=== PATIENT | male | born 1945 | race Caucasian/White ===

== ENCOUNTER 2016-07-01 08:44 | Inpatient (IN) | payer MEDICARE, BC ==
[2016-07-01] MEDS ORDERED: Sodium Chloride 0.9% 2.5 ML Syringe FLUSH PRN ×2 (08:54→12:00)
[2016-07-01] MEDS ORDERED: Sodium Chloride 0.9% 10 ML Syringe FLUSH PRN ×2 (08:54→12:00)
[2016-07-01] MEDS ORDERED: Albuterol/Ipratropium 3.0-0.5 MG/3 ML Neb Soln NEB ONE (08:59)
[2016-07-01] MEDS ORDERED: Diphtheria,Pertussis(Acell),Tetanus Vaccine 0.5 ML Syringe IM ONE (09:05)
--- NOTE | 2016-07-01 09:16 | EDM.PDOC ---
<Yg JenniferJacqueline cerrato - Last Filed: 07/01/16 09:51> ED HPI Trauma - General Chief Complaint: Lower Extremity Injury/Pain Stated Complaint: UNK Time Seen by Provider: 07/01/16 08:48 Source: Reports: Patient History Limitations: Reports: No limitations - History of Present Illness INITIAL COMMENTS - FREE TEXT/NARRATIVE: Patient is a 70 year old male brought in by EMS who were called in to patient's home for inability to get out of his chair secondary to weakness and bilateral ankle pain that was so painful patient was unable to make it to the bathroom. In the ED patient voices he doesn't know what happened he was told he was hollering and screaming in pain because he couldn't get up. Voices bilaterally ankle pain and above the knee right leg pain he voices the pain as a 12 on a scale of 0-10. Patient has a superficial abrasion to right great toe of unknown cause says "I may have bumped it" Symptom Onset Date: 07/01/16 Occurred When: this morning Occurred Where: home Method of Injury: unknown Pain/Injury Location: Reports: lower extremity, right, lower extremity, left Consciousness: Reports: no loss of consciousness Associated Symptoms: Reports: no other symptoms Allergies/ADRs: Allergies ibuprofen Allergy (Verified 07/01/16 09:04) unknown lisinopril Allergy (Verified 07/01/16 09:04) unknown sulfamethoxazole [From Bactrim] Allergy (Verified 07/01/16 09:04) unknown trimethoprim [From Bactrim] Allergy (Verified 07/01/16 09:04) unknown Home Medications: Ambulatory Orders Allopurinol [Zyloprim] mg PO DAILY 07/01/16 Cinnamon Bark [Cinnamon] 2,000 mg PO DAILY 07/01/16 [Confirmed 07/01/16] Digoxin [Digox] 1 tab PO DAILY 07/01/16 [Confirmed 07/01/16] Famotidine 20 mg PO DAILY 07/01/16 [Confirmed 07/01/16] Furosemide [Lasix] 80 mg PO DAILY 07/01/16 [Confirmed 07/01/16] Gabapentin [Neurontin] 300 mg PO TID 07/01/16 [Confirmed 07/01/16] Irbesartan 75 mg PO DAILY 07/01/16 [Confirmed 07/01/16] Metoprolol Succinate [Toprol XL 50mg] 50 mg PO BID 07/01/16 [Confirmed 07/01/16] [place]-3S/DHA/Epa/Fish Oil [[place]-3 Fish Oil 1,000 mg Sfgl] 1 each PO DAILY 07/01 [Confirmed 07/01/16] Potassium Chloride 20 meq PO BID 07/01/16 [Confirmed 07/01/16] Pravastatin [Pravachol] 10 mg PO DAILY 07/01/16 [Confirmed 07/01/16] Prednisone [IJD: Prednisone] PO BID 07/01/16 Sennosides [Senna] 2 tab PO DAILY 07/01/16 [Confirmed 07/01/16] Spironolactone [Aldactone] 25 mg PO DAILY 07/01/16 [Confirmed 07/01/16] Venlafaxine [Effexor XR 24 Hr] 75 mg PO DAILY 07/01/16 [Confirmed 07/01/16] Warfarin [Coumadin] PO DAILY 07/01/16 metFORMIN [Glucophage XR] 07/01/16 [Confirmed 07/01/16] oxyCODONE ER [OxyCONTIN] 20 mg PO DAILY 07/01/16 [Confirmed 07/01/16] Past Medical History Cardiovascular History: Reports: CAD, Heart Failure, NV, Stents Respiratory History: Reports: COPD Other Musculoskeletal History: he has a history of abdominal hernias Neurological History: Reports: CVA Endocrine/Metabolic History: Reports: Diabetes, type II, Obesity/BMI 30+ Hematologic History: Reports: None Oncologic (Cancer) History: Reports: None - Past Surgical History Cardiovascular Surgical History: Reports: Coronary artery stent GI Surgical History: Reports: Hernia, abdominal, Hernia repair/other, Other ( see below) Other GI Surgeries/Procedures: Abdominal mesh placement Neurological Surgical History: Reports: Spinal fusion Musculoskeletal Surgical History: Reports: Other (see below) Other Musculoskeletal Surgeries/Procedures:: 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 Trauma Exam - Physical Exam Exam: See Below Text/Narrative:: Patient has audible wheezing and gurgling, on auscultation there is diminished breath sounds and some scattered rhonchi but good air exchange. Bilateral ankles are edematous and tender to touch right more swollen than left. Well healed scars noted on body. Exam Limited By: No limitations General Appearance: Reports: alert, WD/WN, no apparent distress Head: Reports: atraumatic, normocephalic Ears: Reports: normal external exam Nose: Reports: normal inspection Throat/Mouth: Reports: Normal inspection, Normal lips, Normal teeth, Normal gums , Normal oropharynx, Normal voice, No airway compromise Neck: Reports: non-tender, normal inspection Respiratory Exam: Reports: chest non-tender, decreased breath sounds ( diminished breath sounds throughout ), rhonchi (expiratory rhonchi), wheezing ( upper and lower lobes bilaterally) Cardiovascular: Reports: regular rate, rhythm, no JVD, no murmur, no rub GI/Abdominal: Reports: soft, non tender, distended, hernia (multiple abdominal hernia) (Male) Exam: Deferred Rectal (Males) Exam: Deferred Extremities: Reports: pedal edema, tenderness, unable to bear weight, other ( Superficial wound to RT great toe, toes are swollen and ecchymotic, also sscattered areas of ecchymosis on foot) Neurologic: Reports: normal mood/affect Skin: Reports: Other (bilateral lower extremities cool to touch) Course - Vital Signs Last Recorded V/S: Last Vital Signs Temp 36.7 C 07/01/16 11:24 Pulse 88 07/01/16 11:24 Resp 20 07/01/16 11:24 BP 115/58 L 07/01/16 11:24 Pulse Ox 94 L 07/01/16 11:24 - Orders/Labs/Meds Orders: Active Orders 24 hr Category Date Time Status Patient Status [ADT] Stat ADT 07/01/16 11:26 Ordered Cardiac Monitoring [RC] . DIRECTED Care 07/01/16 08:53 Active EKG Documentation Completion [RC] STAT Care 07/01/16 08:53 Active Oxygen Therapy, ED [RC] ASDIRECTED Care 07/01/16 08:53 Active Pulse Oximetry [RC] ASDIRECTED Care 07/01/16 08:53 Active RT Aerosol Therapy [RC] ASDIRECTED Care 07/01/16 08:59 Active Vaccines to be Administered [RC] PER UNIT ROUTINE Care 07/01/16 09:05 Active Ankle 2V Lt [CR] Stat Exams 07/01/16 08:54 Taken Ankle 2V Rt [CR] Stat Exams 07/01/16 08:54 Taken Chest 1V Frontal [CR] Stat Exams 07/01/16 08:54 Taken Foot 2V Rt [CR] Stat Exams 07/01/16 08:54 Taken CULTURE URINE [RM] Stat Lab 07/01/16 10:35 Received Piperacillin/Tazobactam [Piperacil-Tazobact] 3.375 gm Med 07/01/16 11:32 Ordered Sodium Chloride 0.9% [Normal Saline] 50 ml IV ONETIME Sodium Chloride 0.9% [Saline Flush] Med 07/01/16 08:54 Active 10 ml FLUSH ASDIRECTED PRN Sodium Chloride 0.9% [Saline Flush] Med 07/01/16 08:54 Active 2.5 ml FLUSH ASDIRECTED PRN Saline Lock Insert [OM.PC] Stat Oth 07/01/16 08:53 Ordered Medication Orders Piperacillin Sod/Tazobactam (Sod 3.375 gm/ Sodium Chloride) 50 mls @ 100 mls/ hr IV ONETIME ONE Stop: 07/01/16 12:01 Sodium Chloride (Saline Flush) 10 ml FLUSH ASDIRECTED PRN PRN Reason: Keep Vein Open Last Admin: 07/01/16 09:08 Dose: 10 ml Sodium Chloride (Saline Flush) 2.5 ml FLUSH ASDIRECTED PRN PRN Reason: Keep Vein Open Last Admin: 07/01/16 09:08 Dose: 2.5 ml Labs: Laboratory Tests 07/01/16 07/01/16 07/01/16 Range/Units 09:15 09:15 09:15 WBC 17.71 H (4.0-11.0) K/uL RBC 3.98 L (4.50-5.90) M/uL Hgb 12.0 L (13.0-17.0) g/dL Hct 37.5 L (38.0-50.0) % MCV 94.2 (80.0-98.0) fL MCH 30.2 (27.0-32.0) pg MCHC 32.0 (31.0-37.0) g/dL RDW Std Deviation 59.1 (28.0-62.0) fl RDW Coeff of [place] 17 H (11.0-15.0) % Plt Count 196 (150-400) K/uL MPV 10.10 (7.40-12.00) fL Neut % (Auto) 84.8 H (48.0-80.0) % Lymph % (Auto) 6.7 L (16.0-40.0) % Charles % (Auto) 8.0 (0.0-15.0) % Eos % (Auto) 0.3 (0.0-7.0) % Baso % (Auto) 0.2 (0.0-1.5) % Neut # 15.0 H (1.4-5.7) K/uL Lymph # 1.2 (0.6-2.4) K/uL Charles # 1.4 H (0.0-0.8) K/uL Eos # 0.1 (0.0-0.7) K/uL Baso # 0.0 (0.0-0.1) K/uL Nucleated RBC % 0.0 /100WBC Nucleated RBCs # 0 K/uL INR 3.95 H (0.86-1.11) Lactate 1.7 (0.20-2.00) mmol/L Sodium (136-146) mmol/L Potassium (3.5-5.1) mmol/L Chloride (98-110) mmol/L Carbon Dioxide (21-31) mmol/L BUN (6.0-23.0) mg/dL Creatinine (0.6-1.5) mg/dL Est Cr Clr Drug Dosing Estimated GFR (MDRD) ml/min Glucose (60-110) mg/dL Calcium (8.8-10.8) mg/dL Total Bilirubin (0.1-1.5) mg/dL AST (5-40) IU/L ALT (8-54) IU/L Alkaline Phosphatase (40-150) Troponin I (0.0-0.29) NG/ML B-Natriuretic Peptide (<100) PG/ML Total Protein (6.0-8.0) g/dL Albumin (3.4-4.8) g/dL Globulin (2.0-3.5) g/dL Albumin/Globulin Ratio (1.3-2.8) Urine Color Urine Appearance Urine pH (5.0-8.0) Ur Specific [place] (1.001-1.035) Urine Protein (NEGATIVE) mg/dL Urine Glucose (UA) (NEGATIVE) mg/dL Urine Ketones (NEGATIVE) mg/dL Urine Occult Blood (NEGATIVE) Urine Nitrite (NEGATIVE) Urine Bilirubin (NEGATIVE) Urine Urobilinogen (<2.0) EU/dL Ur Leukocyte Esterase (NEGATIVE) Urine RBC (0-2/HPF) Urine WBC (0-5/HPF) Ur Epithelial Cells (NONE-FEW) Urine Bacteria (NEGATIVE) Digoxin (0.8-2.0) ng/mL 07/01/16 07/01/16 07/01/16 Range/Units 09:15 09:15 09:15 WBC (4.0-11.0) K/uL RBC (4.50-5.90) M/uL Hgb (13.0-17.0) g/dL Hct (38.0-50.0) % MCV (80.0-98.0) fL MCH (27.0-32.0) pg MCHC (31.0-37.0) g/dL RDW Std Deviation (28.0-62.0) fl RDW Coeff of [place] (11.0-15.0) % Plt Count (150-400) K/uL MPV (7.40-12.00) fL Neut % (Auto) (48.0-80.0) % Lymph % (Auto) (16.0-40.0) % Charles % (Auto) (0.0-15.0) % Eos % (Auto) (0.0-7.0) % Baso % (Auto) (0.0-1.5) % Neut # (1.4-5.7) K/uL Lymph # (0.6-2.4) K/uL Charles # (0.0-0.8) K/uL Eos # (0.0-0.7) K/uL Baso # (0.0-0.1) K/uL Nucleated RBC % /100WBC Nucleated RBCs # K/uL INR (0.86-1.11) Lactate (0.20-2.00) mmol/L Sodium 135 L (136-146) mmol/L Potassium 4.5 (3.5-5.1) mmol/L Chloride 99 (98-110) mmol/L Carbon Dioxide 23 (21-31) mmol/L BUN 38 H (6.0-23.0) mg/dL Creatinine 1.6 H (0.6-1.5) mg/dL Est Cr Clr Drug Dosing TNP Estimated GFR (MDRD) 42.8 ml/min Glucose 154 H (60-110) mg/dL Calcium 8.7 L (8.8-10.8) mg/dL Total Bilirubin 0.7 (0.1-1.5) mg/dL AST 27 (5-40) IU/L ALT 20 (8-54) IU/L Alkaline Phosphatase 87 (40-150) Troponin I < 0.10 (0.0-0.29) NG/ML B-Natriuretic Peptide 229 H (<100) PG/ML Total Protein 6.6 (6.0-8.0) g/dL Albumin 3.1 L (3.4-4.8) g/dL Globulin 3.5 (2.0-3.5) g/dL Albumin/Globulin Ratio 0.9 L (1.3-2.8) Urine Color Urine Appearance Urine pH (5.0-8.0) Ur Specific [place] (1.001-1.035) Urine Protein (NEGATIVE) mg/dL Urine Glucose (UA) (NEGATIVE) mg/dL Urine Ketones (NEGATIVE) mg/dL Urine Occult Blood (NEGATIVE) Urine Nitrite (NEGATIVE) Urine Bilirubin (NEGATIVE) Urine Urobilinogen (<2.0) EU/dL Ur Leukocyte Esterase (NEGATIVE) Urine RBC (0-2/HPF) Urine WBC (0-5/HPF) Ur Epithelial Cells (NONE-FEW) Urine Bacteria (NEGATIVE) Digoxin 1.45 (0.8-2.0) ng/mL 07/01/16 Range/Units 10:35 WBC (4.0-11.0) K/uL RBC (4.50-5.90) M/uL Hgb (13.0-17.0) g/dL Hct (38.0-50.0) % MCV (80.0-98.0) fL MCH (27.0-32.0) pg MCHC (31.0-37.0) g/dL RDW Std Deviation (28.0-62.0) fl RDW Coeff of [place] (11.0-15.0) % Plt Count (150-400) K/uL MPV (7.40-12.00) fL Neut % (Auto) (48.0-80.0) % Lymph % (Auto) (16.0-40.0) % Charles % (Auto) (0.0-15.0) % Eos % (Auto) (0.0-7.0) % Baso % (Auto) (0.0-1.5) % Neut # (1.4-5.7) K/uL Lymph # (0.6-2.4) K/uL Charles # (0.0-0.8) K/uL Eos # (0.0-0.7) K/uL Baso # (0.0-0.1) K/uL Nucleated RBC % /100WBC Nucleated RBCs # K/uL INR (0.86-1.11) Lactate (0.20-2.00) mmol/L Sodium (136-146) mmol/L Potassium (3.5-5.1) mmol/L Chloride (98-110) mmol/L Carbon Dioxide (21-31) mmol/L BUN (6.0-23.0) mg/dL Creatinine (0.6-1.5) mg/dL Est Cr Clr Drug Dosing Estimated GFR (MDRD) ml/min Glucose (60-110) mg/dL Calcium (8.8-10.8) mg/dL Total Bilirubin (0.1-1.5) mg/dL AST (5-40) IU/L ALT (8-54) IU/L Alkaline Phosphatase (40-150) Troponin I (0.0-0.29) NG/ML B-Natriuretic Peptide (<100) PG/ML Total Protein (6.0-8.0) g/dL Albumin (3.4-4.8) g/dL Globulin (2.0-3.5) g/dL Albumin/Globulin Ratio (1.3-2.8) Urine Color YELLOW Urine Appearance CLEAR Urine pH 5.0 (5.0-8.0) Ur Specific [place] 1.010 (1.001-1.035) Urine Protein NEGATIVE (NEGATIVE) mg/dL Urine Glucose (UA) NEGATIVE (NEGATIVE) mg/dL Urine Ketones NEGATIVE (NEGATIVE) mg/dL Urine Occult Blood SMALL H (NEGATIVE) Urine Nitrite NEGATIVE (NEGATIVE) Urine Bilirubin NEGATIVE (NEGATIVE) Urine Urobilinogen 0.2 (<2.0) EU/dL Ur Leukocyte Esterase NEGATIVE (NEGATIVE) Urine RBC 2-3 (0-2/HPF) Urine WBC 0-2 (0-5/HPF) Ur Epithelial Cells FEW (NONE-FEW) Urine Bacteria FEW (NEGATIVE) Digoxin (0.8-2.0) ng/mL Meds: Medications Generic Name Dose Route Start Last Admin Trade Name Freq PRN Reason Stop Dose Admin Piperacillin Sod/Tazobactam 50 mls @ 100 mls/hr 07/01/16 11:32 Sod 3.375 gm/ Sodium Chloride IV 07/01/16 12:01 ONETIME ONE Sodium Chloride 10 ml 07/01/16 08:54 07/01/16 09:08 Saline Flush FLUSH 10 ml ASDIRECTED PRN Administration Keep Vein Open Sodium Chloride 2.5 ml 07/01/16 08:54 07/01/16 09:08 Saline Flush FLUSH 2.5 ml ASDIRECTED PRN Administration Keep Vein Open Discontinued Medications Generic Name Dose Route Start Last Admin Trade Name Freq PRN Reason Stop Dose Admin Albuterol/Ipratropium 3 ml 07/01/16 08:59 07/01/16 09:45 Duoneb 3.0-0.5 Mg/3 Ml NEB 07/01/16 09:00 3 ml ONETIME ONE Administration Diphtheria/Tetanus/Acell Pertussis 0.5 ml 07/01/16 09:05 07/01/16 09:14 Adacel IM 07/01/16 09:06 0.5 ml .ONCE ONE Administration Furosemide 80 mg 07/01/16 11:32 Lasix IVPUSH 07/01/16 11:33 NOW ONE Departure - Departure Disposition: Admitted As Inpatient 65 Clinical Impression: Toe infection, Unable to ambulate CHF exacerbation Qualifiers: Congestive heart failure type: unspecified congestive heart failure type Qualified Code(s): I50.9 - Heart failure, unspecified Forms: ED Department Discharge - My Orders Last 24 Hours: My Active Orders 07/01/16 08:53 Cardiac Monitoring [RC] . DIRECTED EKG Documentation Completion [RC] STAT Oxygen Therapy, ED [RC] ASDIRECTED Pulse Oximetry [RC] ASDIRECTED Saline Lock Insert [OM.PC] Stat 07/01/16 08:54 Ankle 2V Lt [CR] Stat Ankle 2V Rt [CR] Stat Chest 1V Frontal [CR] Stat Foot 2V Rt [CR] Stat Sodium Chloride 0.9% [Saline Flush] 10 ml FLUSH ASDIRECTED PRN Sodium Chloride 0.9% [Saline Flush] 2.5 ml FLUSH ASDIRECTED PRN 07/01/16 08:59 RT Aerosol Therapy [RC] ASDIRECTED 07/01/16 09:05 Vaccines to be Administered [RC] PER UNIT ROUTINE 07/01/16 10:35 CULTURE URINE [RM] Stat 07/01/16 11:26 Patient Status [ADT] Stat 07/01/16 11:32 Piperacillin/Tazobactam [Piperacil-Tazobact] 3.375 gm Sodium Chloride 0.9% [ Normal Saline] 50 ml IV ONETIME - Assessment/Plan Last 24 Hours: My Active Orders 07/01/16 08:53 Cardiac Monitoring [RC] . DIRECTED EKG Documentation Completion [RC] STAT Oxygen Therapy, ED [RC] ASDIRECTED Pulse Oximetry [RC] ASDIRECTED Saline Lock Insert [OM.PC] Stat 07/01/16 08:54 Ankle 2V Lt [CR] Stat Ankle 2V Rt [CR] Stat Chest 1V Frontal [CR] Stat Foot 2V Rt [CR] Stat Sodium Chloride 0.9% [Saline Flush] 10 ml FLUSH ASDIRECTED PRN Sodium Chloride 0.9% [Saline Flush] 2.5 ml FLUSH ASDIRECTED PRN 07/01/16 08:59 RT Aerosol Therapy [RC] ASDIRECTED 07/01/16 09:05 Vaccines to be Administered [RC] PER UNIT ROUTINE 07/01/16 10:35 CULTURE URINE [RM] Stat 07/01/16 11:26 Patient Status [ADT] Stat 07/01/16 11:32 Piperacillin/Tazobactam [Piperacil-Tazobact] 3.375 gm Sodium Chloride 0.9% [ Normal Saline] 50 ml IV ONETIME <Andreea Blas - Last Filed: 07/01/16 11:35> ED HPI Trauma - History of Present Illness INITIAL COMMENTS - FREE TEXT/NARRATIVE: This is Dr. Blas dictating an addendum note as a supervising physician on this case I personally seen and evaluated this patient and I agree with the above notes. The patient sounds audibly gurgly and wheezy but when you listen to his lungs he has diminished breath sounds some scattered rhonchi and coarse breath sounds as well as some scattered rales but is moving air relatively well and has no work or breathing. His abdomen is globular and has multiple abdominal ventral wall hernias all of which are soft and some old scars that are well-healed. It is noted that his right great toe has a superficial wound on it of unclear age and the entire toe is swollen and ecchymotic and there is scattered areas of ecchymosis on the foot. There is soft tissue swelling bilaterally of the feet ankles and lower legs but is not grossly pitting. The right foot and great toe are more swollen than the left and there is tenderness and pain throughout the soft tissue area. It is difficult to evaluate the bony ankle due to the amount of soft tissue swelling. I agree with the above workup and in light of the patient's inability to get up and ambulate either secondary to the edema or the pain will likely look to admit the patient. Nursing tells me that when they try to get the patient up to go to a commode he declined even trying because of the discomfort in his bilateral ankles and legs. Due to this patient's inability to weight-bear and has chronic lower extremity edema with the new fracture of his right toe and mild CHF will plan on admission to the hospital. The WBC of 17.7 has been noted but a normal lactic acid has been noted. I will discuss this case with the hospitalist [id number]: As discussed with ; he will come to see the patient in the ER and admit the patient [id number]: Dr Diaz wants to give a dose of Lasix 80 mg IV push and Zosyn as he feels that the toe wound may be or central source of his WBC count. We will admit to telemetry as an inpatient. Diagnosis: Inability to ambulate, bilateral leg and foot pain with new right toe fracture; exacerbation of CHF; leukocytosis rule out toe infection Departure - Departure Time of Disposition: 11:35 Condition: good
[2016-07-01 09:55] LABS: CHLORIDE,CL 99 mmol/L (98-110); SODIUM,NA 135 mmol/L (136-146)
[2016-07-01] MEDS ORDERED: Piperacillin/Tazobactam 3.375 GM in Sodium Chloride 0.9% 50 ML IV ONE (11:32)
[2016-07-01] MEDS ORDERED: Furosemide 40 MG/4 ML VIAL IVPUSH ONE (11:32)
[2016-07-01] MEDS ORDERED: Bisacodyl 5 MG Tab PO PRN (11:57)
[2016-07-01] MEDS ORDERED: Temazepam 15 MG Cap PO PRN (11:57)
[2016-07-01] MEDS ORDERED: Ondansetron 4 MG/2 ML SDV IVPUSH PRN (11:57)
--- NOTE | 2016-07-01 12:08 | PCM.HP ---
H&P History of Present Illness - General Date of Service: 07/01/16 Source of Information: Patient, Family, Provider, RN - History of Present Illness Initial Comments - Free Text/Narative: He presented today to our ED with complaint of inability to stand up. He had urinary incontinence related to inability to ambulate to the toilet. HE notes intermittent chronic dyspnea and wheezing He was diagnosed in the ED with a fracture of the right great toe. He has pain in the right knee since he fell to his right knee at home right foot and knee Pain Score (Numeric/FACES): 10 - Related Data Allergies/Adverse Reactions: Allergies Allergy/AdvReac Type Severity Reaction Status Date / Time ibuprofen Allergy unknown Verified 07/01/16 09:04 lisinopril Allergy unknown Verified 07/01/16 09:04 sulfamethoxazole Allergy unknown Verified 07/01/16 09:04 [From Bactrim] trimethoprim [From Bactrim] Allergy unknown Verified 07/01/16 09:04 Home Medications: Home Meds Allopurinol [Zyloprim] mg PO DAILY 07/01/16 [History] Cinnamon Bark [Cinnamon] 2,000 mg PO DAILY 07/01/16 [History] Digoxin [Digox] 1 tab PO DAILY 07/01/16 [History] Famotidine 20 mg PO DAILY 07/01/16 [History] Furosemide [Lasix] 80 mg PO DAILY 07/01/16 [History] Gabapentin [Neurontin] 300 mg PO TID 07/01/16 [History] Irbesartan 75 mg PO DAILY 07/01/16 [History] Metoprolol Succinate [Toprol XL 50mg] 50 mg PO BID 07/01/16 [History] [place]-3S/DHA/Epa/Fish Oil [[place]-3 Fish Oil 1,000 mg Sfgl] 1 each PO DAILY 07/01 [History] Potassium Chloride 20 meq PO BID 07/01/16 [History] Pravastatin [Pravachol] 10 mg PO DAILY 07/01/16 [History] Prednisone [IJD: Prednisone] PO BID 07/01/16 [History] Sennosides [Senna] 2 tab PO DAILY 07/01/16 [History] Spironolactone [Aldactone] 25 mg PO DAILY 07/01/16 [History] Venlafaxine [Effexor XR 24 Hr] 75 mg PO DAILY 07/01/16 [History] Warfarin [Coumadin] PO DAILY 07/01/16 [History] metFORMIN [Glucophage XR] 07/01/16 [History] oxyCODONE ER [OxyCONTIN] 20 mg PO DAILY 07/01/16 [History] Past Medical History Cardiovascular History: Reports: CAD, Heart Failure, [place], Stents Respiratory History: Reports: COPD Gastrointestinal History: Denies: Cirrhosis Other Musculoskeletal History: he has a history of abdominal hernias Neurological History: Reports: CVA, Other (see below) (chronic dementia) Endocrine/Metabolic History: Reports: Diabetes, type II, Obesity/BMI 30+ Hematologic History: Reports: None Oncologic (Cancer) History: Reports: None - Past Surgical History Cardiovascular Surgical History: Reports: Coronary artery stent GI Surgical History: Reports: Hernia, abdominal, Hernia repair/other, Other ( see below) Other GI Surgeries/Procedures: Abdominal mesh placement Neurological Surgical History: Reports: Spinal fusion Musculoskeletal Surgical History: Reports: Other (see below) Other Musculoskeletal Surgeries/Procedures:: 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 Denies: fever HEENT: Denies: sore throat Pulmonary: Reports: shortness of breath, cough Cardiovascular: Denies: chest pain, palpitations Gastrointestinal: Reports: Abdominal pain (chronic mild abdominal pain which he relates to prior abdominal hernias with mesh placement.). Denies: Black stool, Hematemesis, Hematochezia, Nausea Genitourinary: Denies: dysuria, hematuria Skin: Denies: cyanosis Psychiatric: Reports: confusion (memory problems) Exam - Exam Exam: See Below - Vital Signs Vital Signs: Last Vital Signs Temp 98.0 F 07/01/16 11:24 Pulse 88 07/01/16 11:24 Resp 20 07/01/16 11:24 BP 115/58 L 07/01/16 11:24 Pulse Ox 94 L 07/01/16 11:24 Weight: 128 kg - Exam General: alert. No: oriented (he is confused as to when he quit smoking; stating that it was 3 years ago. His significant other states that he quit 30 years ago. ) HEENT: Conjunctiva clear Neck: trachea midline Lungs: Rhonchi, Wheezing Cardiovascular: regular rate, regular rhythm Abdomen: soft. No: distention, guarding, tenderness Rectal (Males) Exam: Deferred Extremities: edema (three plus pitting LE edema), other (open area distal right great toe with increase in surrounding erythema and swelling and tenderness) Neurological: cranial nerves intact, normal speech Neuro Extensive - Motor, Sensory, Reflexes: No: normal gait (he states that he cannot bear weight) Psychiatric: No: agitated - Patient Data Result Diagrams: 07/01/16 09:15 07/01/16 09:15 *Q Meaningful Use (ADM) - VTE *Q VTE Criteria *Q: - Stroke *Q Stroke Criteria *Q: - AMI *Q AMI Criteria *Q: - Problem List (1) Leukocytosis SNOMED Code(s): 029630669, 543604533 ICD Code: D72.829 - ELEVATED WHITE BLOOD CELL COUNT, UNSPECIFIED Status: Acute Current Visit: Yes (2) Fracture of toe of right foot SNOMED Code(s): 64006241 ICD Code: S92.911A - UNSP FRACTURE OF RIGHT TOE(S), INIT FOR CLOS FX Status : Acute Current Visit: Yes (3) Diabetes mellitus SNOMED Code(s): 39658797 ICD Code: E11.9 - TYPE 2 DIABETES MELLITUS WITHOUT COMPLICATIONS Status: Acute Current Visit: Yes (4) CHF exacerbation SNOMED Code(s): 72535226 ICD Code: I50.9 - HEART FAILURE, UNSPECIFIED Status: Acute Current Visit : Yes Qualifiers: Congestive heart failure type: unspecified congestive heart failure type Qualified Code(s): I50.9 - Heart failure, unspecified (5) Toe infection SNOMED Code(s): 061247978 ICD Code: L08.9 - LOCAL INFECTION OF THE SKIN AND SUBCUTANEOUS TISSUE, UNSP Status: Acute Current Visit: Yes (6) COPD (chronic obstructive pulmonary disease) SNOMED Code(s): 07546970 ICD Code: J44.9 - CHRONIC OBSTRUCTIVE PULMONARY DISEASE, UNSPECIFIED Status : Chronic Current Visit: No Qualifiers: COPD type: unspecified COPD Qualified Code(s): J44.9 - Chronic obstructive pulmonary disease, unspecified Problem List Initiated/Reviewed/Updated: Yes Orders Last 24hrs: Active Orders 24 hr Category Date Time Status Blood Glucose Check, Bedside [RC] QIDACANDBED Care 07/01/16 11:57 Ordered Oxygen Therapy [RC] PRN Care 07/01/16 11:57 Ordered RT Aerosol Therapy [RC] ASDIRECTED Care 07/01/16 12:00 Ordered VTE/DVT Education [RC] PER UNIT ROUTINE Care 07/01/16 11:57 Ordered Vital Signs [RC] Q4H Care 07/01/16 11:57 Ordered [employer] Diet [DIET] Diet 07/01/16 Dinner Ordered Foot w Cont Rt [MR] Routine Exams 07/01/16 12:02 Ordered B-TYPE NATRIURETIC PEPTIDE,BNP [CHEM] AM Lab 07/02/16 05:11 Ordered BASIC METABOLIC PANEL,BMP [CHEM] AM Lab 07/02/16 05:11 Ordered BASIC METABOLIC PANEL,BMP [CHEM] AM Lab 07/03/16 05:11 Ordered BASIC METABOLIC PANEL,BMP [CHEM] AM Lab 07/04/16 05:11 Ordered CBC WITH AUTO DIFF [HEME] AM Lab 07/02/16 05:11 Ordered CBC WITH AUTO DIFF [HEME] AM Lab 07/03/16 05:11 Ordered CBC WITH AUTO DIFF [HEME] AM Lab 07/04/16 05:11 Ordered CULTURE BLOOD [BC] Stat Lab 07/01/16 11:49 Ordered CULTURE BLOOD [BC] Stat Lab 07/01/16 11:49 Ordered INR,PT,PROTHROMBIN TIME [COAG] AM Lab 07/02/16 05:11 Ordered INR,PT,PROTHROMBIN TIME [COAG] AM Lab 07/03/16 05:11 Ordered INR,PT,PROTHROMBIN TIME [COAG] AM Lab 07/04/16 05:11 Ordered INR,PT,PROTHROMBIN TIME [COAG] AM Lab 07/05/16 05:11 Ordered MAGNESIUM [CHEM] AM Lab 07/02/16 05:11 Ordered MAGNESIUM [CHEM] AM Lab 07/03/16 05:11 Ordered MAGNESIUM [CHEM] AM Lab 07/04/16 05:11 Ordered Albuterol/Ipratropium [DuoNeb 3.0-0.5 MG/3 ML] Med 07/01/16 14:00 Ordered 3 ml NEB Q4HRRT Allopurinol [Zyloprim] Med 07/02/16 09:00 Ordered 100 mg PO DAILY Bisacodyl [Dulcolax] Med 07/01/16 11:57 Ordered 5 mg PO DAILY PRN Digoxin [Lanoxin] Med 07/02/16 09:00 Ordered 1 tab PO DAILY Famotidine [Pepcid] Med 07/02/16 09:00 Ordered 20 mg PO DAILY Furosemide [Lasix] Med 07/02/16 09:00 Ordered 80 mg PO DAILY Gabapentin [Neurontin] Med 07/01/16 14:00 Ordered 300 mg PO TID Insulin Aspart [NovoLOG] Med 07/01/16 12:15 Ordered See Protocol SUBCUT ACBED Irbesartan [Irbesartan] Med 07/01/16 12:00 Ordered 75 mg PO DAILY Metoprolol Succinate [Toprol XL] Med 07/01/16 21:00 Ordered 50 mg PO BID [place]-3S/DHA/Epa/Fish Oil [[place]-3 Fish Oil 1,000 mg Med 07/02/16 09:00 Ordered Sfgl] 1 each PO DAILY Ondansetron [Zofran] Med 07/01/16 11:57 Ordered 4 mg IVPUSH Q4H PRN Piperacillin/Tazobactam [Piperacil-Tazobact] 3.375 gm Med 07/01/16 18:00 Ordered Sodium Chloride 0.9% [Normal Saline] 50 ml IV Q6H Potassium Chloride [Klor-Con] Med 07/01/16 21:00 Ordered 20 meq PO BID Pravastatin [Pravachol] Med 07/02/16 09:00 Ordered 10 mg PO DAILY Sennosides [Senna] Med 07/02/16 09:00 Ordered 2 tab PO DAILY Sodium Chloride 0.9% [Saline Flush] Med 07/01/16 12:00 Ordered 10 ml FLUSH ASDIRECTED PRN Sodium Chloride 0.9% [Saline Flush] Med 07/01/16 12:00 Ordered 2.5 ml FLUSH ASDIRECTED PRN Spironolactone [Aldactone] Med 07/02/16 09:00 Ordered 25 mg PO DAILY Temazepam [Restoril] Med 07/01/16 11:57 Ordered 15 mg PO BEDTIME PRN Vancomycin Pharmacy to Dose [Pharmacy to Dose - Med 07/01/16 12:00 Ordered Vancomycin] 1 dose .XX ASDIRECTED Venlafaxine [Effexor XR] Med 07/02/16 09:00 Ordered 75 mg PO DAILY oxyCODONE ER [OxyCONTIN] Med 07/01/16 11:50 Ordered 20 mg PO BID PRN predniSONE Med 07/01/16 21:00 Unverified DOSE UNIT RTE FREQ Blood Culture x2 Reflex Set [OM.PC] Stat Oth 07/01/16 11:49 Ordered Convert IV to Saline Lock [OM.PC] Urgent Oth 07/01/16 12:00 Ordered Resuscitation Status Routine Resus Stat 07/01/16 11:57 Ordered Medication Orders Allopurinol (Zyloprim) 100 mg PO DAILY [facility] Digoxin (Lanoxin) 125 mcg PO DAILY [facility] Famotidine (Pepcid) 20 mg PO DAILY [facility] Fish Oil (Fish Oil) 1 gm PO DAILY [facility] Furosemide (Lasix) 80 mg PO DAILY [facility] Gabapentin (Neurontin) 300 mg PO TID [facility] Piperacillin Sod/Tazobactam (Sod 3.375 gm/ Sodium Chloride) 50 mls @ 100 mls/ hr IV Q6H [facility] Irbesartan (Avapro) 75 mg PO DAILY [facility] Metoprolol Succinate (Toprol Xl) 50 mg PO BID [facility] Non-Formulary Medication (Pravastatin [Pravachol]) 10 mg PO DAILY [facility] Oxycodone HCl (Oxycontin) 20 mg PO BID PRN PRN Reason: Pain Potassium Chloride (Klor-Con) 20 meq PO BID [facility] Senna (Senna) mg PO DAILY [facility] Sodium Chloride (Saline Flush) 10 ml FLUSH ASDIRECTED PRN PRN Reason: Keep Vein Open Last Admin: 07/01/16 09:08 Dose: 10 ml Sodium Chloride (Saline Flush) 2.5 ml FLUSH ASDIRECTED PRN PRN Reason: Keep Vein Open Last Admin: 07/01/16 09:08 Dose: 2.5 ml Spironolactone (Aldactone) 25 mg PO DAILY [facility] Vancomycin HCl (Pharmacy To Dose - Vancomycin) 1 dose .XX ASDIRECTED [facility] Venlafaxine HCl (Effexor Xr) 75 mg PO DAILY [facility] Assessment/Plan Comment:: admit see orders Lee Diaz MD
[2016-07-01] MEDS ORDERED: LORazepam 2 MG/ML MDV IVPUSH PRN (12:14)
[2016-07-01] MEDS: Irbesartan 150 MG Tab PO SCH (12:51)
[2016-07-01] MEDS: Insulin Aspart 100 Units/ML 3 ML Pen SUBCUT SCH ×3 (12:58→20:59)
[2016-07-01] MEDS: Gabapentin 300 MG Cap PO SCH ×2 (13:01→22:06)
[2016-07-01] MEDS: Albuterol/Ipratropium 3.0-0.5 MG/3 ML Neb Soln NEB SCH ×3 (14:02→21:19)
[2016-07-01] MEDS ORDERED: Piperacillin/Tazobactam 3.375 GM in Sodium Chloride 0.9% 50 ML IV SCH (18:00)
[2016-07-01] MEDS: oxyCODONE ER 20 MG TAB.ER PO PRN (20:37)
[2016-07-01] MEDS: Metoprolol Succinate 50 MG Tab.ER PO SCH (20:40)
[2016-07-01] MEDS: Potassium Chloride 20 MEQ Packet PO SCH (20:47)
[2016-07-01] MEDS: Piperacillin/Tazobactam 3.375 GM in Sodium Chloride 0.9% 50 ML IV SCH (22:06)
[2016-07-02] MEDS: Albuterol/Ipratropium 3.0-0.5 MG/3 ML Neb Soln NEB SCH ×6 (02:27→21:02)
[2016-07-02] MEDS: Piperacillin/Tazobactam 3.375 GM in Sodium Chloride 0.9% 50 ML IV SCH ×4 (04:14→21:16)
[2016-07-02] MEDS: Gabapentin 300 MG Cap PO SCH ×3 (06:10→21:13)
[2016-07-02 07:12] LABS: CHLORIDE,CL 104 mmol/L (98-110); SODIUM,NA 140 mmol/L (136-146)
[2016-07-02] MEDS: Insulin Aspart 100 Units/ML 3 ML Pen SUBCUT SCH ×4 (07:35→21:24)
[2016-07-02] MEDS: Furosemide 80 MG Tab PO SCH (08:39)
[2016-07-02] MEDS: Sennosides 8.6 MG Tab PO SCH (08:39)
[2016-07-02] MEDS: Allopurinol 100 MG Tab PO SCH (08:39)
[2016-07-02] MEDS: Famotidine 20 MG Tab PO SCH (08:40)
[2016-07-02] MEDS: Fish Oil/Omega-3 Fatty Acids 1 Gm Cap PO SCH (08:40)
[2016-07-02] MEDS: Potassium Chloride 20 MEQ Packet PO SCH ×2 (08:41→20:44)
[2016-07-02] MEDS: Pravastatin 40 MG Tab PO SCH (08:42)
[2016-07-02] MEDS: Venlafaxine 75 MG Cap.ER PO SCH (08:42)
[2016-07-02] MEDS: Spironolactone 25 MG Tab PO SCH (08:42)
[2016-07-02] MEDS: Irbesartan 150 MG Tab PO SCH (08:54)
[2016-07-02] MEDS: Digoxin 125 MCG Tab PO SCH (08:54)
[2016-07-02] MEDS: Metoprolol Succinate 50 MG Tab.ER PO SCH ×2 (08:56→20:44)
--- NOTE | 2016-07-02 12:37 | PCM.PN ---
- General Info Date of Service: 07/02/16 - Review of Systems Systems Review Comment:: he feels that he is improving - Patient Data Vitals - most recent: Last Vital Signs Temp 98.4 F 07/02/16 08:00 Pulse 101 H 07/02/16 08:56 Resp 18 07/02/16 08:53 BP 119/79 07/02/16 08:56 Pulse Ox 91 L 07/02/16 08:53 Weight - most recent: 128 kg I&O - last 24 hours: Intake & Output 07/01/16 07/02/16 07/02/16 22:59 06:59 14:59 Intake Total 500 1500 Output Total 500 1450 Balance 0 50 Lab Results last 24 hrs: Laboratory Results - last 24 hr 07/01/16 07/01/16 07/01/16 Range/Units 12:48 16:36 20:58 WBC (4.0-11.0) K/uL RBC (4.50-5.90) M/uL Hgb (13.0-17.0) g/dL Hct (38.0-50.0) % MCV (80.0-98.0) fL MCH (27.0-32.0) pg MCHC (31.0-37.0) g/dL RDW Std Deviation (28.0-62.0) fl RDW Coeff of [place] (11.0-15.0) % Plt Count (150-400) K/uL MPV (7.40-12.00) fL Add Manual Diff Neutrophils % (Manual) (48.0-80.0) % Band Neutrophils % % Lymphocytes % (Manual) (16.0-40.0) % Atypical Lymphs % Basophils % (Manual) (0.0-1.5) % Absolute Seg Neuts Band Neutrophils # Lymphocytes # (Manual) Basophils # (Manual) INR (0.86-1.11) Sodium (136-146) mmol/L Potassium (3.5-5.1) mmol/L Chloride (98-110) mmol/L Carbon Dioxide (21-31) mmol/L BUN (6.0-23.0) mg/dL Creatinine (0.6-1.5) mg/dL Est Cr Clr Drug Dosing Estimated GFR (MDRD) ml/min Glucose (60-110) mg/dL POC Glucose 178 H 153 H 128 H (60-110) mg/dL Calcium (8.8-10.8) mg/dL Magnesium (1.5-2.3) mEq/L B-Natriuretic Peptide (<100) PG/ML 07/02/16 07/02/16 07/02/16 Range/Units 05:11 05:40 05:40 WBC 15.43 H (4.0-11.0) K/uL RBC 3.48 L (4.50-5.90) M/uL Hgb 10.7 L (13.0-17.0) g/dL Hct 33.5 L (38.0-50.0) % MCV 96.3 (80.0-98.0) fL MCH 30.7 (27.0-32.0) pg MCHC 31.9 (31.0-37.0) g/dL RDW Std Deviation 56.8 (28.0-62.0) fl RDW Coeff of [place] 17 H (11.0-15.0) % Plt Count 207 (150-400) K/uL MPV 9.90 (7.40-12.00) fL Add Manual Diff YES Neutrophils % (Manual) 78 (48.0-80.0) % Band Neutrophils % 7 % Lymphocytes % (Manual) 12 L (16.0-40.0) % Atypical Lymphs % 1 Basophils % (Manual) 2 H (0.0-1.5) % Absolute Seg Neuts 12.0 Band Neutrophils # 1.1 Lymphocytes # (Manual) 1.9 Basophils # (Manual) 0 INR 5.03 H (0.86-1.11) Sodium 140 (136-146) mmol/L Potassium 4.2 (3.5-5.1) mmol/L Chloride 104 (98-110) mmol/L Carbon Dioxide 23 (21-31) mmol/L BUN 41 H (6.0-23.0) mg/dL Creatinine 1.6 H (0.6-1.5) mg/dL Est Cr Clr Drug Dosing TNP Estimated GFR (MDRD) 42.8 ml/min Glucose 145 H (60-110) mg/dL POC Glucose (60-110) mg/dL Calcium 7.7 L (8.8-10.8) mg/dL Magnesium 1.4 L (1.5-2.3) mEq/L B-Natriuretic Peptide (<100) PG/ML 07/02/16 07/02/16 07/02/16 Range/Units 05:40 06:12 11:24 WBC (4.0-11.0) K/uL RBC (4.50-5.90) M/uL Hgb (13.0-17.0) g/dL Hct (38.0-50.0) % MCV (80.0-98.0) fL MCH (27.0-32.0) pg MCHC (31.0-37.0) g/dL RDW Std Deviation (28.0-62.0) fl RDW Coeff of [place] (11.0-15.0) % Plt Count (150-400) K/uL MPV (7.40-12.00) fL Add Manual Diff Neutrophils % (Manual) (48.0-80.0) % Band Neutrophils % % Lymphocytes % (Manual) (16.0-40.0) % Atypical Lymphs % Basophils % (Manual) (0.0-1.5) % Absolute Seg Neuts Band Neutrophils # Lymphocytes # (Manual) Basophils # (Manual) INR (0.86-1.11) Sodium (136-146) mmol/L Potassium (3.5-5.1) mmol/L Chloride (98-110) mmol/L Carbon Dioxide (21-31) mmol/L BUN (6.0-23.0) mg/dL Creatinine (0.6-1.5) mg/dL Est Cr Clr Drug Dosing Estimated GFR (MDRD) ml/min Glucose (60-110) mg/dL POC Glucose 140 H 198 H (60-110) mg/dL Calcium (8.8-10.8) mg/dL Magnesium (1.5-2.3) mEq/L B-Natriuretic Peptide 212 H (<100) PG/ML 07/02/16 Range/Units 12:00 WBC (4.0-11.0) K/uL RBC (4.50-5.90) M/uL Hgb (13.0-17.0) g/dL Hct (38.0-50.0) % MCV (80.0-98.0) fL MCH (27.0-32.0) pg MCHC (31.0-37.0) g/dL RDW Std Deviation (28.0-62.0) fl RDW Coeff of [place] (11.0-15.0) % Plt Count (150-400) K/uL MPV (7.40-12.00) fL Add Manual Diff Neutrophils % (Manual) (48.0-80.0) % Band Neutrophils % % Lymphocytes % (Manual) (16.0-40.0) % Atypical Lymphs % Basophils % (Manual) (0.0-1.5) % Absolute Seg Neuts Band Neutrophils # Lymphocytes # (Manual) Basophils # (Manual) INR (0.86-1.11) Sodium (136-146) mmol/L Potassium (3.5-5.1) mmol/L Chloride (98-110) mmol/L Carbon Dioxide (21-31) mmol/L BUN (6.0-23.0) mg/dL Creatinine (0.6-1.5) mg/dL Est Cr Clr Drug Dosing Estimated GFR (MDRD) ml/min Glucose (60-110) mg/dL POC Glucose 192 H (60-110) mg/dL Calcium (8.8-10.8) mg/dL Magnesium (1.5-2.3) mEq/L B-Natriuretic Peptide (<100) PG/ML Med Orders - Current: Current Medications Albuterol/Ipratropium (Duoneb 3.0-0.5 Mg/3 Ml) 3 ml NEB Q4HRRT [facility] Last Admin: 07/02/16 09:50 Dose: 3 ml Allopurinol (Zyloprim) 100 mg PO DAILY [facility] Last Admin: 07/02/16 08:39 Dose: 100 mg Bisacodyl (Dulcolax) 5 mg PO DAILY PRN PRN Reason: Constipation Digoxin (Lanoxin) 125 mcg PO DAILY [facility] Last Admin: 07/02/16 08:54 Dose: 125 mcg Famotidine (Pepcid) 20 mg PO DAILY [facility] Last Admin: 07/02/16 08:40 Dose: 20 mg Fish Oil (Fish Oil) 1 gm PO DAILY [facility] Last Admin: 07/02/16 08:40 Dose: 1 gm Furosemide (Lasix) 80 mg PO DAILY [facility] Last Admin: 07/02/16 08:39 Dose: 80 mg Gabapentin (Neurontin) 300 mg PO TID [facility] Last Admin: 07/02/16 06:10 Dose: 300 mg Vancomycin HCl 1,500 mg/ (Sodium Chloride) 500 mls @ 250 mls/hr IV Q12H [facility] Last Admin: 07/02/16 12:20 Dose: 250 mls/hr Piperacillin Sod/Tazobactam (Sod 3.375 gm/ Sodium Chloride) 50 mls @ 100 mls/ hr IV Q6H [facility] Last Admin: 07/02/16 10:14 Dose: 100 mls/hr Insulin Aspart (Novolog) 0 unit SUBCUT ACBED [facility] PRN Reason: Protocol Last Admin: 07/02/16 11:31 Dose: 2 units Irbesartan (Avapro) 75 mg PO DAILY [facility] Last Admin: 07/02/16 08:54 Dose: 75 mg Lorazepam (Ativan) 1 mg IVPUSH Q6H PRN PRN Reason: Anxiety Metoprolol Succinate (Toprol Xl) 50 mg PO BID [facility] Last Admin: 07/02/16 08:56 Dose: 50 mg Ondansetron HCl (Zofran) 4 mg IVPUSH Q4H PRN PRN Reason: Nausea Oxycodone HCl (Oxycontin) 20 mg PO BID PRN PRN Reason: Pain Last Admin: 07/01/16 20:37 Dose: 20 mg Potassium Chloride (Klor-Con) 20 meq PO BID [facility] Last Admin: 07/02/16 08:41 Dose: 20 meq Pravastatin Sodium (Pravachol) 10 mg PO DAILY [facility] Last Admin: 07/02/16 08:42 Dose: 10 mg Senna (Senna) 17.2 mg PO DAILY [facility] Last Admin: 07/02/16 08:39 Dose: 17.2 mg Sodium Chloride (Saline Flush) 10 ml FLUSH ASDIRECTED PRN PRN Reason: Keep Vein Open Last Admin: 07/01/16 09:08 Dose: 10 ml Sodium Chloride (Saline Flush) 2.5 ml FLUSH ASDIRECTED PRN PRN Reason: Keep Vein Open Last Admin: 07/01/16 09:08 Dose: 2.5 ml Sodium Chloride (Saline Flush) 10 ml FLUSH ASDIRECTED PRN PRN Reason: Keep Vein Open Sodium Chloride (Saline Flush) 2.5 ml FLUSH ASDIRECTED PRN PRN Reason: Keep Vein Open Spironolactone (Aldactone) 25 mg PO DAILY [facility] Last Admin: 07/02/16 08:42 Dose: 25 mg Temazepam (Restoril) 15 mg PO BEDTIME PRN PRN Reason: Sleep Vancomycin HCl (Pharmacy To Dose - Vancomycin) 1 dose .XX ASDIRECTED [facility] Venlafaxine HCl (Effexor Xr) 75 mg PO DAILY [facility] Last Admin: 07/02/16 08:42 Dose: 75 mg Discontinued Medications Albuterol/Ipratropium (Duoneb 3.0-0.5 Mg/3 Ml) 3 ml NEB ONETIME ONE Stop: 07/01/16 09:00 Last Admin: 07/01/16 09:45 Dose: 3 ml Diphtheria/Tetanus/Acell Pertussis (Adacel) 0.5 ml IM .ONCE ONE Stop: 07/01/16 09:06 Last Admin: 07/01/16 09:14 Dose: 0.5 ml Furosemide (Lasix) 80 mg IVPUSH NOW ONE Stop: 07/01/16 11:33 Last Admin: 07/01/16 11:46 Dose: 80 mg Piperacillin Sod/Tazobactam (Sod 3.375 gm/ Sodium Chloride) 50 mls @ 100 mls/ hr IV ONETIME ONE Stop: 07/01/16 12:01 Last Admin: 07/01/16 11:46 Dose: 100 mls/hr Piperacillin Sod/Tazobactam (Sod 3.375 gm/ Sodium Chloride) 50 mls @ 100 mls/ hr IV Q6H [facility] - Exam Quality Assessment: supplemental oxygen General: alert, cooperative Lungs: Rhonchi, Other (good tidal volumes) Abdomen: no tenderness Extremities: other (still with marked LE edema but RLE redness and swelling decreased compared to yesterday. ) - Problem List & Annotations (1) Leukocytosis SNOMED Code(s): 641781300, 954442320 Code(s): D72.829 - ELEVATED WHITE BLOOD CELL COUNT, UNSPECIFIED Status: Acute Current Visit: Yes (2) Fracture of toe of right foot SNOMED Code(s): 21886136 Code(s): S92.911A - UNSP FRACTURE OF RIGHT TOE(S), INIT FOR CLOS FX Status : Acute Current Visit: Yes (3) Diabetes mellitus SNOMED Code(s): 52354674 Code(s): E11.9 - TYPE 2 DIABETES MELLITUS WITHOUT COMPLICATIONS Status: Acute Current Visit: Yes (4) CHF exacerbation SNOMED Code(s): 09608218 Code(s): I50.9 - HEART FAILURE, UNSPECIFIED Status: Acute Current Visit: Yes Qualifiers: Congestive heart failure type: unspecified congestive heart failure type Qualified Code(s): I50.9 - Heart failure, unspecified (5) Toe infection SNOMED Code(s): 305479683 Code(s): L08.9 - LOCAL INFECTION OF THE SKIN AND SUBCUTANEOUS TISSUE, UNSP Status: Acute Current Visit: Yes (6) COPD (chronic obstructive pulmonary disease) SNOMED Code(s): 23680251 Code(s): J44.9 - CHRONIC OBSTRUCTIVE PULMONARY DISEASE, UNSPECIFIED Status : Chronic Current Visit: No Qualifiers: COPD type: unspecified COPD Qualified Code(s): J44.9 - Chronic obstructive pulmonary disease, unspecified - Problem List Review Problem List Initiated/Reviewed/Updated: Yes - My Orders Last 24 Hours: My Active Orders 07/01/16 11:49 Blood Culture x2 Reflex Set [OM.PC] Stat 07/01/16 11:50 oxyCODONE ER [OxyCONTIN] 20 mg PO BID PRN 07/01/16 11:57 Blood Glucose Check, Bedside [RC] QIDACANDBED Oxygen Therapy [RC] PRN VTE/DVT Education [RC] PER UNIT ROUTINE Vital Signs [RC] Q4H Bisacodyl [Dulcolax] 5 mg PO DAILY PRN Ondansetron [Zofran] 4 mg IVPUSH Q4H PRN Temazepam [Restoril] 15 mg PO BEDTIME PRN Resuscitation Status Routine 07/01/16 12:00 RT Aerosol Therapy [RC] ASDIRECTED Irbesartan [Avapro] 75 mg PO DAILY Sodium Chloride 0.9% [Saline Flush] 10 ml FLUSH ASDIRECTED PRN Sodium Chloride 0.9% [Saline Flush] 2.5 ml FLUSH ASDIRECTED PRN Vancomycin Pharmacy to Dose [Pharmacy to Dose - Vancomycin] 1 dose .XX ASDIRECTED Convert IV to Saline Lock [OM.PC] Urgent 07/01/16 12:02 Foot w Cont Rt [MR] Routine 07/01/16 12:13 Knee 3V Rt [CR] Routine 07/01/16 12:14 LORazepam [Ativan] 1 mg IVPUSH Q6H PRN 07/01/16 12:15 Insulin Aspart [NovoLOG] See Protocol SUBCUT ACBED 07/01/16 12:20 Telemetry Monitoring [Cardiac Monitoring] [RC] Q8H 07/01/16 12:30 Vancomycin 1,500 mg Sodium Chloride 0.9% [Normal Saline] 500 ml IV Q12H 07/01/16 12:50 CULTURE BLOOD [BC] Stat 07/01/16 12:57 CULTURE BLOOD [BC] Stat 07/01/16 14:00 Albuterol/Ipratropium [DuoNeb 3.0-0.5 MG/3 ML] 3 ml NEB Q4HRRT Gabapentin [Neurontin] 300 mg PO TID 07/01/16 21:00 Metoprolol Succinate [Toprol XL] 50 mg PO BID Potassium Chloride [Klor-Con] 20 meq PO BID predniSONE DOSE UNIT RTE FREQ 07/01/16 22:00 Piperacillin/Tazobactam [Piperacil-Tazobact] 3.375 gm Sodium Chloride 0.9% [ Normal Saline] 50 ml IV Q6H 07/01/16 [facility] [employer] Diet [DIET] 07/02/16 09:00 Allopurinol [Zyloprim] 100 mg PO DAILY Digoxin [Lanoxin] 125 mcg PO DAILY Famotidine [Pepcid] 20 mg PO DAILY Fish Oil/[place]-3 Fatty Acids [Fish Oil] 1 gm PO DAILY Furosemide [Lasix] 80 mg PO DAILY Pravastatin [Pravachol] 10 mg PO DAILY Sennosides [Senna] 17.2 mg PO DAILY Spironolactone [Aldactone] 25 mg PO DAILY Venlafaxine [Effexor XR] 75 mg PO DAILY 07/02/16 23:30 VANCOMYCIN TROUGH [CHEM] Routine 07/03/16 05:11 BASIC METABOLIC PANEL,BMP [CHEM] AM CBC WITH AUTO DIFF [HEME] AM INR,PT,PROTHROMBIN TIME [COAG] AM MAGNESIUM [CHEM] AM 07/04/16 05:11 BASIC METABOLIC PANEL,BMP [CHEM] AM CBC WITH AUTO DIFF [HEME] AM INR,PT,PROTHROMBIN TIME [COAG] AM MAGNESIUM [CHEM] AM 07/05/16 05:11 INR,PT,PROTHROMBIN TIME [COAG] AM - Plan Plan:: admit see orders Lee Diaz MD 07/02/2016 MRI Right foot planned for tomorrow. Torin Diaz MD
[2016-07-02] MEDS: Nystatin Topical Powder 15 GM Bottle TOP SCH (20:44)
[2016-07-02] MEDS ORDERED: Metoprolol Tartrate 5 MG/5 ML SDV IVPUSH PRN (22:32)
[2016-07-03] MEDS: Albuterol/Ipratropium 3.0-0.5 MG/3 ML Neb Soln NEB SCH ×6 (01:22→21:43)
[2016-07-03] MEDS: Piperacillin/Tazobactam 3.375 GM in Sodium Chloride 0.9% 50 ML IV SCH ×5 (03:52→22:03)
[2016-07-03] MEDS: Gabapentin 300 MG Cap PO SCH ×3 (05:51→21:42)
[2016-07-03 06:37] LABS: CHLORIDE,CL 103 mmol/L (98-110); SODIUM,NA 137 mmol/L (136-146)
[2016-07-03] MEDS: Insulin Aspart 100 Units/ML 3 ML Pen SUBCUT SCH ×4 (06:47→21:44)
[2016-07-03] MEDS: Spironolactone 25 MG Tab PO SCH (08:43)
[2016-07-03] MEDS: Irbesartan 150 MG Tab PO SCH (08:43)
[2016-07-03] MEDS: Venlafaxine 75 MG Cap.ER PO SCH (08:44)
[2016-07-03] MEDS: Fish Oil/Omega-3 Fatty Acids 1 Gm Cap PO SCH (08:44)
[2016-07-03] MEDS: Digoxin 125 MCG Tab PO SCH (08:45)
[2016-07-03] MEDS: Potassium Chloride 20 MEQ Packet PO SCH ×2 (08:45→21:44)
[2016-07-03] MEDS: Nystatin Topical Powder 15 GM Bottle TOP SCH ×2 (08:46→21:43)
[2016-07-03] MEDS: Furosemide 80 MG Tab PO SCH (08:46)
[2016-07-03] MEDS: Pravastatin 40 MG Tab PO SCH (08:47)
[2016-07-03] MEDS: Sennosides 8.6 MG Tab PO SCH (08:47)
[2016-07-03] MEDS: Famotidine 20 MG Tab PO SCH (08:47)
[2016-07-03] MEDS: Metoprolol Succinate 50 MG Tab.ER PO SCH (08:48)
[2016-07-03] MEDS: Allopurinol 100 MG Tab PO SCH (08:48)
[2016-07-03] MEDS: oxyCODONE ER 20 MG TAB.ER PO PRN ×2 (08:49→21:42)
--- NOTE | 2016-07-03 09:26 | PCM.PN ---
- General Info Date of Service: 07/03/16 Admission Dx/Problem (Free Text): CHF, Cellulitis Subjective Update: Sitting up in chair, eating breakfast. Confirms pain to R knee and foot. Denies chest pain or increase SOB. No palpitations. Overall, feeling a little better. Functional Status: Reports: tolerating diet. Denies: ambulating - Review of Systems General: Reports: no symptoms. Denies: fever Pulmonary: Reports: shortness of breath (intermittently). Denies: cough, sputum Cardiovascular: Reports: edema. Denies: chest pain, palpitations Gastrointestinal: Reports: No symptoms. Denies: Abdominal pain, Nausea, Vomiting Genitourinary: Reports: no symptoms Musculoskeletal: Reports: leg pain (R knee), foot pain (R foot) Skin: Reports: no symptoms Neurological: Reports: no symptoms Psychiatric: Reports: no symptoms - Patient Data Vitals - most recent: Last Vital Signs Temp 98.2 F 07/03/16 08:00 Pulse 115 H 07/03/16 08:48 Resp 20 07/03/16 08:00 BP 124/68 07/03/16 08:48 Pulse Ox 96 07/03/16 08:00 Weight - most recent: 128 kg I&O - last 24 hours: Intake & Output 07/02/16 07/03/16 07/03/16 22:59 06:59 14:59 Intake Total 1550 910 Output Total 1100 1000 Balance 450 -90 Lab Results last 24 hrs: Laboratory Results - last 24 hr 07/02/16 07/02/16 07/02/16 Range/Units 11:24 12:00 16:59 WBC (4.0-11.0) K/uL RBC (4.50-5.90) M/uL Hgb (13.0-17.0) g/dL Hct (38.0-50.0) % MCV (80.0-98.0) fL MCH (27.0-32.0) pg MCHC (31.0-37.0) g/dL RDW Std Deviation (28.0-62.0) fl RDW Coeff of [place] (11.0-15.0) % Plt Count (150-400) K/uL MPV (7.40-12.00) fL Neut % (Auto) (48.0-80.0) % Lymph % (Auto) (16.0-40.0) % [place] % (Auto) (0.0-15.0) % Eos % (Auto) (0.0-7.0) % Baso % (Auto) (0.0-1.5) % Neut # (1.4-5.7) K/uL Lymph # (0.6-2.4) K/uL [place] # (0.0-0.8) K/uL Eos # (0.0-0.7) K/uL Baso # (0.0-0.1) K/uL INR (0.86-1.11) Sodium (136-146) mmol/L Potassium (3.5-5.1) mmol/L Chloride (98-110) mmol/L Carbon Dioxide (21-31) mmol/L BUN (6.0-23.0) mg/dL Creatinine (0.6-1.5) mg/dL Est Cr Clr Drug Dosing Estimated GFR (MDRD) ml/min Glucose (60-110) mg/dL POC Glucose 198 H 192 H 136 H (60-110) mg/dL Calcium (8.8-10.8) mg/dL Magnesium (1.5-2.3) mEq/L Vancomycin Trough (5-15) ug/mL 07/02/16 07/02/16 07/03/16 Range/Units 21:04 23:40 05:30 WBC (4.0-11.0) K/uL RBC (4.50-5.90) M/uL Hgb (13.0-17.0) g/dL Hct (38.0-50.0) % MCV (80.0-98.0) fL MCH (27.0-32.0) pg MCHC (31.0-37.0) g/dL RDW Std Deviation (28.0-62.0) fl RDW Coeff of [place] (11.0-15.0) % Plt Count (150-400) K/uL MPV (7.40-12.00) fL Neut % (Auto) (48.0-80.0) % Lymph % (Auto) (16.0-40.0) % [place] % (Auto) (0.0-15.0) % Eos % (Auto) (0.0-7.0) % Baso % (Auto) (0.0-1.5) % Neut # (1.4-5.7) K/uL Lymph # (0.6-2.4) K/uL [place] # (0.0-0.8) K/uL Eos # (0.0-0.7) K/uL Baso # (0.0-0.1) K/uL INR 5.21 H (0.86-1.11) Sodium (136-146) mmol/L Potassium (3.5-5.1) mmol/L Chloride (98-110) mmol/L Carbon Dioxide (21-31) mmol/L BUN (6.0-23.0) mg/dL Creatinine (0.6-1.5) mg/dL Est Cr Clr Drug Dosing Estimated GFR (MDRD) ml/min Glucose (60-110) mg/dL POC Glucose 143 H (60-110) mg/dL Calcium (8.8-10.8) mg/dL Magnesium (1.5-2.3) mEq/L Vancomycin Trough 35.6 H (5-15) ug/mL 07/03/16 07/03/16 Range/Units 05:30 05:30 WBC 12.10 H (4.0-11.0) K/uL RBC 3.56 L (4.50-5.90) M/uL Hgb 10.8 L (13.0-17.0) g/dL Hct 34.4 L (38.0-50.0) % MCV 96.6 (80.0-98.0) fL MCH 30.3 (27.0-32.0) pg MCHC 31.4 (31.0-37.0) g/dL RDW Std Deviation 56.8 (28.0-62.0) fl RDW Coeff of [place] 17 H (11.0-15.0) % Plt Count 212 (150-400) K/uL MPV 9.80 (7.40-12.00) fL Neut % (Auto) 73.8 (48.0-80.0) % Lymph % (Auto) 14.0 L (16.0-40.0) % [place] % (Auto) 10.2 (0.0-15.0) % Eos % (Auto) 1.8 (0.0-7.0) % Baso % (Auto) 0.2 (0.0-1.5) % Neut # 8.9 H (1.4-5.7) K/uL Lymph # 1.7 (0.6-2.4) K/uL [place] # 1.2 H (0.0-0.8) K/uL Eos # 0.2 (0.0-0.7) K/uL Baso # 0.0 (0.0-0.1) K/uL INR (0.86-1.11) Sodium 137 (136-146) mmol/L Potassium 4.5 (3.5-5.1) mmol/L Chloride 103 (98-110) mmol/L Carbon Dioxide 21 (21-31) mmol/L BUN 35 H (6.0-23.0) mg/dL Creatinine 1.5 (0.6-1.5) mg/dL Est Cr Clr Drug Dosing TNP Estimated GFR (MDRD) 46.1 ml/min Glucose 138 H (60-110) mg/dL POC Glucose (60-110) mg/dL Calcium 7.8 L (8.8-10.8) mg/dL Magnesium 1.5 (1.5-2.3) mEq/L Vancomycin Trough (5-15) ug/mL [place] Results last 24 hrs: Microbiology 07/01/16 12:57 Aerobic Blood Culture - Preliminary Blood - Venous - Lab Draw NO GROWTH AFTER 1 DAY Anaerobic Blood Culture - Preliminary NO GROWTH AFTER 1 DAY 07/01/16 12:50 Aerobic Blood Culture - Preliminary Blood - Venous NO GROWTH AFTER 1 DAY Anaerobic Blood Culture - Preliminary NO GROWTH AFTER 1 DAY Med Orders - Current: Current Medications Albuterol/Ipratropium (Duoneb 3.0-0.5 Mg/3 Ml) 3 ml NEB Q4HRRT [facility] Last Admin: 07/03/16 06:23 Dose: 3 ml Allopurinol (Zyloprim) 100 mg PO DAILY [facility] Last Admin: 07/03/16 08:48 Dose: 100 mg Bisacodyl (Dulcolax) 5 mg PO DAILY PRN PRN Reason: Constipation Digoxin (Lanoxin) 125 mcg PO DAILY [facility] Last Admin: 07/03/16 08:45 Dose: 125 mcg Famotidine (Pepcid) 20 mg PO DAILY [facility] Last Admin: 07/03/16 08:47 Dose: 20 mg Fish Oil (Fish Oil) 1 gm PO DAILY [facility] Last Admin: 07/03/16 08:44 Dose: 1 gm Furosemide (Lasix) 80 mg PO DAILY [facility] Last Admin: 07/03/16 08:46 Dose: 80 mg Gabapentin (Neurontin) 300 mg PO TID [facility] Last Admin: 07/03/16 05:51 Dose: 300 mg Vancomycin HCl 1,500 mg/ (Sodium Chloride) 500 mls @ 250 mls/hr IV Q12H [facility] Last Admin: 07/03/16 01:06 Dose: Not Given Piperacillin Sod/Tazobactam (Sod 3.375 gm/ Sodium Chloride) 50 mls @ 100 mls/ hr IV Q6H [facility] Last Admin: 07/03/16 03:52 Dose: 100 mls/hr Insulin Aspart (Novolog) 0 unit SUBCUT ACBED [facility] PRN Reason: Protocol Last Admin: 07/03/16 06:47 Dose: Not Given Irbesartan (Avapro) 75 mg PO DAILY [facility] Last Admin: 07/03/16 08:43 Dose: 75 mg Lorazepam (Ativan) 1 mg IVPUSH Q6H PRN PRN Reason: Anxiety Metoprolol Succinate (Toprol Xl) 50 mg PO BID [facility] Last Admin: 07/03/16 08:48 Dose: 50 mg Metoprolol Tartrate (Lopressor) 5 mg IVPUSH Q6H PRN PRN Reason: heart rate >110bpm Last Admin: 07/02/16 23:29 Dose: 5 mg Nystatin (Nystop) 1 gm TOP BID [facility] Last Admin: 07/03/16 08:46 Dose: 1 applic Ondansetron HCl (Zofran) 4 mg IVPUSH Q4H PRN PRN Reason: Nausea Oxycodone HCl (Oxycontin) 20 mg PO BID PRN PRN Reason: Pain Last Admin: 07/03/16 08:49 Dose: 20 mg Potassium Chloride (Klor-Con) 20 meq PO BID [facility] Last Admin: 07/03/16 08:45 Dose: 20 meq Pravastatin Sodium (Pravachol) 10 mg PO DAILY [facility] Last Admin: 07/03/16 08:47 Dose: 10 mg Senna (Senna) 17.2 mg PO DAILY [facility] Last Admin: 07/03/16 08:47 Dose: 17.2 mg Sodium Chloride (Saline Flush) 10 ml FLUSH ASDIRECTED PRN PRN Reason: Keep Vein Open Last Admin: 07/01/16 09:08 Dose: 10 ml Sodium Chloride (Saline Flush) 2.5 ml FLUSH ASDIRECTED PRN PRN Reason: Keep Vein Open Last Admin: 07/01/16 09:08 Dose: 2.5 ml Sodium Chloride (Saline Flush) 10 ml FLUSH ASDIRECTED PRN PRN Reason: Keep Vein Open Sodium Chloride (Saline Flush) 2.5 ml FLUSH ASDIRECTED PRN PRN Reason: Keep Vein Open Spironolactone (Aldactone) 25 mg PO DAILY [facility] Last Admin: 07/03/16 08:43 Dose: 25 mg Temazepam (Restoril) 15 mg PO BEDTIME PRN PRN Reason: Sleep Last Admin: 07/02/16 21:52 Dose: 15 mg Vancomycin HCl (Pharmacy To Dose - Vancomycin) 1 dose .XX ASDIRECTED [facility] Venlafaxine HCl (Effexor Xr) 75 mg PO DAILY [facility] Last Admin: 07/03/16 08:44 Dose: 75 mg Discontinued Medications Albuterol/Ipratropium (Duoneb 3.0-0.5 Mg/3 Ml) 3 ml NEB ONETIME ONE Stop: 07/01/16 09:00 Last Admin: 07/01/16 09:45 Dose: 3 ml Diphtheria/Tetanus/Acell Pertussis (Adacel) 0.5 ml IM .ONCE ONE Stop: 07/01/16 09:06 Last Admin: 07/01/16 09:14 Dose: 0.5 ml Furosemide (Lasix) 80 mg IVPUSH NOW ONE Stop: 07/01/16 11:33 Last Admin: 07/01/16 11:46 Dose: 80 mg Piperacillin Sod/Tazobactam (Sod 3.375 gm/ Sodium Chloride) 50 mls @ 100 mls/ hr IV ONETIME ONE Stop: 07/01/16 12:01 Last Admin: 07/01/16 11:46 Dose: 100 mls/hr Piperacillin Sod/Tazobactam (Sod 3.375 gm/ Sodium Chloride) 50 mls @ 100 mls/ hr IV Q6H [facility] - Exam HEENT: Pupils equal, Pupils reactive, EOMI, Mucous membr. moist/pink Neck: supple Lungs: Clear to auscultation, Normal respiratory effort. No: Rhonchi, Wheezing Cardiovascular: regular rate, regular rhythm, no murmurs Abdomen: bowel sounds present, soft, no tenderness, no distension, other (large obese abdomen) Extremities: no calf tenderness, edema, other (Left lower leg +1-2 pitting edema , R leg +1-2 pitting edema, R foot +3 pitting edema with surrounding erythema and warmth. Bruising noted to R great toe. ) Neurological: no new focal deficit Psy/Mental Status: alert, normal affect, normal mood - Problem List & Annotations (1) Cellulitis SNOMED Code(s): 481158404 Code(s): L03.90 - CELLULITIS, UNSPECIFIED Status: Acute Current Visit: Yes Qualifiers: Site of cellulitis: extremity Site of cellulitis of extremity: lower extremity Laterality: right Qualified Code(s): L03.115 - Cellulitis of right lower limb (2) Leukocytosis SNOMED Code(s): 887406648, 020210367 Code(s): D72.829 - ELEVATED WHITE BLOOD CELL COUNT, UNSPECIFIED Status: Acute Current Visit: Yes (3) Unable to ambulate SNOMED Code(s): 924672280 Code(s): R26.2 - DIFFICULTY IN WALKING, NOT ELSEWHERE CLASSIFIED Status: Acute Current Visit: Yes (4) CHF exacerbation SNOMED Code(s): 52427851 Code(s): I50.9 - HEART FAILURE, UNSPECIFIED Status: Acute Current Visit: Yes Qualifiers: Congestive heart failure type: unspecified congestive heart failure type Qualified Code(s): I50.9 - Heart failure, unspecified (5) Fracture of toe of right foot SNOMED Code(s): 96014933 Code(s): S92.911A - UNSP FRACTURE OF RIGHT TOE(S), INIT FOR CLOS FX Status : Acute Current Visit: Yes Qualifiers: Encounter type: initial encounter Toe: great toe Fracture type: closed (6) CAD (coronary artery disease) SNOMED Code(s): 02272638 Code(s): I25.10 - ATHSCL HEART DISEASE OF [place] CORONARY ARTERY W/O ANG PCTRS Status: Chronic Current Visit: Yes (7) History of CVA (cerebrovascular accident) SNOMED Code(s): 275313639 Code(s): Z86.73 - PRSNL HX OF TIA (TIA), AND CEREB INFRC W/O RESID DEFICITS Status: Chronic Current Visit: Yes (8) Abdominal hernia SNOMED Code(s): 42064398 Code(s): K46.9 - UNSPECIFIED ABDOMINAL HERNIA WITHOUT OBSTRUCTION OR GANGRENE Status: Chronic Current Visit: Yes (9) Diabetes mellitus SNOMED Code(s): 52610831 Code(s): E11.9 - TYPE 2 DIABETES MELLITUS WITHOUT COMPLICATIONS Status: Chronic Current Visit: Yes Qualifiers: Diabetes mellitus type: type 2 Diabetes mellitus complication status: with skin complications Diabetes mellitus complication detail: with other skin complication Diabetes mellitus penitentiary insulin use: with penitentiary use Qualified Code(s): E11.628 - Type 2 diabetes mellitus with other skin complications; Z79.4 - retirement (current) use of insulin (10) Afib SNOMED Code(s): 67219009 Code(s): I48.91 - UNSPECIFIED ATRIAL FIBRILLATION Status: Chronic Current Visit: No Qualifiers: Atrial fibrillation type: chronic Qualified Code(s): I48.2 - Chronic atrial fibrillation (11) COPD (chronic obstructive pulmonary disease) SNOMED Code(s): 59179556 Code(s): J44.9 - CHRONIC OBSTRUCTIVE PULMONARY DISEASE, UNSPECIFIED Status : Chronic Current Visit: No Qualifiers: COPD type: unspecified COPD Qualified Code(s): J44.9 - Chronic obstructive pulmonary disease, unspecified - Problem List Review Problem List Initiated/Reviewed/Updated: Yes - Plan Plan:: This 70 year old male admitted with CHF exacerbation and cellulitis to R lower extremity with acute fracture to R great toe. 1. Cellulitis: Continue Zosyn/ Vancomycin. WBC improving 12,100. MRI of R foot today. 2. CHF: Continue Lasix 80 mg PO daily. Daily weight and strict I/O. Continue Spironolactone, Avapro. 3. Afib: supra-therapeutic INR 5.21. Holding Coumadin. Continue Metoprolol, Digoxin. Tachycardia intermittently, Lopressor IV PRN. On telemetry 4. COPD: Continue Duonebs. Oxygen as needed. 5. DM type 2: SSI Novolog TIDAC, BS check TIDAC. VTE: Coumadin on hold. Restart when INR no longer supra-therapeutic Dispo:2-3 days pending improvement.
[2016-07-03] MEDS ORDERED: Magnesium Sulfate/Water 2 GM in Premix Bag 1 BAG IV ONE (09:43)
[2016-07-03] MEDS ORDERED: Calcium Carbonate 500 MG Tab.Chew PO ONE (13:17)
--- NOTE | 2016-07-03 15:32 | CR ---
EXAM DATE: 07/01/16 PATIENT'S AGE: 70 Patient: COLEMAN CLIFFORD Facility: [place], [place] Site . Site : 1945 Study: XRay Chest [id number]/25/2017 10:00:27 AM Ordering Physician: Roopa Doran Final Report: INDICATION: PAIN, SOB INDICATION: Chest pain and shortness of breath. TECHNIQUE: Single view portable AP chest. COMPARISON: 05/28/2015. FINDINGS: Heart size remains borderline prominent for portable technique. There are small lung volumes. The film is rotated. There is no consolidation. Borderline prominent interstitial markings are noted. IMPRESSION: Small lung volumes with borderline prominent interstitial markings which is nonspecific but may reflect some mild interstitial edema. No significant consolidation is seen. Dictated by Lee Larsen MD @ 07/01/2016 10:21:35 AM Dictated by: Lee Larsen MD @ 07/01/2016 10:21:40 (Electronic Signature) Report Signed by Proxy and Original Signed Document filed in the Medical Record. MTDD
--- NOTE | 2016-07-03 15:33 | CR ---
MEXAM DATE: 07/01/16 PATIENT'S AGE: 70 Patient: COLEMAN CLIFFORD Facility: [place], [place] Site . Site : 1945 Study: XRay Extremity Right ANKLE [id number]/25/2017 10:16:17 AM Ordering Physician: Roopa Doran Final Report: Trauma Findings : Two views of the right ankle, diffuse marked soft tissue swelling. Vascular calcifications. Calcaneal spur. Normal alignment. No acute fracture seen. Impression: Diffuse soft tissue edema. No acute fractures. Dictated by Radha Camacho MD @ Jul 01 2016 10:39AM (Electronic Signature) Report Signed by Proxy and Original Signed Document filed in the Medical Record. [facility]
--- NOTE | 2016-07-03 15:34 | CR ---
EXAM DATE: 07/01/16 PATIENT'S AGE: 70 Patient: COLEMAN CLIFFORD Facility: [place], [place] Site . Site : 1945 Study: XRay Extremity Right FOOT [id number]/25/2017 10:17:13 AM Ordering Physician: Roopa Doran Final Report: HISTORY: Trauma pain 1st digit. Two views of the right foot. Comparison: X-ray 06/21/2015. Technique : Oblique view of the right foot and lateral view. Findings : Postsurgical change 1st fracture versus fracture of the distal aspect of the right proximal phalanx. The distal 1st phalanx slightly medial subluxed compared to the proximal phalanx. There is marked diffuse soft tissue swelling. There is a questionable offset of the 3rd metatarsal with the lateral cuneiform. Impression: 1. Question possible postsurgical change or fracture of the distal aspect of the right proximal phalanx with medial subluxation of the distal phalanx. 2. Question slight offset of the 3rd metatarsal in relationship to the lateral cuneiform . Consider correlation with MR or CT. Dictated by Radha Camacho MD @ Jul 01 2016 10:41AM (Electronic Signature) Report Signed by Proxy and Original Signed Document filed in the Medical Record. [facility]
--- NOTE | 2016-07-03 15:35 | CR ---
EXAM DATE: 07/01/16 PATIENT'S AGE: 70 Patient: COLEMAN CLIFFORD Facility: [place], [place] Site . Site : 1945 Study: XRay Knee Right [id number]/25/2017 1:50:28 PM Ordering Physician: Joe Howard Final Report: Injury technique views of the right knee. Findings: Advanced arthritic changes of the right knee. No acute fractures seen. No effusion is seen. Impression: 1. Advanced arthritic changes. No acute fracture. Dictated by Radha Camacho MD @ Jul 01 2016 2:26PM (Electronic Signature) Report Signed by Proxy and Original Signed Document filed in the Medical Record. JAYNE
--- NOTE | 2016-07-03 15:37 | CR ---
EXAM DATE: 07/01/16 PATIENT'S AGE: 70 Patient: COLEMAN CLIFFORD Facility: [place], [place] Site . Site : 1945 Study: XRay Extremity Left ANKLE [id number]/25/2017 10:17:44 AM Ordering Physician: Roopa Doran Final Report: Trauma pain technique 2 views of the left ankle. Findings: Diffuse marked soft tissue swelling. Normal alignment. Talar dome is intact Ankle mortise appears preserved. Impression: 1. No acute fracture. Dictated by Radha Camacho MD @ Jul 01 2016 10:53AM (Electronic Signature) Report Signed by Proxy and Original Signed Document filed in the Medical Record. [facility]
[2016-07-03] MEDS: Metoprolol Tartrate 50 MG Tab PO SCH (21:43)
[2016-07-04] MEDS: Albuterol/Ipratropium 3.0-0.5 MG/3 ML Neb Soln NEB SCH ×6 (01:47→21:36)
[2016-07-04] MEDS: Piperacillin/Tazobactam 3.375 GM in Sodium Chloride 0.9% 50 ML IV SCH (04:24)
[2016-07-04] MEDS: Gabapentin 300 MG Cap PO SCH ×3 (05:20→22:01)
[2016-07-04] MEDS: Insulin Aspart 100 Units/ML 3 ML Pen SUBCUT SCH ×4 (06:47→20:26)
--- NOTE | 2016-07-04 09:30 | PCM.PN ---
- General Info Date of Service: 07/04/16 Admission Dx/Problem (Free Text): CHF, Cellulitis Subjective Update: Sleeping this morning. Arousable but easily falls back to sleep. Around lunch time patient significant other at bedside who reports he is usually sleepy in sarita morning and wakes up later in the afternoon. He is now more awake but reports he is very. Functional Status: Reports: pain controlled, tolerating diet, urinating. Denies : ambulating - Review of Systems General: Reports: no symptoms. Denies: fever Pulmonary: Reports: no symptoms. Denies: shortness of breath, cough, sputum Cardiovascular: Reports: edema. Denies: chest pain, palpitations Gastrointestinal: Reports: No symptoms. Denies: Abdominal pain, Nausea, Vomiting Genitourinary: Reports: no symptoms. Denies: dysuria, frequency, burning Musculoskeletal: Reports: foot pain (R foot and ankle pain) Neurological: Reports: no symptoms Psychiatric: Reports: no symptoms - Patient Data Vitals - most recent: Last Vital Signs Temp 98.3 F 07/04/16 08:02 Pulse 90 07/04/16 08:02 Resp 20 07/04/16 08:02 BP 162/65 H 07/04/16 08:02 Pulse Ox 90 L 07/04/16 08:02 Weight - most recent: 124.5 kg I&O - last 24 hours: Intake & Output 07/03/16 07/04/16 07/04/16 22:59 06:59 14:59 Intake Total 1090 200 Output Total 875 520 Balance 215 -320 Lab Results last 24 hrs: Laboratory Results - last 24 hr 07/03/16 07/03/16 07/03/16 Range/Units 06:38 11:51 13:44 WBC (4.0-11.0) K/uL RBC (4.50-5.90) M/uL Hgb (13.0-17.0) g/dL Hct (38.0-50.0) % MCV (80.0-98.0) fL MCH (27.0-32.0) pg MCHC (31.0-37.0) g/dL RDW Std Deviation (28.0-62.0) fl RDW Coeff of [place] (11.0-15.0) % Plt Count (150-400) K/uL MPV (7.40-12.00) fL Neut % (Auto) (48.0-80.0) % Lymph % (Auto) (16.0-40.0) % Dawes % (Auto) (0.0-15.0) % Eos % (Auto) (0.0-7.0) % Baso % (Auto) (0.0-1.5) % Neut # (1.4-5.7) K/uL Lymph # (0.6-2.4) K/uL Dawes # (0.0-0.8) K/uL Eos # (0.0-0.7) K/uL Baso # (0.0-0.1) K/uL Nucleated RBC % /100WBC Nucleated RBCs # K/uL INR (0.86-1.11) Sodium (136-146) mmol/L Potassium (3.5-5.1) mmol/L Chloride (98-110) mmol/L Carbon Dioxide (21-31) mmol/L BUN (6.0-23.0) mg/dL Creatinine (0.6-1.5) mg/dL Est Cr Clr Drug Dosing mL/min Estimated GFR (MDRD) ml/min Glucose (60-110) mg/dL POC Glucose 145 H 265 H (60-110) mg/dL Calcium (8.8-10.8) mg/dL Magnesium (1.5-2.3) mEq/L Vancomycin Trough 23.8 H (5-15) ug/mL 07/03/16 07/04/16 07/04/16 Range/Units 16:41 05:16 05:16 WBC 14.09 H (4.0-11.0) K/uL RBC 3.82 L (4.50-5.90) M/uL Hgb 11.4 L (13.0-17.0) g/dL Hct 36.3 L (38.0-50.0) % MCV 95.0 (80.0-98.0) fL MCH 29.8 (27.0-32.0) pg MCHC 31.4 (31.0-37.0) g/dL RDW Std Deviation 60.1 (28.0-62.0) fl RDW Coeff of Christian[place] 17 H (11.0-15.0) % Plt Count 242 (150-400) K/uL MPV 9.60 (7.40-12.00) fL Neut % (Auto) 76.6 (48.0-80.0) % Lymph % (Auto) 11.4 L (16.0-40.0) % Dawes % (Auto) 9.2 (0.0-15.0) % Eos % (Auto) 2.6 (0.0-7.0) % Baso % (Auto) 0.2 (0.0-1.5) % Neut # 10.8 H (1.4-5.7) K/uL Lymph # 1.6 (0.6-2.4) K/uL Dawes # 1.3 H (0.0-0.8) K/uL Eos # 0.4 (0.0-0.7) K/uL Baso # 0.0 (0.0-0.1) K/uL Nucleated RBC % 0.4 /100WBC Nucleated RBCs # 0 K/uL INR 5.07 H (0.86-1.11) Sodium (136-146) mmol/L Potassium (3.5-5.1) mmol/L Chloride (98-110) mmol/L Carbon Dioxide (21-31) mmol/L BUN (6.0-23.0) mg/dL Creatinine (0.6-1.5) mg/dL Est Cr Clr Drug Dosing mL/min Estimated GFR (MDRD) ml/min Glucose (60-110) mg/dL POC Glucose 161 H (60-110) mg/dL Calcium (8.8-10.8) mg/dL Magnesium (1.5-2.3) mEq/L Vancomycin Trough (5-15) ug/mL 07/04/16 Range/Units 05:16 WBC (4.0-11.0) K/uL RBC (4.50-5.90) M/uL Hgb (13.0-17.0) g/dL Hct (38.0-50.0) % MCV (80.0-98.0) fL MCH (27.0-32.0) pg MCHC (31.0-37.0) g/dL RDW Std Deviation (28.0-62.0) fl RDW Coeff of [place] (11.0-15.0) % Plt Count (150-400) K/uL MPV (7.40-12.00) fL Neut % (Auto) (48.0-80.0) % Lymph % (Auto) (16.0-40.0) % Dawes % (Auto) (0.0-15.0) % Eos % (Auto) (0.0-7.0) % Baso % (Auto) (0.0-1.5) % Neut # (1.4-5.7) K/uL Lymph # (0.6-2.4) K/uL Dawes # (0.0-0.8) K/uL Eos # (0.0-0.7) K/uL Baso # (0.0-0.1) K/uL Nucleated RBC % /100WBC Nucleated RBCs # K/uL INR (0.86-1.11) Sodium 140 (136-146) mmol/L Potassium 4.9 (3.5-5.1) mmol/L Chloride 105 (98-110) mmol/L Carbon Dioxide 23 (21-31) mmol/L BUN 35 H (6.0-23.0) mg/dL Creatinine 1.7 H (0.6-1.5) mg/dL Est Cr Clr Drug Dosing 39.21 mL/min Estimated GFR (MDRD) 39.9 ml/min Glucose 132 H (60-110) mg/dL POC Glucose (60-110) mg/dL Calcium 8.1 L (8.8-10.8) mg/dL Magnesium 2.0 (1.5-2.3) mEq/L Vancomycin Trough (5-15) ug/mL [place] Results last 24 hrs: Microbiology 07/01/16 12:57 Aerobic Blood Culture - Preliminary Blood - Venous - Lab Draw NO GROWTH AFTER 2 DAYS Anaerobic Blood Culture - Preliminary NO GROWTH AFTER 2 DAYS 07/01/16 12:50 Aerobic Blood Culture - Preliminary Blood - Venous NO GROWTH AFTER 2 DAYS Anaerobic Blood Culture - Preliminary NO GROWTH AFTER 2 DAYS Med Orders - Current: Current Medications Albuterol/Ipratropium (Duoneb 3.0-0.5 Mg/3 Ml) 3 ml NEB Q4HRRT [facility] Last Admin: 07/04/16 05:20 Dose: 3 ml Allopurinol (Zyloprim) 100 mg PO DAILY [facility] Last Admin: 07/03/16 08:48 Dose: 100 mg Bisacodyl (Dulcolax) 5 mg PO DAILY PRN PRN Reason: Constipation Digoxin (Lanoxin) 125 mcg PO DAILY [facility] Last Admin: 07/03/16 08:45 Dose: 125 mcg Famotidine (Pepcid) 20 mg PO DAILY [facility] Last Admin: 07/03/16 08:47 Dose: 20 mg Fish Oil (Fish Oil) 1 gm PO DAILY [facility] Last Admin: 07/03/16 08:44 Dose: 1 gm Furosemide (Lasix) 80 mg PO DAILY [facility] Last Admin: 07/03/16 08:46 Dose: 80 mg Gabapentin (Neurontin) 300 mg PO TID [facility] Last Admin: 07/04/16 05:20 Dose: 300 mg Vancomycin HCl 1,500 mg/ (Sodium Chloride) 500 mls @ 250 mls/hr IV Q24H [facility] Insulin Aspart (Novolog) 0 unit SUBCUT ACBED [facility] PRN Reason: Protocol Last Admin: 07/04/16 06:47 Dose: Not Given Irbesartan (Avapro) 75 mg PO DAILY [facility] Last Admin: 07/03/16 08:43 Dose: 75 mg Lorazepam (Ativan) 1 mg IVPUSH Q6H PRN PRN Reason: Anxiety Metoprolol Tartrate (Lopressor) 5 mg IVPUSH Q6H PRN PRN Reason: heart rate >110bpm Last Admin: 07/02/16 23:29 Dose: 5 mg Metoprolol Tartrate (Lopressor) 50 mg PO BID [facility] Last Admin: 07/03/16 21:43 Dose: 50 mg Nystatin (Nystop) 1 gm TOP BID [facility] Last Admin: 07/03/16 21:43 Dose: 1 applic Ondansetron HCl (Zofran) 4 mg IVPUSH Q4H PRN PRN Reason: Nausea Oxycodone HCl (Oxycontin) 20 mg PO BID PRN PRN Reason: Pain Last Admin: 07/03/16 21:42 Dose: 20 mg Potassium Chloride (Klor-Con) 20 meq PO BID [facility] Last Admin: 07/03/16 21:44 Dose: 20 meq Pravastatin Sodium (Pravachol) 10 mg PO DAILY [facility] Last Admin: 07/03/16 08:47 Dose: 10 mg Prednisone (Prednisone) 15 mg PO DAILY [facility] Senna (Senna) 17.2 mg PO DAILY [facility] Last Admin: 07/03/16 08:47 Dose: 17.2 mg Sodium Chloride (Saline Flush) 10 ml FLUSH ASDIRECTED PRN PRN Reason: Keep Vein Open Last Admin: 07/01/16 09:08 Dose: 10 ml Sodium Chloride (Saline Flush) 2.5 ml FLUSH ASDIRECTED PRN PRN Reason: Keep Vein Open Last Admin: 07/01/16 09:08 Dose: 2.5 ml Sodium Chloride (Saline Flush) 10 ml FLUSH ASDIRECTED PRN PRN Reason: Keep Vein Open Sodium Chloride (Saline Flush) 2.5 ml FLUSH ASDIRECTED PRN PRN Reason: Keep Vein Open Spironolactone (Aldactone) 25 mg PO DAILY [facility] Last Admin: 07/03/16 08:43 Dose: 25 mg Temazepam (Restoril) 15 mg PO BEDTIME PRN PRN Reason: Sleep Last Admin: 07/02/16 21:52 Dose: 15 mg Vancomycin HCl (Pharmacy To Dose - Vancomycin) 1 dose .XX ASDIRECTED [facility] Venlafaxine HCl (Effexor Xr) 75 mg PO DAILY [facility] Last Admin: 07/03/16 08:44 Dose: 75 mg Discontinued Medications Albuterol/Ipratropium (Duoneb 3.0-0.5 Mg/3 Ml) 3 ml NEB ONETIME ONE Stop: 07/01/16 09:00 Last Admin: 07/01/16 09:45 Dose: 3 ml Calcium Carbonate/Glycine (Tums) 1,000 mg PO ONETIME ONE Stop: 07/03/16 13:18 Last Admin: 07/03/16 14:55 Dose: 1,000 mg Diphtheria/Tetanus/Acell Pertussis (Adacel) 0.5 ml IM .ONCE ONE Stop: 07/01/16 09:06 Last Admin: 07/01/16 09:14 Dose: 0.5 ml Furosemide (Lasix) 80 mg IVPUSH NOW ONE Stop: 07/01/16 11:33 Last Admin: 07/01/16 11:46 Dose: 80 mg Piperacillin Sod/Tazobactam (Sod 3.375 gm/ Sodium Chloride) 50 mls @ 100 mls/ hr IV ONETIME ONE Stop: 07/01/16 12:01 Last Admin: 07/01/16 11:46 Dose: 100 mls/hr Piperacillin Sod/Tazobactam (Sod 3.375 gm/ Sodium Chloride) 50 mls @ 100 mls/ hr IV Q6H [facility] Vancomycin HCl 1,500 mg/ (Sodium Chloride) 500 mls @ 250 mls/hr IV Q12H [facility] Last Admin: 07/03/16 01:06 Dose: Not Given Piperacillin Sod/Tazobactam (Sod 3.375 gm/ Sodium Chloride) 50 mls @ 100 mls/ hr IV Q6H [facility] Last Admin: 07/03/16 18:30 Dose: Not Given Magnesium Sulfate 2 gm/ Premix 50 mls @ 50 mls/hr IV ONETIME ONE Stop: 07/03/16 10:42 Last Admin: 07/03/16 13:34 Dose: 50 mls/hr Piperacillin Sod/Tazobactam (Sod 3.375 gm/ Sodium Chloride) 50 mls @ 100 mls/ hr IV Q6H [facility] Last Admin: 07/04/16 04:24 Dose: 100 mls/hr Metoprolol Succinate (Toprol Xl) 50 mg PO BID [facility] Last Admin: 07/03/16 08:48 Dose: 50 mg - Exam Quality Assessment: supplemental oxygen, DVT prophylaxis General: alert, oriented, cooperative Lungs: Rhonchi, Wheezing (faint exp wheezing throughout) Cardiovascular: regular rate, regular rhythm Abdomen: bowel sounds present, soft, no tenderness, no distension Extremities: edema (+2 pitting edema to R foot and ankle. L leg has 1-2+ non pitting edema. ) Skin: other (scab noted to distalgreat toe, erythema improved greatly. ) Wound/Incisions: erythema improving Neurological: no new focal deficit Psy/Mental Status: alert, normal affect, normal mood - Problem List & Annotations (1) Cellulitis SNOMED Code(s): 504332804 Code(s): L03.90 - CELLULITIS, UNSPECIFIED Status: Acute Current Visit: Yes Qualifiers: Site of cellulitis: extremity Site of cellulitis of extremity: lower extremity Laterality: right Qualified Code(s): L03.115 - Cellulitis of right lower limb (2) Leukocytosis SNOMED Code(s): 936202138, 538644261 Code(s): D72.829 - ELEVATED WHITE BLOOD CELL COUNT, UNSPECIFIED Status: Acute Current Visit: Yes (3) Unable to ambulate SNOMED Code(s): 807621323 Code(s): R26.2 - DIFFICULTY IN WALKING, NOT ELSEWHERE CLASSIFIED Status: Acute Current Visit: Yes (4) CHF exacerbation SNOMED Code(s): 59982240 Code(s): I50.9 - HEART FAILURE, UNSPECIFIED Status: Acute Current Visit: Yes Qualifiers: Congestive heart failure type: unspecified congestive heart failure type Qualified Code(s): I50.9 - Heart failure, unspecified (5) Fracture of toe of right foot SNOMED Code(s): 44144003 Code(s): S92.911A - UNSP FRACTURE OF RIGHT TOE(S), INIT FOR CLOS FX Status : Acute Current Visit: Yes Qualifiers: Encounter type: initial encounter Toe: great toe Fracture type: closed (6) CAD (coronary artery disease) SNOMED Code(s): 62847241 Code(s): I25.10 - ATHSCL HEART DISEASE OF [place] CORONARY ARTERY W/O ANG PCTRS Status: Chronic Current Visit: Yes (7) History of CVA (cerebrovascular accident) SNOMED Code(s): 774352071 Code(s): Z86.73 - PRSNL HX OF TIA (TIA), AND CEREB INFRC W/O RESID DEFICITS Status: Chronic Current Visit: Yes (8) Abdominal hernia SNOMED Code(s): 87735358 Code(s): K46.9 - UNSPECIFIED ABDOMINAL HERNIA WITHOUT OBSTRUCTION OR GANGRENE Status: Chronic Current Visit: Yes (9) Diabetes mellitus SNOMED Code(s): 14881161 Code(s): E11.9 - TYPE 2 DIABETES MELLITUS WITHOUT COMPLICATIONS Status: Chronic Current Visit: Yes Qualifiers: Diabetes mellitus type: type 2 Diabetes mellitus complication status: with skin complications Diabetes mellitus complication detail: with other skin complication Diabetes mellitus fci insulin use: with fci use Qualified Code(s): E11.628 - Type 2 diabetes mellitus with other skin complications; Z79.4 - prison (current) use of insulin (10) Afib SNOMED Code(s): 45502542 Code(s): I48.91 - UNSPECIFIED ATRIAL FIBRILLATION Status: Chronic Current Visit: No Qualifiers: Atrial fibrillation type: chronic Qualified Code(s): I48.2 - Chronic atrial fibrillation (11) COPD (chronic obstructive pulmonary disease) SNOMED Code(s): 63104641 Code(s): J44.9 - CHRONIC OBSTRUCTIVE PULMONARY DISEASE, UNSPECIFIED Status : Chronic Current Visit: No Qualifiers: COPD type: unspecified COPD Qualified Code(s): J44.9 - Chronic obstructive pulmonary disease, unspecified - Problem List Review Problem List Initiated/Reviewed/Updated: Yes - My Orders Last 24 Hours: My Active Orders 07/03/16 09:46 Height and Weight [RC] DAILY Intake and Output Strict [RC] Q12H 07/04/16 07:54 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 1. Cellulitis: Continue Vancomycin. Disconitnue Zosyn due to renal function WBC14,100. MRI of R foot can not be done. Will obtain bone scan r/o osteomyelitis. Will need to consult PT for evaluate and treatment. 2. CHF: Continue Lasix 80 mg PO daily. Daily weight and strict I/O. Continue Spironolactone, Avapro. 3. Afib: supra-therapeutic INR 5.07. Holding Coumadin. Continue Metoprolol, Digoxin. Tachycardia intermittently, Lopressor IV PRN. On telemetry 4. COPD: Continue Duonebs. Oxygen as needed. 5. DM type 2: SSI Novolog TIDAC, BS check TIDAC. VTE: Coumadin on hold. Restart when INR no longer supra-therapeutic Dispo: 2-3 days pending improvement.
[2016-07-04] MEDS: Sennosides 8.6 MG Tab PO SCH (09:41)
[2016-07-04] MEDS: Allopurinol 100 MG Tab PO SCH (09:42)
[2016-07-04] MEDS: Pravastatin 40 MG Tab PO SCH (09:42)
[2016-07-04] MEDS: Irbesartan 150 MG Tab PO SCH (09:44)
[2016-07-04] MEDS: Venlafaxine 75 MG Cap.ER PO SCH (09:44)
[2016-07-04] MEDS: Fish Oil/Omega-3 Fatty Acids 1 Gm Cap PO SCH (09:45)
[2016-07-04] MEDS: Digoxin 125 MCG Tab PO SCH (09:45)
[2016-07-04] MEDS: Spironolactone 25 MG Tab PO SCH (09:45)
[2016-07-04] MEDS: Famotidine 20 MG Tab PO SCH (09:45)
[2016-07-04] MEDS: predniSONE 5 MG Tab PO SCH (09:46)
[2016-07-04] MEDS: Furosemide 80 MG Tab PO SCH (09:46)
[2016-07-04] MEDS: Metoprolol Tartrate 50 MG Tab PO SCH ×2 (09:46→20:22)
[2016-07-04] MEDS: Potassium Chloride 20 MEQ Packet PO SCH ×2 (09:47→20:21)
[2016-07-04] MEDS: Nystatin Topical Powder 15 GM Bottle TOP SCH ×2 (09:52→20:27)
[2016-07-04] MEDS ORDERED: Bisacodyl 10 MG Supp RECTAL PRN (15:45)
--- NOTE | 2016-07-04 16:41 | NM ---
EXAMINATION: 3 phase bone scan of the right foot HISTORY: Rule out osteomyelitis COMPARISON: Radiograph dated 07/01/2016 TECHNIQUE: Multiple planar images obtained of the feet following the injection of 22.3 mCi of techne tium 99m labeled MDP. Images were obtained in the angiographic phase, blood pool phase, and delayed phase. FINDINGS: There is increased blood flow noted to the right foot relative to the left. Increased blood flow is noted within the midfoot and hindfoot of the right foot and ankle including near the tibiotalar join t. There is also delayed uptake within the distal tibia, talus, and midfoot. Focal uptake is also no estefany within the distal first phalanx. IMPRESSION: 1. Increased uptake within the right foot consistent with osteomyelitis.
[2016-07-05] MEDS: Albuterol/Ipratropium 3.0-0.5 MG/3 ML Neb Soln NEB SCH ×3 (02:12→10:59)
[2016-07-05] MEDS: Gabapentin 300 MG Cap PO SCH (07:17)
[2016-07-05] MEDS: Insulin Aspart 100 Units/ML 3 ML Pen SUBCUT SCH ×2 (07:18→11:24)
--- NOTE | 2016-07-05 08:17 | PCM.PN ---
- General Info Date of Service: 07/05/16 Admission Dx/Problem (Free Text): CHF, Cellulitis - Patient Data Vitals - most recent: Last Vital Signs Temp 96.6 F 07/05/16 04:00 Pulse 52 L 07/05/16 04:00 Resp 16 07/05/16 04:00 BP 131/62 07/05/16 04:00 Pulse Ox 93 L 07/05/16 04:00 Weight - most recent: 124 kg I&O - last 24 hours: Intake & Output 07/04/16 07/05/16 07/05/16 22:59 06:59 14:59 Intake Total 520 800 Output Total 760 550 Balance -240 250 Lab Results last 24 hrs: Laboratory Results - last 24 hr 07/03/16 07/04/16 07/04/16 Range/Units 20:22 05:16 06:00 WBC (4.0-11.0) K/uL RBC (4.50-5.90) M/uL Hgb (13.0-17.0) g/dL Hct (38.0-50.0) % MCV (80.0-98.0) fL MCH (27.0-32.0) pg MCHC (31.0-37.0) g/dL RDW Std Deviation (28.0-62.0) fl RDW Coeff of [place] (11.0-15.0) % Plt Count (150-400) K/uL MPV (7.40-12.00) fL Neut % (Auto) (48.0-80.0) % Lymph % (Auto) (16.0-40.0) % [place] % (Auto) (0.0-15.0) % Eos % (Auto) (0.0-7.0) % Baso % (Auto) (0.0-1.5) % Neut # (1.4-5.7) K/uL Lymph # (0.6-2.4) K/uL [place] # (0.0-0.8) K/uL Eos # (0.0-0.7) K/uL Baso # (0.0-0.1) K/uL Nucleated RBC % /100WBC Nucleated RBCs # K/uL Smear Path Review SENT TO PATHOLOGY INR (0.86-1.11) Sodium (136-146) mmol/L Potassium (3.5-5.1) mmol/L Chloride (98-110) mmol/L Carbon Dioxide (21-31) mmol/L BUN (6.0-23.0) mg/dL Creatinine (0.6-1.5) mg/dL Est Cr Clr Drug Dosing mL/min Estimated GFR (MDRD) ml/min Glucose (60-110) mg/dL POC Glucose 207 H 138 H (60-110) mg/dL Calcium (8.8-10.8) mg/dL 07/04/16 07/04/16 07/04/16 Range/Units 11:30 16:35 20:25 WBC (4.0-11.0) K/uL RBC (4.50-5.90) M/uL Hgb (13.0-17.0) g/dL Hct (38.0-50.0) % MCV (80.0-98.0) fL MCH (27.0-32.0) pg MCHC (31.0-37.0) g/dL RDW Std Deviation (28.0-62.0) fl RDW Coeff of [place] (11.0-15.0) % Plt Count (150-400) K/uL MPV (7.40-12.00) fL Neut % (Auto) (48.0-80.0) % Lymph % (Auto) (16.0-40.0) % [place] % (Auto) (0.0-15.0) % Eos % (Auto) (0.0-7.0) % Baso % (Auto) (0.0-1.5) % Neut # (1.4-5.7) K/uL Lymph # (0.6-2.4) K/uL [place] # (0.0-0.8) K/uL Eos # (0.0-0.7) K/uL Baso # (0.0-0.1) K/uL Nucleated RBC % /100WBC Nucleated RBCs # K/uL Smear Path Review INR (0.86-1.11) Sodium (136-146) mmol/L Potassium (3.5-5.1) mmol/L Chloride (98-110) mmol/L Carbon Dioxide (21-31) mmol/L BUN (6.0-23.0) mg/dL Creatinine (0.6-1.5) mg/dL Est Cr Clr Drug Dosing mL/min Estimated GFR (MDRD) ml/min Glucose (60-110) mg/dL POC Glucose 218 H 226 H 205 H (60-110) mg/dL Calcium (8.8-10.8) mg/dL 07/05/16 07/05/16 07/05/16 Range/Units 04:40 04:40 04:40 WBC 13.50 H (4.0-11.0) K/uL RBC 3.59 L (4.50-5.90) M/uL Hgb 10.7 L (13.0-17.0) g/dL Hct 34.1 L (38.0-50.0) % MCV 95.0 (80.0-98.0) fL MCH 29.8 (27.0-32.0) pg MCHC 31.4 (31.0-37.0) g/dL RDW Std Deviation 59.4 (28.0-62.0) fl RDW Coeff of [place] 17 H (11.0-15.0) % Plt Count 240 (150-400) K/uL MPV 9.60 (7.40-12.00) fL Neut % (Auto) 82.6 H (48.0-80.0) % Lymph % (Auto) 9.6 L (16.0-40.0) % [place] % (Auto) 7.1 (0.0-15.0) % Eos % (Auto) 0.5 (0.0-7.0) % Baso % (Auto) 0.2 (0.0-1.5) % Neut # 11.1 H (1.4-5.7) K/uL Lymph # 1.3 (0.6-2.4) K/uL [place] # 1.0 H (0.0-0.8) K/uL Eos # 0.1 (0.0-0.7) K/uL Baso # 0.0 (0.0-0.1) K/uL Nucleated RBC % 0.0 /100WBC Nucleated RBCs # 0 K/uL Smear Path Review INR 6.84 H (0.86-1.11) Sodium 135 L (136-146) mmol/L Potassium 4.9 (3.5-5.1) mmol/L Chloride 102 (98-110) mmol/L Carbon Dioxide 21 (21-31) mmol/L BUN 39 H (6.0-23.0) mg/dL Creatinine 1.6 H (0.6-1.5) mg/dL Est Cr Clr Drug Dosing 41.66 mL/min Estimated GFR (MDRD) 42.8 ml/min Glucose 120 H (60-110) mg/dL POC Glucose (60-110) mg/dL Calcium 7.9 L (8.8-10.8) mg/dL 07/05/16 Range/Units 06:56 WBC (4.0-11.0) K/uL RBC (4.50-5.90) M/uL Hgb (13.0-17.0) g/dL Hct (38.0-50.0) % MCV (80.0-98.0) fL MCH (27.0-32.0) pg MCHC (31.0-37.0) g/dL RDW Std Deviation (28.0-62.0) fl RDW Coeff of [place] (11.0-15.0) % Plt Count (150-400) K/uL MPV (7.40-12.00) fL Neut % (Auto) (48.0-80.0) % Lymph % (Auto) (16.0-40.0) % [place] % (Auto) (0.0-15.0) % Eos % (Auto) (0.0-7.0) % Baso % (Auto) (0.0-1.5) % Neut # (1.4-5.7) K/uL Lymph # (0.6-2.4) K/uL [place] # (0.0-0.8) K/uL Eos # (0.0-0.7) K/uL Baso # (0.0-0.1) K/uL Nucleated RBC % /100WBC Nucleated RBCs # K/uL Smear Path Review INR (0.86-1.11) Sodium (136-146) mmol/L Potassium (3.5-5.1) mmol/L Chloride (98-110) mmol/L Carbon Dioxide (21-31) mmol/L BUN (6.0-23.0) mg/dL Creatinine (0.6-1.5) mg/dL Est Cr Clr Drug Dosing mL/min Estimated GFR (MDRD) ml/min Glucose (60-110) mg/dL POC Glucose 154 H (60-110) mg/dL Calcium (8.8-10.8) mg/dL [place] Results last 24 hrs: Microbiology 07/01/16 12:57 Aerobic Blood Culture - Preliminary Blood - Venous - Lab Draw NO GROWTH AFTER 3 DAYS Anaerobic Blood Culture - Preliminary NO GROWTH AFTER 3 DAYS 07/01/16 12:50 Aerobic Blood Culture - Preliminary Blood - Venous NO GROWTH AFTER 3 DAYS Anaerobic Blood Culture - Preliminary NO GROWTH AFTER 3 DAYS Med Orders - Current: Current Medications Albuterol/Ipratropium (Duoneb 3.0-0.5 Mg/3 Ml) 3 ml NEB Q4HRRT [facility] Last Admin: 07/05/16 06:42 Dose: 3 ml Allopurinol (Zyloprim) 100 mg PO DAILY [facility] Last Admin: 07/04/16 09:42 Dose: 100 mg Bisacodyl (Dulcolax) 5 mg PO DAILY PRN PRN Reason: Constipation Bisacodyl (Dulcolax) 10 mg RECTAL DAILY PRN PRN Reason: Constipation Last Admin: 07/04/16 18:24 Dose: 10 mg Digoxin (Lanoxin) 125 mcg PO DAILY [facility] Last Admin: 07/04/16 09:45 Dose: 125 mcg Famotidine (Pepcid) 20 mg PO DAILY [facility] Last Admin: 07/04/16 09:45 Dose: 20 mg Fish Oil (Fish Oil) 1 gm PO DAILY [facility] Last Admin: 07/04/16 09:45 Dose: 1 gm Furosemide (Lasix) 80 mg PO DAILY [facility] Last Admin: 07/04/16 09:46 Dose: 80 mg Gabapentin (Neurontin) 300 mg PO TID [facility] Last Admin: 07/05/16 07:17 Dose: 300 mg Vancomycin HCl 1,500 mg/ (Sodium Chloride) 500 mls @ 250 mls/hr IV Q24H [facility] Last Admin: 07/04/16 09:27 Dose: 250 mls/hr Insulin Aspart (Novolog) 0 unit SUBCUT ACBED [facility] PRN Reason: Protocol Last Admin: 07/05/16 07:18 Dose: 2 units Irbesartan (Avapro) 75 mg PO DAILY [facility] Last Admin: 07/04/16 09:44 Dose: 75 mg Lorazepam (Ativan) 1 mg IVPUSH Q6H PRN PRN Reason: Anxiety Methadone HCl (Methadone) 5 mg PO Q12H [facility] Metoprolol Tartrate (Lopressor) 5 mg IVPUSH Q6H PRN PRN Reason: heart rate >110bpm Last Admin: 07/02/16 23:29 Dose: 5 mg Metoprolol Tartrate (Lopressor) 50 mg PO BID [facility] Last Admin: 07/04/16 20:22 Dose: 50 mg Nystatin (Nystop) 1 gm TOP BID [facility] Last Admin: 07/04/16 20:27 Dose: 1 applic Ondansetron HCl (Zofran) 4 mg IVPUSH Q4H PRN PRN Reason: Nausea Potassium Chloride (Klor-Con) 20 meq PO BID [facility] Last Admin: 07/04/16 20:21 Dose: 20 meq Pravastatin Sodium (Pravachol) 10 mg PO DAILY [facility] Last Admin: 07/04/16 09:42 Dose: 10 mg Prednisone (Prednisone) 15 mg PO DAILY [facility] Last Admin: 07/04/16 09:46 Dose: 15 mg Senna (Senna) 17.2 mg PO DAILY [facility] Last Admin: 07/04/16 09:41 Dose: 17.2 mg Sodium Chloride (Saline Flush) 10 ml FLUSH ASDIRECTED PRN PRN Reason: Keep Vein Open Last Admin: 07/01/16 09:08 Dose: 10 ml Sodium Chloride (Saline Flush) 2.5 ml FLUSH ASDIRECTED PRN PRN Reason: Keep Vein Open Last Admin: 07/01/16 09:08 Dose: 2.5 ml Sodium Chloride (Saline Flush) 10 ml FLUSH ASDIRECTED PRN PRN Reason: Keep Vein Open Sodium Chloride (Saline Flush) 2.5 ml FLUSH ASDIRECTED PRN PRN Reason: Keep Vein Open Spironolactone (Aldactone) 25 mg PO DAILY [facility] Last Admin: 07/04/16 09:45 Dose: 25 mg Vancomycin HCl (Pharmacy To Dose - Vancomycin) 1 dose .XX ASDIRECTED [facility] Venlafaxine HCl (Effexor Xr) 75 mg PO DAILY [facility] Last Admin: 07/04/16 09:44 Dose: 75 mg Discontinued Medications Albuterol/Ipratropium (Duoneb 3.0-0.5 Mg/3 Ml) 3 ml NEB ONETIME ONE Stop: 07/01/16 09:00 Last Admin: 07/01/16 09:45 Dose: 3 ml Calcium Carbonate/Glycine (Tums) 1,000 mg PO ONETIME ONE Stop: 07/03/16 13:18 Last Admin: 07/03/16 14:55 Dose: 1,000 mg Diphtheria/Tetanus/Acell Pertussis (Adacel) 0.5 ml IM .ONCE ONE Stop: 07/01/16 09:06 Last Admin: 07/01/16 09:14 Dose: 0.5 ml Furosemide (Lasix) 80 mg IVPUSH NOW ONE Stop: 07/01/16 11:33 Last Admin: 07/01/16 11:46 Dose: 80 mg Piperacillin Sod/Tazobactam (Sod 3.375 gm/ Sodium Chloride) 50 mls @ 100 mls/ hr IV ONETIME ONE Stop: 07/01/16 12:01 Last Admin: 07/01/16 11:46 Dose: 100 mls/hr Piperacillin Sod/Tazobactam (Sod 3.375 gm/ Sodium Chloride) 50 mls @ 100 mls/ hr IV Q6H [facility] Vancomycin HCl 1,500 mg/ (Sodium Chloride) 500 mls @ 250 mls/hr IV Q12H [facility] Last Admin: 07/03/16 01:06 Dose: Not Given Piperacillin Sod/Tazobactam (Sod 3.375 gm/ Sodium Chloride) 50 mls @ 100 mls/ hr IV Q6H [facility] Last Admin: 07/03/16 18:30 Dose: Not Given Magnesium Sulfate 2 gm/ Premix 50 mls @ 50 mls/hr IV ONETIME ONE Stop: 07/03/16 10:42 Last Admin: 07/03/16 13:34 Dose: 50 mls/hr Piperacillin Sod/Tazobactam (Sod 3.375 gm/ Sodium Chloride) 50 mls @ 100 mls/ hr IV Q6H [facility] Last Admin: 07/04/16 04:24 Dose: 100 mls/hr Metoprolol Succinate (Toprol Xl) 50 mg PO BID [facility] Last Admin: 07/03/16 08:48 Dose: 50 mg Oxycodone HCl (Oxycontin) 20 mg PO BID PRN PRN Reason: Pain Last Admin: 07/03/16 21:42 Dose: 20 mg Temazepam (Restoril) 15 mg PO BEDTIME PRN PRN Reason: Sleep Last Admin: 07/02/16 21:52 Dose: 15 mg - Problem List & Annotations (1) Cellulitis SNOMED Code(s): 670745037 Code(s): L03.90 - CELLULITIS, UNSPECIFIED Status: Acute Current Visit: Yes Qualifiers: Site of cellulitis: extremity Site of cellulitis of extremity: lower extremity Laterality: right Qualified Code(s): L03.115 - Cellulitis of right lower limb (2) Leukocytosis SNOMED Code(s): 415388666, 505731626 Code(s): D72.829 - ELEVATED WHITE BLOOD CELL COUNT, UNSPECIFIED Status: Acute Current Visit: Yes (3) Unable to ambulate SNOMED Code(s): 231573182 Code(s): R26.2 - DIFFICULTY IN WALKING, NOT ELSEWHERE CLASSIFIED Status: Acute Current Visit: Yes (4) CHF exacerbation SNOMED Code(s): 31480307 Code(s): I50.9 - HEART FAILURE, UNSPECIFIED Status: Acute Current Visit: Yes Qualifiers: Congestive heart failure type: unspecified congestive heart failure type Qualified Code(s): I50.9 - Heart failure, unspecified (5) Fracture of toe of right foot SNOMED Code(s): 42144693 Code(s): S92.911A - UNSP FRACTURE OF RIGHT TOE(S), INIT FOR CLOS FX Status : Acute Current Visit: Yes Qualifiers: Encounter type: initial encounter Toe: great toe Fracture type: closed (6) CAD (coronary artery disease) SNOMED Code(s): 88545424 Code(s): I25.10 - ATHSCL HEART DISEASE OF [place] CORONARY ARTERY W/O ANG PCTRS Status: Chronic Current Visit: Yes (7) History of CVA (cerebrovascular accident) SNOMED Code(s): 909130651 Code(s): Z86.73 - PRSNL HX OF TIA (TIA), AND CEREB INFRC W/O RESID DEFICITS Status: Chronic Current Visit: Yes (8) Abdominal hernia SNOMED Code(s): 89372024 Code(s): K46.9 - UNSPECIFIED ABDOMINAL HERNIA WITHOUT OBSTRUCTION OR GANGRENE Status: Chronic Current Visit: Yes (9) Diabetes mellitus SNOMED Code(s): 85846199 Code(s): E11.9 - TYPE 2 DIABETES MELLITUS WITHOUT COMPLICATIONS Status: Chronic Current Visit: Yes Qualifiers: Diabetes mellitus type: type 2 Diabetes mellitus complication status: with skin complications Diabetes mellitus complication detail: with other skin complication Diabetes mellitus 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 Qualified Code(s): E11.628 - Type 2 diabetes mellitus with other skin complications; 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 of 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 (10) Afib SNOMED Code(s): 17007956 Code(s): I48.91 - UNSPECIFIED ATRIAL FIBRILLATION Status: Chronic Current Visit: No Qualifiers: Atrial fibrillation type: chronic Qualified Code(s): I48.2 - Chronic atrial fibrillation (11) COPD (chronic obstructive pulmonary disease) SNOMED Code(s): 51871550 Code(s): J44.9 - CHRONIC OBSTRUCTIVE PULMONARY DISEASE, UNSPECIFIED Status : Chronic Current Visit: No Qualifiers: COPD type: unspecified COPD Qualified Code(s): J44.9 - Chronic obstructive pulmonary disease, unspecified - My Orders Last 24 Hours: My Active Orders 07/04/16 15:45 Bisacodyl [Dulcolax] 10 mg RECTAL DAILY PRN 07/05/16 07:57 COMPREHENSIVE METABOLIC PN,CMP [CHEM] Routine 07/05/16 09:00 Methadone 5 mg PO Q12H 07/06/16 05:00 BMP [BASIC METABOLIC PANEL,BMP] [CHEM] DAILY CBC WITH AUTO DIFF [HEME] DAILY 07/07/16 05:00 BMP [BASIC METABOLIC PANEL,BMP] [CHEM] DAILY CBC WITH AUTO DIFF [HEME] DAILY - Plan Plan:: This 70 year old male admitted with CHF exacerbation and cellulitis to R lower extremity with acute fracture to R great toe. 1. Cellulitis: Continue Vancomycin. Disconitnue Zosyn due to renal function WBC14,100. MRI of R foot can not be done. Will obtain bone scan r/o osteomyelitis. Will need to consult PT for evaluate and treatment. 2. CHF: Continue Lasix 80 mg PO daily. Daily weight and strict I/O. Continue Spironolactone, Avapro. 3. Afib: supra-therapeutic INR 5.07. Holding Coumadin. Continue Metoprolol, Digoxin. Tachycardia intermittently, Lopressor IV PRN. On telemetry 4. COPD: Continue Duonebs. Oxygen as needed. 5. DM type 2: SSI Novolog TIDAC, BS check TIDAC. VTE: Coumadin on hold. Restart when INR no longer supra-therapeutic Dispo: 2-3 days pending improvement.
[2016-07-05] MEDS ORDERED: Methadone 10 MG Tab PO ONE (09:00)
[2016-07-05] MEDS ORDERED: Methadone 10 MG Tab PO SCH (09:00)
[2016-07-05] MEDS: Furosemide 80 MG Tab PO SCH (09:20)
[2016-07-05] MEDS: Metoprolol Tartrate 50 MG Tab PO SCH (09:20)
[2016-07-05] MEDS: Irbesartan 150 MG Tab PO SCH (09:20)
[2016-07-05] MEDS: Fish Oil/Omega-3 Fatty Acids 1 Gm Cap PO SCH (09:20)
[2016-07-05] MEDS: Pravastatin 40 MG Tab PO SCH (09:21)
[2016-07-05] MEDS: Sennosides 8.6 MG Tab PO SCH (09:24)
[2016-07-05] MEDS: Digoxin 125 MCG Tab PO SCH (09:24)
[2016-07-05] MEDS: Allopurinol 100 MG Tab PO SCH (09:24)
[2016-07-05] MEDS: Famotidine 20 MG Tab PO SCH (09:24)
[2016-07-05] MEDS: Venlafaxine 75 MG Cap.ER PO SCH (09:25)
[2016-07-05] MEDS: predniSONE 5 MG Tab PO SCH (09:25)
[2016-07-05] MEDS: Spironolactone 25 MG Tab PO SCH (09:26)
[2016-07-05] MEDS: Nystatin Topical Powder 15 GM Bottle TOP SCH (09:28)
[2016-07-05] MEDS: Potassium Chloride 20 MEQ Packet PO SCH (09:35)
--- NOTE | 2016-07-05 11:02 | PCM.DCSUM1 ---
Discharge Summary - Hospital Course Brief History: This 70 year old male with pmh of CKD, CHF, Afib on Coumadin, hx NM with stenting, oxygen dependent COPD, DM and morbid obesity presented to the ED on 07/01 with concerns of inability to stand after falling. He had pain to his R foot. He has chronic dyspnea and wheezing. R foot painful, swollen, warm to touch and red. In the ED luekocytosis was noted, 17,000, Lactate was 1.7, INR 3.95, BC were obtained. R foot xray revealed possible post-surgical change or fracture of the distal aspect of the R proximal phalanx subluxation of the distal phalanx, as well as offset of the 3rd metatarsal in relationship to the alteral cuneiform. MR or CT was recommended. He was admitted inpatient for cellulitis and questionable CHF exacerbation. He lives at home with long-term girlfriend. Has reportedly been up ambulating with walker at home until fall. PCP, Dr Livingston. - Discharge Data Discharge Date: 07/05/16 Discharge Disposition: DC/Tfer to Acute Hospital 02 Condition: Good - Discharge Diagnosis/Problem(s) (1) Cellulitis SNOMED Code(s): 480727634 ICD Code: L03.90 - CELLULITIS, UNSPECIFIED Status: Acute Current Visit: Yes Qualifiers: Site of cellulitis: extremity Site of cellulitis of extremity: lower extremity Laterality: right Qualified Code(s): L03.115 - Cellulitis of right lower limb (2) Leukocytosis SNOMED Code(s): 589786048, 613262001 ICD Code: D72.829 - ELEVATED WHITE BLOOD CELL COUNT, UNSPECIFIED Status: Acute Current Visit: Yes (3) Unable to ambulate SNOMED Code(s): 659683128 ICD Code: R26.2 - DIFFICULTY IN WALKING, NOT ELSEWHERE CLASSIFIED Status: Acute Current Visit: Yes (4) CHF exacerbation SNOMED Code(s): 70786810 ICD Code: I50.9 - HEART FAILURE, UNSPECIFIED Status: Acute Current Visit : Yes Qualifiers: Congestive heart failure type: unspecified congestive heart failure type Qualified Code(s): I50.9 - Heart failure, unspecified (5) Fracture of toe of right foot SNOMED Code(s): 61834173 ICD Code: S92.911A - UNSP FRACTURE OF RIGHT TOE(S), INIT FOR CLOS FX Status : Acute Current Visit: Yes Qualifiers: Encounter type: initial encounter Toe: great toe Fracture type: closed (6) CAD (coronary artery disease) SNOMED Code(s): 75841639 ICD Code: I25.10 - ATHSCL HEART DISEASE OF [place] CORONARY ARTERY W/O ANG PCTRS Status: Chronic Current Visit: Yes (7) History of CVA (cerebrovascular accident) SNOMED Code(s): 929978142 ICD Code: Z86.73 - PRSNL HX OF TIA (TIA), AND CEREB INFRC W/O RESID DEFICITS Status: Chronic Current Visit: Yes (8) Abdominal hernia SNOMED Code(s): 65395227 ICD Code: K46.9 - UNSPECIFIED ABDOMINAL HERNIA WITHOUT OBSTRUCTION OR GANGRENE Status: Chronic Current Visit: Yes (9) Diabetes mellitus SNOMED Code(s): 08132610 ICD Code: E11.9 - TYPE 2 DIABETES MELLITUS WITHOUT COMPLICATIONS Status: Chronic Current Visit: Yes Qualifiers: Diabetes mellitus type: type 2 Diabetes mellitus complication status: with skin complications Diabetes mellitus complication detail: with other skin complication Diabetes mellitus shelter insulin use: with terminal operator use Qualified Code(s): E11.628 - Type 2 diabetes mellitus with other skin complications; Z79.4 - [facility] (current) use of insulin (10) Afib SNOMED Code(s): 60901236 ICD Code: I48.91 - UNSPECIFIED ATRIAL FIBRILLATION Status: Chronic Current Visit: No Qualifiers: Atrial fibrillation type: chronic Qualified Code(s): I48.2 - Chronic atrial fibrillation (11) COPD (chronic obstructive pulmonary disease) SNOMED Code(s): 52228805 ICD Code: J44.9 - CHRONIC OBSTRUCTIVE PULMONARY DISEASE, UNSPECIFIED Status : Chronic Current Visit: No Qualifiers: COPD type: unspecified COPD Qualified Code(s): J44.9 - Chronic obstructive pulmonary disease, unspecified - Discharge Plan Home Medications: Home Meds Allopurinol [Zyloprim] 100 mg PO DAILY 07/01/16 [History] Cinnamon Bark [Cinnamon] 2,000 mg PO DAILY 07/01/16 [History] Digoxin [Digox] 125 mcg PO DAILY 07/01/16 [History] Famotidine 20 mg PO BID 07/01/16 [History] Furosemide [Lasix] 80 mg PO DAILY 07/01/16 [History] Gabapentin [Neurontin] 300 mg PO TID 07/01/16 [History] Irbesartan 75 mg PO DAILY 07/01/16 [History] [place]-3S/DHA/Epa/Fish Oil [[place]-3 Fish Oil 1,000 mg Sfgl] 1 each PO DAILY 07/01 [History] Potassium Chloride 40 meq PO QAM 07/01/16 [History] Pravastatin [Pravachol] 10 mg PO DAILY 07/01/16 [History] Prednisone [IJD: Prednisone] 15 mg PO DAILY 07/01/16 [History] Sennosides [Senna] 2 tab PO DAILY 07/01/16 [History] Spironolactone [Aldactone] 25 mg PO DAILY 07/01/16 [History] Venlafaxine [Effexor XR 24 Hr] 75 mg PO DAILY 07/01/16 [History] Methadone 5 mg PO Q12H 07/03/16 [History] Metoprolol Tartrate 50 mg PO BID 07/03/16 [History] Potassium Chloride [Klor-Con M20] 20 meq PO QPM 07/03/16 [History] Warfarin [Coumadin] 2.5 mg PO SUMOTUWETHSA@1800 07/03/16 [History] Warfarin [Coumadin] 5 mg PO FR@1800 07/03/16 [History] metFORMIN HCl [Metformin HCl] 500 mg PO BIDMEALS 07/03/16 [History] Forms: ED Department Discharge Referrals: Manish Livingston MD [Primary Care Provider] - - Discharge Summary/Plan Comment DC Time >30 min.: No Discharge Summary/Plan Comment: Discharge Diagnoses 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 WBC has improved today to 14,000. Bone scan was obtained because MRI was unable to be completed due to spinal rods. Bone scan showed increase up take in the R midfoot and hind foot which radiology felt consistent with osteomyelitis. I spoke with Dr. Irvin Oneil, Nitroglycerin Separator Operator in [place], [place] regarding patient. He was concerned of possible charcot joint vs osteomyelitis. He recommended transfer for consultation and possible bone biopsy to rule out osteomyelitis. I spoke with Jai and his significant other, who agreed to transfer to [place]. Dr. Wallace, ED physician accepted Jai for transfer today. CRP elevated 17.47. Erythema and swelling have improved to R foot, he has bruising to ventral foot with continued tenderness and is unable to put pressure on foot. Vancomycin has been continued. BC have been negative throughout stay, afebrile. INR has continued to elevated, while holding Coumadin. INR 6.84 today, he has no active bleeding. Vitamin K 2.5 PO given today. All home medications have been continued. He had some urine retention recently and hassan catheter was placed last evening. - General Info Date of Service: 07/05/16 Admission Dx/Problem (Free Text: CHF, Cellulitis Subjective Update: Discussed bone scan findings with patient and girlfriend. They agree to transfer at this time. patient alert and easily arousable. Denies chest pain, increased SOB or palpitations. Continues to complain of pain to R foot, being transferred by kevin lift, unable to put weight on foot. Functional Status: Reports: pain controlled, tolerating diet. Denies: ambulating - Review of Systems General: Reports: no symptoms. Denies: fever HEENT: Reports: no symptoms. Denies: ear pain, headaches, sinus congestion, sore throat Pulmonary: Reports: shortness of breath (intermittenly at baseline.), cough. Denies: sputum Cardiovascular: Reports: edema. Denies: chest pain, palpitations Gastrointestinal: Reports: No symptoms. Denies: Abdominal pain, Nausea, Vomiting Genitourinary: Reports: no symptoms, retention (hassan placed last evening. ) Musculoskeletal: Reports: foot pain (R foot) Skin: Reports: no symptoms Neurological: Reports: no symptoms Psychiatric: Reports: no symptoms - Patient Data Vitals - Most Recent: Last Vital Signs Temp 96.6 F 07/05/16 08:00 Pulse 82 07/05/16 09:24 Resp 12 07/05/16 08:00 BP 145/76 H 07/05/16 09:20 Pulse Ox 92 L 07/05/16 08:00 Weight - Most Recent: 124 kg I&O - Last 24 hours: Intake & Output 07/04/16 07/05/16 07/05/16 22:59 06:59 14:59 Intake Total 520 800 Output Total 760 550 Balance -240 250 Lab Results - Last 24 hrs: Laboratory Results - last 24 hr 02/07/04/16 07/04/16 Range/Units 20:22 05:16 06:00 WBC (4.0-11.0) K/uL RBC (4.50-5.90) M/uL Hgb (13.0-17.0) g/dL Hct (38.0-50.0) % MCV (80.0-98.0) fL MCH (27.0-32.0) pg MCHC (31.0-37.0) g/dL RDW Std Deviation (28.0-62.0) fl RDW Coeff of [place] (11.0-15.0) % Plt Count (150-400) K/uL MPV (7.40-12.00) fL Neut % (Auto) (48.0-80.0) % Lymph % (Auto) (16.0-40.0) % [place] % (Auto) (0.0-15.0) % Eos % (Auto) (0.0-7.0) % Baso % (Auto) (0.0-1.5) % Neut # (1.4-5.7) K/uL Lymph # (0.6-2.4) K/uL [place] # (0.0-0.8) K/uL Eos # (0.0-0.7) K/uL Baso # (0.0-0.1) K/uL Nucleated RBC % /100WBC Nucleated RBCs # K/uL Smear Path Review SENT TO PATHOLOGY INR (0.86-1.11) Sodium (136-146) mmol/L Potassium (3.5-5.1) mmol/L Chloride (98-110) mmol/L Carbon Dioxide (21-31) mmol/L BUN (6.0-23.0) mg/dL Creatinine (0.6-1.5) mg/dL Est Cr Clr Drug Dosing mL/min Estimated GFR (MDRD) ml/min Glucose (60-110) mg/dL POC Glucose 207 H 138 H (60-110) mg/dL Calcium (8.8-10.8) mg/dL Total Bilirubin (0.1-1.5) mg/dL AST (5-40) IU/L ALT (8-54) IU/L Alkaline Phosphatase (40-150) Total Protein (6.0-8.0) g/dL Albumin (3.4-4.8) g/dL Globulin (2.0-3.5) g/dL Albumin/Globulin Ratio (1.3-2.8) 07/04/16 07/04/16 07/04/16 Range/Units 11:30 16:35 20:25 WBC (4.0-11.0) K/uL RBC (4.50-5.90) M/uL Hgb (13.0-17.0) g/dL Hct (38.0-50.0) % MCV (80.0-98.0) fL MCH (27.0-32.0) pg MCHC (31.0-37.0) g/dL RDW Std Deviation (28.0-62.0) fl RDW Coeff of [place] (11.0-15.0) % Plt Count (150-400) K/uL MPV (7.40-12.00) fL Neut % (Auto) (48.0-80.0) % Lymph % (Auto) (16.0-40.0) % [place] % (Auto) (0.0-15.0) % Eos % (Auto) (0.0-7.0) % Baso % (Auto) (0.0-1.5) % Neut # (1.4-5.7) K/uL Lymph # (0.6-2.4) K/uL [place] # (0.0-0.8) K/uL Eos # (0.0-0.7) K/uL Baso # (0.0-0.1) K/uL Nucleated RBC % /100WBC Nucleated RBCs # K/uL Smear Path Review INR (0.86-1.11) Sodium (136-146) mmol/L Potassium (3.5-5.1) mmol/L Chloride (98-110) mmol/L Carbon Dioxide (21-31) mmol/L BUN (6.0-23.0) mg/dL Creatinine (0.6-1.5) mg/dL Est Cr Clr Drug Dosing mL/min Estimated GFR (MDRD) ml/min Glucose (60-110) mg/dL POC Glucose 218 H 226 H 205 H (60-110) mg/dL Calcium (8.8-10.8) mg/dL Total Bilirubin (0.1-1.5) mg/dL AST (5-40) IU/L ALT (8-54) IU/L Alkaline Phosphatase (40-150) Total Protein (6.0-8.0) g/dL Albumin (3.4-4.8) g/dL Globulin (2.0-3.5) g/dL Albumin/Globulin Ratio (1.3-2.8) 07/05/16 07/05/16 07/05/16 Range/Units 04:40 04:40 04:40 WBC 13.50 H (4.0-11.0) K/uL RBC 3.59 L (4.50-5.90) M/uL Hgb 10.7 L (13.0-17.0) g/dL Hct 34.1 L (38.0-50.0) % MCV 95.0 (80.0-98.0) fL MCH 29.8 (27.0-32.0) pg MCHC 31.4 (31.0-37.0) g/dL RDW Std Deviation 59.4 (28.0-62.0) fl RDW Coeff of [place] 17 H (11.0-15.0) % Plt Count 240 (150-400) K/uL MPV 9.60 (7.40-12.00) fL Neut % (Auto) 82.6 H (48.0-80.0) % Lymph % (Auto) 9.6 L (16.0-40.0) % [place] % (Auto) 7.1 (0.0-15.0) % Eos % (Auto) 0.5 (0.0-7.0) % Baso % (Auto) 0.2 (0.0-1.5) % Neut # 11.1 H (1.4-5.7) K/uL Lymph # 1.3 (0.6-2.4) K/uL Hernando # 1.0 H (0.0-0.8) K/uL Eos # 0.1 (0.0-0.7) K/uL Baso # 0.0 (0.0-0.1) K/uL Nucleated RBC % 0.0 /100WBC Nucleated RBCs # 0 K/uL Smear Path Review INR 6.84 H (0.86-1.11) Sodium 135 L (136-146) mmol/L Potassium 4.9 (3.5-5.1) mmol/L Chloride 102 (98-110) mmol/L Carbon Dioxide 21 (21-31) mmol/L BUN 39 H (6.0-23.0) mg/dL Creatinine 1.6 H (0.6-1.5) mg/dL Est Cr Clr Drug Dosing 41.66 mL/min Estimated GFR (MDRD) 42.8 ml/min Glucose 120 H (60-110) mg/dL POC Glucose (60-110) mg/dL Calcium 7.9 L (8.8-10.8) mg/dL Total Bilirubin 1.1 (0.1-1.5) mg/dL AST 15 (5-40) IU/L ALT 21 (8-54) IU/L Alkaline Phosphatase 128 (40-150) Total Protein 5.3 L (6.0-8.0) g/dL Albumin 2.8 L (3.4-4.8) g/dL Globulin 2.5 (2.0-3.5) g/dL Albumin/Globulin Ratio 1.1 L (1.3-2.8) 07/05/16 Range/Units 06:56 WBC (4.0-11.0) K/uL RBC (4.50-5.90) M/uL Hgb (13.0-17.0) g/dL Hct (38.0-50.0) % MCV (80.0-98.0) fL MCH (27.0-32.0) pg MCHC (31.0-37.0) g/dL RDW Std Deviation (28.0-62.0) fl RDW Coeff of [place] (11.0-15.0) % Plt Count (150-400) K/uL MPV (7.40-12.00) fL Neut % (Auto) (48.0-80.0) % Lymph % (Auto) (16.0-40.0) % [place] % (Auto) (0.0-15.0) % Eos % (Auto) (0.0-7.0) % Baso % (Auto) (0.0-1.5) % Neut # (1.4-5.7) K/uL Lymph # (0.6-2.4) K/uL [place] # (0.0-0.8) K/uL Eos # (0.0-0.7) K/uL Baso # (0.0-0.1) K/uL Nucleated RBC % /100WBC Nucleated RBCs # K/uL Smear Path Review INR (0.86-1.11) Sodium (136-146) mmol/L Potassium (3.5-5.1) mmol/L Chloride (98-110) mmol/L Carbon Dioxide (21-31) mmol/L BUN (6.0-23.0) mg/dL Creatinine (0.6-1.5) mg/dL Est Cr Clr Drug Dosing mL/min Estimated GFR (MDRD) ml/min Glucose (60-110) mg/dL POC Glucose 154 H (60-110) mg/dL Calcium (8.8-10.8) mg/dL Total Bilirubin (0.1-1.5) mg/dL AST (5-40) IU/L ALT (8-54) IU/L Alkaline Phosphatase (40-150) Total Protein (6.0-8.0) g/dL Albumin (3.4-4.8) g/dL Globulin (2.0-3.5) g/dL Albumin/Globulin Ratio (1.3-2.8) GE[place]GINA Results - Last 24 hrs: Microbiology 07/01/16 12:57 Aerobic Blood Culture - Preliminary Blood - Venous - Lab Draw NO GROWTH AFTER 3 DAYS Anaerobic Blood Culture - Preliminary NO GROWTH AFTER 3 DAYS 07/01/16 12:50 Aerobic Blood Culture - Preliminary Blood - Venous NO GROWTH AFTER 3 DAYS Anaerobic Blood Culture - Preliminary NO GROWTH AFTER 3 DAYS Med Orders - Current: Current Medications Albuterol/Ipratropium (Duoneb 3.0-0.5 Mg/3 Ml) 3 ml NEB Q4HRRT [facility] Last Admin: 07/05/16 06:42 Dose: 3 ml Allopurinol (Zyloprim) 100 mg PO DAILY [facility] Last Admin: 07/05/16 09:24 Dose: 100 mg Bisacodyl (Dulcolax) 5 mg PO DAILY PRN PRN Reason: Constipation Bisacodyl (Dulcolax) 10 mg RECTAL DAILY PRN PRN Reason: Constipation Last Admin: 07/04/16 18:24 Dose: 10 mg Digoxin (Lanoxin) 125 mcg PO DAILY [facility] Last Admin: 07/05/16 09:24 Dose: 125 mcg Famotidine (Pepcid) 20 mg PO DAILY [facility] Last Admin: 07/05/16 09:24 Dose: 20 mg Fish Oil (Fish Oil) 1 gm PO DAILY [facility] Last Admin: 07/05/16 09:20 Dose: 1 gm Furosemide (Lasix) 80 mg PO DAILY [facility] Last Admin: 07/05/16 09:20 Dose: 80 mg Gabapentin (Neurontin) 300 mg PO TID [facility] Last Admin: 07/05/16 07:17 Dose: 300 mg Vancomycin HCl 1,500 mg/ (Sodium Chloride) 500 mls @ 250 mls/hr IV Q24H [facility] Last Admin: 07/05/16 09:35 Dose: 250 mls/hr Insulin Aspart (Novolog) 0 unit SUBCUT ACBED [facility] PRN Reason: Protocol Last Admin: 07/05/16 07:18 Dose: 2 units Irbesartan (Avapro) 75 mg PO DAILY [facility] Last Admin: 07/05/16 09:20 Dose: 75 mg Lorazepam (Ativan) 1 mg IVPUSH Q6H PRN PRN Reason: Anxiety Methadone HCl (Methadone) 5 mg PO Q12H [facility] Last Admin: 07/05/16 09:22 Dose: 5 mg Metoprolol Tartrate (Lopressor) 5 mg IVPUSH Q6H PRN PRN Reason: heart rate >110bpm Last Admin: 07/02/16 23:29 Dose: 5 mg Metoprolol Tartrate (Lopressor) 50 mg PO BID [facility] Last Admin: 07/05/16 09:20 Dose: 50 mg Nystatin (Nystop) 1 gm TOP BID [facility] Last Admin: 07/05/16 09:28 Dose: 1 applic Ondansetron HCl (Zofran) 4 mg IVPUSH Q4H PRN PRN Reason: Nausea Potassium Chloride (Klor-Con) 20 meq PO BID [facility] Last Admin: 07/05/16 09:35 Dose: Not Given Pravastatin Sodium (Pravachol) 10 mg PO DAILY [facility] Last Admin: 07/05/16 09:21 Dose: 10 mg Prednisone (Prednisone) 15 mg PO DAILY [facility] Last Admin: 07/05/16 09:25 Dose: 15 mg Senna (Senna) 17.2 mg PO DAILY [facility] Last Admin: 07/05/16 09:24 Dose: 17.2 mg Sodium Chloride (Saline Flush) 10 ml FLUSH ASDIRECTED PRN PRN Reason: Keep Vein Open Last Admin: 07/01/16 09:08 Dose: 10 ml Sodium Chloride (Saline Flush) 2.5 ml FLUSH ASDIRECTED PRN PRN Reason: Keep Vein Open Last Admin: 07/01/16 09:08 Dose: 2.5 ml Sodium Chloride (Saline Flush) 10 ml FLUSH ASDIRECTED PRN PRN Reason: Keep Vein Open Sodium Chloride (Saline Flush) 2.5 ml FLUSH ASDIRECTED PRN PRN Reason: Keep Vein Open Spironolactone (Aldactone) 25 mg PO DAILY [facility] Last Admin: 07/05/16 09:26 Dose: 25 mg Vancomycin HCl (Pharmacy To Dose - Vancomycin) 1 dose .XX ASDIRECTED [facility] Venlafaxine HCl (Effexor Xr) 75 mg PO DAILY [facility] Last Admin: 07/05/16 09:25 Dose: 75 mg Discontinued Medications Albuterol/Ipratropium (Duoneb 3.0-0.5 Mg/3 Ml) 3 ml NEB ONETIME ONE Stop: 07/01/16 09:00 Last Admin: 07/01/16 09:45 Dose: 3 ml Calcium Carbonate/Glycine (Tums) 1,000 mg PO ONETIME ONE Stop: 07/03/16 13:18 Last Admin: 07/03/16 14:55 Dose: 1,000 mg Diphtheria/Tetanus/Acell Pertussis (Adacel) 0.5 ml IM .ONCE ONE Stop: 07/01/16 09:06 Last Admin: 07/01/16 09:14 Dose: 0.5 ml Furosemide (Lasix) 80 mg IVPUSH NOW ONE Stop: 07/01/16 11:33 Last Admin: 07/01/16 11:46 Dose: 80 mg Piperacillin Sod/Tazobactam (Sod 3.375 gm/ Sodium Chloride) 50 mls @ 100 mls/ hr IV ONETIME ONE Stop: 07/01/16 12:01 Last Admin: 07/01/16 11:46 Dose: 100 mls/hr Piperacillin Sod/Tazobactam (Sod 3.375 gm/ Sodium Chloride) 50 mls @ 100 mls/ hr IV Q6H [facility] Vancomycin HCl 1,500 mg/ (Sodium Chloride) 500 mls @ 250 mls/hr IV Q12H [facility] Last Admin: 07/03/16 01:06 Dose: Not Given Piperacillin Sod/Tazobactam (Sod 3.375 gm/ Sodium Chloride) 50 mls @ 100 mls/ hr IV Q6H [facility] Last Admin: 07/03/16 18:30 Dose: Not Given Magnesium Sulfate 2 gm/ Premix 50 mls @ 50 mls/hr IV ONETIME ONE Stop: 07/03/16 10:42 Last Admin: 07/03/16 13:34 Dose: 50 mls/hr Piperacillin Sod/Tazobactam (Sod 3.375 gm/ Sodium Chloride) 50 mls @ 100 mls/ hr IV Q6H [facility] Last Admin: 07/04/16 04:24 Dose: 100 mls/hr Metoprolol Succinate (Toprol Xl) 50 mg PO BID [facility] Last Admin: 07/03/16 08:48 Dose: 50 mg Oxycodone HCl (Oxycontin) 20 mg PO BID PRN PRN Reason: Pain Last Admin: 07/03/16 21:42 Dose: 20 mg Phytonadione (Aquamephyton) 2.5 mg PO ONETIME ONE Stop: 07/05/16 08:54 Last Admin: 07/05/16 10:11 Dose: 2.5 mg Temazepam (Restoril) 15 mg PO BEDTIME PRN PRN Reason: Sleep Last Admin: 07/02/16 21:52 Dose: 15 mg - Exam Quality Assessment: Reports: supplemental oxygen, urine catheter, DVT prophylaxis General: Reports: alert, oriented, cooperative Neck: Reports: supple Lungs: Reports: Normal respiratory effort, Decreased breath sounds (bilateral bases) Cardiovascular: Reports: regular rate, regular rhythm, no murmurs Abdomen: Reports: bowel sounds present, soft, no tenderness, no distension, other (obese abdomen with hernias.) Extremities: Reports: edema (+1-2 pitting edema bilaterally to lower legs) Wound/Incisions: Reports: other (small superficial wound to R great toe, bruising to ventral R foot, swelling continues and tenderness to movement and palpation. Erythema greatly decreased. ) Neurological: Reports: no new focal deficit, normal speech Psy/Mental Status: Reports: alert, normal affect, normal mood *Q Meaningful Use (DIS) - VTE *Q VTE Criteria *Q: - Stroke *Q Stroke Criteria *Q: - AMI *Q AMI Criteria *Q:
[2016-07-05 14:00] VITALS: BP 107/65
== END 2016-07-05 11:55 | DRG 603 ==
LOC: MW.ED 08:44 → MW.MS 11:36
PROVIDERS: ADMIT Family Medicine; ATTEND Family Medicine
PROC: 3E0234Z Introduction of Serum, Toxoid and Vaccine into Muscle, Percutaneous Approach (ICD-10-PCS; principal; 2016-07-01)
DX: L03.115 Cellulitis of right lower limb (principal); L08.9 Local infection of the skin and subcutaneous tissue, unspecified; M25.572 Pain in left ankle and joints of left foot; I50.9 Heart failure, unspecified; R26.2 Difficulty in walking, not elsewhere classified; S92.911A Unspecified fracture of right toe(s), initial encounter for closed fracture; I25.10 Atherosclerotic heart disease of native coronary artery without angina pectoris; Z86.73 Personal history of transient ischemic attack (TIA), and cerebral infarction without residual deficits; K46.9 Unspecified abdominal hernia without obstruction or gangrene; E11.628 Type 2 diabetes mellitus with other skin complications; Z79.4 Long term (current) use of insulin; I48.2 Chronic atrial fibrillation; J44.9 Chronic obstructive pulmonary disease, unspecified; N18.9 Chronic kidney disease, unspecified; R32 Unspecified urinary incontinence; M25.561 Pain in right knee; Z95.5 Presence of coronary angioplasty implant and graft; E66.9 Obesity, unspecified; Z87.891 Personal history of nicotine dependence; M25.571 Pain in right ankle and joints of right foot; Z23 Encounter for immunization
CPT/HCPCS: 36415; 71010; 71010-26; 73562-26-RT; 73562-RT; 73600-26-LT; 73600-26-RT; 73600-LT; 73600-RT; 73620-26-RT; 73620-RT; 78315; 78315-26; 80048; 80053; 80162; 80202; 81001; 82962; 83605; 83735; 83880; 84484; 85025; 85610; 85652; 86140; 87040; 87086; 87804; 88104; 90471; 90715; 93005; 94640; 96365; 96375; 97802; 99285; 99285-25; A9270-GY; A9503; J1815-GY; J1940; J2543; J3370; J3430; J3475; J7040; J7050

== ENCOUNTER 2016-07-19 12:53 | Inpatient (IN) | payer MEDICARE, BC ==
[2016-07-19] MEDS ORDERED: Sodium Chloride 0.9% 10 ML Syringe FLUSH PRN ×2 (13:24)
[2016-07-19] MEDS ORDERED: Sodium Chloride 0.9% 2.5 ML Syringe FLUSH PRN (13:24)
[2016-07-19] MEDS ORDERED: Albuterol/Ipratropium 3.0-0.5 MG/3 ML Neb Soln NEB ONE (13:28)
[2016-07-19] MEDS ORDERED: Sodium Chloride 0.9% 1,000 ML IV SCH (13:30)
--- NOTE | 2016-07-19 15:05 | CR ---
EXAMINATION: Portable chest radiograph. HISTORY: Chest evaluation. FINDINGS: The patient is rotated. The heart is borderline in size. There is an increased interstitial and cent ral vascular prominence. Mild bibasilar atelectasis and/or infiltrate. Trace pleural effusions are n ot excluded. No pneumothorax. Osseous structures appear unremarkable. IMPRESSION: Mild bibasilar atelectasis and/or infiltrate with increased vascular prominence, correlate exacerbat ion of CHF.
--- NOTE | 2016-07-19 15:12 | CT ---
EXAMINATION: Non contrast CT head. Coronal and sagittal reformats. HISTORY: Cardio eval FINDINGS: No evidence of intra or extra axial hemorrhage, mass, midline shift, hydrocephalus or edema. There is mild generalized atrophy. No hypoattenuation changes in the major vascular territories to suggest acute infarct. No abnormal intracranial calcifications are detected. No evidence of substantial vascular calcifica tions. Paranasal sinuses and mastoid air cells are well aerated without substantial findings. Small stable intraorbital nodularity. Pituitary fossa appears unremarkable. Calvarium is intact. No evidence of skull fracture. IMPRESSION: No acute intracranial findings.
[2016-07-19] MEDS ORDERED: Acetaminophen/HYDROcodone 325-10 MG Tab PO ONE (15:53)
[2016-07-19] MEDS ORDERED: cefTRIAXone 1,000 MG in Sodium Chloride 0.9% 50 ML IV ONE (16:22)
[2016-07-19] MEDS ORDERED: cefTRIAXone 1 GM in Premix Bag 1 BAG IV ONE (17:00)
[2016-07-19] MEDS ORDERED: Ondansetron 4 MG Tab.DIS PO PRN (18:35)
[2016-07-19] MEDS ORDERED: Bisacodyl 10 MG Supp RECTAL PRN (18:48)
[2016-07-19] MEDS ORDERED: cefTRIAXone 1,000 MG in Sodium Chloride 0.9% 50 ML IV SCH (19:00)
[2016-07-19] MEDS ORDERED: QUEtiapine 25 MG Tab PO PRN (19:58)
--- NOTE | 2016-07-19 20:19 | PCM.HP ---
H&P History of Present Illness - General Date of Service: 07/19/16 Admit Problem/Dx: Admission Diagnosis/Problem Admission Diagnosis/Problem UTI, Urinary tract infectious disease Source of Information: Family, custodial records, Old records History Limitations: Reports: Altered mental status - History of Present Illness Initial Comments - Free Text/Narative: 70-year-old male admitted on 07/19/16 for UTI and acute on chronic renal failure with past medical history of congestive heart failure, chronic kidney disease, A. fib on Coumadin, oxygen-dependent COPD, diabetes type 2, dementia without behavioral disturbance, and [place] with stenting. During interview patient was altered and did not answer questions appropriately he was alert two out of three but not appropriate. His girlfriend helped with the history bu was a poor historian. Information taking from residential records and [facility] notes from recent hospitalization were used primarily for the H and P. Patient was recently transferred to [place] from [place] for osteomyelitis versus Charcot joint on 07/05/16. He was treated at [facility] and was diagnosed with a Charcot joint of the right ankle. Patient when seen here had leukocytosis and was started on Vanc and Zosyn secondary to worry of osteomyelitis, however after evaluation in [place] antibiotics were discontinued. During his stay in [place] he was treated for a Charcot joint, acute on chronic systolic congestive heart failure, chronic kidney disease, and diabetes. As per records the patient's creatinine at that time was 1.31 With a GFR of 54. This is improved to 1.10 on last day of labs that I have available to me. Today the patient came in with altered mental status as well as a positive urinary tract infection from [facility] where he's been treated for a Charcot joint. In the emergency department here CXR showed basilar atelectasis and/or/ infiltrate with increased vascular prominence suggestive of possible CHF exacerbation. Patient was started on Rocephin 1 g IV and given 200 mL's of fluid. Creatnine was 2.63 a significant increase from previous labs. Talking with the girlfriend's of patient, ever since he was in [place] he's been less alert and more "sleepy". Looking through the notes he was started on Seroquel 50 mg each bedtime as well as 2t mg in the a.m. for agitation. In addition to this the patient was receiving OxyContin 10 mg extended release daily as well as oxycodone 5 mg by mouth every 4 hours. Patient did have a echocardiogram done on 07/12/16 while in [place] showing findings of left ventricular systolic dysfunction with an ejection fraction of 35%. There was a hypokinetic right ventricle. There was normal size inferior vena cava and pulmonary artery pressures. Also at least moderate to moderate severe degree of mitral regurg. Patient was in A. fib during the study. Patient will be in admitted and treated for UTI as well as acute on chronic renal failure. - Related Data Allergies/Adverse Reactions: Allergies Allergy/AdvReac Type Severity Reaction Status Date / Time ibuprofen Allergy unknown Verified 07/19/16 13:23 lisinopril Allergy unknown Verified 07/19/16 13:23 sulfamethoxazole Allergy unknown Verified 07/19/16 13:23 [From Bactrim] trimethoprim [From Bactrim] Allergy unknown Verified 07/19/16 13:23 Home Medications: Home Meds Allopurinol [Zyloprim] 100 mg PO DAILY 07/01/16 [History] Cinnamon Bark [Cinnamon] 1,000 mg PO DAILY 07/01/16 [History] Digoxin [Digox] 125 mcg PO DAILY 07/01/16 [History] Famotidine 20 mg PO BID 07/01/16 [History] Furosemide [Lasix] 160 mg PO DAILY 07/01/16 [History] Gabapentin [Neurontin] 300 mg PO TID 07/01/16 [History] Irbesartan 75 mg PO DAILY 07/01/16 [History] Pravastatin [Pravachol] 10 mg PO BEDTIME 07/01/16 [History] Spironolactone [Aldactone] 25 mg PO DAILY 07/01/16 [History] Potassium Chloride [Klor-Con M20] 40 meq PO DAILY 07/03/16 [History] metFORMIN HCl [Metformin HCl] 500 mg PO BIDMEALS 07/03/16 [History] Bisacodyl [Dulcolax] 10 mg RC Q24H PRN 07/19/16 [History] Carvedilol 6.25 mg PO BIDMEALS 07/19/16 [History] Magnesium Hydroxide [Milk of Magnesia] 30 ml PO Q24H PRN 07/19/16 [History] QUEtiapine Fumarate [Seroquel] 50 mg PO BEDTIME 07/19/16 [History] QUEtiapine [SEROquel] 25 mg PO QAM 07/19/16 [History] Venlafaxine [Effexor] 75 mg PO DAILY 07/19/16 [History] oxyCODONE 5 mg PO Q4H PRN 07/19/16 [History] oxyCODONE ER [OxyCONTIN] 10 mg PO Q12H 07/19/16 [History] Past Medical History Cardiovascular History: Reports: Afib, CAD, Heart Failure, [place], Stents Respiratory History: Reports: COPD Gastrointestinal History: Denies: Cirrhosis Genitourinary History: Reports: Renal disease Musculoskeletal History: Reports: Other (see below) Other Musculoskeletal History: he has a history of abdominal hernias Neurological History: Reports: CVA, Other (see below) Other Neuro History: encephalopathy Psychiatric History: Reports: Dementia, Other (see below) Other Psychiatric History: Restlessness and agitation, disorientation Endocrine/Metabolic History: Reports: Diabetes, type II, Obesity/BMI 30+ Hematologic History: Reports: None Oncologic (Cancer) History: Reports: None - Past Surgical History Cardiovascular Surgical History: Reports: Coronary artery stent Respiratory Surgical History: Reports: None GI Surgical History: Reports: Hernia, abdominal, Hernia repair/other, Other ( see below) Other GI Surgeries/Procedures: Abdominal mesh placement Endocrine Surgical History: Reports: None Neurological Surgical History: Reports: Spinal fusion Musculoskeletal Surgical History: Reports: Other (see below) Other Musculoskeletal Surgeries/Procedures:: 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 Right ankle repair Social & Family History - Family History Family Medical History: Unobtainable Cardiac: Reports: [place] Respiratory: Reports: None - Tobacco Use Smoking Status *Q: Former Smoker Years of Tobacco use: 10 Second Hand Smoke Exposure: Yes - Caffeine Use Caffeine Use: Reports: Coffee, Soda - Alcohol Use Days Per Week of Alcohol Use: 0 - Recreational Drug Use Recreational Drug Use: No - Living Situation & Occupation Living situation: Reports: with significant other, other (Children from a previous relationship.) Occupation: disabled (On disability for back pain/fusion. 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[employer].) H&P Review of Systems - Review of Systems: Review Of Systems: Unable To Obtain Exam - Exam Exam: See Below - Vital Signs Vital Signs: Last Vital Signs Temp 35.7 C 07/19/16 16:30 Pulse 77 07/19/16 16:30 Resp 20 07/19/16 16:30 BP 114/58 L 07/19/16 16:30 Pulse Ox 94 L 07/19/16 18:35 Weight: 126.5 kg - Exam Quality Assessment: supplemental oxygen General: alert, cooperative, sedated HEENT: PERRLA, Hearing intact, Mucosa moist & pink, Nares patent, Normal nasal septum, Posterior pharynx clear, Conjunctiva clear, EOMI, EACs clear, TMs clear Neck: supple, trachea midline, JVD Lungs: Normal respiratory effort, Decreased breath sounds, Rales Cardiovascular: regular rate, normal S1, normal S2, systolic murmur. No: regular rhythm Abdomen: normal bowel sounds, soft, other. No: guarding, rigidity, rebound, tenderness (Male) Exam: Circumcised Extremities: edema, other (cast on lower right extremety and excoriations on lower right extremety with no signs of infection) Peripheral Pulses: 2+: radial (L), radial (R), posterior tibial (L), dorsalis pedis (L) Skin: warm, dry, intact Neuro Extensive - Mental Status: alert, disorientation to place, disorientation to time, inattentive Psychiatric: alert, labile mood - Patient Data Lab Results last 24 hrs: Laboratory Results - last 24 hr 07/19/16 Range/Units 17:23 POC Glucose 130 H (60-110) mg/dL Result Diagrams: 07/19/16 13:40 07/19/16 13:40 *Q Meaningful Use (ADM) - VTE *Q VTE Criteria *Q: - Stroke *Q Stroke Criteria *Q: - AMI *Q AMI Criteria *Q: - Problem List (1) Acute on chronic renal failure SNOMED Code(s): 695444315 ICD Code: N17.9 - ACUTE KIDNEY FAILURE, UNSPECIFIED; N18.9 - CHRONIC KIDNEY DISEASE, UNSPECIFIED Status: Acute Priority: High Current Visit: Yes (2) UTI (urinary tract infection) SNOMED Code(s): 93604908 ICD Code: N39.0 - URINARY TRACT INFECTION, SITE NOT SPECIFIED Status: Acute Priority: High Current Visit: Yes Qualifiers: Urinary tract infection type: site unspecified Hematuria presence: without hematuria Qualified Code(s): N39.0 - Urinary tract infection, site not specified (3) Systolic CHF SNOMED Code(s): 469562063 ICD Code: I50.20 - UNSPECIFIED SYSTOLIC (CONGESTIVE) HEART FAILURE Status: Chronic Priority: High Current Visit: Yes Qualifiers: Congestive heart failure chronicity: chronic Qualified Code(s): I50.22 - Chronic systolic (congestive) heart failure (4) Acute on chronic alteration in mental status SNOMED Code(s): 826437875 ICD Code: R41.82 - ALTERED MENTAL STATUS, UNSPECIFIED Status: Acute Priority: Medium Current Visit: Yes (5) Afib SNOMED Code(s): 73050132 ICD Code: I48.91 - UNSPECIFIED ATRIAL FIBRILLATION Status: Chronic Priority: Medium Current Visit: No Qualifiers: Atrial fibrillation type: chronic Qualified Code(s): I48.2 - Chronic atrial fibrillation (6) CAD (coronary artery disease) SNOMED Code(s): 18492649 ICD Code: I25.10 - ATHSCL HEART DISEASE OF [place] CORONARY ARTERY W/O ANG PCTRS Status: Chronic Priority: Medium Current Visit: No Qualifiers: Coronary Disease-Associated Artery/Lesion type: unspecified vessel or lesion type [place] vs. transplanted heart: unspecified whether [place] or transplanted heart Associated angina: without angina Qualified Code(s): I25.10 - Atherosclerotic heart disease of [place] coronary artery without angina pectoris (7) COPD (chronic obstructive pulmonary disease) SNOMED Code(s): 79639324 ICD Code: J44.9 - CHRONIC OBSTRUCTIVE PULMONARY DISEASE, UNSPECIFIED Status : Chronic Priority: Medium Current Visit: No Qualifiers: COPD type: unspecified COPD Qualified Code(s): J44.9 - Chronic obstructive pulmonary disease, unspecified (8) Diabetes mellitus SNOMED Code(s): 38562899 ICD Code: E11.9 - TYPE 2 DIABETES MELLITUS WITHOUT COMPLICATIONS Status: Chronic Priority: Medium Current Visit: No Qualifiers: Diabetes mellitus type: type 2 Diabetes mellitus complication status: with skin complications Diabetes mellitus complication detail: with other skin complication Diabetes mellitus jail insulin use: with long winder tender use Qualified Code(s): E11.628 - Type 2 diabetes mellitus with other skin complications; 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 Problem List Initiated/Reviewed/Updated: Yes Orders Last 24hrs: Active Orders 24 hr Category Date Time Status Patient Status [ADT] Routine ADT 07/19/16 18:35 Active Antiembolic Devices [RC] PER UNIT ROUTINE Care 07/19/16 18:41 Active Bedrest Bathroom Privileges [RC] ASDIRECTED Care 07/19/16 18:35 Active Blood Glucose Check, Bedside [RC] QIDACANDBED Care 07/19/16 18:35 Active Oxygen Therapy [RC] PRN Care 07/19/16 18:35 Active RT Aerosol Therapy [RC] ASDIRECTED Care 07/19/16 19:58 Ordered Telemetry Monitoring [Cardiac Monitoring] [RC] Q8H Care 07/19/16 16:36 Active VTE/DVT Education [RC] PER UNIT ROUTINE Care 07/19/16 18:35 Active Vital Signs [RC] Q4H Care 07/19/16 18:35 Active PT Evaluation and Treatment [CONS] Routine Cons 07/19/16 18:35 Active [place] [employer] Diet [DIET] Diet 07/19/16 Dinner Active [facility] [US] Routine Exams 07/19/16 19:03 Ordered CBC WITH AUTO DIFF [HEME] DAILY Lab 07/20/16 05:10 Ordered CBC WITH AUTO DIFF [HEME] DAILY Lab 07/21/16 05:10 Ordered CBC WITH AUTO DIFF [HEME] DAILY Lab 07/22/16 05:10 Ordered CBC WITH AUTO DIFF [HEME] DAILY Lab 07/23/16 05:10 Ordered CBC WITH AUTO DIFF [HEME] DAILY Lab 07/24/16 05:10 Ordered COMPREHENSIVE METABOLIC PN,CMP [CHEM] DAILY Lab 07/20/16 05:10 Ordered COMPREHENSIVE METABOLIC PN,CMP [CHEM] DAILY Lab 07/21/16 05:10 Ordered COMPREHENSIVE METABOLIC PN,CMP [CHEM] DAILY Lab 07/22/16 05:10 Ordered COMPREHENSIVE METABOLIC PN,CMP [CHEM] DAILY Lab 07/23/16 05:10 Ordered COMPREHENSIVE METABOLIC PN,CMP [CHEM] DAILY Lab 07/24/16 05:10 Ordered CULTURE URINE [RM] Routine Lab 07/19/16 14:07 Received INR,PT,PROTHROMBIN TIME [COAG] DAILY Lab 07/20/16 18:59 Ordered INR,PT,PROTHROMBIN TIME [COAG] DAILY Lab 07/21/16 18:59 Ordered INR,PT,PROTHROMBIN TIME [COAG] DAILY Lab 07/22/16 18:59 Ordered INR,PT,PROTHROMBIN TIME [COAG] DAILY Lab 07/23/16 18:59 Ordered INR,PT,PROTHROMBIN TIME [COAG] DAILY Lab 07/24/16 18:59 Ordered Albuterol/Ipratropium [DuoNeb 3.0-0.5 MG/3 ML] Med 07/19/16 19:57 Ordered 3 ml NEB Q6HRRT PRN Allopurinol [Zyloprim] Med 07/20/16 09:00 Active 100 mg PO DAILY Bisacodyl [Dulcolax] Med 07/19/16 18:48 Active 10 mg RECTAL Q24H PRN Carvedilol [Coreg] Med 07/20/16 08:00 Active 6.25 mg PO BIDMEALS Digoxin [Lanoxin] Med 07/20/16 09:00 Active 125 mcg PO DAILY Famotidine [Pepcid] Med 07/19/16 21:00 Active 20 mg PO BID Gabapentin [Neurontin] Med 07/19/16 22:00 Active 300 mg PO TID Insulin Regular, Human [NovoLIN R] Med 07/19/16 21:00 Active See Protocol SUBCUT QIDACANDBED Magnesium Hydroxide [Milk of Magnesia] Med 07/19/16 18:48 Active 30 ml PO Q24H PRN Ondansetron [Zofran ODT] Med 07/19/16 18:35 Active 4 mg PO Q4H PRN Potassium Chloride [Klor-Con M20] Med 07/20/16 09:00 Active 40 meq PO DAILY Pravastatin [Pravachol] Med 07/19/16 21:00 Active 10 mg PO BEDTIME QUEtiapine [SEROquel] Med 07/19/16 19:58 Ordered 25 mg PO BEDTIME PRN Venlafaxine Med 07/20/16 09:00 Pending 75 mg PO DAILY cefTRIAXone [Rocephin] 1,000 mg Med 07/20/16 17:00 Ordered Sodium Chloride 0.9% [Normal Saline] 50 ml IV Q24H oxyCODONE Med 07/19/16 18:48 Active 5 mg PO Q4H PRN Sequential Compression Device [OM.PC] Per Unit Routine Oth 07/19/16 18:39 Ordered Resuscitation Status Routine Resus Stat 07/19/16 18:35 Ordered Medication Orders Albuterol/Ipratropium (Duoneb 3.0-0.5 Mg/3 Ml) 3 ml NEB Q6HRRT PRN PRN Reason: Shortness of Breath Allopurinol (Zyloprim) 100 mg PO DAILY [facility] Bisacodyl (Dulcolax) 10 mg RECTAL Q24H PRN PRN Reason: Constipation Carvedilol (Coreg) 6.25 mg PO BIDMEALS [facility] Digoxin (Lanoxin) 125 mcg PO DAILY [facility] Famotidine (Pepcid) 20 mg PO BID JABIER Gabapentin (Neurontin) 300 mg PO TID [facility] Sodium Chloride (Normal Saline) 1,000 mls @ 150 mls/hr IV ASDIRECTED [facility] Last Admin: 07/19/16 13:54 Dose: 150 mls/hr Insulin Human Regular (Novolin R) 0 unit SUBCUT QIDACANDBED [facility] PRN Reason: Protocol Magnesium Hydroxide (Milk Of Magnesia) 30 ml PO Q24H PRN PRN Reason: Constipation Non-Formulary Medication (Venlafaxine) 75 mg PO DAILY [facility] Ondansetron HCl (Zofran Odt) 4 mg PO Q4H PRN PRN Reason: nausea, able to take PO Oxycodone HCl (Oxycodone) 5 mg PO Q4H PRN PRN Reason: FOOT/ANKLE PAIN Potassium Chloride (Klor-Con M20) 40 meq PO DAILY [facility] Pravastatin Sodium (Pravachol) 10 mg PO BEDTIME [facility] Quetiapine Fumarate (Seroquel) 25 mg PO BEDTIME PRN PRN Reason: Agitation Sodium Chloride (Saline Flush) 10 ml FLUSH ASDIRECTED PRN PRN Reason: Keep Vein Open Sodium Chloride (Saline Flush) 2.5 ml FLUSH ASDIRECTED PRN PRN Reason: Keep Vein Open Sodium Chloride (Saline Flush) 10 ml FLUSH ASDIRECTED PRN PRN Reason: Keep Vein Open Sodium Chloride (Saline Flush) 2.5 ml FLUSH ASDIRECTED PRN PRN Reason: Keep Vein Open Assessment/Plan Comment:: 70-year-old male admitted for acute on chronic renal failure, UTI, and altered mental status with history of congestive heart failure, chronic kidney disease, coronary artery disease, type 2 diabetes and elevated INR. Acute on chronic renal failure: Difficult to assess whether or not the patient is euvolemic at this time. On physical exam he does have bibasilar Rales and I suspect that he may be actually volume overloaded however patient is requiring his normal 2 L of oxygen per nasal cannula and does not seem to be in any respiratory distress. Patient did receive 200 mL of fluid with antibiotics today and we will watch closely to see if he has any improvement in his renal function tomorrow. If renal function doesn't improve we will consider adding back Lasix as he may be volume overloaded. We will monitor closely as the patient may be depleted as well which is causing acute renal failure but my feeling is that he is volume overloaded. I have also order a renal ultrasound for tomorrow am. UTI: We'll continue Rocephin 1 g every 24 hours. Blood cultures and urine culture are pending. Altered mental status: Patient does have some underlying dementia however I feel that the patient has been overmedicated. He is receiving Seroquel as well as narcotics. I will decrease his Seroquel to each bedtime as needed at 25 mg and not give him any of the a.m. normal 25 mg to see if this helps. I also am discontinuing his OxyContin 10 mg extended release and only adding in his oxycodone 5 mg every 4 hours when necessary pain. We will see if this has any effect on improving his level of consciousness. On exam he has a difficult time even staying awake. Congestive heart failure: Patient did get a echocardiogram on 07/06/16 that showed left ventricular systolic dysfunction with an ejection fraction of 35%. Hypokinetic right ventricle. Normal size inferior vena cava and pulmonary artery pressure. At least moderate to moderate severe degree of mitral regurg. Patient is in A. fib. As mentioned in acute on chronic renal failure we will watch his closely. He was discharged last with 80 mg by mouth Lasix twice a day. I'm not completely sure whether or not he is intravascularly volume depleted or having a minor CHF exacerbation. Type 2 diabetes: Insulin sliding scale started Elevated INR: We will hold Coumadin at this time as his INR is above 6. Reassess on a daily basis and restart Coumadin once he is back at therapeutic range of 2 to 3 VTE: Held secondary to elevated INR.
[2016-07-19] MEDS: Famotidine 20 MG Tab PO SCH (20:24)
[2016-07-19] MEDS: Pravastatin 40 MG Tab PO SCH (22:43)
[2016-07-19] MEDS: Insulin Regular, Human 100 Units/ML 10 ML Vial SUBCUT SCH (22:44)
[2016-07-19] MEDS: Gabapentin 300 MG Cap PO SCH (22:44)
[2016-07-20] MEDS: oxyCODONE 5 MG Tab PO PRN ×2 (04:00→08:23)
[2016-07-20] MEDS: Gabapentin 300 MG Cap PO SCH ×3 (06:29→21:45)
[2016-07-20] MEDS: Insulin Regular, Human 100 Units/ML 10 ML Vial SUBCUT SCH ×4 (08:16→21:02)
[2016-07-20] MEDS: Allopurinol 100 MG Tab PO SCH (08:17)
[2016-07-20] MEDS: Famotidine 20 MG Tab PO SCH ×2 (08:17→21:45)
[2016-07-20] MEDS ORDERED: Venlafaxine 75 MG Cap.ER PO SCH (09:00)
[2016-07-20] MEDS ORDERED: Potassium Chloride 20 MEQ Tab.ER PO SCH (09:00)
[2016-07-20] MEDS ORDERED: QUEtiapine 25 MG Tab PO SCH (09:00)
[2016-07-20] MEDS ORDERED: Calcium Carbonate 500 MG Tab.Chew PO ONE (09:09)
--- NOTE | 2016-07-20 09:17 | PCM.PN ---
- General Info Date of Service: 07/20/16 Admission Dx/Problem (Free Text): Admission Diagnosis/Problem Admission Diagnosis/Problem UTI, Urinary tract infectious disease Subjective Update: Patient much more alert this morning, alert time person and place but not time. "Have a little headache", Eating well, pain controlled, states that his breathing is "okay". Patient normally on 2 L at home for COPD. Was 100% on 2 Liters last evening. Functional Status: Reports: pain controlled, tolerating diet, incentive spirometry - Review of Systems General: Reports: Fatigue, Malaise. Denies: Fever, Weakness HEENT: Denies: ear pain, sore throat Pulmonary: Reports: cough. Denies: shortness of breath, hemoptysis, wheezing Cardiovascular: Reports: Edema. Denies: Chest Pain, Palpitations Gastrointestinal: Denies: Abdominal pain, Constipation, Difficulty swallowing Genitourinary: Denies: dysuria, hematuria Musculoskeletal: Denies: neck pain, leg pain Skin: Denies: cyanosis Neurological: Reports: Confusion, Headache. Denies: Dizziness Psychiatric: Reports: confusion - Patient Data Vitals - most recent: Last Vital Signs Temp 37.3 C 07/20/16 08:00 Pulse 77 07/20/16 08:00 Resp 16 07/20/16 08:00 BP 100/50 L 07/20/16 08:00 Pulse Ox 94 L 07/20/16 08:00 Weight - most recent: 128.5 kg I&O - last 24 hours: Intake & Output 07/19/16 07/20/16 07/20/16 22:59 06:59 14:59 Intake Total 50 1080 Output Total 475 Balance 50 605 Lab Results last 24 hrs: Laboratory Results - last 24 hr 07/19/16 07/20/16 07/20/16 Range/Units 17:23 04:47 04:47 WBC 10.60 (4.0-11.0) K/uL RBC 3.56 L (4.50-5.90) M/uL Hgb 10.4 L (13.0-17.0) g/dL Hct 34.7 L (38.0-50.0) % MCV 97.5 (80.0-98.0) fL MCH 29.2 (27.0-32.0) pg MCHC 30.0 L (31.0-37.0) g/dL RDW Std Deviation 60.1 (28.0-62.0) fl RDW Coeff of [place] 17 H (11.0-15.0) % Plt Count 233 (150-400) K/uL MPV 10.00 (7.40-12.00) fL Neut % (Auto) 68.7 (48.0-80.0) % Lymph % (Auto) 14.5 L (16.0-40.0) % [place] % (Auto) 12.6 (0.0-15.0) % Eos % (Auto) 3.9 (0.0-7.0) % Baso % (Auto) 0.3 (0.0-1.5) % Neut # 7.3 H (1.4-5.7) K/uL Lymph # 1.5 (0.6-2.4) K/uL [place] # 1.3 H (0.0-0.8) K/uL Eos # 0.4 (0.0-0.7) K/uL Baso # 0.0 (0.0-0.1) K/uL Nucleated RBC % 0.0 /100WBC Nucleated RBCs # 0 K/uL INR (0.86-1.11) Sodium 138 (136-146) mmol/L Potassium 4.8 (3.5-5.1) mmol/L Chloride 104 (98-110) mmol/L Carbon Dioxide 22 (21-31) mmol/L BUN 30 H (6.0-23.0) mg/dL Creatinine 2.5 H (0.6-1.5) mg/dL Est Cr Clr Drug Dosing 24.58 mL/min Estimated GFR (MDRD) 25.6 ml/min Glucose 137 H (60-110) mg/dL POC Glucose 130 H (60-110) mg/dL Calcium 8.2 L (8.8-10.8) mg/dL Total Bilirubin 0.6 (0.1-1.5) mg/dL AST 40 (5-40) IU/L ALT 25 (8-54) IU/L Alkaline Phosphatase 114 (40-150) Total Protein 6.1 (6.0-8.0) g/dL Albumin 2.6 L (3.4-4.8) g/dL Globulin 3.5 (2.0-3.5) g/dL Albumin/Globulin Ratio 0.7 L (1.3-2.8) 07/20/16 07/20/16 Range/Units 04:47 06:14 WBC (4.0-11.0) K/uL RBC (4.50-5.90) M/uL Hgb (13.0-17.0) g/dL Hct (38.0-50.0) % MCV (80.0-98.0) fL MCH (27.0-32.0) pg MCHC (31.0-37.0) g/dL RDW Std Deviation (28.0-62.0) fl RDW Coeff of [place] (11.0-15.0) % Plt Count (150-400) K/uL MPV (7.40-12.00) fL Neut % (Auto) (48.0-80.0) % Lymph % (Auto) (16.0-40.0) % [place] % (Auto) (0.0-15.0) % Eos % (Auto) (0.0-7.0) % Baso % (Auto) (0.0-1.5) % Neut # (1.4-5.7) K/uL Lymph # (0.6-2.4) K/uL [place] # (0.0-0.8) K/uL Eos # (0.0-0.7) K/uL Baso # (0.0-0.1) K/uL Nucleated RBC % /100WBC Nucleated RBCs # K/uL INR 6.32 H (0.86-1.11) Sodium (136-146) mmol/L Potassium (3.5-5.1) mmol/L Chloride (98-110) mmol/L Carbon Dioxide (21-31) mmol/L BUN (6.0-23.0) mg/dL Creatinine (0.6-1.5) mg/dL Est Cr Clr Drug Dosing mL/min Estimated GFR (MDRD) ml/min Glucose (60-110) mg/dL POC Glucose 138 H (60-110) mg/dL Calcium (8.8-10.8) mg/dL Total Bilirubin (0.1-1.5) mg/dL AST (5-40) IU/L ALT (8-54) IU/L Alkaline Phosphatase (40-150) Total Protein (6.0-8.0) g/dL Albumin (3.4-4.8) g/dL Globulin (2.0-3.5) g/dL Albumin/Globulin Ratio (1.3-2.8) Med Orders - Current: Current Medications Albuterol/Ipratropium (Duoneb 3.0-0.5 Mg/3 Ml) 3 ml NEB Q6HRRT PRN PRN Reason: Shortness of Breath Allopurinol (Zyloprim) 100 mg PO DAILY [facility] Last Admin: 07/20/16 08:17 Dose: 100 mg Bisacodyl (Dulcolax) 10 mg RECTAL Q24H PRN PRN Reason: Constipation Carvedilol (Coreg) 6.25 mg PO BIDMEALS [facility] Digoxin (Lanoxin) 125 mcg PO DAILY [facility] Famotidine (Pepcid) 20 mg PO BID [facility] Last Admin: 07/20/16 08:17 Dose: 20 mg Gabapentin (Neurontin) 300 mg PO TID [facility] Last Admin: 07/20/16 06:29 Dose: 300 mg Sodium Chloride (Normal Saline) 1,000 mls @ 150 mls/hr IV ASDIRECTED [facility] Last Admin: 07/19/16 13:54 Dose: 150 mls/hr Ceftriaxone Sodium/Dextrose 1 (gm/ Premix) 50 mls @ 100 mls/hr IV Q24H [facility] Insulin Human Regular (Novolin R) 0 unit SUBCUT QIDACANDBED [facility] PRN Reason: Protocol Last Admin: 07/20/16 08:16 Dose: Not Given Magnesium Hydroxide (Milk Of Magnesia) 30 ml PO Q24H PRN PRN Reason: Constipation Ondansetron HCl (Zofran Odt) 4 mg PO Q4H PRN PRN Reason: nausea, able to take PO Oxycodone HCl (Oxycodone) 5 mg PO Q4H PRN PRN Reason: FOOT/ANKLE PAIN Last Admin: 07/20/16 08:23 Dose: 5 mg Potassium Chloride (Klor-Con M20) 40 meq PO DAILY [facility] Last Admin: 07/20/16 08:17 Dose: 40 meq Pravastatin Sodium (Pravachol) 10 mg PO BEDTIME [facility] Last Admin: 07/19/16 22:43 Dose: 10 mg Quetiapine Fumarate (Seroquel) 25 mg PO BEDTIME PRN PRN Reason: Agitation Sodium Chloride (Saline Flush) 10 ml FLUSH ASDIRECTED PRN PRN Reason: Keep Vein Open Sodium Chloride (Saline Flush) 2.5 ml FLUSH ASDIRECTED PRN PRN Reason: Keep Vein Open Sodium Chloride (Saline Flush) 10 ml FLUSH ASDIRECTED PRN PRN Reason: Keep Vein Open Sodium Chloride (Saline Flush) 2.5 ml FLUSH ASDIRECTED PRN PRN Reason: Keep Vein Open Venlafaxine HCl (Effexor) 75 mg PO DAILY [facility] Discontinued Medications Albuterol/Ipratropium (Duoneb 3.0-0.5 Mg/3 Ml) 3 ml NEB ONETIME ONE Stop: 07/19/16 13:29 Last Admin: 07/19/16 13:57 Dose: 3 ml Calcium Carbonate/Glycine (Tums) 1,000 mg PO DAILY ONE Stop: 07/20/16 09:10 Ceftriaxone Sodium 1,000 mg/ (Sodium Chloride) 50 mls @ 200 mls/hr IV ONETIME ONE Stop: 07/19/16 16:36 Last Admin: 07/19/16 16:50 Dose: Not Given Ceftriaxone Sodium/Dextrose 1 (gm/ Premix) 50 mls @ 100 mls/hr IV ONETIME ONE Stop: 07/19/16 17:29 Last Admin: 07/19/16 17:10 Dose: 100 mls/hr Ceftriaxone Sodium 1,000 mg/ (Sodium Chloride) 50 mls @ 200 mls/hr IV Q24H [facility] Last Admin: 07/20/16 03:06 Dose: Not Given Ceftriaxone Sodium 1,000 mg/ (Sodium Chloride) 50 mls @ 200 mls/hr IV Q24H [facility] Quetiapine Fumarate (Seroquel) 25 mg PO QAM [facility] Quetiapine Fumarate (Seroquel) 50 mg PO BEDTIME [facility] Venlafaxine HCl (Effexor Xr) 75 mg PO DAILY [facility] Last Admin: 07/20/16 08:17 Dose: 75 mg - Exam Quality Assessment: supplemental oxygen General: alert, oriented, no acute distress HEENT: Pupils equal, Pupils reactive, EOMI, Mucous membr. 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 - Problem List & Annotations (1) Acute on chronic renal failure SNOMED Code(s): 074376986 Code(s): N17.9 - ACUTE KIDNEY FAILURE, UNSPECIFIED; N18.9 - CHRONIC KIDNEY DISEASE, UNSPECIFIED Status: Acute Priority: High Current Visit: Yes (2) UTI (urinary tract infection) SNOMED Code(s): 80130293 Code(s): N39.0 - URINARY TRACT INFECTION, SITE NOT SPECIFIED Status: Acute Priority: High Current Visit: Yes Qualifiers: Urinary tract infection type: site unspecified Hematuria presence: without hematuria Qualified Code(s): N39.0 - Urinary tract infection, site not specified (3) Systolic CHF SNOMED Code(s): 148167853 Code(s): I50.20 - UNSPECIFIED SYSTOLIC (CONGESTIVE) HEART FAILURE Status: Chronic Priority: High Current Visit: Yes Qualifiers: Congestive heart failure chronicity: chronic Qualified Code(s): I50.22 - Chronic systolic (congestive) heart failure (4) Acute on chronic alteration in mental status SNOMED Code(s): 284821603 Code(s): R41.82 - ALTERED MENTAL STATUS, UNSPECIFIED Status: Acute Priority: Medium Current Visit: Yes (5) Afib SNOMED Code(s): 45103182 Code(s): I48.91 - UNSPECIFIED ATRIAL FIBRILLATION Status: Chronic Priority: Medium Current Visit: No Qualifiers: Atrial fibrillation type: chronic Qualified Code(s): I48.2 - Chronic atrial fibrillation (6) CAD (coronary artery disease) SNOMED Code(s): 88241714 Code(s): I25.10 - ATHSCL HEART DISEASE OF [place] CORONARY ARTERY W/O ANG PCTRS Status: Chronic Priority: Medium Current Visit: No Qualifiers: Coronary Disease-Associated Artery/Lesion type: unspecified vessel or lesion type [place] vs. transplanted heart: unspecified whether [place] or transplanted heart Associated angina: without angina Qualified Code(s): I25.10 - Atherosclerotic heart disease of [place] coronary artery without angina pectoris (7) COPD (chronic obstructive pulmonary disease) SNOMED Code(s): 68601532 Code(s): J44.9 - CHRONIC OBSTRUCTIVE PULMONARY DISEASE, UNSPECIFIED Status : Chronic Priority: Medium Current Visit: No Qualifiers: COPD type: unspecified COPD Qualified Code(s): J44.9 - Chronic obstructive pulmonary disease, unspecified (8) Diabetes mellitus SNOMED Code(s): 26430022 Code(s): E11.9 - TYPE 2 DIABETES MELLITUS WITHOUT COMPLICATIONS Status: Chronic Priority: Medium Current Visit: No Qualifiers: Diabetes mellitus type: type 2 Diabetes mellitus complication status: with skin complications Diabetes mellitus complication detail: with other skin complication Diabetes mellitus termination clerk insulin use: with usp use Qualified Code(s): E11.628 - Type 2 diabetes mellitus with other skin complications; Z79.4 - correction (current) use of insulin - Problem List Review Problem List Initiated/Reviewed/Updated: Yes - My Orders Last 24 Hours: My Active Orders 07/19/16 18:35 Patient Status [ADT] Routine Bedrest Bathroom Privileges [RC] ASDIRECTED Blood Glucose Check, Bedside [RC] QIDACANDBED Oxygen Therapy [RC] PRN VTE/DVT Education [RC] PER UNIT ROUTINE Vital Signs [RC] Q4H PT Evaluation and Treatment [CONS] Routine Ondansetron [Zofran ODT] 4 mg PO Q4H PRN Resuscitation Status Routine 07/19/16 18:39 Sequential Compression Device [OM.PC] Per Unit Routine 07/19/16 18:41 Antiembolic Devices [RC] PER UNIT ROUTINE 07/19/16 18:48 Bisacodyl [Dulcolax] 10 mg RECTAL Q24H PRN Magnesium Hydroxide [Milk of Magnesia] 30 ml PO Q24H PRN oxyCODONE 5 mg PO Q4H PRN 07/19/16 19:57 Albuterol/Ipratropium [DuoNeb 3.0-0.5 MG/3 ML] 3 ml NEB Q6HRRT PRN 07/19/16 19:58 RT Aerosol Therapy [RC] ASDIRECTED QUEtiapine [SEROquel] 25 mg PO BEDTIME PRN 07/19/16 21:00 Famotidine [Pepcid] 20 mg PO BID Insulin Regular, Human [NovoLIN R] See Protocol SUBCUT QIDACANDBED Pravastatin [Pravachol] 10 mg PO BEDTIME 07/19/16 22:00 Gabapentin [Neurontin] 300 mg PO TID 07/19/16 Dinner [employer] [place] Diet [DIET] 07/20/16 08:00 Carvedilol [Coreg] 6.25 mg PO BIDMEALS 07/20/16 08:45 Retroperitoneal Ltd [US] Routine 07/20/16 09:00 Allopurinol [Zyloprim] 100 mg PO DAILY Digoxin [Lanoxin] 125 mcg PO DAILY Potassium Chloride [Klor-Con M20] 40 meq PO DAILY Venlafaxine [Effexor] 75 mg PO DAILY 07/20/16 17:00 cefTRIAXone [Rocephin in Dextrose,Iso-Osm 1 GM/50 ML] 1 gm Premix Bag 1 bag IV Q24H 07/20/16 19:03 Retroperitoneal Ltd [US] Routine 07/21/16 05:10 CBC WITH AUTO DIFF [HEME] DAILY COMPREHENSIVE METABOLIC PN,CMP [CHEM] DAILY 07/21/16 18:59 INR,PT,PROTHROMBIN TIME [COAG] DAILY 07/22/16 05:10 CBC WITH AUTO DIFF [HEME] DAILY COMPREHENSIVE METABOLIC PN,CMP [CHEM] DAILY 07/22/16 18:59 INR,PT,PROTHROMBIN TIME [COAG] DAILY 07/23/16 05:10 CBC WITH AUTO DIFF [HEME] DAILY COMPREHENSIVE METABOLIC PN,CMP [CHEM] DAILY 07/23/16 18:59 INR,PT,PROTHROMBIN TIME [COAG] DAILY 07/24/16 05:10 CBC WITH AUTO DIFF [HEME] DAILY COMPREHENSIVE METABOLIC PN,CMP [CHEM] DAILY 07/24/16 18:59 INR,PT,PROTHROMBIN TIME [COAG] DAILY - Plan Plan:: 70-year-old male admitted for acute on chronic renal failure, UTI, and altered mental status with history of congestive heart failure, chronic kidney disease, coronary artery disease, type 2 diabetes and elevated INR. Acute on chronic renal failure: Patient pressure have decreased into the 100's this am and he was 100% on O2 last evening. He may be more volume depleted even with his CXR and lung exam. Will give him a 250 ml bolus of IVF today and perphaps one in the afternoon if he continues to do well. His Cr did not improve much yesterday with the 200ml he recieved with abx and ED. We will monitor continue to monitor. Renal ultrasound planned for this am. UTI: We'll continue Rocephin 1 g every 24 hours. Blood cultures and urine culture are pending. Altered mental status: Improved after stopping his night 50 Seraquel. I did put an as needed 25 Seraquel at night if needed for agitation but stopped his previous 25 mg during the day to see if he remains more allert. Pain has been controlled well with oxycodone 5 mg q 4 hrs without the stopped 10 mg oxycontin. Congestive heart failure: Stable at this time but will watch closely for volume overload with IVF today. See below for echo results 07/06/16. 1.Left ventricular systolic dysfunction with an ejection fraction of 35%. 2.Hypokinetic right ventricle. 3.Normal size inferior vena cava and pulmonary artery pressure. 4. At least moderate to moderate severe degree of mitral regurg. Patient is in A. fib. As mentioned in acute on chronic renal failure we will watch his closely. He was discharged last with 80 mg by mouth Lasix twice a day. I'm not completely sure whether or not he is intravascularly volume depleted or having a minor CHF exacerbation. Type 2 diabetes: Insulin sliding scale COPD: Doing well with as needed duonebs which we will continue today. Elevated INR: Continue to hold Coumadin at this time as his INR is still above 6. Reassess on a daily basis and restart Coumadin once he is back at therapeutic range of 2 to 3 VTE: Held secondary to elevated INR.
[2016-07-20] MEDS: Venlafaxine 37.5 MG Tab PO SCH (09:30)
[2016-07-20] MEDS: Carvedilol 6.25 MG Tab PO SCH ×2 (09:42→17:56)
[2016-07-20] MEDS: Digoxin 125 MCG Tab PO SCH (09:46)
--- NOTE | 2016-07-20 10:19 | US ---
EXAMINATION: Renal ultrasound HISTORY: Acute renal injury COMPARISON: CT dated 02/10/2016 TECHNIQUE: Grayscale and color Doppler images obtained of the kidneys and bladder. FINDINGS: The right kidney measures 11.1 cm and the left kidney measures 11.27 m [id number] withou t evidence hydronephrosis. The renal cortical echotexture appears grossly normal. However fine detai l is obscured secondary to body habitus. Normal color Doppler flow bilaterally. Renal cysts are note d. Gonsales catheter is noted within the bladder. IMPRESSION: 1. Grossly unremarkable renal ultrasound. 2. Renal cysts noted.
[2016-07-20] MEDS ORDERED: Sodium Chloride 0.9% 250 ML IV SCH ×2 (10:30→19:15)
[2016-07-20] MEDS ORDERED: cefTRIAXone 1,000 MG in Sodium Chloride 0.9% 50 ML IV SCH (17:00)
[2016-07-20] MEDS: cefTRIAXone 1 GM in Premix Bag 1 BAG IV SCH (18:03)
[2016-07-20] MEDS: Sodium Chloride 0.9% 2.5 ML Syringe FLUSH PRN (21:04)
[2016-07-20] MEDS: Pravastatin 40 MG Tab PO SCH ×2 (21:46→23:40)
[2016-07-21] MEDS: oxyCODONE 5 MG Tab PO PRN (01:03)
[2016-07-21] MEDS: Gabapentin 300 MG Cap PO SCH ×3 (06:03→21:08)
[2016-07-21] MEDS: Insulin Regular, Human 100 Units/ML 10 ML Vial SUBCUT SCH ×4 (06:51→21:00)
[2016-07-21] MEDS: Carvedilol 6.25 MG Tab PO SCH ×2 (07:53→16:39)
[2016-07-21] MEDS: Allopurinol 100 MG Tab PO SCH (08:43)
[2016-07-21] MEDS: Famotidine 20 MG Tab PO SCH ×2 (08:44→21:08)
[2016-07-21] MEDS: Digoxin 125 MCG Tab PO SCH (08:44)
[2016-07-21] MEDS: Venlafaxine 37.5 MG Tab PO SCH (08:45)
--- NOTE | 2016-07-21 09:28 | PCM.PN ---
- General Info Date of Service: 07/21/16 Admission Dx/Problem (Free Text): Admission Diagnosis/Problem Admission Diagnosis/Problem UTI, Urinary tract infectious disease Subjective Update: Up in chair eating, states he's doing well and not short of breath. Overnight noted some increase in oxygen requirements. Eating well and eliminating. Not agitated and much more alert again this morning. Complaining of some right hand pain as noted by girlfriend and son Coleman who are present. Hand pain started when they were at [place]. Functional Status: Reports: pain controlled, urinating, incentive spirometry - Review of Systems General: Denies: Fever, Weakness, Fatigue HEENT: Denies: sinus congestion Pulmonary: Denies: shortness of breath, wheezing Cardiovascular: Denies: Chest Pain, Palpitations Gastrointestinal: Denies: Abdominal pain Genitourinary: Denies: dysuria, hematuria Musculoskeletal: Denies: leg pain Skin: Denies: cyanosis Neurological: Reports: Confusion Psychiatric: Reports: confusion - Patient Data Vitals - most recent: Last Vital Signs Temp 36.6 C 07/21/16 08:00 Pulse 106 H 07/21/16 08:44 Resp 20 07/21/16 08:00 BP 104/48 L 07/21/16 08:00 Pulse Ox 93 L 07/21/16 08:00 Weight - most recent: 128 kg I&O - last 24 hours: Intake & Output 07/20/16 07/21/16 07/21/16 22:59 06:59 14:59 Intake Total 700 786 Output Total 450 525 Balance 250 261 Lab Results last 24 hrs: Laboratory Results - last 24 hr 07/20/16 07/20/16 07/20/16 Range/Units 11:18 17:10 20:46 WBC (4.0-11.0) K/uL RBC (4.50-5.90) M/uL Hgb (13.0-17.0) g/dL Hct (38.0-50.0) % MCV (80.0-98.0) fL MCH (27.0-32.0) pg MCHC (31.0-37.0) g/dL RDW Std Deviation (28.0-62.0) fl RDW Coeff of Christian[place] (11.0-15.0) % Plt Count (150-400) K/uL MPV (7.40-12.00) fL Add Manual Diff Neutrophils % (Manual) (48.0-80.0) % Band Neutrophils % % Lymphocytes % (Manual) (16.0-40.0) % Monocytes % (Manual) (0.0-15.0) % Eosinophils % (Manual) (0.0-7.0) % Absolute Seg Neuts Band Neutrophils # Lymphocytes # (Manual) Monocytes # (Manual) Eosinophils # (Manual) Sodium (136-146) mmol/L Potassium (3.5-5.1) mmol/L Chloride (98-110) mmol/L Carbon Dioxide (21-31) mmol/L BUN (6.0-23.0) mg/dL Creatinine (0.6-1.5) mg/dL Est Cr Clr Drug Dosing mL/min Estimated GFR (MDRD) ml/min Glucose (60-110) mg/dL POC Glucose 172 H 133 H 170 H (60-110) mg/dL Calcium (8.8-10.8) mg/dL Total Bilirubin (0.1-1.5) mg/dL AST (5-40) IU/L ALT (8-54) IU/L Alkaline Phosphatase (40-150) Total Protein (6.0-8.0) g/dL Albumin (3.4-4.8) g/dL Globulin (2.0-3.5) g/dL Albumin/Globulin Ratio (1.3-2.8) 07/21/16 07/21/16 07/21/16 Range/Units 04:54 04:54 06:22 WBC 11.26 H (4.0-11.0) K/uL RBC 3.96 L (4.50-5.90) M/uL Hgb 12.3 L (13.0-17.0) g/dL Hct 38.4 (38.0-50.0) % MCV 97.0 (80.0-98.0) fL MCH 31.1 (27.0-32.0) pg MCHC 32.0 (31.0-37.0) g/dL RDW Std Deviation 57.4 (28.0-62.0) fl RDW Coeff of Christian[place] 16 H (11.0-15.0) % Plt Count 243 (150-400) K/uL MPV 10.20 (7.40-12.00) fL Add Manual Diff YES Neutrophils % (Manual) 53 (48.0-80.0) % Band Neutrophils % 12 % Lymphocytes % (Manual) 12 L (16.0-40.0) % Monocytes % (Manual) 16 H (0.0-15.0) % Eosinophils % (Manual) 7 (0.0-7.0) % Absolute Seg Neuts 6.0 Band Neutrophils # 1.4 Lymphocytes # (Manual) 1.4 Monocytes # (Manual) 1.8 Eosinophils # (Manual) 0.8 Sodium 137 (136-146) mmol/L Potassium 5.3 H (3.5-5.1) mmol/L Chloride 104 (98-110) mmol/L Carbon Dioxide 23 (21-31) mmol/L BUN 31 H (6.0-23.0) mg/dL Creatinine 2.4 H (0.6-1.5) mg/dL Est Cr Clr Drug Dosing 25.61 mL/min Estimated GFR (MDRD) 26.8 ml/min Glucose 113 H (60-110) mg/dL POC Glucose 127 H (60-110) mg/dL Calcium 8.6 L (8.8-10.8) mg/dL Total Bilirubin 0.6 (0.1-1.5) mg/dL AST 29 (5-40) IU/L ALT 23 (8-54) IU/L Alkaline Phosphatase 127 (40-150) Total Protein 6.6 (6.0-8.0) g/dL Albumin 2.8 L (3.4-4.8) g/dL Globulin 3.8 H (2.0-3.5) g/dL Albumin/Globulin Ratio 0.7 L (1.3-2.8) Med Orders - Current: Current Medications Albuterol/Ipratropium (Duoneb 3.0-0.5 Mg/3 Ml) 3 ml NEB Q6HRRT PRN PRN Reason: Shortness of Breath Allopurinol (Zyloprim) 100 mg PO DAILY [facility] Last Admin: 07/21/16 08:43 Dose: 100 mg Bisacodyl (Dulcolax) 10 mg RECTAL Q24H PRN PRN Reason: Constipation Calcium Carbonate/Glycine (Tums) 1,000 mg PO DAILY [facility] Carvedilol (Coreg) 6.25 mg PO BIDMEALS [facility] Last Admin: 07/21/16 07:53 Dose: Not Given Digoxin (Lanoxin) 125 mcg PO DAILY [facility] Last Admin: 07/21/16 08:44 Dose: 125 mcg Famotidine (Pepcid) 20 mg PO BID [facility] Last Admin: 07/21/16 08:44 Dose: 20 mg Gabapentin (Neurontin) 300 mg PO TID [facility] Last Admin: 07/21/16 06:03 Dose: 300 mg Ceftriaxone Sodium/Dextrose 1 (gm/ Premix) 50 mls @ 100 mls/hr IV Q24H [facility] Last Admin: 07/20/16 18:03 Dose: 100 mls/hr Sodium Chloride (Normal Saline) 250 mls @ 250 mls/hr IV .BOLUS [facility] Last Admin: 07/20/16 10:46 Dose: 250 mls/hr Insulin Human Regular (Novolin R) 0 unit SUBCUT QIDACANDBED [facility] PRN Reason: Protocol Last Admin: 07/21/16 06:51 Dose: Not Given Magnesium Hydroxide (Milk Of Magnesia) 30 ml PO Q24H PRN PRN Reason: Constipation Ondansetron HCl (Zofran Odt) 4 mg PO Q4H PRN PRN Reason: nausea, able to take PO Last Admin: 07/20/16 20:26 Dose: 4 mg Oxycodone HCl (Oxycodone) 5 mg PO Q4H PRN PRN Reason: FOOT/ANKLE PAIN Last Admin: 07/21/16 01:03 Dose: 5 mg Pravastatin Sodium (Pravachol) 10 mg PO BEDTIME [facility] Last Admin: 07/20/16 23:40 Dose: Not Given Quetiapine Fumarate (Seroquel) 25 mg PO BEDTIME PRN PRN Reason: Agitation Sodium Chloride (Saline Flush) 10 ml FLUSH ASDIRECTED PRN PRN Reason: Keep Vein Open Sodium Chloride (Saline Flush) 2.5 ml FLUSH ASDIRECTED PRN PRN Reason: Keep Vein Open Last Admin: 07/20/16 21:04 Dose: 2.5 ml Sodium Chloride (Saline Flush) 10 ml FLUSH ASDIRECTED PRN PRN Reason: Keep Vein Open Sodium Chloride (Saline Flush) 2.5 ml FLUSH ASDIRECTED PRN PRN Reason: Keep Vein Open Venlafaxine HCl (Effexor) 75 mg PO DAILY [facility] Last Admin: 07/21/16 08:45 Dose: 75 mg Discontinued Medications Albuterol/Ipratropium (Duoneb 3.0-0.5 Mg/3 Ml) 3 ml NEB ONETIME ONE Stop: 07/19/16 13:29 Last Admin: 07/19/16 13:57 Dose: 3 ml Calcium Carbonate/Glycine (Tums) 1,000 mg PO DAILY ONE Stop: 07/20/16 09:10 Last Admin: 07/20/16 09:43 Dose: 1,000 mg Sodium Chloride (Normal Saline) 1,000 mls @ 150 mls/hr IV ASDIRECTED [facility] Last Admin: 07/19/16 13:54 Dose: 150 mls/hr Ceftriaxone Sodium 1,000 mg/ (Sodium Chloride) 50 mls @ 200 mls/hr IV ONETIME ONE Stop: 07/19/16 16:36 Last Admin: 07/19/16 16:50 Dose: Not Given Ceftriaxone Sodium/Dextrose 1 (gm/ Premix) 50 mls @ 100 mls/hr IV ONETIME ONE Stop: 07/19/16 17:29 Last Admin: 07/19/16 17:10 Dose: 100 mls/hr Ceftriaxone Sodium 1,000 mg/ (Sodium Chloride) 50 mls @ 200 mls/hr IV Q24H [facility] Last Admin: 07/20/16 03:06 Dose: Not Given Ceftriaxone Sodium 1,000 mg/ (Sodium Chloride) 50 mls @ 200 mls/hr IV Q24H [facility] Sodium Chloride (Normal Saline) 250 mls @ 250 mls/hr IV ASDIRECTED [facility] Stop: 07/20/16 20:15 Last Admin: 07/20/16 19:37 Dose: 250 mls/hr Potassium Chloride (Klor-Con M20) 40 meq PO DAILY [facility] Last Admin: 07/20/16 08:17 Dose: 40 meq Pravastatin Sodium (Pravachol) 10 mg PO BEDTIME [facility] Last Admin: 07/20/16 21:46 Dose: 10 mg Quetiapine Fumarate (Seroquel) 25 mg PO QAM [facility] Quetiapine Fumarate (Seroquel) 50 mg PO BEDTIME [facility] Venlafaxine HCl (Effexor Xr) 75 mg PO DAILY [facility] Last Admin: 07/20/16 08:17 Dose: 75 mg - Exam Quality Assessment: supplemental oxygen, DVT prophylaxis General: alert, cooperative, no acute distress HEENT: Pupils equal, Pupils reactive, EOMI, Mucous membr. moist/pink Neck: supple Lungs: Normal respiratory effort, Crackles, Rhonchi Cardiovascular: Regular Rate, Regular Rhythm, Murmurs Abdomen: bowel sounds present, soft, no tenderness, no distension Extremities: normal pulses, edema, other (Right wrist pain in anatomic snuff box over scaphoid. ) Peripheral Pulses: 2+: radial (L), radial (R), posterior tibial (L), dorsalis pedis (L) Skin: warm, dry, intact Neurological: no new focal deficit Psy/Mental Status: alert, normal affect, normal mood - Problem List & Annotations (1) Acute on chronic renal failure SNOMED Code(s): 898785879 Code(s): N17.9 - ACUTE KIDNEY FAILURE, UNSPECIFIED; N18.9 - CHRONIC KIDNEY DISEASE, UNSPECIFIED Status: Acute Priority: High Current Visit: Yes (2) UTI (urinary tract infection) SNOMED Code(s): 55809120 Code(s): N39.0 - URINARY TRACT INFECTION, SITE NOT SPECIFIED Status: Acute Priority: High Current Visit: Yes Qualifiers: Urinary tract infection type: site unspecified Hematuria presence: without hematuria Qualified Code(s): N39.0 - Urinary tract infection, site not specified (3) Systolic CHF SNOMED Code(s): 581036343 Code(s): I50.20 - UNSPECIFIED SYSTOLIC (CONGESTIVE) HEART FAILURE Status: Chronic Priority: High Current Visit: Yes Qualifiers: Congestive heart failure chronicity: chronic Qualified Code(s): I50.22 - Chronic systolic (congestive) heart failure (4) Acute on chronic alteration in mental status SNOMED Code(s): 626971185 Code(s): R41.82 - ALTERED MENTAL STATUS, UNSPECIFIED Status: Chronic Priority: Medium Current Visit: Yes (5) Afib SNOMED Code(s): 54767970 Code(s): I48.91 - UNSPECIFIED ATRIAL FIBRILLATION Status: Chronic Priority: Medium Current Visit: No Qualifiers: Atrial fibrillation type: chronic Qualified Code(s): I48.2 - Chronic atrial fibrillation (6) CAD (coronary artery disease) SNOMED Code(s): 08877341 Code(s): I25.10 - ATHSCL HEART DISEASE OF [place] CORONARY ARTERY W/O ANG PCTRS Status: Chronic Priority: Medium Current Visit: No Qualifiers: Coronary Disease-Associated Artery/Lesion type: unspecified vessel or lesion type [place] vs. transplanted heart: unspecified whether [place] or transplanted heart Associated angina: without angina Qualified Code(s): I25.10 - Atherosclerotic heart disease of [place] coronary artery without angina pectoris (7) COPD (chronic obstructive pulmonary disease) SNOMED Code(s): 16777344 Code(s): J44.9 - CHRONIC OBSTRUCTIVE PULMONARY DISEASE, UNSPECIFIED Status : Chronic Priority: Medium Current Visit: No Qualifiers: COPD type: unspecified COPD Qualified Code(s): J44.9 - Chronic obstructive pulmonary disease, unspecified (8) Diabetes mellitus SNOMED Code(s): 92306440 Code(s): E11.9 - TYPE 2 DIABETES MELLITUS WITHOUT COMPLICATIONS Status: Chronic Priority: Medium Current Visit: No Qualifiers: Diabetes mellitus type: type 2 Diabetes mellitus complication status: with skin complications Diabetes mellitus complication detail: with other skin complication Diabetes mellitus ferry terminal agent insulin use: with ferry terminal agent use Qualified Code(s): E11.628 - Type 2 diabetes mellitus with other skin complications; Z79.4 - halfway (current) use of insulin - Problem List Review Problem List Initiated/Reviewed/Updated: Yes - My Orders Last 24 Hours: My Active Orders 07/20/16 09:00 Allopurinol [Zyloprim] 100 mg PO DAILY Digoxin [Lanoxin] 125 mcg PO DAILY Venlafaxine [Effexor] 75 mg PO DAILY 07/20/16 17:00 cefTRIAXone [Rocephin in Dextrose,Iso-Osm 1 GM/50 ML] 1 gm Premix Bag 1 bag IV Q24H 07/20/16 23:30 Pravastatin [Pravachol] 10 mg PO BEDTIME 07/21/16 07:29 Daily Weight [Height and Weight] [RC] DAILY 07/21/16 08:38 Incentive Spirometry [RT Incentive Spirometry] [RC] ASDIRECTED 07/21/16 09:30 Calcium Carbonate [Tums] 1,000 mg PO DAILY 07/21/16 18:59 INR,PT,PROTHROMBIN TIME [COAG] DAILY 07/22/16 05:10 CBC WITH AUTO DIFF [HEME] DAILY COMPREHENSIVE METABOLIC PN,CMP [CHEM] DAILY 07/22/16 18:59 INR,PT,PROTHROMBIN TIME [COAG] DAILY 07/23/16 05:10 CBC WITH AUTO DIFF [HEME] DAILY COMPREHENSIVE METABOLIC PN,CMP [CHEM] DAILY 07/23/16 18:59 INR,PT,PROTHROMBIN TIME [COAG] DAILY 07/24/16 05:10 CBC WITH AUTO DIFF [HEME] DAILY COMPREHENSIVE METABOLIC PN,CMP [CHEM] DAILY 07/24/16 18:59 INR,PT,PROTHROMBIN TIME [COAG] DAILY - Plan Plan:: 70-year-old male admitted for acute on chronic renal failure, UTI, and altered mental status with history of congestive heart failure, chronic kidney disease, coronary artery disease, type 2 diabetes and elevated INR. Acute on chronic renal failure: Patient's pressures still in the low 100's systolic today after total of 760 ml of fluid yesterday, however renal function slowly improving from 2.5 yesterday to 2.4 today (came in with 2.6). Will hold off on more fluid as patient seems more euvolemic and restart home lasix today. Renal ultrasound pending. Will monitor closely for volume overload. UTI: Small increase in WBC to 11.26 from 10. Will get CXR today to look for any consolidations suggesting infectious process. We'll continue Rocephin 1 g every 24 hours for now. Blood cultures neg so far and urine culture unremarkable. Change [place]ons[place] today. Altered mental status: Continuing to improve. Will keep 25 mg Seraquel at night prn if needed. Pain is controlled with oxycodone 5 mg q 4 hrs. \ Congestive heart failure: Stable at this time but will watch closely and restart lasix today. See below for echo results 07/06/16. 1.Left ventricular systolic dysfunction with an ejection fraction of 35%. 2.Hypokinetic right ventricle. 3.Normal size inferior vena cava and pulmonary artery pressure. 4. At least moderate to moderate severe degree of mitral regurg. Patient is in A. fib. As mentioned in acute on chronic renal failure we will watch his closely. He was discharged last with 80 mg by mouth Lasix twice a day. I'm not completely sure whether or not he is intravascularly volume depleted or having a minor CHF exacerbation. Type 2 diabetes: Insulin sliding scale COPD: Doing well with as needed duonebs which we will continue today. Elevated INR: Continue to hold Coumadin as elevated until in therapeutic range of 2-3 VTE: Held secondary to elevated INR.
[2016-07-21] MEDS: Calcium Carbonate 500 MG Tab.Chew PO SCH (09:32)
[2016-07-21] MEDS: Albuterol/Ipratropium 3.0-0.5 MG/3 ML Neb Soln NEB PRN (09:56)
--- NOTE | 2016-07-21 13:54 | CR ---
EXAMINATION: Portable chest radiograph. HISTORY: Congestion. FINDINGS: The trachea is midline. The cardiomediastinal silhouette is stable. Mild persistent bibasilar infilt rates with likely trace pleural effusions. Central vascular prominence persists. Osseous structures appear unremarkable. IMPRESSION: Stable chest radiograph consistent with mild exacerbation of CHF.
[2016-07-21] MEDS: Furosemide 80 MG Tab PO SCH (15:40)
[2016-07-21] MEDS: cefTRIAXone 1 GM in Premix Bag 1 BAG IV SCH (16:36)
[2016-07-21] MEDS ORDERED: Furosemide 40 MG/4 ML VIAL IVPUSH ONE (21:18)
[2016-07-21] MEDS: Pravastatin 40 MG Tab PO SCH (22:00)
[2016-07-22] MEDS: Gabapentin 300 MG Cap PO SCH ×3 (06:30→21:13)
[2016-07-22] MEDS: Insulin Regular, Human 100 Units/ML 10 ML Vial SUBCUT SCH ×4 (07:57→21:36)
[2016-07-22] MEDS: Famotidine 20 MG Tab PO SCH ×2 (08:38→21:11)
[2016-07-22] MEDS: Digoxin 125 MCG Tab PO SCH (08:38)
[2016-07-22] MEDS: Allopurinol 100 MG Tab PO SCH (08:38)
[2016-07-22] MEDS: Furosemide 80 MG Tab PO SCH (08:38)
[2016-07-22] MEDS: Venlafaxine 37.5 MG Tab PO SCH (08:39)
[2016-07-22] MEDS: Calcium Carbonate 500 MG Tab.Chew PO SCH (08:40)
[2016-07-22] MEDS: Albuterol/Ipratropium 3.0-0.5 MG/3 ML Neb Soln NEB PRN (08:59)
[2016-07-22] MEDS: Carvedilol 6.25 MG Tab PO SCH ×2 (09:00→19:57)
[2016-07-22] MEDS ORDERED: Furosemide 40 MG/4 ML VIAL IVPUSH ONE (11:23)
--- NOTE | 2016-07-22 11:28 | PCM.PN ---
- Review of Systems Systems Review Comment:: lethargic this morning. no pain - Patient Data Vitals - most recent: Last Vital Signs Temp 37.8 C 07/22/16 07:00 Pulse 88 07/22/16 08:38 Resp 16 07/22/16 03:00 BP 115/40 L 07/22/16 07:00 Pulse Ox 90 L 07/22/16 07:00 Weight - most recent: 126.5 kg I&O - last 24 hours: Intake & Output 07/21/16 07/22/16 07/22/16 22:59 06:59 14:59 Intake Total 350 100 Output Total 450 1850 Balance -100 -1750 Lab Results last 24 hrs: Laboratory Results - last 24 hr 07/21/16 07/21/16 07/22/16 Range/Units 11:16 16:51 06:30 WBC (4.0-11.0) K/uL RBC (4.50-5.90) M/uL Hgb (13.0-17.0) g/dL Hct (38.0-50.0) % MCV (80.0-98.0) fL MCH (27.0-32.0) pg MCHC (31.0-37.0) g/dL RDW Std Deviation (28.0-62.0) fl RDW Coeff of [place] (11.0-15.0) % Plt Count (150-400) K/uL MPV (7.40-12.00) fL Neut % (Auto) (48.0-80.0) % Lymph % (Auto) (16.0-40.0) % Wallace % (Auto) (0.0-15.0) % Eos % (Auto) (0.0-7.0) % Baso % (Auto) (0.0-1.5) % Neut # (1.4-5.7) K/uL Lymph # (0.6-2.4) K/uL Wallace # (0.0-0.8) K/uL Eos # (0.0-0.7) K/uL Baso # (0.0-0.1) K/uL Nucleated RBC % /100WBC Nucleated RBCs # K/uL INR (0.86-1.11) Sodium (136-146) mmol/L Potassium (3.5-5.1) mmol/L Chloride (98-110) mmol/L Carbon Dioxide (21-31) mmol/L BUN (6.0-23.0) mg/dL Creatinine (0.6-1.5) mg/dL Est Cr Clr Drug Dosing mL/min Estimated GFR (MDRD) ml/min Glucose (60-110) mg/dL POC Glucose 172 H 194 H 144 H (60-110) mg/dL Calcium (8.8-10.8) mg/dL Total Bilirubin (0.1-1.5) mg/dL AST (5-40) IU/L ALT (8-54) IU/L Alkaline Phosphatase (40-150) Total Protein (6.0-8.0) g/dL Albumin (3.4-4.8) g/dL Globulin (2.0-3.5) g/dL Albumin/Globulin Ratio (1.3-2.8) 07/22/16 07/22/16 07/22/16 Range/Units 06:47 06:47 06:47 WBC 9.94 (4.0-11.0) K/uL RBC 4.20 L (4.50-5.90) M/uL Hgb 12.4 L (13.0-17.0) g/dL Hct 40.9 (38.0-50.0) % MCV 97.4 (80.0-98.0) fL MCH 29.5 (27.0-32.0) pg MCHC 30.3 L (31.0-37.0) g/dL RDW Std Deviation 59.5 (28.0-62.0) fl RDW Coeff of [place] 17 H (11.0-15.0) % Plt Count 231 (150-400) K/uL MPV 9.50 (7.40-12.00) fL Neut % (Auto) 75.1 (48.0-80.0) % Lymph % (Auto) 12.3 L (16.0-40.0) % Wallace % (Auto) 10.5 (0.0-15.0) % Eos % (Auto) 1.9 (0.0-7.0) % Baso % (Auto) 0.2 (0.0-1.5) % Neut # 7.5 H (1.4-5.7) K/uL Lymph # 1.2 (0.6-2.4) K/uL Wallace # 1.0 H (0.0-0.8) K/uL Eos # 0.2 (0.0-0.7) K/uL Baso # 0.0 (0.0-0.1) K/uL Nucleated RBC % 0.0 /100WBC Nucleated RBCs # 0 K/uL INR 5.26 H (0.86-1.11) Sodium 140 (136-146) mmol/L Potassium 4.7 (3.5-5.1) mmol/L Chloride 101 (98-110) mmol/L Carbon Dioxide 28 (21-31) mmol/L BUN 31 H (6.0-23.0) mg/dL Creatinine 2.4 H (0.6-1.5) mg/dL Est Cr Clr Drug Dosing 25.61 mL/min Estimated GFR (MDRD) 26.8 ml/min Glucose 118 H (60-110) mg/dL POC Glucose (60-110) mg/dL Calcium 9.3 (8.8-10.8) mg/dL Total Bilirubin 0.7 (0.1-1.5) mg/dL AST 22 (5-40) IU/L ALT 22 (8-54) IU/L Alkaline Phosphatase 139 (40-150) Total Protein 7.7 (6.0-8.0) g/dL Albumin 3.1 L (3.4-4.8) g/dL Globulin 4.6 H (2.0-3.5) g/dL Albumin/Globulin Ratio 0.7 L (1.3-2.8) Med Orders - Current: Current Medications Albuterol/Ipratropium (Duoneb 3.0-0.5 Mg/3 Ml) 3 ml NEB Q6HRRT PRN PRN Reason: Shortness of Breath Last Admin: 07/22/16 08:59 Dose: 3 ml Allopurinol (Zyloprim) 100 mg PO DAILY [facility] Last Admin: 07/22/16 08:38 Dose: 100 mg Bisacodyl (Dulcolax) 10 mg RECTAL Q24H PRN PRN Reason: Constipation Calcium Carbonate/Glycine (Tums) 1,000 mg PO DAILY [facility] Last Admin: 07/22/16 08:40 Dose: 1,000 mg Carvedilol (Coreg) 6.25 mg PO BIDMEALS [facility] Last Admin: 07/21/16 16:39 Dose: Not Given Digoxin (Lanoxin) 125 mcg PO DAILY [facility] Last Admin: 07/22/16 08:38 Dose: 125 mcg Famotidine (Pepcid) 20 mg PO BID [facility] Last Admin: 07/22/16 08:38 Dose: 20 mg Furosemide (Lasix) 80 mg PO BIDDIURETIC [facility] Last Admin: 07/22/16 08:38 Dose: 80 mg Gabapentin (Neurontin) 300 mg PO TID [facility] Last Admin: 07/22/16 06:30 Dose: 300 mg Ceftriaxone Sodium/Dextrose 1 (gm/ Premix) 50 mls @ 100 mls/hr IV Q24H [facility] Last Admin: 07/21/16 16:36 Dose: 100 mls/hr Sodium Chloride (Normal Saline) 250 mls @ 250 mls/hr IV .BOLUS [facility] Last Admin: 07/20/16 10:46 Dose: 250 mls/hr Insulin Human Regular (Novolin R) 0 unit SUBCUT QIDACANDBED [facility] PRN Reason: Protocol Last Admin: 07/22/16 07:57 Dose: Not Given Magnesium Hydroxide (Milk Of Magnesia) 30 ml PO Q24H PRN PRN Reason: Constipation Ondansetron HCl (Zofran Odt) 4 mg PO Q4H PRN PRN Reason: nausea, able to take PO Last Admin: 07/20/16 20:26 Dose: 4 mg Oxycodone HCl (Oxycodone) 5 mg PO Q4H PRN PRN Reason: FOOT/ANKLE PAIN Last Admin: 07/21/16 01:03 Dose: 5 mg Pravastatin 10mg 1 each PO BEDTIME [facility] Quetiapine Fumarate (Seroquel) 25 mg PO BEDTIME PRN PRN Reason: Agitation Sodium Chloride (Saline Flush) 10 ml FLUSH ASDIRECTED PRN PRN Reason: Keep Vein Open Sodium Chloride (Saline Flush) 2.5 ml FLUSH ASDIRECTED PRN PRN Reason: Keep Vein Open Last Admin: 07/20/16 21:04 Dose: 2.5 ml Sodium Chloride (Saline Flush) 10 ml FLUSH ASDIRECTED PRN PRN Reason: Keep Vein Open Sodium Chloride (Saline Flush) 2.5 ml FLUSH ASDIRECTED PRN PRN Reason: Keep Vein Open Venlafaxine HCl (Effexor) 75 mg PO DAILY [facility] Last Admin: 07/22/16 08:39 Dose: 75 mg Discontinued Medications Albuterol/Ipratropium (Duoneb 3.0-0.5 Mg/3 Ml) 3 ml NEB ONETIME ONE Stop: 07/19/16 13:29 Last Admin: 07/19/16 13:57 Dose: 3 ml Calcium Carbonate/Glycine (Tums) 1,000 mg PO DAILY ONE Stop: 07/20/16 09:10 Last Admin: 07/20/16 09:43 Dose: 1,000 mg Furosemide (Lasix) 80 mg IVPUSH NOW ONE Stop: 07/21/16 21:19 Last Admin: 07/21/16 21:56 Dose: 80 mg Sodium Chloride (Normal Saline) 1,000 mls @ 150 mls/hr IV ASDIRECTED [facility] Last Admin: 07/19/16 13:54 Dose: 150 mls/hr Ceftriaxone Sodium 1,000 mg/ (Sodium Chloride) 50 mls @ 200 mls/hr IV ONETIME ONE Stop: 07/19/16 16:36 Last Admin: 07/19/16 16:50 Dose: Not Given Ceftriaxone Sodium/Dextrose 1 (gm/ Premix) 50 mls @ 100 mls/hr IV ONETIME ONE Stop: 07/19/16 17:29 Last Admin: 07/19/16 17:10 Dose: 100 mls/hr Ceftriaxone Sodium 1,000 mg/ (Sodium Chloride) 50 mls @ 200 mls/hr IV Q24H [facility] Last Admin: 07/20/16 03:06 Dose: Not Given Ceftriaxone Sodium 1,000 mg/ (Sodium Chloride) 50 mls @ 200 mls/hr IV Q24H [facility] Sodium Chloride (Normal Saline) 250 mls @ 250 mls/hr IV ASDIRECTED [facility] Stop: 07/20/16 20:15 Last Admin: 07/20/16 19:37 Dose: 250 mls/hr Potassium Chloride (Klor-Con M20) 40 meq PO DAILY [facility] Last Admin: 07/20/16 08:17 Dose: 40 meq Pravastatin Sodium (Pravachol) 10 mg PO BEDTIME [facility] Last Admin: 07/20/16 21:46 Dose: 10 mg Pravastatin Sodium (Pravachol) 10 mg PO BEDTIME [facility] Last Admin: 07/21/16 22:00 Dose: Not Given Quetiapine Fumarate (Seroquel) 25 mg PO QAM [facility] Quetiapine Fumarate (Seroquel) 50 mg PO BEDTIME [facility] Venlafaxine HCl (Effexor Xr) 75 mg PO DAILY [facility] Last Admin: 07/20/16 08:17 Dose: 75 mg - Exam General: no acute distress Lungs: Crackles, Rhonchi Cardiovascular: Regular Rate, Regular Rhythm Abdomen: bowel sounds present, soft, no tenderness, no distension Extremities: edema (right leg cast, left leg 2+ edema) - Problem List Review Problem List Initiated/Reviewed/Updated: Yes - My Orders Last 24 Hours: My Active Orders 07/22/16 11:23 Furosemide [Lasix] 80 mg IVPUSH NOW ONE - Plan Plan:: 70-year-old male admitted for acute on chronic renal failure, UTI, and altered mental status with history of congestive heart failure, chronic kidney disease, coronary artery disease, type 2 diabetes and elevated INR. Acute on chronic renal failure: creatinine stable at 2.4 will continue to monitor UTI: continue rocephin Altered mental status: Continuing to improve. Will keep 25 mg Seraquel at night prn if needed. Pain is controlled with oxycodone 5 mg q 4 hrs. \ Congestive heart failure: appears fluid overloaded on exam, net negative 1800 mls yesterday, will give another 80mg of IV lasix Type 2 diabetes: Insulin sliding scale COPD: duonebs prn Elevated INR: Continue to hold Coumadin as elevated until in therapeutic range of 2-3 VTE: Held secondary to elevated INR.
[2016-07-22] MEDS: oxyCODONE 5 MG Tab PO PRN (13:22)
[2016-07-22] MEDS: Furosemide 40 MG/4 ML VIAL IVPUSH ONE ×2 (16:57→17:22)
[2016-07-22] MEDS: cefTRIAXone 1 GM in Premix Bag 1 BAG IV SCH (17:20)
--- NOTE | 2016-07-22 19:00 | PCM.SN ---
- Free Text/Narrative Note: Art line placed by anesthesia and BIPAP in place. Patient waking up well but combative to remove art line and BIPAP which are essesential to patient's life at this time. Patient extremely hypercapnic and to prevent intubation or further escalation of invasive life saving manuevers this is imperative to patient. Talked with Girlfriend and son Coleman who are present and they agree with the assessment. Restraints will be removed as soon as medically possibly.
--- NOTE | 2016-07-22 19:06 | PCM.SN ---
- Free Text/Narrative Note: called for artline placement for ABG draws- respiratory failure. Patient very lethargic, son gives verbal consent after risks/complications discussed. L) wrist assessed, very swollen, bruised, and unable to palpate pulse. R) radial pulse palpated. Sterile technique 2% lidocaine skin wheel at injection site ultrasound guided- [address] Hill- + flashback but unable to threat cath. 4 more attempts made with same problem. 6th attempt successful -20 ga abbocath threaded to 3/4 to hub appropriate waveform and flushes with ease. Dressing and secured with tape and wrist splint. Care obtained by RN per protocol.
--- NOTE | 2016-07-22 19:28 | PCM.PN ---
- Review of Systems Systems Review Comment:: this evening patient became somnolescent, he would open eyes but not respond to questioning. ABG was drawn which showed hypercapnea. He was transferred to the ICU and Bipap was placed. - Patient Data Vitals - most recent: Last Vital Signs Temp 37.8 C 07/22/16 15:00 Pulse 89 07/22/16 15:00 Resp 14 07/22/16 15:00 BP 121/48 L 07/22/16 15:00 Pulse Ox 89 L 07/22/16 15:00 Weight - most recent: 126.5 kg I&O - last 24 hours: Intake & Output 07/22/16 07/22/16 07/22/16 06:59 14:59 22:59 Intake Total 100 270 Output Total 1850 1650 Balance -1750 -1380 Lab Results last 24 hrs: Laboratory Results - last 24 hr 07/22/16 07/22/16 07/22/16 Range/Units 06:30 06:47 06:47 WBC 9.94 (4.0-11.0) K/uL RBC 4.20 L (4.50-5.90) M/uL Hgb 12.4 L (13.0-17.0) g/dL Hct 40.9 (38.0-50.0) % MCV 97.4 (80.0-98.0) fL MCH 29.5 (27.0-32.0) pg MCHC 30.3 L (31.0-37.0) g/dL RDW Std Deviation 59.5 (28.0-62.0) fl RDW Coeff of [place] 17 H (11.0-15.0) % Plt Count 231 (150-400) K/uL MPV 9.50 (7.40-12.00) fL Neut % (Auto) 75.1 (48.0-80.0) % Lymph % (Auto) 12.3 L (16.0-40.0) % [place] % (Auto) 10.5 (0.0-15.0) % Eos % (Auto) 1.9 (0.0-7.0) % Baso % (Auto) 0.2 (0.0-1.5) % Neut # 7.5 H (1.4-5.7) K/uL Lymph # 1.2 (0.6-2.4) K/uL [place] # 1.0 H (0.0-0.8) K/uL Eos # 0.2 (0.0-0.7) K/uL Baso # 0.0 (0.0-0.1) K/uL Nucleated RBC % 0.0 /100WBC Nucleated RBCs # 0 K/uL INR (0.86-1.11) ABG pH (7.35-7.45) ABG pCO2 (35-45) mmHG ABG pO2 (75-100) mmHG ABG HCO3 ABG Total CO2 ABG Base Excess (-2.0-2.0) Sodium 140 (136-146) mmol/L Potassium 4.7 (3.5-5.1) mmol/L Chloride 101 (98-110) mmol/L Carbon Dioxide 28 (21-31) mmol/L BUN 31 H (6.0-23.0) mg/dL Creatinine 2.4 H (0.6-1.5) mg/dL Est Cr Clr Drug Dosing 25.61 mL/min Estimated GFR (MDRD) 26.8 ml/min Glucose 118 H (60-110) mg/dL POC Glucose 144 H (60-110) mg/dL Calcium 9.3 (8.8-10.8) mg/dL Total Bilirubin 0.7 (0.1-1.5) mg/dL AST 22 (5-40) IU/L ALT 22 (8-54) IU/L Alkaline Phosphatase 139 (40-150) Total Protein 7.7 (6.0-8.0) g/dL Albumin 3.1 L (3.4-4.8) g/dL Globulin 4.6 H (2.0-3.5) g/dL Albumin/Globulin Ratio 0.7 L (1.3-2.8) 07/22/16 07/22/16 07/22/16 Range/Units 06:47 11:34 16:45 WBC (4.0-11.0) K/uL RBC (4.50-5.90) M/uL Hgb (13.0-17.0) g/dL Hct (38.0-50.0) % MCV (80.0-98.0) fL MCH (27.0-32.0) pg MCHC (31.0-37.0) g/dL RDW Std Deviation (28.0-62.0) fl RDW Coeff of [place] (11.0-15.0) % Plt Count (150-400) K/uL MPV (7.40-12.00) fL Neut % (Auto) (48.0-80.0) % Lymph % (Auto) (16.0-40.0) % [place] % (Auto) (0.0-15.0) % Eos % (Auto) (0.0-7.0) % Baso % (Auto) (0.0-1.5) % Neut # (1.4-5.7) K/uL Lymph # (0.6-2.4) K/uL [place] # (0.0-0.8) K/uL Eos # (0.0-0.7) K/uL Baso # (0.0-0.1) K/uL Nucleated RBC % /100WBC Nucleated RBCs # K/uL INR 5.26 H (0.86-1.11) ABG pH (7.35-7.45) ABG pCO2 (35-45) mmHG ABG pO2 (75-100) mmHG ABG HCO3 ABG Total CO2 ABG Base Excess (-2.0-2.0) Sodium (136-146) mmol/L Potassium (3.5-5.1) mmol/L Chloride (98-110) mmol/L Carbon Dioxide (21-31) mmol/L BUN (6.0-23.0) mg/dL Creatinine (0.6-1.5) mg/dL Est Cr Clr Drug Dosing mL/min Estimated GFR (MDRD) ml/min Glucose (60-110) mg/dL POC Glucose 181 H 120 H (60-110) mg/dL Calcium (8.8-10.8) mg/dL Total Bilirubin (0.1-1.5) mg/dL AST (5-40) IU/L ALT (8-54) IU/L Alkaline Phosphatase (40-150) Total Protein (6.0-8.0) g/dL Albumin (3.4-4.8) g/dL Globulin (2.0-3.5) g/dL Albumin/Globulin Ratio (1.3-2.8) 03/18/17 03/18/17 Range/Units 18:05 18:45 WBC (4.0-11.0) K/uL RBC (4.50-5.90) M/uL Hgb (13.0-17.0) g/dL Hct (38.0-50.0) % MCV (80.0-98.0) fL MCH (27.0-32.0) pg MCHC (31.0-37.0) g/dL RDW Std Deviation (28.0-62.0) fl RDW Coeff of [place] (11.0-15.0) % Plt Count (150-400) K/uL MPV (7.40-12.00) fL Neut % (Auto) (48.0-80.0) % Lymph % (Auto) (16.0-40.0) % [place] % (Auto) (0.0-15.0) % Eos % (Auto) (0.0-7.0) % Baso % (Auto) (0.0-1.5) % Neut # (1.4-5.7) K/uL Lymph # (0.6-2.4) K/uL [place] # (0.0-0.8) K/uL Eos # (0.0-0.7) K/uL Baso # (0.0-0.1) K/uL Nucleated RBC % /100WBC Nucleated RBCs # K/uL INR (0.86-1.11) ABG pH 7.309 L 7.317 L (7.35-7.45) ABG pCO2 60 H (35-45) mmHG ABG pO2 60 L 80 (75-100) mmHG ABG HCO3 30.5 ABG Total CO2 32 ABG Base Excess 3 H (-2.0-2.0) Sodium (136-146) mmol/L Potassium (3.5-5.1) mmol/L Chloride (98-110) mmol/L Carbon Dioxide (21-31) mmol/L BUN (6.0-23.0) mg/dL Creatinine (0.6-1.5) mg/dL Est Cr Clr Drug Dosing mL/min Estimated GFR (MDRD) ml/min Glucose (60-110) mg/dL POC Glucose (60-110) mg/dL Calcium (8.8-10.8) mg/dL Total Bilirubin (0.1-1.5) mg/dL AST (5-40) IU/L ALT (8-54) IU/L Alkaline Phosphatase (40-150) Total Protein (6.0-8.0) g/dL Albumin (3.4-4.8) g/dL Globulin (2.0-3.5) g/dL Albumin/Globulin Ratio (1.3-2.8) Med Orders - Current: Current Medications Albuterol/Ipratropium (Duoneb 3.0-0.5 Mg/3 Ml) 3 ml NEB Q6HRRT PRN PRN Reason: Shortness of Breath Last Admin: 07/22/16 08:59 Dose: 3 ml Allopurinol (Zyloprim) 100 mg PO DAILY [facility] Last Admin: 07/22/16 08:38 Dose: 100 mg Bisacodyl (Dulcolax) 10 mg RECTAL Q24H PRN PRN Reason: Constipation Calcium Carbonate/Glycine (Tums) 1,000 mg PO DAILY [facility] Last Admin: 07/22/16 08:40 Dose: 1,000 mg Carvedilol (Coreg) 6.25 mg PO BIDMEALS [facility] Last Admin: 07/22/16 09:00 Dose: Not Given Digoxin (Lanoxin) 125 mcg PO DAILY [facility] Last Admin: 07/22/16 08:38 Dose: 125 mcg Famotidine (Pepcid) 20 mg PO BID [facility] Last Admin: 07/22/16 08:38 Dose: 20 mg Gabapentin (Neurontin) 300 mg PO TID [facility] Last Admin: 07/22/16 13:19 Dose: 300 mg Ceftriaxone Sodium/Dextrose 1 (gm/ Premix) 50 mls @ 100 mls/hr IV Q24H [facility] Last Admin: 07/22/16 17:20 Dose: 100 mls/hr Sodium Chloride (Normal Saline) 250 mls @ 250 mls/hr IV .BOLUS [facility] Last Admin: 07/20/16 10:46 Dose: 250 mls/hr Insulin Human Regular (Novolin R) 0 unit SUBCUT QIDACANDBED [facility] PRN Reason: Protocol Last Admin: 07/22/16 17:20 Dose: Not Given Magnesium Hydroxide (Milk Of Magnesia) 30 ml PO Q24H PRN PRN Reason: Constipation Ondansetron HCl (Zofran Odt) 4 mg PO Q4H PRN PRN Reason: nausea, able to take PO Last Admin: 07/20/16 20:26 Dose: 4 mg Pravastatin 10mg 1 each PO BEDTIME [facility] Quetiapine Fumarate (Seroquel) 25 mg PO BEDTIME PRN PRN Reason: Agitation Sodium Chloride (Saline Flush) 10 ml FLUSH ASDIRECTED PRN PRN Reason: Keep Vein Open Sodium Chloride (Saline Flush) 2.5 ml FLUSH ASDIRECTED PRN PRN Reason: Keep Vein Open Last Admin: 07/20/16 21:04 Dose: 2.5 ml Sodium Chloride (Saline Flush) 10 ml FLUSH ASDIRECTED PRN PRN Reason: Keep Vein Open Sodium Chloride (Saline Flush) 2.5 ml FLUSH ASDIRECTED PRN PRN Reason: Keep Vein Open Venlafaxine HCl (Effexor) 75 mg PO DAILY [facility] Last Admin: 07/22/16 08:39 Dose: 75 mg Discontinued Medications Albuterol/Ipratropium (Duoneb 3.0-0.5 Mg/3 Ml) 3 ml NEB ONETIME ONE Stop: 07/19/16 13:29 Last Admin: 07/19/16 13:57 Dose: 3 ml Calcium Carbonate/Glycine (Tums) 1,000 mg PO DAILY ONE Stop: 07/20/16 09:10 Last Admin: 07/20/16 09:43 Dose: 1,000 mg Furosemide (Lasix) 80 mg PO BIDDIURETIC [facility] Last Admin: 07/22/16 08:38 Dose: 80 mg Furosemide (Lasix) 80 mg IVPUSH NOW ONE Stop: 07/21/16 21:19 Last Admin: 07/21/16 21:56 Dose: 80 mg Furosemide (Lasix) 80 mg IVPUSH NOW ONE Stop: 07/22/16 11:24 Last Admin: 07/22/16 12:46 Dose: Not Given Furosemide (Lasix) 80 mg IVPUSH NOW ONE Stop: 07/22/16 18:01 Last Admin: 07/22/16 17:22 Dose: Not Given Sodium Chloride (Normal Saline) 1,000 mls @ 150 mls/hr IV ASDIRECTED [facility] Last Admin: 07/19/16 13:54 Dose: 150 mls/hr Ceftriaxone Sodium 1,000 mg/ (Sodium Chloride) 50 mls @ 200 mls/hr IV ONETIME ONE Stop: 07/19/16 16:36 Last Admin: 07/19/16 16:50 Dose: Not Given Ceftriaxone Sodium/Dextrose 1 (gm/ Premix) 50 mls @ 100 mls/hr IV ONETIME ONE Stop: 07/19/16 17:29 Last Admin: 07/19/16 17:10 Dose: 100 mls/hr Ceftriaxone Sodium 1,000 mg/ (Sodium Chloride) 50 mls @ 200 mls/hr IV Q24H [facility] Last Admin: 07/20/16 03:06 Dose: Not Given Ceftriaxone Sodium 1,000 mg/ (Sodium Chloride) 50 mls @ 200 mls/hr IV Q24H [facility] Sodium Chloride (Normal Saline) 250 mls @ 250 mls/hr IV ASDIRECTED [facility] Stop: 07/20/16 20:15 Last Admin: 07/20/16 19:37 Dose: 250 mls/hr Oxycodone HCl (Oxycodone) 5 mg PO Q4H PRN PRN Reason: FOOT/ANKLE PAIN Last Admin: 07/22/16 13:22 Dose: 5 mg Potassium Chloride (Klor-Con M20) 40 meq PO DAILY [facility] Last Admin: 07/20/16 08:17 Dose: 40 meq Pravastatin Sodium (Pravachol) 10 mg PO BEDTIME [facility] Last Admin: 07/20/16 21:46 Dose: 10 mg Pravastatin Sodium (Pravachol) 10 mg PO BEDTIME [facility] Last Admin: 07/21/16 22:00 Dose: Not Given Quetiapine Fumarate (Seroquel) 25 mg PO QAM [facility] Quetiapine Fumarate (Seroquel) 50 mg PO BEDTIME [facility] Venlafaxine HCl (Effexor Xr) 75 mg PO DAILY [facility] Last Admin: 07/20/16 08:17 Dose: 75 mg - Exam General: lethargic Lungs: Rhonchi Abdomen: bowel sounds present, soft, no tenderness, no distension Extremities: no edema Skin: warm, dry, intact Neurological: no new focal deficit, other (moving arms and legs purposefully) - Problem List Review Problem List Initiated/Reviewed/Updated: Yes - My Orders Last 24 Hours: My Active Orders 07/22/16 16:55 CXR [Chest 1V Frontal] [CR] Stat 07/22/16 17:40 Transfer Patient (Change bed) [ADT] Routine - Plan Plan:: 70-year-old male admitted for acute on chronic renal failure, UTI, and altered mental status with history of congestive heart failure, chronic kidney disease, coronary artery disease, type 2 diabetes and elevated INR. Developed acute hypercapnic respiratory failure. Patient is more alert on Bipap. Will hold sedating medications Acute on chronic renal failure: creatinine stable at 2.4 will continue to monitor UTI: on rocephin Congestive heart failure: received 80mg of IV lasix this afternoon Type 2 diabetes: Insulin sliding scale COPD: duonebs prn Elevated INR: Continue to hold Coumadin as elevated until in therapeutic range of 2-3 VTE: Held secondary to elevated INR.
[2016-07-22] MEDS: PRAVASTATIN 10MG PO SCH (21:11)
[2016-07-23] MEDS: Gabapentin 300 MG Cap PO SCH (05:15)
[2016-07-23] MEDS: Insulin Regular, Human 100 Units/ML 10 ML Vial SUBCUT SCH ×4 (06:37→20:57)
[2016-07-23] MEDS: Carvedilol 6.25 MG Tab PO SCH ×2 (08:55→18:01)
[2016-07-23] MEDS: Venlafaxine 37.5 MG Tab PO SCH (09:12)
[2016-07-23] MEDS: Calcium Carbonate 500 MG Tab.Chew PO SCH (09:13)
[2016-07-23] MEDS: Digoxin 125 MCG Tab PO SCH (09:13)
[2016-07-23] MEDS: Famotidine 20 MG Tab PO SCH ×2 (09:13→20:16)
[2016-07-23] MEDS: Allopurinol 100 MG Tab PO SCH (09:13)
[2016-07-23] MEDS ORDERED: Furosemide 40 MG/4 ML VIAL IVPUSH ONE (12:14)
--- NOTE | 2016-07-23 12:17 | PCM.PN ---
- Review of Systems Systems Review Comment:: patient much more alert this morning, no bowel movements. - Patient Data Vitals - most recent: Last Vital Signs Temp 36.6 C 07/23/16 04:00 Pulse 97 07/23/16 09:13 Resp 18 07/23/16 07:00 BP 95/50 L 07/23/16 07:00 Pulse Ox 94 L 07/23/16 07:00 Weight - most recent: 127 kg I&O - last 24 hours: Intake & Output 07/22/16 07/23/16 07/23/16 22:59 06:59 14:59 Intake Total 270 800 Output Total 1650 1150 Balance -1380 -350 Lab Results last 24 hrs: Laboratory Results - last 24 hr 07/22/16 07/22/16 07/22/16 Range/Units 16:45 18:05 18:45 WBC (4.0-11.0) K/uL RBC (4.50-5.90) M/uL Hgb (13.0-17.0) g/dL Hct (38.0-50.0) % MCV (80.0-98.0) fL MCH (27.0-32.0) pg MCHC (31.0-37.0) g/dL RDW Std Deviation (28.0-62.0) fl RDW Coeff of [place] (11.0-15.0) % Plt Count (150-400) K/uL MPV (7.40-12.00) fL Neut % (Auto) (48.0-80.0) % Lymph % (Auto) (16.0-40.0) % [place] % (Auto) (0.0-15.0) % Eos % (Auto) (0.0-7.0) % Baso % (Auto) (0.0-1.5) % Neut # (1.4-5.7) K/uL Lymph # (0.6-2.4) K/uL [place] # (0.0-0.8) K/uL Eos # (0.0-0.7) K/uL Baso # (0.0-0.1) K/uL Nucleated RBC % /100WBC Nucleated RBCs # K/uL INR (0.86-1.11) ABG pH 7.309 L 7.317 L (7.35-7.45) ABG pCO2 60 H (35-45) mmHG ABG pO2 60 L 80 (75-100) mmHG ABG HCO3 30.5 ABG Total CO2 32 ABG Base Excess 3 H (-2.0-2.0) Sodium (136-146) mmol/L Potassium (3.5-5.1) mmol/L Chloride (98-110) mmol/L Carbon Dioxide (21-31) mmol/L BUN (6.0-23.0) mg/dL Creatinine (0.6-1.5) mg/dL Est Cr Clr Drug Dosing mL/min Estimated GFR (MDRD) ml/min Glucose (60-110) mg/dL POC Glucose 120 H (60-110) mg/dL Calcium (8.8-10.8) mg/dL Total Bilirubin (0.1-1.5) mg/dL AST (5-40) IU/L ALT (8-54) IU/L Alkaline Phosphatase (40-150) Total Protein (6.0-8.0) g/dL Albumin (3.4-4.8) g/dL Globulin (2.0-3.5) g/dL Albumin/Globulin Ratio (1.3-2.8) 07/22/16 07/22/16 07/23/16 Range/Units 21:30 23:10 06:35 WBC 7.69 (4.0-11.0) K/uL RBC 3.40 L (4.50-5.90) M/uL Hgb 9.9 L (13.0-17.0) g/dL Hct 32.0 L (38.0-50.0) % MCV 94.1 (80.0-98.0) fL MCH 29.1 (27.0-32.0) pg MCHC 30.9 L (31.0-37.0) g/dL RDW Std Deviation 56.3 (28.0-62.0) fl RDW Coeff of [place] 16 H (11.0-15.0) % Plt Count 200 (150-400) K/uL MPV 9.50 (7.40-12.00) fL Neut % (Auto) 71.3 (48.0-80.0) % Lymph % (Auto) 14.6 L (16.0-40.0) % [place] % (Auto) 12.7 (0.0-15.0) % Eos % (Auto) 1.0 (0.0-7.0) % Baso % (Auto) 0.4 (0.0-1.5) % Neut # 5.5 (1.4-5.7) K/uL Lymph # 1.1 (0.6-2.4) K/uL [place] # 1.0 H (0.0-0.8) K/uL Eos # 0.1 (0.0-0.7) K/uL Baso # 0.0 (0.0-0.1) K/uL Nucleated RBC % 0.0 /100WBC Nucleated RBCs # 0 K/uL INR (0.86-1.11) ABG pH 7.408 (7.35-7.45) ABG pCO2 53 H (35-45) mmHG ABG pO2 82 (75-100) mmHG ABG HCO3 34 H ABG Total CO2 35 ABG Base Excess 8 H (-2.0-2.0) Sodium (136-146) mmol/L Potassium (3.5-5.1) mmol/L Chloride (98-110) mmol/L Carbon Dioxide (21-31) mmol/L BUN (6.0-23.0) mg/dL Creatinine (0.6-1.5) mg/dL Est Cr Clr Drug Dosing mL/min Estimated GFR (MDRD) ml/min Glucose (60-110) mg/dL POC Glucose 136 H (60-110) mg/dL Calcium (8.8-10.8) mg/dL Total Bilirubin (0.1-1.5) mg/dL AST (5-40) IU/L ALT (8-54) IU/L Alkaline Phosphatase (40-150) Total Protein (6.0-8.0) g/dL Albumin (3.4-4.8) g/dL Globulin (2.0-3.5) g/dL Albumin/Globulin Ratio (1.3-2.8) 07/23/16 07/23/16 07/23/16 Range/Units 06:35 06:35 06:36 WBC (4.0-11.0) K/uL RBC (4.50-5.90) M/uL Hgb (13.0-17.0) g/dL Hct (38.0-50.0) % MCV (80.0-98.0) fL MCH (27.0-32.0) pg MCHC (31.0-37.0) g/dL RDW Std Deviation (28.0-62.0) fl RDW Coeff of [place] (11.0-15.0) % Plt Count (150-400) K/uL MPV (7.40-12.00) fL Neut % (Auto) (48.0-80.0) % Lymph % (Auto) (16.0-40.0) % [place] % (Auto) (0.0-15.0) % Eos % (Auto) (0.0-7.0) % Baso % (Auto) (0.0-1.5) % Neut # (1.4-5.7) K/uL Lymph # (0.6-2.4) K/uL [place] # (0.0-0.8) K/uL Eos # (0.0-0.7) K/uL Baso # (0.0-0.1) K/uL Nucleated RBC % /100WBC Nucleated RBCs # K/uL INR 6.31 H (0.86-1.11) ABG pH (7.35-7.45) ABG pCO2 (35-45) mmHG ABG pO2 (75-100) mmHG ABG HCO3 ABG Total CO2 ABG Base Excess (-2.0-2.0) Sodium 136 (136-146) mmol/L Potassium 3.6 (3.5-5.1) mmol/L Chloride 98 (98-110) mmol/L Carbon Dioxide 26 (21-31) mmol/L BUN 31 H (6.0-23.0) mg/dL Creatinine 2.1 H (0.6-1.5) mg/dL Est Cr Clr Drug Dosing 29.26 mL/min Estimated GFR (MDRD) 31.3 ml/min Glucose 124 H (60-110) mg/dL POC Glucose 133 H (60-110) mg/dL Calcium 8.5 L (8.8-10.8) mg/dL Total Bilirubin 0.8 (0.1-1.5) mg/dL AST 22 (5-40) IU/L ALT 18 (8-54) IU/L Alkaline Phosphatase 108 (40-150) Total Protein 6.1 (6.0-8.0) g/dL Albumin 2.6 L (3.4-4.8) g/dL Globulin 3.5 (2.0-3.5) g/dL Albumin/Globulin Ratio 0.7 L (1.3-2.8) 07/23/16 Range/Units 11:58 WBC (4.0-11.0) K/uL RBC (4.50-5.90) M/uL Hgb (13.0-17.0) g/dL Hct (38.0-50.0) % MCV (80.0-98.0) fL MCH (27.0-32.0) pg MCHC (31.0-37.0) g/dL RDW Std Deviation (28.0-62.0) fl RDW Coeff of [place] (11.0-15.0) % Plt Count (150-400) K/uL MPV (7.40-12.00) fL Neut % (Auto) (48.0-80.0) % Lymph % (Auto) (16.0-40.0) % [place] % (Auto) (0.0-15.0) % Eos % (Auto) (0.0-7.0) % Baso % (Auto) (0.0-1.5) % Neut # (1.4-5.7) K/uL Lymph # (0.6-2.4) K/uL [place] # (0.0-0.8) K/uL Eos # (0.0-0.7) K/uL Baso # (0.0-0.1) K/uL Nucleated RBC % /100WBC Nucleated RBCs # K/uL INR (0.86-1.11) ABG pH (7.35-7.45) ABG pCO2 (35-45) mmHG ABG pO2 (75-100) mmHG ABG HCO3 ABG Total CO2 ABG Base Excess (-2.0-2.0) Sodium (136-146) mmol/L Potassium (3.5-5.1) mmol/L Chloride (98-110) mmol/L Carbon Dioxide (21-31) mmol/L BUN (6.0-23.0) mg/dL Creatinine (0.6-1.5) mg/dL Est Cr Clr Drug Dosing mL/min Estimated GFR (MDRD) ml/min Glucose (60-110) mg/dL POC Glucose 146 H (60-110) mg/dL Calcium (8.8-10.8) mg/dL Total Bilirubin (0.1-1.5) mg/dL AST (5-40) IU/L ALT (8-54) IU/L Alkaline Phosphatase (40-150) Total Protein (6.0-8.0) g/dL Albumin (3.4-4.8) g/dL Globulin (2.0-3.5) g/dL Albumin/Globulin Ratio (1.3-2.8) Med Orders - Current: Current Medications Albuterol/Ipratropium (Duoneb 3.0-0.5 Mg/3 Ml) 3 ml NEB Q6HRRT PRN PRN Reason: Shortness of Breath Last Admin: 07/22/16 08:59 Dose: 3 ml Allopurinol (Zyloprim) 100 mg PO DAILY [facility] Last Admin: 07/23/16 09:13 Dose: 100 mg Bisacodyl (Dulcolax) 10 mg RECTAL Q24H PRN PRN Reason: Constipation Calcium Carbonate/Glycine (Tums) 1,000 mg PO DAILY [facility] Last Admin: 07/23/16 09:13 Dose: 1,000 mg Carvedilol (Coreg) 6.25 mg PO BIDMEALS [facility] Last Admin: 07/23/16 08:55 Dose: Not Given Digoxin (Lanoxin) 125 mcg PO DAILY [facility] Last Admin: 07/23/16 09:13 Dose: 125 mcg Famotidine (Pepcid) 20 mg PO BID [facility] Last Admin: 07/23/16 09:13 Dose: 20 mg Ceftriaxone Sodium/Dextrose 1 (gm/ Premix) 50 mls @ 100 mls/hr IV Q24H [facility] Last Admin: 07/22/16 17:20 Dose: 100 mls/hr Sodium Chloride (Normal Saline) 250 mls @ 250 mls/hr IV .BOLUS [facility] Last Admin: 07/20/16 10:46 Dose: 250 mls/hr Insulin Human Regular (Novolin R) 0 unit SUBCUT QIDACANDBED [facility] PRN Reason: Protocol Last Admin: 07/23/16 06:37 Dose: Not Given Magnesium Hydroxide (Milk Of Magnesia) 30 ml PO Q24H PRN PRN Reason: Constipation Ondansetron HCl (Zofran Odt) 4 mg PO Q4H PRN PRN Reason: nausea, able to take PO Last Admin: 07/20/16 20:26 Dose: 4 mg Pravastatin 10mg 1 each PO BEDTIME [facility] Last Admin: 07/22/16 21:11 Dose: Not Given Sodium Chloride (Saline Flush) 10 ml FLUSH ASDIRECTED PRN PRN Reason: Keep Vein Open Sodium Chloride (Saline Flush) 2.5 ml FLUSH ASDIRECTED PRN PRN Reason: Keep Vein Open Last Admin: 07/20/16 21:04 Dose: 2.5 ml Venlafaxine HCl (Effexor) 75 mg PO DAILY [facility] Last Admin: 07/23/16 09:12 Dose: 75 mg Discontinued Medications Albuterol/Ipratropium (Duoneb 3.0-0.5 Mg/3 Ml) 3 ml NEB ONETIME ONE Stop: 07/19/16 13:29 Last Admin: 07/19/16 13:57 Dose: 3 ml Calcium Carbonate/Glycine (Tums) 1,000 mg PO DAILY ONE Stop: 07/20/16 09:10 Last Admin: 07/20/16 09:43 Dose: 1,000 mg Furosemide (Lasix) 80 mg PO BIDDIURETIC [facility] Last Admin: 07/22/16 08:38 Dose: 80 mg Furosemide (Lasix) 80 mg IVPUSH NOW ONE Stop: 07/21/16 21:19 Last Admin: 07/21/16 21:56 Dose: 80 mg Furosemide (Lasix) 80 mg IVPUSH NOW ONE Stop: 07/22/16 11:24 Last Admin: 07/22/16 12:46 Dose: Not Given Furosemide (Lasix) 80 mg IVPUSH NOW ONE Stop: 07/22/16 18:01 Last Admin: 07/22/16 17:22 Dose: Not Given Gabapentin (Neurontin) 300 mg PO TID [facility] Last Admin: 07/23/16 05:15 Dose: 300 mg Sodium Chloride (Normal Saline) 1,000 mls @ 150 mls/hr IV ASDIRECTED [facility] Last Admin: 07/19/16 13:54 Dose: 150 mls/hr Ceftriaxone Sodium 1,000 mg/ (Sodium Chloride) 50 mls @ 200 mls/hr IV ONETIME ONE Stop: 07/19/16 16:36 Last Admin: 07/19/16 16:50 Dose: Not Given Ceftriaxone Sodium/Dextrose 1 (gm/ Premix) 50 mls @ 100 mls/hr IV ONETIME ONE Stop: 07/19/16 17:29 Last Admin: 07/19/16 17:10 Dose: 100 mls/hr Ceftriaxone Sodium 1,000 mg/ (Sodium Chloride) 50 mls @ 200 mls/hr IV Q24H [facility] Last Admin: 07/20/16 03:06 Dose: Not Given Ceftriaxone Sodium 1,000 mg/ (Sodium Chloride) 50 mls @ 200 mls/hr IV Q24H JABIER Sodium Chloride (Normal Saline) 250 mls @ 250 mls/hr IV ASDIRECTED [facility] Stop: 07/20/16 20:15 Last Admin: 07/20/16 19:37 Dose: 250 mls/hr Oxycodone HCl (Oxycodone) 5 mg PO Q4H PRN PRN Reason: FOOT/ANKLE PAIN Last Admin: 07/22/16 13:22 Dose: 5 mg Potassium Chloride (Klor-Con M20) 40 meq PO DAILY [facility] Last Admin: 07/20/16 08:17 Dose: 40 meq Pravastatin Sodium (Pravachol) 10 mg PO BEDTIME [facility] Last Admin: 07/20/16 21:46 Dose: 10 mg Pravastatin Sodium (Pravachol) 10 mg PO BEDTIME [facility] Last Admin: 07/21/16 22:00 Dose: Not Given Quetiapine Fumarate (Seroquel) 25 mg PO QAM [facility] Quetiapine Fumarate (Seroquel) 50 mg PO BEDTIME [facility] Quetiapine Fumarate (Seroquel) 25 mg PO BEDTIME PRN PRN Reason: Agitation Sodium Chloride (Saline Flush) 10 ml FLUSH ASDIRECTED PRN PRN Reason: Keep Vein Open Sodium Chloride (Saline Flush) 2.5 ml FLUSH ASDIRECTED PRN PRN Reason: Keep Vein Open Venlafaxine HCl (Effexor Xr) 75 mg PO DAILY [facility] Last Admin: 07/20/16 08:17 Dose: 75 mg - Exam General: no acute distress Lungs: Crackles, Rhonchi Cardiovascular: Regular Rate, Regular Rhythm Abdomen: bowel sounds present, soft, no tenderness, no distension Extremities: edema (+1 edema) Neurological: no new focal deficit - Problem List Review Problem List Initiated/Reviewed/Updated: Yes - My Orders Last 24 Hours: My Active Orders 07/22/16 16:55 CXR [Chest 1V Frontal] [CR] Stat 07/22/16 17:40 Transfer Patient (Change bed) [ADT] Routine 07/22/16 19:27 Head wo Cont [CT] Routine 07/23/16 12:14 Furosemide [Lasix] 80 mg IVPUSH NOW ONE 07/23/16 18:00 HGB [HEMOGLOBIN] [HEME] Routine - Plan Plan:: 70-year-old male admitted for acute on chronic renal failure, UTI, and altered mental status with history of congestive heart failure, chronic kidney disease, coronary artery disease, type 2 diabetes and elevated INR. Developed acute hypercapnic respiratory failure. will continue to hold sedating mediations. patient is off Bipap Acute on chronic renal failure: creatinine stable at 2.1 will continue to monitor UTI: on rocephin Congestive heart failure: will give another 80mg of lasix Type 2 diabetes: Insulin sliding scale COPD: duonebs prn Elevated INR: Continue to hold Coumadin as elevated until in therapeutic range of 2-3 Hgb droped to 9.9 with no signs of bleeding, will recheck Hgb this afternoon. VTE: Held secondary to elevated INR.
[2016-07-23] MEDS: cefTRIAXone 1 GM in Premix Bag 1 BAG IV SCH (18:01)
[2016-07-23] MEDS: Magnesium Hydroxide 400 MG/5 ML Susp 30 ML Cup PO PRN (20:16)
[2016-07-23] MEDS: PRAVASTATIN 10MG PO SCH (20:58)
[2016-07-24] MEDS: Insulin Regular, Human 100 Units/ML 10 ML Vial SUBCUT SCH ×4 (07:14→21:19)
[2016-07-24] MEDS: Famotidine 20 MG Tab PO SCH ×2 (08:23→20:11)
[2016-07-24] MEDS: Digoxin 125 MCG Tab PO SCH (08:23)
[2016-07-24] MEDS: Calcium Carbonate 500 MG Tab.Chew PO SCH (08:23)
[2016-07-24] MEDS: Allopurinol 100 MG Tab PO SCH (08:23)
[2016-07-24] MEDS: Venlafaxine 37.5 MG Tab PO SCH (08:23)
--- NOTE | 2016-07-24 08:56 | PCM.PN ---
- General Info Date of Service: 07/24/16 Admission Dx/Problem (Free Text): Admission Diagnosis/Problem Admission Diagnosis/Problem UTI, Urinary tract infectious disease Subjective Update: Patient alert this morning and girlfriend at bedside. Is complaining of some lower abdominal pain. He did get an enema last evening and is needing to have a BM during this morning exam. He is eating and more alert than previous days. Rest of ROS unremarkable. Functional Status: Reports: pain controlled, incentive spirometry - Patient Data Vitals - most recent: Last Vital Signs Temp 37 C 07/24/16 04:00 Pulse 94 07/24/16 08:23 Resp 14 07/24/16 08:10 BP 96/54 L 07/24/16 08:10 Pulse Ox 95 07/24/16 08:10 Weight - most recent: 126.8 kg I&O - last 24 hours: Intake & Output 07/23/16 07/24/16 07/24/16 22:59 06:59 14:59 Intake Total 1050 350 Output Total 1250 950 Balance -200 -600 Lab Results last 24 hrs: Laboratory Results - last 24 hr 07/23/16 07/23/16 07/23/16 Range/Units 11:58 17:19 18:20 WBC (4.0-11.0) K/uL RBC (4.50-5.90) M/uL Hgb 11.6 L (13.0-17.0) g/dL Hct (38.0-50.0) % MCV (80.0-98.0) fL MCH (27.0-32.0) pg MCHC (31.0-37.0) g/dL RDW Std Deviation (28.0-62.0) fl RDW Coeff of [place] (11.0-15.0) % Plt Count (150-400) K/uL MPV (7.40-12.00) fL Neut % (Auto) (48.0-80.0) % Lymph % (Auto) (16.0-40.0) % [place] % (Auto) (0.0-15.0) % Eos % (Auto) (0.0-7.0) % Baso % (Auto) (0.0-1.5) % Neut # (1.4-5.7) K/uL Lymph # (0.6-2.4) K/uL [place] # (0.0-0.8) K/uL Eos # (0.0-0.7) K/uL Baso # (0.0-0.1) K/uL Nucleated RBC % /100WBC Nucleated RBCs # K/uL INR (0.86-1.11) Sodium (136-146) mmol/L Potassium (3.5-5.1) mmol/L Chloride (98-110) mmol/L Carbon Dioxide (21-31) mmol/L BUN (6.0-23.0) mg/dL Creatinine (0.6-1.5) mg/dL Est Cr Clr Drug Dosing mL/min Estimated GFR (MDRD) ml/min Glucose (60-110) mg/dL POC Glucose 146 H 146 H (60-110) mg/dL Calcium (8.8-10.8) mg/dL Total Bilirubin (0.1-1.5) mg/dL AST (5-40) IU/L ALT (8-54) IU/L Alkaline Phosphatase (40-150) Total Protein (6.0-8.0) g/dL Albumin (3.4-4.8) g/dL Globulin (2.0-3.5) g/dL Albumin/Globulin Ratio (1.3-2.8) 07/24/16 07/24/16 07/24/16 Range/Units 04:38 04:38 04:38 WBC 7.72 (4.0-11.0) K/uL RBC 3.43 L (4.50-5.90) M/uL Hgb 10.1 L (13.0-17.0) g/dL Hct 32.0 L (38.0-50.0) % MCV 93.3 (80.0-98.0) fL MCH 29.4 (27.0-32.0) pg MCHC 31.6 (31.0-37.0) g/dL RDW Std Deviation 55.0 (28.0-62.0) fl RDW Coeff of [place] 16 H (11.0-15.0) % Plt Count 194 (150-400) K/uL MPV 9.30 (7.40-12.00) fL Neut % (Auto) 65.2 (48.0-80.0) % Lymph % (Auto) 19.7 (16.0-40.0) % [place] % (Auto) 12.7 (0.0-15.0) % Eos % (Auto) 2.3 (0.0-7.0) % Baso % (Auto) 0.1 (0.0-1.5) % Neut # 5.0 (1.4-5.7) K/uL Lymph # 1.5 (0.6-2.4) K/uL [place] # 1.0 H (0.0-0.8) K/uL Eos # 0.2 (0.0-0.7) K/uL Baso # 0.0 (0.0-0.1) K/uL Nucleated RBC % 0.0 /100WBC Nucleated RBCs # 0 K/uL INR 5.83 H (0.86-1.11) Sodium 136 (136-146) mmol/L Potassium 3.6 (3.5-5.1) mmol/L Chloride 95 L (98-110) mmol/L Carbon Dioxide 32 H (21-31) mmol/L BUN 32 H (6.0-23.0) mg/dL Creatinine 2.0 H (0.6-1.5) mg/dL Est Cr Clr Drug Dosing 30.73 mL/min Estimated GFR (MDRD) 33.1 ml/min Glucose 134 H (60-110) mg/dL POC Glucose (60-110) mg/dL Calcium 8.4 L (8.8-10.8) mg/dL Total Bilirubin 0.7 (0.1-1.5) mg/dL AST 22 (5-40) IU/L ALT 17 (8-54) IU/L Alkaline Phosphatase 100 (40-150) Total Protein 5.9 L (6.0-8.0) g/dL Albumin 2.4 L (3.4-4.8) g/dL Globulin 3.5 (2.0-3.5) g/dL Albumin/Globulin Ratio 0.7 L (1.3-2.8) Med Orders - Current: Current Medications Albuterol/Ipratropium (Duoneb 3.0-0.5 Mg/3 Ml) 3 ml NEB Q6HRRT PRN PRN Reason: Shortness of Breath Last Admin: 03/18/17 08:59 Dose: 3 ml Allopurinol (Zyloprim) 100 mg PO DAILY [facility] Last Admin: 07/24/16 08:23 Dose: 100 mg Bisacodyl (Dulcolax) 10 mg RECTAL Q24H PRN PRN Reason: Constipation Last Admin: 07/23/16 20:58 Dose: 10 mg Calcium Carbonate/Glycine (Tums) 1,000 mg PO DAILY [facility] Last Admin: 07/24/16 08:23 Dose: 1,000 mg Carvedilol (Coreg) 6.25 mg PO BIDMEALS [facility] Last Admin: 07/23/16 18:01 Dose: 6.25 mg Digoxin (Lanoxin) 125 mcg PO DAILY [facility] Last Admin: 07/24/16 08:23 Dose: 125 mcg Famotidine (Pepcid) 20 mg PO BID [facility] Last Admin: 07/24/16 08:23 Dose: 20 mg Furosemide (Lasix) 80 mg PO DAILY [facility] Ceftriaxone Sodium/Dextrose 1 (gm/ Premix) 50 mls @ 100 mls/hr IV Q24H [facility] Last Admin: 07/23/16 18:01 Dose: 100 mls/hr Sodium Chloride (Normal Saline) 250 mls @ 250 mls/hr IV .BOLUS [facility] Last Admin: 07/20/16 10:46 Dose: 250 mls/hr Insulin Human Regular (Novolin R) 0 unit SUBCUT QIDACANDBED [facility] PRN Reason: Protocol Last Admin: 07/24/16 07:14 Dose: Not Given Magnesium Hydroxide (Milk Of Magnesia) 30 ml PO Q24H PRN PRN Reason: Constipation Last Admin: 07/23/16 20:16 Dose: 30 ml Ondansetron HCl (Zofran Odt) 4 mg PO Q4H PRN PRN Reason: nausea, able to take PO Last Admin: 07/20/16 20:26 Dose: 4 mg Pravastatin 10mg 1 each PO BEDTIME [facility] Last Admin: 07/23/16 20:58 Dose: Not Given Sodium Chloride (Saline Flush) 10 ml FLUSH ASDIRECTED PRN PRN Reason: Keep Vein Open Sodium Chloride (Saline Flush) 2.5 ml FLUSH ASDIRECTED PRN PRN Reason: Keep Vein Open Last Admin: 07/20/16 21:04 Dose: 2.5 ml Venlafaxine HCl (Effexor) 75 mg PO DAILY [facility] Last Admin: 07/24/16 08:23 Dose: 75 mg Discontinued Medications Albuterol/Ipratropium (Duoneb 3.0-0.5 Mg/3 Ml) 3 ml NEB ONETIME ONE Stop: 07/19/16 13:29 Last Admin: 07/19/16 13:57 Dose: 3 ml Calcium Carbonate/Glycine (Tums) 1,000 mg PO DAILY ONE Stop: 07/20/16 09:10 Last Admin: 07/20/16 09:43 Dose: 1,000 mg Furosemide (Lasix) 80 mg PO BIDDIURETIC [facility] Last Admin: 07/22/16 08:38 Dose: 80 mg Furosemide (Lasix) 80 mg IVPUSH NOW ONE Stop: 07/21/16 21:19 Last Admin: 07/21/16 21:56 Dose: 80 mg Furosemide (Lasix) 80 mg IVPUSH NOW ONE Stop: 07/22/16 11:24 Last Admin: 07/22/16 12:46 Dose: Not Given Furosemide (Lasix) 80 mg IVPUSH NOW ONE Stop: 07/22/16 18:01 Last Admin: 07/22/16 17:22 Dose: Not Given Furosemide (Lasix) 80 mg IVPUSH NOW ONE Stop: 07/23/16 12:15 Last Admin: 07/23/16 12:37 Dose: 80 mg Gabapentin (Neurontin) 300 mg PO TID [facility] Last Admin: 07/23/16 05:15 Dose: 300 mg Sodium Chloride (Normal Saline) 1,000 mls @ 150 mls/hr IV ASDIRECTED [facility] Last Admin: 07/19/16 13:54 Dose: 150 mls/hr Ceftriaxone Sodium 1,000 mg/ (Sodium Chloride) 50 mls @ 200 mls/hr IV ONETIME ONE Stop: 07/19/16 16:36 Last Admin: 07/19/16 16:50 Dose: Not Given Ceftriaxone Sodium/Dextrose 1 (gm/ Premix) 50 mls @ 100 mls/hr IV ONETIME ONE Stop: 07/19/16 17:29 Last Admin: 07/19/16 17:10 Dose: 100 mls/hr Ceftriaxone Sodium 1,000 mg/ (Sodium Chloride) 50 mls @ 200 mls/hr IV Q24H [facility] Last Admin: 07/20/16 03:06 Dose: Not Given Ceftriaxone Sodium 1,000 mg/ (Sodium Chloride) 50 mls @ 200 mls/hr IV Q24H [facility] Sodium Chloride (Normal Saline) 250 mls @ 250 mls/hr IV ASDIRECTED [facility] Stop: 07/20/16 20:15 Last Admin: 07/20/16 19:37 Dose: 250 mls/hr Oxycodone HCl (Oxycodone) 5 mg PO Q4H PRN PRN Reason: FOOT/ANKLE PAIN Last Admin: 07/22/16 13:22 Dose: 5 mg Potassium Chloride (Klor-Con M20) 40 meq PO DAILY [facility] Last Admin: 07/20/16 08:17 Dose: 40 meq Pravastatin Sodium (Pravachol) 10 mg PO BEDTIME [facility] Last Admin: 07/20/16 21:46 Dose: 10 mg Pravastatin Sodium (Pravachol) 10 mg PO BEDTIME [facility] Last Admin: 07/21/16 22:00 Dose: Not Given Quetiapine Fumarate (Seroquel) 25 mg PO QAM [facility] Quetiapine Fumarate (Seroquel) 50 mg PO BEDTIME [facility] Quetiapine Fumarate (Seroquel) 25 mg PO BEDTIME PRN PRN Reason: Agitation Sodium Chloride (Saline Flush) 10 ml FLUSH ASDIRECTED PRN PRN Reason: Keep Vein Open Sodium Chloride (Saline Flush) 2.5 ml FLUSH ASDIRECTED PRN PRN Reason: Keep Vein Open Venlafaxine HCl (Effexor Xr) 75 mg PO DAILY [facility] Last Admin: 07/20/16 08:17 Dose: 75 mg - Exam Quality Assessment: supplemental oxygen, DVT prophylaxis General: alert, cooperative, no acute distress HEENT: Pupils equal, Pupils reactive, Mucous membr. moist/pink Neck: supple, trachea midline Lungs: Normal respiratory effort, Crackles, Rhonchi Cardiovascular: Regular Rate, Regular Rhythm Abdomen: bowel sounds present, soft, no distension, tenderness Back Exam: normal inspection, full range of motion Extremities: edema Peripheral Pulses: 2+: radial (L), radial (R), posterior tibial (L), dorsalis pedis (L) Skin: warm, dry, intact Psy/Mental Status: alert, normal affect, normal mood - Problem List & Annotations (1) Acute on chronic renal failure SNOMED Code(s): 520767556 Code(s): N17.9 - ACUTE KIDNEY FAILURE, UNSPECIFIED; N18.9 - CHRONIC KIDNEY DISEASE, UNSPECIFIED Status: Acute Priority: High Current Visit: Yes (2) UTI (urinary tract infection) SNOMED Code(s): 38939141 Code(s): N39.0 - URINARY TRACT INFECTION, SITE NOT SPECIFIED Status: Acute Priority: High Current Visit: Yes Qualifiers: Urinary tract infection type: site unspecified Hematuria presence: without hematuria Qualified Code(s): N39.0 - Urinary tract infection, site not specified (3) Systolic CHF SNOMED Code(s): 562435184 Code(s): I50.20 - UNSPECIFIED SYSTOLIC (CONGESTIVE) HEART FAILURE Status: Chronic Priority: High Current Visit: Yes Qualifiers: Congestive heart failure chronicity: chronic Qualified Code(s): I50.22 - Chronic systolic (congestive) heart failure (4) Acute on chronic alteration in mental status SNOMED Code(s): 208865201 Code(s): R41.82 - ALTERED MENTAL STATUS, UNSPECIFIED Status: Chronic Priority: Medium Current Visit: Yes (5) Afib SNOMED Code(s): 30764270 Code(s): I48.91 - UNSPECIFIED ATRIAL FIBRILLATION Status: Chronic Priority: Medium Current Visit: No Qualifiers: Atrial fibrillation type: chronic Qualified Code(s): I48.2 - Chronic atrial fibrillation (6) CAD (coronary artery disease) SNOMED Code(s): 48098695 Code(s): I25.10 - ATHSCL HEART DISEASE OF [place] CORONARY ARTERY W/O ANG PCTRS Status: Chronic Priority: Medium Current Visit: No Qualifiers: Coronary Disease-Associated Artery/Lesion type: unspecified vessel or lesion type [place] vs. transplanted heart: unspecified whether [place] or transplanted heart Associated angina: without angina Qualified Code(s): I25.10 - Atherosclerotic heart disease of [place] coronary artery without angina pectoris (7) COPD (chronic obstructive pulmonary disease) SNOMED Code(s): 56918584 Code(s): J44.9 - CHRONIC OBSTRUCTIVE PULMONARY DISEASE, UNSPECIFIED Status : Chronic Priority: Medium Current Visit: No Qualifiers: COPD type: unspecified COPD Qualified Code(s): J44.9 - Chronic obstructive pulmonary disease, unspecified (8) Diabetes mellitus SNOMED Code(s): 71863965 Code(s): E11.9 - TYPE 2 DIABETES MELLITUS WITHOUT COMPLICATIONS Status: Chronic Priority: Medium Current Visit: No Qualifiers: Diabetes mellitus type: type 2 Diabetes mellitus complication status: with skin complications Diabetes mellitus complication detail: with other skin complication Diabetes mellitus halfway insulin use: with halfway use Qualified Code(s): E11.628 - Type 2 diabetes mellitus with other skin complications; Z79.4 - residential (current) use of insulin - Problem List Review Problem List Initiated/Reviewed/Updated: Yes - My Orders Last 24 Hours: My Active Orders 07/24/16 09:00 Furosemide [Lasix] 80 mg PO DAILY - Plan Plan:: 70-year-old male admitted 07/19/16 for acute on chronic renal failure, UTI, and altered mental status with history of congestive heart failure, chronic kidney disease, coronary artery disease, type 2 diabetes and elevated INR. Hypercapnic respiratory failure. Over weekend developed acute hypercapnic respiratory failure. Most likely to sedation with oxycodone will continue to hold. Was placed on Bipap and has now resolved. He was taken off Bipap and is doing better. Today bicarb has increased to 32 from 29, we will monitor closely today for resp. failure. Gave oral lasix 80 mg this am and ordered 80 Lasix IV for this afternoon. Watch for contraction alkalosis. Acute on chronic renal failure: Cr slowling improving 2.6 on admission and now 2.0 today. Most likely new normal as before he was in the 1.6 range. Will cont. to monitor UTI: Patient received 5 days of IV Rocephin will switch to oral Keflex today. Urine culture only positive for yeast which was most likely contamination. Congestive heart failure: Looks to be still volume overload. Started oral lasix today at 80 mg PO. IV 80 mg Lasix this afternoon. Patient was on 80 mg BID Lasix oral daily. Type 2 diabetes: Insulin sliding scale COPD: duonebs prn Elevated INR: Continue to hold Coumadin as elevated until in therapeutic range of 2-3 Hgb dropped to 9.2 with no signs of bleeding, will get hemocult today. I feel that this may be secondary to A-line over weekend however. VTE: Held secondary to elevated INR.
[2016-07-24] MEDS: Furosemide 80 MG Tab PO SCH (09:10)
[2016-07-24] MEDS: Carvedilol 6.25 MG Tab PO SCH ×2 (10:39→17:32)
[2016-07-24] MEDS: Cephalexin 500 MG Cap PO SCH ×3 (12:00→23:24)
[2016-07-24] MEDS ORDERED: Furosemide 40 MG/4 ML VIAL IVPUSH ONE (15:00)
--- NOTE | 2016-07-24 17:16 | CR ---
EXAM DATE: 07/19/16 PATIENT'S AGE: 70 Patient: COLEMAN CLIFFORD Facility: [place], [place] Site . Site : 1945 Study: XRay Extremity Right WRIST [id number]/18/2017 12:56:01 PM Ordering Physician: Lonny Cheatham Final Report: INDICATION: Right wrist pain. TECHNIQUE: Two views of the right wrist. COMPARISON: None. FINDINGS: Possible small erosion proximal pole of the scaphoid is nonspecific. No acute fracture or dislocation is seen. Carpal bones are intact. There is deformity of the 5th metacarpal from prior fracture. There is moderate soft tissue swelling. IMPRESSION: No acute fracture or dislocation. Dictated by Shorty Esquivel MD @ 07/22/2016 1:14:20 PM Dictated by: Shorty Esquivel MD @ 07/22/2016 13:14:26 (Electronic Signature) Report Signed by Proxy and Original Signed Document filed in the Medical Record. [facility]
--- NOTE | 2016-07-24 17:50 | CR ---
EXAM DATE: 07/19/16 PATIENT'S AGE: 70 Patient: COLEMAN CLIFFORD Facility: [place], [place] Site . Site : 1945 Study: XRay Chest [id number]/18/2017 5:10:18 PM Ordering Physician: Lonny Cheatham Final Report: INDICATION: Evaluate for pulmonary congestion. TECHNIQUE: Chest 1 view. COMPARISON: Radiograph 07/21/2016 performed at 11:25 a.m.. 07/19/2016 FINDINGS: The patient is significantly rotated and there is motion artifact, limiting evaluation. Cardiac silhouette appears stable. There is hazy opacity in the left lung base similar to prior radiograph performed earlier this morning. No new abnormality identified. No large pleural effusion. No definite pneumothorax identified. IMPRESSION: Limited exam, not significant changed from prior radiographs morning. Dictated by Guru Lopes MD @ Jul 22 2016 5:37PM (Electronic Signature) Report Signed by Proxy and Original Signed Document filed in the Medical Record. [facility]
--- NOTE | 2016-07-24 17:53 | CT ---
EXAM DATE: 07/19/16 PATIENT'S AGE: 70 Patient: COLEMAN CLIFFORD Facility: [place], [place] Site . Site : 1945 Study: CT Head [id number]/18/2017 8:54:56 PM Ordering Physician: Lonny Cheatham Final Report: INDICATION: Altered mental status. TECHNIQUE: Noncontrast axial images through the brain. Sagittal and coronal reconstructions. COMPARISON: 07/19/2016. FINDINGS: There is no abnormal intracranial mass effect or midline shift. No hemorrhage. No new areas of abnormal attenuation within the brain. Stable appearance of the CSF spaces. No acute osseous abnormality seen. In general, the paranasal sinuses and mastoids are clear. IMPRESSION: No CT evidence of an acute intracranial abnormality. Dictated by Barry Loza MD @ 07/22/2016 9:11:47 PM Dictated by: Barry Loza MD @ 07/22/2016 21:12:03 (Electronic Signature) Report Signed by Proxy and Original Signed Document filed in the Medical Record. [facility]
[2016-07-24] MEDS ORDERED: Alum Hydrox/Mag Hydrox/Simeth 15 ML, Lidocaine 2% 5 ML PO ONE ×2 (18:20)
[2016-07-24] MEDS: Acetaminophen 325 MG Tab PO PRN (19:44)
[2016-07-24] MEDS: PRAVASTATIN 10MG PO SCH (21:22)
[2016-07-24] MEDS ORDERED: Haloperidol Lactate 5 MG/ML SDV IM PRN (23:00)
[2016-07-24] MEDS ORDERED: Magnesium Sulfate/Water 2 GM in Premix Bag 1 BAG IV ONE (23:51)
[2016-07-25] MEDS: Acetaminophen 325 MG Tab PO PRN (00:59)
[2016-07-25] MEDS: Potassium Chloride 40 MEQ in Sodium Chloride 0.9% 480 ML IV ONE ×2 (01:00→01:01)
[2016-07-25] MEDS: Cephalexin 500 MG Cap PO SCH ×3 (06:01→17:01)
[2016-07-25] MEDS: Insulin Regular, Human 100 Units/ML 10 ML Vial SUBCUT SCH ×4 (07:26→21:33)
--- NOTE | 2016-07-25 08:26 | PCM.PN ---
- General Info Date of Service: 07/25/16 Admission Dx/Problem (Free Text): Admission Diagnosis/Problem Admission Diagnosis/Problem UTI, Urinary tract infectious disease Subjective Update: Girlfriend and other family member at bedside. State he is doing well. Still sleepy but having no major complaints. Has been having bowel movements consistently now. Eating well. No other complaints. Functional Status: Reports: pain controlled, tolerating diet, incentive spirometry - Review of Systems General: Reports: Weakness. Denies: Fever, Fatigue HEENT: Denies: headaches Pulmonary: Denies: shortness of breath, pleuritic chest pain, wheezing Cardiovascular: Denies: Chest Pain, Palpitations Gastrointestinal: Reports: Diarrhea. Denies: Abdominal pain, Constipation Genitourinary: Denies: dysuria, hematuria Musculoskeletal: Reports: leg pain. Denies: neck pain Skin: Denies: cyanosis Neurological: Reports: Confusion. Denies: Dizziness Psychiatric: Reports: confusion - Patient Data Vitals - most recent: Last Vital Signs Temp 36.3 C 07/25/16 04:00 Pulse 83 07/24/16 19:12 Resp 13 07/25/16 07:00 BP 117/78 07/25/16 07:00 Pulse Ox 93 L 07/25/16 07:00 Weight - most recent: 123.8 kg I&O - last 24 hours: Intake & Output 07/24/16 07/25/16 07/25/16 22:59 06:59 14:59 Intake Total 480 350 Output Total 1150 1300 Balance -670 -950 Lab Results last 24 hrs: Laboratory Results - last 24 hr 07/24/16 07/24/16 07/24/16 Range/Units 11:12 17:11 23:10 WBC (4.0-11.0) K/uL RBC (4.50-5.90) M/uL Hgb (13.0-17.0) g/dL Hct (38.0-50.0) % MCV (80.0-98.0) fL MCH (27.0-32.0) pg MCHC (31.0-37.0) g/dL RDW Std Deviation (28.0-62.0) fl RDW Coeff of [place] (11.0-15.0) % Plt Count (150-400) K/uL MPV (7.40-12.00) fL Neut % (Auto) (48.0-80.0) % Lymph % (Auto) (16.0-40.0) % Citrus % (Auto) (0.0-15.0) % Eos % (Auto) (0.0-7.0) % Baso % (Auto) (0.0-1.5) % Neut # (1.4-5.7) K/uL Lymph # (0.6-2.4) K/uL [place] # (0.0-0.8) K/uL Eos # (0.0-0.7) K/uL Baso # (0.0-0.1) K/uL Nucleated RBC % /100WBC Nucleated RBCs # K/uL Sodium (136-146) mmol/L Potassium 3.2 L (3.5-5.1) mmol/L Chloride (98-110) mmol/L Carbon Dioxide (21-31) mmol/L BUN (6.0-23.0) mg/dL Creatinine (0.6-1.5) mg/dL Est Cr Clr Drug Dosing mL/min Estimated GFR (MDRD) ml/min Glucose (60-110) mg/dL POC Glucose 130 H 115 H (60-110) mg/dL Calcium (8.8-10.8) mg/dL Magnesium 0.8 L (1.5-2.3) mEq/L Total Bilirubin (0.1-1.5) mg/dL AST (5-40) IU/L ALT (8-54) IU/L Alkaline Phosphatase (40-150) Total Protein (6.0-8.0) g/dL Albumin (3.4-4.8) g/dL Globulin (2.0-3.5) g/dL Albumin/Globulin Ratio (1.3-2.8) 07/25/16 07/25/16 07/25/16 Range/Units 04:59 04:59 06:06 WBC 7.88 (4.0-11.0) K/uL RBC 3.82 L (4.50-5.90) M/uL Hgb 11.4 L (13.0-17.0) g/dL Hct 35.8 L (38.0-50.0) % MCV 93.7 (80.0-98.0) fL MCH 29.8 (27.0-32.0) pg MCHC 31.8 (31.0-37.0) g/dL RDW Std Deviation 54.8 (28.0-62.0) fl RDW Coeff of [place] 16 H (11.0-15.0) % Plt Count 213 (150-400) K/uL MPV 9.60 (7.40-12.00) fL Neut % (Auto) 63.0 (48.0-80.0) % Lymph % (Auto) 20.9 (16.0-40.0) % Citrus % (Auto) 11.9 (0.0-15.0) % Eos % (Auto) 3.8 (0.0-7.0) % Baso % (Auto) 0.4 (0.0-1.5) % Neut # 5.0 (1.4-5.7) K/uL Lymph # 1.7 (0.6-2.4) K/uL Citrus # 0.9 H (0.0-0.8) K/uL Eos # 0.3 (0.0-0.7) K/uL Baso # 0.0 (0.0-0.1) K/uL Nucleated RBC % 0.2 /100WBC Nucleated RBCs # 0 K/uL Sodium 139 (136-146) mmol/L Potassium 4.0 (3.5-5.1) mmol/L Chloride 95 L (98-110) mmol/L Carbon Dioxide 30 (21-31) mmol/L BUN 31 H (6.0-23.0) mg/dL Creatinine 1.8 H (0.6-1.5) mg/dL Est Cr Clr Drug Dosing 34.14 mL/min Estimated GFR (MDRD) 37.4 ml/min Glucose 122 H (60-110) mg/dL POC Glucose 123 H (60-110) mg/dL Calcium 8.8 (8.8-10.8) mg/dL Magnesium 1.6 (1.5-2.3) mEq/L Total Bilirubin 0.7 (0.1-1.5) mg/dL AST 24 (5-40) IU/L ALT 16 (8-54) IU/L Alkaline Phosphatase 110 (40-150) Total Protein 6.5 (6.0-8.0) g/dL Albumin 2.6 L (3.4-4.8) g/dL Globulin 3.9 H (2.0-3.5) g/dL Albumin/Globulin Ratio 0.7 L (1.3-2.8) Med Orders - Current: Current Medications Acetaminophen (Tylenol) 650 mg PO Q4H PRN PRN Reason: Pain Last Admin: 07/25/16 00:59 Dose: 650 mg Albuterol/Ipratropium (Duoneb 3.0-0.5 Mg/3 Ml) 3 ml NEB Q6HRRT PRN PRN Reason: Shortness of Breath Last Admin: 07/22/16 08:59 Dose: 3 ml Allopurinol (Zyloprim) 100 mg PO DAILY [facility] Last Admin: 07/24/16 08:23 Dose: 100 mg Bisacodyl (Dulcolax) 10 mg RECTAL Q24H PRN PRN Reason: Constipation Last Admin: 07/23/16 20:58 Dose: 10 mg Calcium Carbonate/Glycine (Tums) 1,000 mg PO DAILY [facility] Last Admin: 07/24/16 08:23 Dose: 1,000 mg Carvedilol (Coreg) 6.25 mg PO BIDMEALS [facility] Last Admin: 07/24/16 17:32 Dose: Not Given Cephalexin (Keflex) 500 mg PO Q6HR [facility] Last Admin: 07/25/16 06:01 Dose: 500 mg Digoxin (Lanoxin) 125 mcg PO DAILY [facility] Last Admin: 07/24/16 08:23 Dose: 125 mcg Famotidine (Pepcid) 20 mg PO BID [facility] Last Admin: 07/24/16 20:11 Dose: 20 mg Furosemide (Lasix) 80 mg PO DAILY [facility] Last Admin: 07/24/16 09:10 Dose: 80 mg Haloperidol Lactate (Haldol) 5 mg IM Q4H PRN PRN Reason: Agitation Last Admin: 07/24/16 23:21 Dose: 5 mg Sodium Chloride (Normal Saline) 250 mls @ 250 mls/hr IV .BOLUS [facility] Last Admin: 07/20/16 10:46 Dose: 250 mls/hr Insulin Human Regular (Novolin R) 0 unit SUBCUT QIDACANDBED [facility] PRN Reason: Protocol Last Admin: 07/25/16 07:26 Dose: Not Given Magnesium Hydroxide (Milk Of Magnesia) 30 ml PO Q24H PRN PRN Reason: Constipation Last Admin: 07/23/16 20:16 Dose: 30 ml Ondansetron HCl (Zofran Odt) 4 mg PO Q4H PRN PRN Reason: nausea, able to take PO Last Admin: 07/20/16 20:26 Dose: 4 mg Pravastatin 10mg 1 each PO BEDTIME [facility] Last Admin: 07/24/16 21:22 Dose: Not Given Sodium Chloride (Saline Flush) 10 ml FLUSH ASDIRECTED PRN PRN Reason: Keep Vein Open Sodium Chloride (Saline Flush) 2.5 ml FLUSH ASDIRECTED PRN PRN Reason: Keep Vein Open Last Admin: 07/20/16 21:04 Dose: 2.5 ml Venlafaxine HCl (Effexor) 75 mg PO DAILY [facility] Last Admin: 07/24/16 08:23 Dose: 75 mg Discontinued Medications Albuterol/Ipratropium (Duoneb 3.0-0.5 Mg/3 Ml) 3 ml NEB ONETIME ONE Stop: 07/19/16 13:29 Last Admin: 07/19/16 13:57 Dose: 3 ml Calcium Carbonate/Glycine (Tums) 1,000 mg PO DAILY ONE Stop: 07/20/16 09:10 Last Admin: 07/20/16 09:43 Dose: 1,000 mg Al Hydroxide/Mg Hydroxide 15 (ml/ Lidocaine HCl 5 ml) 0 ml PO ONETIME ONE Stop: 07/24/16 18:21 Last Admin: 07/24/16 19:02 Dose: 1 each Furosemide (Lasix) 80 mg PO BIDDIURETIC [facility]IER Last Admin: 07/22/16 08:38 Dose: 80 mg Furosemide (Lasix) 80 mg IVPUSH NOW ONE Stop: 07/21/16 21:19 Last Admin: 07/21/16 21:56 Dose: 80 mg Furosemide (Lasix) 80 mg IVPUSH NOW ONE Stop: 07/22/16 11:24 Last Admin: 07/22/16 12:46 Dose: Not Given Furosemide (Lasix) 80 mg IVPUSH NOW ONE Stop: 07/22/16 18:01 Last Admin: 07/22/16 17:22 Dose: Not Given Furosemide (Lasix) 80 mg IVPUSH NOW ONE Stop: 07/23/16 12:15 Last Admin: 07/23/16 12:37 Dose: 80 mg Furosemide (Lasix) 80 mg IVPUSH NOW ONE Stop: 07/24/16 15:01 Last Admin: 07/24/16 14:57 Dose: 80 mg Gabapentin (Neurontin) 300 mg PO TID [facility] Last Admin: 07/23/16 05:15 Dose: 300 mg Sodium Chloride (Normal Saline) 1,000 mls @ 150 mls/hr IV ASDIRECTED [facility] Last Admin: 07/19/16 13:54 Dose: 150 mls/hr Ceftriaxone Sodium 1,000 mg/ (Sodium Chloride) 50 mls @ 200 mls/hr IV ONETIME ONE Stop: 07/19/16 16:36 Last Admin: 07/19/16 16:50 Dose: Not Given Ceftriaxone Sodium/Dextrose 1 (gm/ Premix) 50 mls @ 100 mls/hr IV ONETIME ONE Stop: 07/19/16 17:29 Last Admin: 07/19/16 17:10 Dose: 100 mls/hr Ceftriaxone Sodium 1,000 mg/ (Sodium Chloride) 50 mls @ 200 mls/hr IV Q24H [facility] Last Admin: 07/20/16 03:06 Dose: Not Given Ceftriaxone Sodium 1,000 mg/ (Sodium Chloride) 50 mls @ 200 mls/hr IV Q24H [facility] Ceftriaxone Sodium/Dextrose 1 (gm/ Premix) 50 mls @ 100 mls/hr IV Q24H [facility] Last Admin: 07/23/16 18:01 Dose: 100 mls/hr Sodium Chloride (Normal Saline) 250 mls @ 250 mls/hr IV ASDIRECTED [facility] Stop: 07/20/16 20:15 Last Admin: 07/20/16 19:37 Dose: 250 mls/hr Potassium Chloride 40 meq/ (Sodium Chloride) 500 mls @ 125 mls/hr IV ONETIME ONE Stop: 07/25/16 03:47 Last Admin: 07/25/16 01:01 Dose: 125 mls/hr Magnesium Sulfate 2 gm/ Premix 50 mls @ 50 mls/hr IV ONETIME ONE Stop: 07/25/16 00:50 Last Admin: 07/24/16 23:59 Dose: 50 mls/hr Oxycodone HCl (Oxycodone) 5 mg PO Q4H PRN PRN Reason: FOOT/ANKLE PAIN Last Admin: 07/22/16 13:22 Dose: 5 mg Potassium Chloride (Klor-Con M20) 40 meq PO DAILY [facility] Last Admin: 07/20/16 08:17 Dose: 40 meq Pravastatin Sodium (Pravachol) 10 mg PO BEDTIME [facility] Last Admin: 07/20/16 21:46 Dose: 10 mg Pravastatin Sodium (Pravachol) 10 mg PO BEDTIME [facility] Last Admin: 07/21/16 22:00 Dose: Not Given Quetiapine Fumarate (Seroquel) 25 mg PO QAM [facility] Quetiapine Fumarate (Seroquel) 50 mg PO BEDTIME [facility] Quetiapine Fumarate (Seroquel) 25 mg PO BEDTIME PRN PRN Reason: Agitation Sodium Chloride (Saline Flush) 10 ml FLUSH ASDIRECTED PRN PRN Reason: Keep Vein Open Sodium Chloride (Saline Flush) 2.5 ml FLUSH ASDIRECTED PRN PRN Reason: Keep Vein Open Venlafaxine HCl (Effexor Xr) 75 mg PO DAILY [facility] Last Admin: 07/20/16 08:17 Dose: 75 mg - Exam Quality Assessment: supplemental oxygen, DVT prophylaxis General: alert, cooperative, no acute distress HEENT: Pupils equal, Pupils reactive, EOMI, Mucous membr. moist/pink Neck: supple, trachea midline, no JVD Lungs: Normal respiratory effort, Rales, Rhonchi Cardiovascular: Regular Rate, Regular Rhythm, Murmurs Abdomen: bowel sounds present, soft, no tenderness, no distension Extremities: edema. No: no tenderness/swelling Peripheral Pulses: 2+: radial (L), radial (R), posterior tibial (L), dorsalis pedis (L) Skin: warm, dry, intact Neurological: no new focal deficit Psy/Mental Status: alert, normal affect, normal mood (baseline) - Problem List & Annotations (1) Acute on chronic renal failure SNOMED Code(s): 440816816 Code(s): N17.9 - ACUTE KIDNEY FAILURE, UNSPECIFIED; N18.9 - CHRONIC KIDNEY DISEASE, UNSPECIFIED Status: Chronic Priority: Medium Current Visit: Yes (2) UTI (urinary tract infection) SNOMED Code(s): 86756615 Code(s): N39.0 - URINARY TRACT INFECTION, SITE NOT SPECIFIED Status: Acute Priority: High Current Visit: Yes Qualifiers: Urinary tract infection type: site unspecified Hematuria presence: without hematuria Qualified Code(s): N39.0 - Urinary tract infection, site not specified (3) Systolic CHF SNOMED Code(s): 421120313 Code(s): I50.20 - UNSPECIFIED SYSTOLIC (CONGESTIVE) HEART FAILURE Status: Chronic Priority: High Current Visit: Yes Qualifiers: Congestive heart failure chronicity: chronic Qualified Code(s): I50.22 - Chronic systolic (congestive) heart failure (4) Acute on chronic alteration in mental status SNOMED Code(s): 205881361 Code(s): R41.82 - ALTERED MENTAL STATUS, UNSPECIFIED Status: Resolved Priority: Medium Current Visit: Yes (5) Afib SNOMED Code(s): 46607796 Code(s): I48.91 - UNSPECIFIED ATRIAL FIBRILLATION Status: Chronic Priority: Medium Current Visit: No Qualifiers: Atrial fibrillation type: chronic Qualified Code(s): I48.2 - Chronic atrial fibrillation (6) CAD (coronary artery disease) SNOMED Code(s): 76813777 Code(s): I25.10 - ATHSCL HEART DISEASE OF [place] CORONARY ARTERY W/O ANG PCTRS Status: Chronic Priority: Medium Current Visit: No Qualifiers: Coronary Disease-Associated Artery/Lesion type: unspecified vessel or lesion type [place] vs. transplanted heart: unspecified whether [place] or transplanted heart Associated angina: without angina Qualified Code(s): I25.10 - Atherosclerotic heart disease of [place] coronary artery without angina pectoris (7) COPD (chronic obstructive pulmonary disease) SNOMED Code(s): 94815980 Code(s): J44.9 - CHRONIC OBSTRUCTIVE PULMONARY DISEASE, UNSPECIFIED Status : Chronic Priority: Medium Current Visit: No Qualifiers: COPD type: unspecified COPD Qualified Code(s): J44.9 - Chronic obstructive pulmonary disease, unspecified (8) Diabetes mellitus SNOMED Code(s): 72648563 Code(s): E11.9 - TYPE 2 DIABETES MELLITUS WITHOUT COMPLICATIONS Status: Chronic Priority: Medium Current Visit: No Qualifiers: Diabetes mellitus type: type 2 Diabetes mellitus complication status: with skin complications Diabetes mellitus complication detail: with other skin complication Diabetes mellitus detention insulin use: with detention use Qualified Code(s): E11.628 - Type 2 diabetes mellitus with other skin complications; 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 - Problem List Review Problem List Initiated/Reviewed/Updated: Yes - My Orders Last 24 Hours: My Active Orders 07/24/16 09:00 Furosemide [Lasix] 80 mg PO DAILY 07/24/16 18:46 Acetaminophen [Tylenol] 650 mg PO Q4H PRN 07/25/16 07:45 INR,PT,PROTHROMBIN TIME [COAG] Routine 07/26/16 05:00 CBC WITH AUTO DIFF [HEME] DAILY CMP [COMPREHENSIVE METABOLIC PN,CMP] [CHEM] DAILY 07/27/16 05:00 CBC WITH AUTO DIFF [HEME] DAILY CMP [COMPREHENSIVE METABOLIC PN,CMP] [CHEM] DAILY 07/28/16 05:00 CBC WITH AUTO DIFF [HEME] DAILY CMP [COMPREHENSIVE METABOLIC PN,CMP] [CHEM] DAILY - Plan Plan:: 70-year-old male admitted 07/19/16 for acute on chronic renal failure, UTI, and altered mental status with history of congestive heart failure, chronic kidney disease, coronary artery disease, type 2 diabetes and elevated INR. Hypercapnic respiratory failure: Resolved. Bicarb back within normal levels. Will watch for contraction alkalosis secondary to diuretic. Gave oral lasix 80 mg this am and ordered 80 Lasix IV for this afternoon. Acute on chronic renal failure: Cr continues to slowing improving 2.6 on admission and now 1.8 today his normal is in the 1.6 range. Most likely patient may have been mildly volume overloaded on admission and dieresis is improving renal function. Will cont. to monitor UTI: Patient received 5 days of IV Rocephin and now Keflex day 2. Will treat for total of 10 days so on day 7 today. Congestive heart failure: Looks to be still volume overload. Started oral lasix today at 80 mg PO. IV 80 mg Lasix this afternoon. Patient was on 80 mg BID Lasix oral daily. Type 2 diabetes: Insulin sliding scale COPD: duonebs prn Elevated INR: Continue to hold Coumadin as elevated until in therapeutic range of 2-3 VTE: Held secondary to elevated INR.
[2016-07-25] MEDS: Furosemide 80 MG Tab PO SCH (08:43)
[2016-07-25] MEDS: Carvedilol 6.25 MG Tab PO SCH ×2 (08:43→17:01)
[2016-07-25] MEDS: Venlafaxine 37.5 MG Tab PO SCH (08:43)
[2016-07-25] MEDS: Allopurinol 100 MG Tab PO SCH (08:44)
[2016-07-25] MEDS: Digoxin 125 MCG Tab PO SCH (08:44)
[2016-07-25] MEDS: Famotidine 20 MG Tab PO SCH ×2 (08:44→20:05)
[2016-07-25] MEDS: Calcium Carbonate 500 MG Tab.Chew PO SCH (08:45)
[2016-07-25] MEDS ORDERED: Magnesium Sulfate/Water 2 GM in Premix Bag 1 BAG IV ONE (10:26)
[2016-07-25] MEDS ORDERED: Potassium Chloride 20 MEQ Tab.ER PO ONE (10:45)
[2016-07-25] MEDS ORDERED: Furosemide 40 MG/4 ML VIAL IVPUSH ONE (15:00)
[2016-07-25] MEDS: Albuterol/Ipratropium 3.0-0.5 MG/3 ML Neb Soln NEB PRN (19:47)
[2016-07-25] MEDS: PRAVASTATIN 10MG PO SCH (20:14)
[2016-07-26] MEDS: Cephalexin 500 MG Cap PO SCH ×5 (00:30→23:11)
[2016-07-26] MEDS: Insulin Regular, Human 100 Units/ML 10 ML Vial SUBCUT SCH ×4 (07:42→20:55)
[2016-07-26] MEDS: Carvedilol 6.25 MG Tab PO SCH ×2 (08:41→17:07)
[2016-07-26] MEDS: Venlafaxine 37.5 MG Tab PO SCH (08:45)
[2016-07-26] MEDS: Potassium Chloride 20 MEQ Tab.ER PO SCH (08:46)
[2016-07-26] MEDS: Famotidine 20 MG Tab PO SCH ×2 (08:46→20:53)
[2016-07-26] MEDS: Calcium Carbonate 500 MG Tab.Chew PO SCH (08:47)
[2016-07-26] MEDS: Digoxin 125 MCG Tab PO SCH (08:47)
[2016-07-26] MEDS: Allopurinol 100 MG Tab PO SCH (08:47)
[2016-07-26] MEDS: Furosemide 80 MG Tab PO SCH ×2 (09:39→20:53)
[2016-07-26] MEDS: Sodium Chloride 0.9% 2.5 ML Syringe FLUSH PRN (10:00)
--- NOTE | 2016-07-26 11:41 | PCM.PN ---
- General Info Date of Service: 07/26/16 Admission Dx/Problem (Free Text): Admission Diagnosis/Problem Admission Diagnosis/Problem UTI, Urinary tract infectious disease Subjective Update: Patient alert but disoriented to time this morning. Requesting to go home. Having no pain. States breathing is good and currently not requiring supplemental oxygen (home oxygen is 2 L). Functional Status: Reports: pain controlled - Review of Systems General: Denies: Fever, Weakness, Fatigue Pulmonary: Denies: shortness of breath, hemoptysis, wheezing Cardiovascular: Reports: Edema. Denies: Chest Pain, Palpitations Gastrointestinal: Denies: Abdominal pain, Constipation, Diarrhea, Nausea, Vomiting Genitourinary: Denies: dysuria, hematuria Musculoskeletal: Reports: leg pain. Denies: neck pain Skin: Denies: cyanosis Neurological: Reports: Confusion. Denies: Dizziness Psychiatric: Reports: confusion - Patient Data Vitals - most recent: Last Vital Signs Temp 36.6 C 07/26/16 08:00 Pulse 84 07/26/16 08:47 Resp 20 07/26/16 08:00 BP 152/60 H 07/26/16 08:41 Pulse Ox 91 L 07/26/16 08:00 Weight - most recent: 122.4 kg I&O - last 24 hours: Intake & Output 07/25/16 07/26/16 07/26/16 22:59 06:59 14:59 Intake Total 1050 Output Total 1600 840 Balance -550 -840 Lab Results last 24 hrs: Laboratory Results - last 24 hr 07/25/16 07/25/16 07/25/16 Range/Units 12:47 17:05 21:04 WBC (4.0-11.0) K/uL RBC (4.50-5.90) M/uL Hgb (13.0-17.0) g/dL Hct (38.0-50.0) % MCV (80.0-98.0) fL MCH (27.0-32.0) pg MCHC (31.0-37.0) g/dL RDW Std Deviation (28.0-62.0) fl RDW Coeff of [place] (11.0-15.0) % Plt Count (150-400) K/uL MPV (7.40-12.00) fL Neut % (Auto) (48.0-80.0) % Lymph % (Auto) (16.0-40.0) % [place] % (Auto) (0.0-15.0) % Eos % (Auto) (0.0-7.0) % Baso % (Auto) (0.0-1.5) % Neut # (1.4-5.7) K/uL Lymph # (0.6-2.4) K/uL [place] # (0.0-0.8) K/uL Eos # (0.0-0.7) K/uL Baso # (0.0-0.1) K/uL Nucleated RBC % /100WBC Nucleated RBCs # K/uL INR (0.86-1.11) Sodium (136-146) mmol/L Potassium (3.5-5.1) mmol/L Chloride (98-110) mmol/L Carbon Dioxide (21-31) mmol/L BUN (6.0-23.0) mg/dL Creatinine (0.6-1.5) mg/dL Est Cr Clr Drug Dosing mL/min Estimated GFR (MDRD) ml/min Glucose (60-110) mg/dL POC Glucose 177 H 117 H 154 H (60-110) mg/dL Calcium (8.8-10.8) mg/dL Total Bilirubin (0.1-1.5) mg/dL AST (5-40) IU/L ALT (8-54) IU/L Alkaline Phosphatase (40-150) Total Protein (6.0-8.0) g/dL Albumin (3.4-4.8) g/dL Globulin (2.0-3.5) g/dL Albumin/Globulin Ratio (1.3-2.8) 07/26/16 07/26/16 07/26/16 Range/Units 05:47 05:47 05:47 WBC 8.67 (4.0-11.0) K/uL RBC 4.16 L (4.50-5.90) M/uL Hgb 12.3 L (13.0-17.0) g/dL Hct 38.6 (38.0-50.0) % MCV 92.8 (80.0-98.0) fL MCH 29.6 (27.0-32.0) pg MCHC 31.9 (31.0-37.0) g/dL RDW Std Deviation 54.8 (28.0-62.0) fl RDW Coeff of [place] 16 H (11.0-15.0) % Plt Count 213 (150-400) K/uL MPV 9.30 (7.40-12.00) fL Neut % (Auto) 64.6 (48.0-80.0) % Lymph % (Auto) 21.7 (16.0-40.0) % [place] % (Auto) 10.7 (0.0-15.0) % Eos % (Auto) 2.8 (0.0-7.0) % Baso % (Auto) 0.2 (0.0-1.5) % Neut # 5.6 (1.4-5.7) K/uL Lymph # 1.9 (0.6-2.4) K/uL [place] # 0.9 H (0.0-0.8) K/uL Eos # 0.2 (0.0-0.7) K/uL Baso # 0.0 (0.0-0.1) K/uL Nucleated RBC % 0.5 /100WBC Nucleated RBCs # 0 K/uL INR 2.78 H (0.86-1.11) Sodium 138 (136-146) mmol/L Potassium 3.5 (3.5-5.1) mmol/L Chloride 95 L (98-110) mmol/L Carbon Dioxide 31 (21-31) mmol/L BUN 30 H (6.0-23.0) mg/dL Creatinine 1.6 H (0.6-1.5) mg/dL Est Cr Clr Drug Dosing 38.41 mL/min Estimated GFR (MDRD) 42.8 ml/min Glucose 125 H (60-110) mg/dL POC Glucose (60-110) mg/dL Calcium 8.8 (8.8-10.8) mg/dL Total Bilirubin 0.9 (0.1-1.5) mg/dL AST 22 (5-40) IU/L ALT 16 (8-54) IU/L Alkaline Phosphatase 116 (40-150) Total Protein 6.7 (6.0-8.0) g/dL Albumin 2.7 L (3.4-4.8) g/dL Globulin 4.0 H (2.0-3.5) g/dL Albumin/Globulin Ratio 0.7 L (1.3-2.8) 07/26/16 07/26/16 07/26/16 Range/Units 06:31 07:39 11:10 WBC (4.0-11.0) K/uL RBC (4.50-5.90) M/uL Hgb (13.0-17.0) g/dL Hct (38.0-50.0) % MCV (80.0-98.0) fL MCH (27.0-32.0) pg MCHC (31.0-37.0) g/dL RDW Std Deviation (28.0-62.0) fl RDW Coeff of [place] (11.0-15.0) % Plt Count (150-400) K/uL MPV (7.40-12.00) fL Neut % (Auto) (48.0-80.0) % Lymph % (Auto) (16.0-40.0) % [place] % (Auto) (0.0-15.0) % Eos % (Auto) (0.0-7.0) % Baso % (Auto) (0.0-1.5) % Neut # (1.4-5.7) K/uL Lymph # (0.6-2.4) K/uL [place] # (0.0-0.8) K/uL Eos # (0.0-0.7) K/uL Baso # (0.0-0.1) K/uL Nucleated RBC % /100WBC Nucleated RBCs # K/uL INR (0.86-1.11) Sodium (136-146) mmol/L Potassium (3.5-5.1) mmol/L Chloride (98-110) mmol/L Carbon Dioxide (21-31) mmol/L BUN (6.0-23.0) mg/dL Creatinine (0.6-1.5) mg/dL Est Cr Clr Drug Dosing mL/min Estimated GFR (MDRD) ml/min Glucose (60-110) mg/dL POC Glucose 138 H 140 H 143 H (60-110) mg/dL Calcium (8.8-10.8) mg/dL Total Bilirubin (0.1-1.5) mg/dL AST (5-40) IU/L ALT (8-54) IU/L Alkaline Phosphatase (40-150) Total Protein (6.0-8.0) g/dL Albumin (3.4-4.8) g/dL Globulin (2.0-3.5) g/dL Albumin/Globulin Ratio (1.3-2.8) Med Orders - Current: Current Medications Acetaminophen (Tylenol) 650 mg PO Q4H PRN PRN Reason: Pain Last Admin: 07/25/16 00:59 Dose: 650 mg Albuterol/Ipratropium (Duoneb 3.0-0.5 Mg/3 Ml) 3 ml NEB Q6HRRT PRN PRN Reason: Shortness of Breath Last Admin: 07/25/16 19:47 Dose: 3 ml Allopurinol (Zyloprim) 100 mg PO DAILY [facility] Last Admin: 07/26/16 08:47 Dose: 100 mg Bisacodyl (Dulcolax) 10 mg RECTAL Q24H PRN PRN Reason: Constipation Last Admin: 07/23/16 20:58 Dose: 10 mg Calcium Carbonate/Glycine (Tums) 1,000 mg PO DAILY [facility] Last Admin: 07/26/16 08:47 Dose: 1,000 mg Carvedilol (Coreg) 6.25 mg PO BIDMEALS [facility] Last Admin: 07/26/16 08:41 Dose: 6.25 mg Cephalexin (Keflex) 500 mg PO Q6HR [facility] Last Admin: 07/26/16 06:47 Dose: 500 mg Digoxin (Lanoxin) 125 mcg PO DAILY [facility] Last Admin: 07/26/16 08:47 Dose: 125 mcg Famotidine (Pepcid) 20 mg PO BID [facility] Last Admin: 07/26/16 08:46 Dose: 20 mg Furosemide (Lasix) 80 mg PO BID [facility] Haloperidol Lactate (Haldol) 5 mg IM Q4H PRN PRN Reason: Agitation Last Admin: 07/24/16 23:21 Dose: 5 mg Sodium Chloride (Normal Saline) 250 mls @ 250 mls/hr IV .BOLUS [facility] Last Admin: 07/20/16 10:46 Dose: 250 mls/hr Insulin Human Regular (Novolin R) 0 unit SUBCUT QIDACANDBED [facility] PRN Reason: Protocol Last Admin: 07/26/16 07:42 Dose: Not Given Magnesium Hydroxide (Milk Of Magnesia) 30 ml PO Q24H PRN PRN Reason: Constipation Last Admin: 07/23/16 20:16 Dose: 30 ml Ondansetron HCl (Zofran Odt) 4 mg PO Q4H PRN PRN Reason: nausea, able to take PO Last Admin: 07/20/16 20:26 Dose: 4 mg Pravastatin 10mg 1 each PO BEDTIME JABIER Last Admin: 07/25/16 20:14 Dose: Not Given Potassium Chloride (Klor-Con M20) 40 meq PO DAILY [facility] Last Admin: 07/26/16 08:46 Dose: 40 meq Sodium Chloride (Saline Flush) 10 ml FLUSH ASDIRECTED PRN PRN Reason: Keep Vein Open Sodium Chloride (Saline Flush) 2.5 ml FLUSH ASDIRECTED PRN PRN Reason: Keep Vein Open Last Admin: 07/20/16 21:04 Dose: 2.5 ml Venlafaxine HCl (Effexor) 75 mg PO DAILY [facility] Last Admin: 07/26/16 08:45 Dose: 75 mg Warfarin Sodium (Coumadin) 2.5 mg PO DAILY@1400 [facility] Discontinued Medications Albuterol/Ipratropium (Duoneb 3.0-0.5 Mg/3 Ml) 3 ml NEB ONETIME ONE Stop: 07/19/16 13:29 Last Admin: 07/19/16 13:57 Dose: 3 ml Calcium Carbonate/Glycine (Tums) 1,000 mg PO DAILY ONE Stop: 07/20/16 09:10 Last Admin: 07/20/16 09:43 Dose: 1,000 mg Al Hydroxide/Mg Hydroxide 15 (ml/ Lidocaine HCl 5 ml) 0 ml PO ONETIME ONE Stop: 07/24/16 18:21 Last Admin: 07/24/16 19:02 Dose: 1 each Furosemide (Lasix) 80 mg PO BIDDIURETIC JABIER Last Admin: 07/22/16 08:38 Dose: 80 mg Furosemide (Lasix) 80 mg IVPUSH NOW ONE Stop: 07/21/16 21:19 Last Admin: 07/21/16 21:56 Dose: 80 mg Furosemide (Lasix) 80 mg IVPUSH NOW ONE Stop: 07/22/16 11:24 Last Admin: 07/22/16 12:46 Dose: Not Given Furosemide (Lasix) 80 mg IVPUSH NOW ONE Stop: 07/22/16 18:01 Last Admin: 07/22/16 17:22 Dose: Not Given Furosemide (Lasix) 80 mg IVPUSH NOW ONE Stop: 07/23/16 12:15 Last Admin: 07/23/16 12:37 Dose: 80 mg Furosemide (Lasix) 80 mg PO DAILY [facility] Last Admin: 07/26/16 09:39 Dose: 80 mg Furosemide (Lasix) 80 mg IVPUSH NOW ONE Stop: 07/24/16 15:01 Last Admin: 07/24/16 14:57 Dose: 80 mg Furosemide (Lasix) 80 mg IVPUSH NOW ONE Stop: 07/25/16 15:01 Last Admin: 07/25/16 14:01 Dose: 80 mg Gabapentin (Neurontin) 300 mg PO TID [facility] Last Admin: 07/23/16 05:15 Dose: 300 mg Sodium Chloride (Normal Saline) 1,000 mls @ 150 mls/hr IV ASDIRECTED [facility] Last Admin: 07/19/16 13:54 Dose: 150 mls/hr Ceftriaxone Sodium 1,000 mg/ (Sodium Chloride) 50 mls @ 200 mls/hr IV ONETIME ONE Stop: 07/19/16 16:36 Last Admin: 07/19/16 16:50 Dose: Not Given Ceftriaxone Sodium/Dextrose 1 (gm/ Premix) 50 mls @ 100 mls/hr IV ONETIME ONE Stop: 07/19/16 17:29 Last Admin: 07/19/16 17:10 Dose: 100 mls/hr Ceftriaxone Sodium 1,000 mg/ (Sodium Chloride) 50 mls @ 200 mls/hr IV Q24H [facility] Last Admin: 07/20/16 03:06 Dose: Not Given Ceftriaxone Sodium 1,000 mg/ (Sodium Chloride) 50 mls @ 200 mls/hr IV Q24H [facility] Ceftriaxone Sodium/Dextrose 1 (gm/ Premix) 50 mls @ 100 mls/hr IV Q24H [facility] Last Admin: 07/23/16 18:01 Dose: 100 mls/hr Sodium Chloride (Normal Saline) 250 mls @ 250 mls/hr IV ASDIRECTED [facility] Stop: 07/20/16 20:15 Last Admin: 07/20/16 19:37 Dose: 250 mls/hr Potassium Chloride 40 meq/ (Sodium Chloride) 500 mls @ 125 mls/hr IV ONETIME ONE Stop: 07/25/16 03:47 Last Admin: 07/25/16 01:01 Dose: 125 mls/hr Magnesium Sulfate 2 gm/ Premix 50 mls @ 50 mls/hr IV ONETIME ONE Stop: 07/25/16 00:50 Last Admin: 07/24/16 23:59 Dose: 50 mls/hr Magnesium Sulfate 2 gm/ Premix 50 mls @ 50 mls/hr IV ONETIME ONE Stop: 07/25/16 11:25 Last Admin: 07/25/16 11:03 Dose: 50 mls/hr Oxycodone HCl (Oxycodone) 5 mg PO Q4H PRN PRN Reason: FOOT/ANKLE PAIN Last Admin: 07/22/16 13:22 Dose: 5 mg Potassium Chloride (Klor-Con M20) 40 meq PO DAILY [facility] Last Admin: 07/20/16 08:17 Dose: 40 meq Potassium Chloride (Klor-Con M20) 40 meq PO ONETIME ONE Stop: 07/25/16 10:46 Last Admin: 07/25/16 11:03 Dose: 40 meq Pravastatin Sodium (Pravachol) 10 mg PO BEDTIME [facility] Last Admin: 07/20/16 21:46 Dose: 10 mg Pravastatin Sodium (Pravachol) 10 mg PO BEDTIME [facility] Last Admin: 07/21/16 22:00 Dose: Not Given Quetiapine F[facility]ate ([facility]eroquel) [facility] [place] Quetiapine Fumarate (Seroquel) 50 mg PO BEDTIME [facility] Quetiapine Fumarate (Seroquel) 25 mg PO BEDTIME PRN PRN Reason: Agitation Sodium Chloride (Saline Flush) 10 ml FLUSH ASDIRECTED PRN PRN Reason: Keep Vein Open Sodium Chloride (Saline Flush) 2.5 ml FLUSH ASDIRECTED PRN PRN Reason: Keep Vein Open Venlafaxine HCl (Effexor Xr) 75 mg PO DAILY [facility] Last Admin: 07/20/16 08:17 Dose: 75 mg Warfarin Sodium (Coumadin Ask) 1 each PO ONETIME ONE Stop: 07/26/16 09:50 Last Admin: 07/26/16 11:11 Dose: Not Given - Exam Quality Assessment: supplemental oxygen, DVT prophylaxis General: alert, cooperative, no acute distress HEENT: Pupils equal, Pupils reactive, EOMI, Mucous membr. moist/pink Neck: supple, trachea midline, no JVD Lungs: Normal respiratory effort, Crackles, Rales Cardiovascular: Regular Rate, Regular Rhythm Abdomen: bowel sounds present, soft, no tenderness, no distension Back Exam: normal inspection, full range of motion Extremities: normal pulses, no tenderness/swelling, no calf tenderness, edema ( Improved =1 edema to left leg) Peripheral Pulses: 2+: radial (L), radial (R), posterior tibial (L), dorsalis pedis (L) Skin: warm, dry, intact Neurological: no new focal deficit Psy/Mental Status: alert, normal affect, normal mood - Problem List & Annotations (1) Acute on chronic renal failure SNOMED Code(s): 573787551 Code(s): N17.9 - ACUTE KIDNEY FAILURE, UNSPECIFIED; N18.9 - CHRONIC KIDNEY DISEASE, UNSPECIFIED Status: Resolved Priority: Medium Current Visit: Yes (2) UTI (urinary tract infection) SNOMED Code(s): 38164377 Code(s): N39.0 - URINARY TRACT INFECTION, SITE NOT SPECIFIED Status: Acute Priority: High Current Visit: Yes Qualifiers: Urinary tract infection type: site unspecified Hematuria presence: without hematuria Qualified Code(s): N39.0 - Urinary tract infection, site not specified (3) Systolic CHF SNOMED Code(s): 244895926 Code(s): I50.20 - UNSPECIFIED SYSTOLIC (CONGESTIVE) HEART FAILURE Status: Chronic Priority: High Current Visit: Yes Qualifiers: Congestive heart failure chronicity: chronic Qualified Code(s): I50.22 - Chronic systolic (congestive) heart failure (4) Acute on chronic alteration in mental status SNOMED Code(s): 972591168 Code(s): R41.82 - ALTERED MENTAL STATUS, UNSPECIFIED Status: Resolved Priority: Medium Current Visit: Yes (5) Afib SNOMED Code(s): 77336800 Code(s): I48.91 - UNSPECIFIED ATRIAL FIBRILLATION Status: Chronic Priority: Medium Current Visit: Yes Qualifiers: Atrial fibrillation type: chronic Qualified Code(s): I48.2 - Chronic atrial fibrillation (6) CAD (coronary artery disease) SNOMED Code(s): 49218720 Code(s): I25.10 - ATHSCL HEART DISEASE OF [place] CORONARY ARTERY W/O ANG PCTRS Status: Chronic Priority: Medium Current Visit: Yes Qualifiers: Coronary Disease-Associated Artery/Lesion type: unspecified vessel or lesion type [place] vs. transplanted heart: unspecified whether [place] or transplanted heart Associated angina: without angina Qualified Code(s): I25.10 - Atherosclerotic heart disease of [place] coronary artery without angina pectoris (7) COPD (chronic obstructive pulmonary disease) SNOMED Code(s): 16964445 Code(s): J44.9 - CHRONIC OBSTRUCTIVE PULMONARY DISEASE, UNSPECIFIED Status : Chronic Priority: Medium Current Visit: Yes Qualifiers: COPD type: unspecified COPD Qualified Code(s): J44.9 - Chronic obstructive pulmonary disease, unspecified (8) Diabetes mellitus SNOMED Code(s): 17218412 Code(s): E11.9 - TYPE 2 DIABETES MELLITUS WITHOUT COMPLICATIONS Status: Chronic Priority: Medium Current Visit: Yes Qualifiers: Diabetes mellitus type: type 2 Diabetes mellitus complication status: with skin complications Diabetes mellitus complication detail: with other skin complication Diabetes mellitus senior care insulin use: with senior care use Qualified Code(s): E11.628 - Type 2 diabetes mellitus with other skin complications; Z79.4 - FPC (current) use of insulin - Problem List Review Problem List Initiated/Reviewed/Updated: Yes - My Orders Last 24 Hours: My Active Orders 07/26/16 09:00 Potassium Chloride [Klor-Con M20] 40 meq PO DAILY 07/27/16 05:00 CBC WITH AUTO DIFF [HEME] DAILY CMP [COMPREHENSIVE METABOLIC PN,CMP] [CHEM] DAILY 07/28/16 05:00 CBC WITH AUTO DIFF [HEME] DAILY CMP [COMPREHENSIVE METABOLIC PN,CMP] [CHEM] DAILY - Plan Plan:: 70-year-old male admitted 07/19/16 for acute on chronic renal failure, UTI, and altered mental status with history of congestive heart failure, chronic kidney disease, coronary artery disease, type 2 diabetes and elevated INR. Hypercapnic respiratory failure: Resolved. Bicarb back within normal levels. Will watch for contraction alkalosis secondary to diuretic. Restarted home oral lasix 80 mg PO BID Acute on chronic renal failure: Cr 2.6 on admission 1.6 today which is his baseline. Most likely cardiorenal syndrome with volume overload. Started home dose of Lasix today 80 mg PO BID. Will cont. to monitor UTI: Patient received 5 days of IV Rocephin and now Keflex day 3. Will treat for total of 10 days so on day 8 today. Congestive heart failure: Still midly volume overloaded. Getting 1.6-1.7 L output daily with 80 mg oral lasix in am and 80 mg lasix IV at night. Will switch to home lasix dose of 80 mg PO lasix daily and monitor to see if urine output remains stable. Type 2 diabetes: Insulin sliding scale COPD: duonebs prn Elevated INR: Resolved INR 2.78 today. Will talk with pharmacy about dose to restart patient he had been on 3 mg daily. VTE: SCD on coumadin.
[2016-07-26] MEDS: Warfarin 2.5 MG Tab PO SCH (13:28)
[2016-07-26] MEDS: Magnesium Hydroxide 400 MG/5 ML Susp 30 ML Cup PO PRN (20:53)
[2016-07-26] MEDS: PRAVASTATIN 10MG PO SCH (21:19)
[2016-07-27] MEDS: Cephalexin 500 MG Cap PO SCH ×2 (05:56→11:51)
[2016-07-27] MEDS: Insulin Regular, Human 100 Units/ML 10 ML Vial SUBCUT SCH ×2 (07:30→11:38)
[2016-07-27] MEDS: Calcium Carbonate 500 MG Tab.Chew PO SCH (08:04)
[2016-07-27] MEDS: Venlafaxine 37.5 MG Tab PO SCH (08:05)
[2016-07-27] MEDS: Famotidine 20 MG Tab PO SCH (08:05)
[2016-07-27] MEDS: Carvedilol 6.25 MG Tab PO SCH (08:05)
[2016-07-27] MEDS: Potassium Chloride 20 MEQ Tab.ER PO SCH (08:05)
[2016-07-27] MEDS: Furosemide 80 MG Tab PO SCH (08:05)
[2016-07-27] MEDS: Allopurinol 100 MG Tab PO SCH (08:05)
[2016-07-27] MEDS: Digoxin 125 MCG Tab PO SCH (08:06)
--- NOTE | 2016-07-27 10:55 | PCM.DCSUM1 ---
<[place] - Last Filed: 07/27/16 10:50> Discharge Summary - Hospital Course HPI Initial Comments: 70-year-old male admitted on 07/19/16 for UTI and acute on chronic renal failure with past medical history of congestive heart failure, chronic kidney disease, A. fib on Coumadin, oxygen-dependent COPD, diabetes type 2, dementia without behavioral disturbance, and MA with stenting. Brief History: During interview patient was altered and did not answer questions appropriately he was alert two out of three but not appropriate. His girlfriend helped with the history but was a poor historian. Information taking from senior living records and [facility] notes from recent hospitalization were used primarily for the H and P. Patient had been recently transferred to [place] from [place] for osteomyelitis versus Charcot joint on 07/05/16. He was treated at [facility] and was diagnosed with a Charcot joint of the right ankle. Patient when seen here had leukocytosis and was started on Vanc and Zosyn secondary to worry of osteomyelitis, however after evaluation in [place] antibiotics were discontinued. During his stay in [place] he was treated for a Charcot joint, acute on chronic systolic congestive heart failure, chronic kidney disease, and diabetes. As per records the patient's creatinine at that time was 1.31 With a GFR of 54. This is improved to 1.10 on last day of labs that I have available to me from [place]. On day of admission patient came in with altered mental status as well as a positive urinary tract infection from [place] where he'd been treated for a Charcot joint. In the emergency department here CXR showed basilar atelectasis and/or/infiltrate with increased vascular prominence suggestive of possible CHF exacerbation. Patient was started on Rocephin 1 g IV and given 200 mL's of fluid. Creatnine was 2.63 a significant increase from previous labs. Talking with the girlfriend's of patient, ever since he was in [place] he's been less alert and more "sleepy". Looking through the notes he was started on Seroquel 50 mg each bedtime as well as 25 mg in the a.m. for agitation. In addition to this the patient was receiving OxyContin 10 mg extended release daily as well as oxycodone 5 mg by mouth every 4 hours. Patient did have a echocardiogram done on 07/12/16 while in [place] showing findings of left ventricular systolic dysfunction with an ejection fraction of 35%. There was a hypokinetic right ventricle. There was normal size inferior vena cava and pulmonary artery pressures. Also at least moderate to moderate severe degree of mitral regurg. Patient was in A. fib during the study. - Discharge Data Discharge Date: 07/27/16 Discharge Disposition: DC/Tfer to SNF 03 Condition: Good - Discharge Diagnosis/Problem(s) (1) Acute on chronic renal failure SNOMED Code(s): 672183063 ICD Code: N17.9 - ACUTE KIDNEY FAILURE, UNSPECIFIED; N18.9 - CHRONIC KIDNEY DISEASE, UNSPECIFIED Status: Resolved Priority: Medium (2) UTI (urinary tract infection) SNOMED Code(s): 00313584 ICD Code: N39.0 - URINARY TRACT INFECTION, SITE NOT SPECIFIED Status: Acute Priority: High Qualifiers: Urinary tract infection type: site unspecified Hematuria presence: without hematuria Qualified Code(s): N39.0 - Urinary tract infection, site not specified (3) Systolic CHF SNOMED Code(s): 502263125 ICD Code: I50.20 - UNSPECIFIED SYSTOLIC (CONGESTIVE) HEART FAILURE Status: Chronic Priority: High Qualifiers: Congestive heart failure chronicity: chronic Qualified Code(s): I50.22 - Chronic systolic (congestive) heart failure (4) Acute on chronic alteration in mental status SNOMED Code(s): 267122816 ICD Code: R41.82 - ALTERED MENTAL STATUS, UNSPECIFIED Status: Resolved Priority: Medium (5) Afib SNOMED Code(s): 51286192 ICD Code: I48.91 - UNSPECIFIED ATRIAL FIBRILLATION Status: Chronic Priority: Medium Qualifiers: Atrial fibrillation type: chronic Qualified Code(s): I48.2 - Chronic atrial fibrillation (6) CAD (coronary artery disease) SNOMED Code(s): 34540875 ICD Code: I25.10 - ATHSCL HEART DISEASE OF [place] CORONARY ARTERY W/O ANG PCTRS Status: Chronic Priority: Medium Qualifiers: Coronary Disease-Associated Artery/Lesion type: unspecified vessel or lesion type [place] vs. transplanted heart: unspecified whether [place] or transplanted heart Associated angina: without angina Qualified Code(s): I25.10 - Atherosclerotic heart disease of [place] coronary artery without angina pectoris (7) COPD (chronic obstructive pulmonary disease) SNOMED Code(s): 22895020 ICD Code: J44.9 - CHRONIC OBSTRUCTIVE PULMONARY DISEASE, UNSPECIFIED Status : Chronic Priority: Medium Qualifiers: COPD type: unspecified COPD Qualified Code(s): J44.9 - Chronic obstructive pulmonary disease, unspecified (8) Diabetes mellitus SNOMED Code(s): 80430344 ICD Code: E11.9 - TYPE 2 DIABETES MELLITUS WITHOUT COMPLICATIONS Status: Chronic Priority: Medium Qualifiers: Diabetes mellitus type: type 2 Diabetes mellitus complication status: with skin complications Diabetes mellitus complication detail: with other skin complication Diabetes mellitus correction insulin use: with exterminator helper termite use Qualified Code(s): E11.628 - Type 2 diabetes mellitus with other skin complications; Z79.4 - 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 Initial evaluation of the patient's volume status was somewhat difficult. ED had felt patient was volume down while my first assessement was that he may be suffering from cardiorenal syndrome and mildly volume overloaded. Patient intially did well with only volume coming from IV Rocephin for his UTI. All sedation medication werescontinued and on second day of admission patient's level of alertness was markedly improved. Patient did have one episode of hypercapnic respiratory failure most likely secondary to be given oral oxycodone for pain. He was was placed on Bipap for less than 24 hours and this was resolved. Kidney function slowly improved to baseline of Cr 1.6 after administration of IV Lasix 80 mg BID. Urine culture results were only positive for yeast which was thought to be a contaminate. He was treated with Rocephin IV for 5 days then switch to oral Keflex for continued 10 day treatment of complicated UTI. Gonsales was removed and patient was able to urinate with bed reyes. In addition to above, patient's INR on admission was 6.36. His home dose of warfarin was 3 mg q day. This was held until he was back in therapeutic range of 2-3 for his rate controlled a-fib. Once in therapeutic range he was restarted on a decrease dosage of warfarin 2.5 mg q day. - Patient Instructions Diet: Heart Healthy Diet Fluid Restriction: 2000 mL Activity, Other: Nonweight bearing Driving: Do Not Drive Showering/Bathing: No Showering, No Tub Bathing/Swimming Notify Provider of: Fever, Increased Pain, Swelling and Redness, Nausea and/or Vomiting Other/Special Instructions: Pt/OT eval and treat. (Non weight bearing right leg secondary to Chacot Joint). May use prn O2 per nasal canula to maintain O2 sat > 90% - Discharge Plan Home Medications: Home Meds Allopurinol [Zyloprim] 100 mg PO DAILY 07/01/16 [History] Cinnamon Bark [Cinnamon] 1,000 mg PO DAILY 07/01/16 [History] Digoxin [Digox] 125 mcg PO DAILY 07/01/16 [History] Famotidine 20 mg PO BIDMEALS 07/01/16 [History] Furosemide [Lasix] 160 mg PO DAILY 07/01/16 [History] Gabapentin [Neurontin] 300 mg PO TID 07/01/16 [History] Irbesartan 75 mg PO DAILY 07/01/16 [History] Pravastatin [Pravachol] 10 mg PO BEDTIME 07/01/16 [History] Spironolactone [Aldactone] 25 mg PO DAILY 07/01/16 [History] Potassium Chloride [Klor-Con M20] 40 meq PO DAILY 07/03/16 [History] metFORMIN HCl [Metformin HCl] 500 mg PO BIDMEALS 07/03/16 [History] Bisacodyl [Dulcolax] 10 mg RC Q24H PRN 07/19/16 [History] Carvedilol 6.25 mg PO BIDMEALS 07/19/16 [History] Magnesium Hydroxide [Milk of Magnesia] 30 ml PO Q24H PRN 07/19/16 [History] Venlafaxine [Effexor] 75 mg PO DAILY 07/19/16 [History] Cephalexin [IJD: Cephalexin] 500 mg PO Q6HR 07/28/16 [History] Warfarin [Coumadin] 2.5 mg PO DAILY@1400 07/28/16 [History] Forms: ED Department Discharge Referrals: Manish Livingston MD [Primary Care Provider] - Petey Vaughan MD [Physician] - 07/31/16 8:00 am (next [facility] rounds) - Discharge Summary/Plan Comment DC Time >30 min.: Yes Discharge Summary/Plan Comment: 70-year-old male admitted on 07/19/16 for UTI and acute on chronic renal failure with past medical history of congestive heart failure, chronic kidney disease, A. fib on Coumadin, oxygen-dependent COPD, diabetes type 2, dementia without behavioral disturbance, and MA with stenting. During interview patient was altered and did not answer questions appropriately he was alert two out of three but not appropriate. His girlfriend helped with the history but was a poor historian. Information taking from senior living records and [facility] notes from recent hospitalization were used primarily for the H and P. Patient had been recently transferred to [place] from [place] for osteomyelitis versus Charcot joint on 07/05/16. He was treated at [facility] and was diagnosed with a Charcot joint of the right ankle. Patient when seen here had leukocytosis and was started on Vanc and Zosyn secondary to worry of osteomyelitis, however after evaluation in [place] antibiotics were discontinued. During his stay in [place] he was treated for a Charcot joint, acute on chronic systolic congestive heart failure, chronic kidney disease, and diabetes. As per records the patient's creatinine at that time was 1.31 With a GFR of 54. This is improved to 1.10 on last day of labs that I have available to me from [place]. On day of admission patient came in with altered mental status as well as a positive urinary tract infection from [place] where he'd been treated for a Charcot joint. In the emergency department here CXR showed basilar atelectasis and/or/infiltrate with increased vascular prominence suggestive of possible CHF exacerbation. Patient was started on Rocephin 1 g IV and given 200 mL's of fluid. Creatnine was 2.63 a significant increase from previous labs. Talking with the girlfriend's of patient, ever since he was in [place] he's been less alert and more "sleepy". Looking through the notes he was started on Seroquel 50 mg each bedtime as well as 25 mg in the a.m. for agitation. In addition to this the patient was receiving OxyContin 10 mg extended release daily as well as oxycodone 5 mg by mouth every 4 hours. Patient did have a echocardiogram done on 07/12/16 while in [place] showing findings of left ventricular systolic dysfunction with an ejection fraction of 35%. There was a hypokinetic right ventricle. There was normal size inferior vena cava and pulmonary artery pressures. Also at least moderate to moderate severe degree of mitral regurg. Patient was in A. fib during the study. Patient was admitted for UTI as well as acute on chronic renal failure. Initial evaluation of the patient's volume status was somewhat difficult. ED had felt patient was volume down while my first assessement was that he may be suffering from cardiorenal syndrome and mildly volume overloaded. Patient intially did well with only volume coming from IV Rocephin for his UTI. All sedation medication werescontinued and on second day of admission patient's level of alertness was markedly improved. Patient did have one episode of hypercapnic respiratory failure most likely secondary to be given oral oxycodone for pain. He was was placed on Bipap for less than 24 hours and this was resolved. Kidney function slowly improved to baseline of Cr 1.6 after administration of IV Lasix 80 mg BID. Urine culture results were only positive for yeast which was thought to be a contaminate. He was treated with Rocephin IV for 5 days then switch to oral Keflex for continued 10 day treatment of complicated UTI. Gonsales was removed and patient was able to urinate with bed reyes. In addition to above, patient's INR on admission was 6.36. His home dose of warfarin was 3 mg q day. This was held until he was back in therapeutic range of 2-3 for his rate controlled a-fib. Once in therapeutic range he was restarted on a decrease dosage of warfarin 2.5 mg q day. On day of discharge patient was doing well and felt to be euvolemic. He was discharged back to [place] with a prescription for 1 day of Keflex to finish a total of 10 days of antibiotics for his UTI as well as Warfaring 2.5 mg q day. All sedation medications were held. I do believe that over sedation may have been part of what led to patient's admission on top of the UTI and Acute kidney failure on chronic. His Gonsales was removed and most likely source of UTI. He may need reevaluation of this in the future as he does have a distant past of urinary retention and is also nonweight bearing on his right leg secondary to Charcot joint however is an abvious source of future infection. - General Info Date of Service: 07/27/16 Admission Dx/Problem (Free Text: Admission Diagnosis/Problem Admission Diagnosis/Problem UTI, Urinary tract infectious disease Subjective Update: Alert and orient to person and place but not time. Having some constipation this morning. Denies breathing problems or shortness of breath. Having no pain. No other complaints. Functional Status: Reports: pain controlled, incentive spirometry - Review of Systems General: Reports: Fatigue. Denies: Fever HEENT: Denies: headaches, sinus congestion Pulmonary: Denies: shortness of breath, hemoptysis, wheezing Cardiovascular: Denies: Chest Pain, Palpitations Gastrointestinal: Reports: Constipation. Denies: Abdominal pain, Diarrhea Genitourinary: Denies: dysuria, hematuria Musculoskeletal: Denies: neck pain, leg pain Skin: Denies: cyanosis Neurological: Denies: Confusion, Dizziness Psychiatric: Denies: confusion - Patient Data Vitals - Most Recent: Last Vital Signs Temp 36.3 C 07/27/16 07:49 Pulse 84 07/27/16 08:06 Resp 18 07/27/16 07:49 BP 121/62 07/27/16 08:05 Pulse Ox 91 L 07/27/16 07:49 Weight - Most Recent: 119.5 kg I&O - Last 24 hours: Intake & Output 07/26/16 07/27/16 07/27/16 22:59 06:59 14:59 Intake Total 720 130 Output Total 900 750 Balance -180 -620 Lab Results - Last 24 hrs: Laboratory Results - last 24 hr 07/26/16 07/26/16 07/26/16 Range/Units 07:39 11:10 20:54 WBC (4.0-11.0) K/uL RBC (4.50-5.90) M/uL Hgb (13.0-17.0) g/dL Hct (38.0-50.0) % MCV (80.0-98.0) fL MCH (27.0-32.0) pg MCHC (31.0-37.0) g/dL RDW Std Deviation (28.0-62.0) fl RDW Coeff of [place] (11.0-15.0) % Plt Count (150-400) K/uL MPV (7.40-12.00) fL Neut % (Auto) (48.0-80.0) % Lymph % (Auto) (16.0-40.0) % [place] % (Auto) (0.0-15.0) % Eos % (Auto) (0.0-7.0) % Baso % (Auto) (0.0-1.5) % Neut # (Auto) (1.4-5.7) K/uL Lymph # (Auto) (0.6-2.4) K/uL [place] # (Auto) (0.0-0.8) K/uL Eos # (Auto) (0.0-0.7) K/uL Baso # (Auto) (0.0-0.1) K/uL Nucleated RBC % /100WBC Nucleated RBCs # K/uL INR (0.86-1.11) Sodium (136-146) mmol/L Potassium (3.5-5.1) mmol/L Chloride (98-110) mmol/L Carbon Dioxide (21-31) mmol/L BUN (6.0-23.0) mg/dL Creatinine (0.6-1.5) mg/dL Est Cr Clr Drug Dosing mL/min Estimated GFR (MDRD) ml/min Glucose (60-110) mg/dL POC Glucose 140 H 143 H 142 H (60-110) mg/dL Calcium (8.8-10.8) mg/dL Total Bilirubin (0.1-1.5) mg/dL AST (5-40) IU/L ALT (8-54) IU/L Alkaline Phosphatase (40-150) Total Protein (6.0-8.0) g/dL Albumin (3.4-4.8) g/dL Globulin (2.0-3.5) g/dL Albumin/Globulin Ratio (1.3-2.8) 07/27/16 07/27/16 07/27/16 Range/Units 04:53 04:53 04:53 WBC 9.22 (4.0-11.0) K/uL RBC 4.59 (4.50-5.90) M/uL Hgb 13.5 (13.0-17.0) g/dL Hct 43.0 (38.0-50.0) % MCV 93.7 (80.0-98.0) fL MCH 29.4 (27.0-32.0) pg MCHC 31.4 (31.0-37.0) g/dL RDW Std Deviation 55.9 (28.0-62.0) fl RDW Coeff of [place] 16 H (11.0-15.0) % Plt Count 229 (150-400) K/uL MPV 9.60 (7.40-12.00) fL Neut % (Auto) 64.7 (48.0-80.0) % Lymph % (Auto) 22.9 (16.0-40.0) % [place] % (Auto) 8.6 (0.0-15.0) % Eos % (Auto) 3.3 (0.0-7.0) % Baso % (Auto) 0.5 (0.0-1.5) % Neut # (Auto) 6.0 H (1.4-5.7) K/uL Lymph # (Auto) 2.1 (0.6-2.4) K/uL [place] # (Auto) 0.8 (0.0-0.8) K/uL Eos # (Auto) 0.3 (0.0-0.7) K/uL Baso # (Auto) 0.1 (0.0-0.1) K/uL Nucleated RBC % 0.4 /100WBC Nucleated RBCs # 0 K/uL INR 2.64 H (0.86-1.11) Sodium 141 (136-146) mmol/L Potassium 3.9 (3.5-5.1) mmol/L Chloride 96 L (98-110) mmol/L Carbon Dioxide 31 (21-31) mmol/L BUN 33 H (6.0-23.0) mg/dL Creatinine 1.7 H (0.6-1.5) mg/dL Est Cr Clr Drug Dosing 36.15 mL/min Estimated GFR (MDRD) 39.9 ml/min Glucose 123 H (60-110) mg/dL POC Glucose (60-110) mg/dL Calcium 9.1 (8.8-10.8) mg/dL Total Bilirubin 1.0 (0.1-1.5) mg/dL AST 22 (5-40) IU/L ALT 16 (8-54) IU/L Alkaline Phosphatase 116 (40-150) Total Protein 7.0 (6.0-8.0) g/dL Albumin 2.8 L (3.4-4.8) g/dL Globulin 4.2 H (2.0-3.5) g/dL Albumin/Globulin Ratio 0.7 L (1.3-2.8) 07/27/16 Range/Units 06:29 WBC (4.0-11.0) K/uL RBC (4.50-5.90) M/uL Hgb (13.0-17.0) g/dL Hct (38.0-50.0) % MCV (80.0-98.0) fL MCH (27.0-32.0) pg MCHC (31.0-37.0) g/dL RDW Std Deviation (28.0-62.0) fl RDW Coeff of [place] (11.0-15.0) % Plt Count (150-400) K/uL MPV (7.40-12.00) fL Neut % (Auto) (48.0-80.0) % Lymph % (Auto) (16.0-40.0) % [place] % (Auto) (0.0-15.0) % Eos % (Auto) (0.0-7.0) % Baso % (Auto) (0.0-1.5) % Neut # (Auto) (1.4-5.7) K/uL Lymph # (Auto) (0.6-2.4) K/uL [place] # (Auto) (0.0-0.8) K/uL Eos # (Auto) (0.0-0.7) K/uL Baso # (Auto) (0.0-0.1) K/uL Nucleated RBC % /100WBC Nucleated RBCs # K/uL INR (0.86-1.11) Sodium (136-146) mmol/L Potassium (3.5-5.1) mmol/L Chloride (98-110) mmol/L Carbon Dioxide (21-31) mmol/L BUN (6.0-23.0) mg/dL Creatinine (0.6-1.5) mg/dL Est Cr Clr Drug Dosing mL/min Estimated GFR (MDRD) ml/min Glucose (60-110) mg/dL POC Glucose 128 H (60-110) mg/dL Calcium (8.8-10.8) mg/dL Total Bilirubin (0.1-1.5) mg/dL AST (5-40) IU/L ALT (8-54) IU/L Alkaline Phosphatase (40-150) Total Protein (6.0-8.0) g/dL Albumin (3.4-4.8) g/dL Globulin (2.0-3.5) g/dL Albumin/Globulin Ratio (1.3-2.8) Med Orders - Current: Current Medications Acetaminophen (Tylenol) 650 mg PO Q4H PRN PRN Reason: Pain Last Admin: 07/25/16 00:59 Dose: 650 mg Albuterol/Ipratropium (Duoneb 3.0-0.5 Mg/3 Ml) 3 ml NEB Q6HRRT PRN PRN Reason: Shortness of Breath Last Admin: 07/25/16 19:47 Dose: 3 ml Allopurinol (Zyloprim) 100 mg PO DAILY [facility] Last Admin: 07/27/16 08:05 Dose: 100 mg Bisacodyl (Dulcolax) 10 mg RECTAL Q24H PRN PRN Reason: Constipation Last Admin: 07/23/16 20:58 Dose: 10 mg Calcium Carbonate/Glycine (Tums) 1,000 mg PO DAILY [facility] Last Admin: 07/27/16 08:04 Dose: 1,000 mg Carvedilol (Coreg) 6.25 mg PO BIDMEALS [facility] Last Admin: 07/27/16 08:05 Dose: 6.25 mg Cephalexin (Keflex) 500 mg PO Q6HR [facility] Last Admin: 07/27/16 05:56 Dose: 500 mg Digoxin (Lanoxin) 125 mcg PO DAILY [facility] Last Admin: 07/27/16 08:06 Dose: 125 mcg Famotidine (Pepcid) 20 mg PO BID [facility] Last Admin: 07/27/16 08:05 Dose: 20 mg Furosemide (Lasix) 80 mg PO BID [facility] Last Admin: 07/27/16 08:05 Dose: 80 mg Haloperidol Lactate (Haldol) 5 mg IM Q4H PRN PRN Reason: Agitation Last Admin: 07/24/16 23:21 Dose: 5 mg Sodium Chloride (Normal Saline) 250 mls @ 250 mls/hr IV .BOLUS [facility] Last Admin: 07/20/16 10:46 Dose: 250 mls/hr Insulin Human Regular (Novolin R) 0 unit SUBCUT QIDACANDBED JABIER PRN Reason: Protocol Last Admin: 07/27/16 07:30 Dose: Not Given Magnesium Hydroxide (Milk Of Magnesia) 30 ml PO Q24H PRN PRN Reason: Constipation Last Admin: 07/26/16 20:53 Dose: 30 ml Ondansetron HCl (Zofran Odt) 4 mg PO Q4H PRN PRN Reason: nausea, able to take PO Last Admin: 07/20/16 20:26 Dose: 4 mg Pravastatin 10mg 1 each PO BEDTIME [facility] Last Admin: 07/26/16 21:19 Dose: Not Given Potassium Chloride (Klor-Con M20) 40 meq PO DAILY [facility] Last Admin: 07/27/16 08:05 Dose: 40 meq Sodium Chloride (Saline Flush) 10 ml FLUSH ASDIRECTED PRN PRN Reason: Keep Vein Open Sodium Chloride (Saline Flush) 2.5 ml FLUSH ASDIRECTED PRN PRN Reason: Keep Vein Open Last Admin: 07/26/16 10:00 Dose: 2.5 ml Venlafaxine HCl (Effexor) 75 mg PO DAILY [facility] Last Admin: 07/27/16 08:05 Dose: 75 mg Warfarin Sodium (Coumadin) 2.5 mg PO DAILY@1400 [facility] Last Admin: 07/26/16 13:28 Dose: 2.5 mg Discontinued Medications Albuterol/Ipratropium (Duoneb 3.0-0.5 Mg/3 Ml) 3 ml NEB ONETIME ONE Stop: 07/19/16 13:29 Last Admin: 07/19/16 13:57 Dose: 3 ml Calcium Carbonate/Glycine (Tums) 1,000 mg PO DAILY ONE Stop: 07/20/16 09:10 Last Admin: 07/20/16 09:43 Dose: 1,000 mg Al Hydroxide/Mg Hydroxide 15 (ml/ Lidocaine HCl 5 ml) 0 ml PO ONETIME ONE Stop: 07/24/16 18:21 Last Admin: 07/24/16 19:02 Dose: 1 each Furosemide (Lasix) 80 mg PO BIDDIURETIC [facility] Last Admin: 07/22/16 08:38 Dose: 80 mg Furosemide (Lasix) 80 mg IVPUSH NOW ONE Stop: 07/21/16 21:19 Last Admin: 07/21/16 21:56 Dose: 80 mg Furosemide (Lasix) 80 mg IVPUSH NOW ONE Stop: 07/22/16 11:24 Last Admin: 07/22/16 12:46 Dose: Not Given Furosemide (Lasix) 80 mg IVPUSH NOW ONE Stop: 07/22/16 18:01 Last Admin: 07/22/16 17:22 Dose: Not Given Furosemide (Lasix) 80 mg IVPUSH NOW ONE Stop: 07/23/16 12:15 Last Admin: 07/23/16 12:37 Dose: 80 mg Furosemide (Lasix) 80 mg PO DAILY [facility] Last Admin: 07/26/16 09:39 Dose: 80 mg Furosemide (Lasix) 80 mg IVPUSH NOW ONE Stop: 07/24/16 15:01 Last Admin: 07/24/16 14:57 Dose: 80 mg Furosemide (Lasix) 80 mg IVPUSH NOW ONE Stop: 07/25/16 15:01 Last Admin: 07/25/16 14:01 Dose: 80 mg Gabapentin (Neurontin) 300 mg PO TID [facility] Last Admin: 07/23/16 05:15 Dose: 300 mg Sodium Chloride (Normal Saline) 1,000 mls @ 150 mls/hr IV ASDIRECTED [facility] Last Admin: 07/19/16 13:54 Dose: 150 mls/hr Ceftriaxone Sodium 1,000 mg/ (Sodium Chloride) 50 mls @ 200 mls/hr IV ONETIME ONE Stop: 07/19/16 16:36 Last Admin: 07/19/16 16:50 Dose: Not Given Ceftriaxone Sodium/Dextrose 1 (gm/ Premix) 50 mls @ 100 mls/hr IV ONETIME ONE Stop: 07/19/16 17:29 Last Admin: 07/19/16 17:10 Dose: 100 mls/hr Ceftriaxone Sodium 1,000 mg/ (Sodium Chloride) 50 mls @ 200 mls/hr IV Q24H [facility] Last Admin: 07/20/16 03:06 Dose: Not Given Ceftriaxone Sodium 1,000 mg/ (Sodium Chloride) 50 mls @ 200 mls/hr IV Q24H [facility] Ceftriaxone Sodium/Dextrose 1 (gm/ Premix) 50 mls @ 100 mls/hr IV Q24H [facility] Last Admin: 07/23/16 18:01 Dose: 100 mls/hr Sodium Chloride (Normal Saline) 250 mls @ 250 mls/hr IV ASDIRECTED JABIER Stop: 07/20/16 20:15 Last Admin: 07/20/16 19:37 Dose: 250 mls/hr Potassium Chloride 40 meq/ (Sodium Chloride) 500 mls @ 125 mls/hr IV ONETIME ONE Stop: 07/25/16 03:47 Last Admin: 07/25/16 01:01 Dose: 125 mls/hr Magnesium Sulfate 2 gm/ Premix 50 mls @ 50 mls/hr IV ONETIME ONE Stop: 07/25/16 00:50 Last Admin: 07/24/16 23:59 Dose: 50 mls/hr Magnesium Sulfate 2 gm/ Premix 50 mls @ 50 mls/hr IV ONETIME ONE Stop: 07/25/16 11:25 Last Admin: 07/25/16 11:03 Dose: 50 mls/hr Oxycodone HCl (Oxycodone) 5 mg PO Q4H PRN PRN Reason: FOOT/ANKLE PAIN Last Admin: 07/22/16 13:22 Dose: 5 mg Potassium Chloride (Klor-Con M20) 40 meq PO DAILY [facility] Last Admin: 07/20/16 08:17 Dose: 40 meq Potassium Chloride (Klor-Con M20) 40 meq PO ONETIME ONE Stop: 07/25/16 10:46 Last Admin: 07/25/16 11:03 Dose: 40 meq Pravastatin Sodium (Pravachol) 10 mg PO BEDTIME [facility] Last Admin: 07/20/16 21:46 Dose: 10 mg Pravastatin Sodium (Pravachol) 10 mg PO BEDTIME [facility] Last Admin: 07/21/16 22:00 Dose: Not Given Quetiapine Fumarate (Seroquel) 25 mg PO QAM [facility] Quetiapine Fumarate (Seroquel) 50 mg PO BEDTIME [facility] Quetiapine Fumarate (Seroquel) 25 mg PO BEDTIME PRN PRN Reason: Agitation Sodium Chloride (Saline Flush) 10 ml FLUSH ASDIRECTED PRN PRN Reason: Keep Vein Open Sodium Chloride (Saline Flush) 2.5 ml FLUSH ASDIRECTED PRN PRN Reason: Keep Vein Open Venlafaxine HCl (Effexor Xr) 75 mg PO DAILY [facility] Last Admin: 07/20/16 08:17 Dose: 75 mg Warfarin Sodium (Coumadin Ask) 1 each PO ONETIME ONE Stop: 07/26/16 09:50 Last Admin: 07/26/16 11:11 Dose: Not Given - Exam Quality Assessment: Reports: DVT prophylaxis General: Reports: alert, oriented, cooperative, no acute distress HEENT: Reports: Pupils equal, Pupils reactive, EOMI, Mucous membr. moist/pink Neck: Reports: supple, trachea midline, no JVD Lungs: Reports: Clear to auscultation, Normal respiratory effort, Crackles ( billateral lower lobes) Cardiovascular: Reports: Regular Rate, Regular Rhythm, Murmurs Abdomen: Reports: bowel sounds present, soft, no tenderness, no distension Back Exam: Reports: normal inspection Extremities: Reports: no edema, normal pulses, no tenderness/swelling, no calf tenderness Skin: Reports: warm, dry, intact Neurological: Reports: no new focal deficit Psy/Mental Status: Reports: alert, normal affect, normal mood, other (Baseline mild dementia) *Q Meaningful Use (DIS) - VTE *Q VTE Criteria *Q: - Stroke *Q Stroke Criteria *Q: - AMI *Q AMI Criteria *Q: <Linden Mukherjee - Last Filed: 07/28/16 19:56> Discharge Summary - Patient Summary/Data Consults: Consultations 07/19/16 18:35 PT Evaluation and Treatment [CONS] Routine - Patient Data Vitals - Most Recent: Last Vital Signs Temp 36.6 C 07/27/16 11:13 Pulse 84 07/27/16 11:13 Resp 18 07/27/16 11:13 BP 129/61 07/27/16 11:13 Pulse Ox 92 L 07/27/16 11:13 Med Orders - Current: Current Medications Discontinued Medications Acetaminophen (Tylenol) 650 mg PO Q4H PRN PRN Reason: Pain Last Admin: 07/25/16 00:59 Dose: 650 mg Albuterol/Ipratropium (Duoneb 3.0-0.5 Mg/3 Ml) 3 ml NEB ONETIME ONE Stop: 07/19/16 13:29 Last Admin: 07/19/16 13:57 Dose: 3 ml Albuterol/Ipratropium (Duoneb 3.0-0.5 Mg/3 Ml) 3 ml NEB Q6HRRT PRN PRN Reason: Shortness of Breath Last Admin: 07/25/16 19:47 Dose: 3 ml Allopurinol (Zyloprim) 100 mg PO DAILY [facility] Last Admin: 07/27/16 08:05 Dose: 100 mg Bisacodyl (Dulcolax) 10 mg RECTAL Q24H PRN PRN Reason: Constipation Last Admin: 07/23/16 20:58 Dose: 10 mg Calcium Carbonate/Glycine (Tums) 1,000 mg PO DAILY ONE Stop: 07/20/16 09:10 Last Admin: 07/20/16 09:43 Dose: 1,000 mg Calcium Carbonate/Glycine (Tums) 1,000 mg PO DAILY [facility] Last Admin: 07/27/16 08:04 Dose: 1,000 mg Carvedilol (Coreg) 6.25 mg PO BIDMEALS [facility] Last Admin: 07/27/16 08:05 Dose: 6.25 mg Cephalexin (Keflex) 500 mg PO Q6HR [facility] Last Admin: 07/27/16 11:51 Dose: 500 mg Al Hydroxide/Mg Hydroxide 15 (ml/ Lidocaine HCl 5 ml) 0 ml PO ONETIME ONE Stop: 07/24/16 18:21 Last Admin: 07/24/16 19:02 Dose: 1 each Digoxin (Lanoxin) 125 mcg PO DAILY [facility] Last Admin: 07/27/16 08:06 Dose: 125 mcg Famotidine (Pepcid) 20 mg PO BID [facility] Last Admin: 07/27/16 08:05 Dose: 20 mg Furosemide (Lasix) 80 mg PO BIDDIURETIC [facility] Last Admin: 07/22/16 08:38 Dose: 80 mg Furosemide (Lasix) 80 mg IVPUSH NOW ONE Stop: 07/21/16 21:19 Last Admin: 07/21/16 21:56 Dose: 80 mg Furosemide (Lasix) 80 mg IVPUSH NOW ONE Stop: 07/22/16 11:24 Last Admin: 07/22/16 12:46 Dose: Not Given Furosemide (Lasix) 80 mg IVPUSH NOW ONE Stop: 07/22/16 18:01 Last Admin: 07/22/16 17:22 Dose: Not Given Furosemide (Lasix) 80 mg IVPUSH NOW ONE Stop: 07/23/16 12:15 Last Admin: 07/23/16 12:37 Dose: 80 mg Furosemide (Lasix) 80 mg PO DAILY [facility] Last Admin: 07/26/16 09:39 Dose: 80 mg Furosemide (Lasix) 80 mg IVPUSH NOW ONE Stop: 07/24/16 15:01 Last Admin: 07/24/16 14:57 Dose: 80 mg Furosemide (Lasix) 80 mg IVPUSH NOW ONE Stop: 07/25/16 15:01 Last Admin: 07/25/16 14:01 Dose: 80 mg Furosemide (Lasix) 80 mg PO BID [facility] Last Admin: 07/27/16 08:05 Dose: 80 mg Gabapentin (Neurontin) 300 mg PO TID [facility] Last Admin: 07/23/16 05:15 Dose: 300 mg Haloperidol Lactate (Haldol) 5 mg IM Q4H PRN PRN Reason: Agitation Last Admin: 07/24/16 23:21 Dose: 5 mg Sodium Chloride (Normal Saline) 1,000 mls @ 150 mls/hr IV ASDIRECTED [facility] Last Admin: 07/19/16 13:54 Dose: 150 mls/hr Ceftriaxone Sodium 1,000 mg/ (Sodium Chloride) 50 mls @ 200 mls/hr IV ONETIME ONE Stop: 07/19/16 16:36 Last Admin: 07/19/16 16:50 Dose: Not Given Ceftriaxone Sodium/Dextrose 1 (gm/ Premix) 50 mls @ 100 mls/hr IV ONETIME ONE Stop: 07/19/16 17:29 Last Admin: 07/19/16 17:10 Dose: 100 mls/hr Ceftriaxone Sodium 1,000 mg/ (Sodium Chloride) 50 mls @ 200 mls/hr IV Q24H [facility] Last Admin: 07/20/16 03:06 Dose: Not Given Ceftriaxone Sodium 1,000 mg/ (Sodium Chloride) 50 mls @ 200 mls/hr IV Q24H [facility] Ceftriaxone Sodium/Dextrose 1 (gm/ Premix) 50 mls @ 100 mls/hr IV Q24H [facility] Last Admin: 07/23/16 18:01 Dose: 100 mls/hr Sodium Chloride (Normal Saline) 250 mls @ 250 mls/hr IV .BOLUS [facility] Last Admin: 07/20/16 10:46 Dose: 250 mls/hr Sodium Chloride (Normal Saline) 250 mls @ 250 mls/hr IV ASDIRECTED [facility] Stop: 07/20/16 20:15 Last Admin: 07/20/16 19:37 Dose: 250 mls/hr Potassium Chloride 40 meq/ (Sodium Chloride) 500 mls @ 125 mls/hr IV ONETIME ONE Stop: 07/25/16 03:47 Last Admin: 07/25/16 01:01 Dose: 125 mls/hr Magnesium Sulfate 2 gm/ Premix 50 mls @ 50 mls/hr IV ONETIME ONE Stop: 07/25/16 00:50 Last Admin: 07/24/16 23:59 Dose: 50 mls/hr Magnesium Sulfate 2 gm/ Premix 50 mls @ 50 mls/hr IV ONETIME ONE Stop: 07/25/16 11:25 Last Admin: 07/25/16 11:03 Dose: 50 mls/hr Insulin Human Regular (Novolin R) 0 unit SUBCUT QIDACANDBED [facility] PRN Reason: Protocol Last Admin: 07/27/16 11:38 Dose: Not Given Magnesium Hydroxide (Milk Of Magnesia) 30 ml PO Q24H PRN PRN Reason: Constipation Last Admin: 07/26/16 20:53 Dose: 30 ml Ondansetron HCl (Zofran Odt) 4 mg PO Q4H PRN PRN Reason: nausea, able to take PO Last Admin: 07/20/16 20:26 Dose: 4 mg Oxycodone HCl (Oxycodone) 5 mg PO Q4H PRN PRN Reason: FOOT/ANKLE PAIN Last Admin: 07/22/16 13:22 Dose: 5 mg Pravastatin 10mg 1 each PO BEDTIME [facility] Last Admin: 07/26/16 21:19 Dose: Not Given Potassium Chloride (Klor-Con M20) 40 meq PO DAILY [facility] Last Admin: 07/20/16 08:17 Dose: 40 meq Potassium Chloride (Klor-Con M20) 40 meq PO ONETIME ONE Stop: 07/25/16 10:46 Last Admin: 07/25/16 11:03 Dose: 40 meq Potassium Chloride (Klor-Con M20) 40 meq PO DAILY [facility] Last Admin: 07/27/16 08:05 Dose: 40 meq Pravastatin Sodium (Pravachol) 10 mg PO BEDTIME [facility] Last Admin: 07/20/16 21:46 Dose: 10 mg Pravastatin Sodium (Pravachol) 10 mg PO BEDTIME [facility] Last Admin: 07/21/16 22:00 Dose: Not Given Quetiapine Fumarate (Seroquel) 25 mg PO QAM [facility] Quetiapine Fumarate (Seroquel) 50 mg PO BEDTIME [facility] Quetiapine Fumarate (Seroquel) 25 mg PO BEDTIME PRN PRN Reason: Agitation Sodium Chloride (Saline Flush) 10 ml FLUSH ASDIRECTED PRN PRN Reason: Keep Vein Open Sodium Chloride (Saline Flush) 2.5 ml FLUSH ASDIRECTED PRN PRN Reason: Keep Vein Open Last Admin: 07/26/16 10:00 Dose: 2.5 ml Sodium Chloride (Saline Flush) 10 ml FLUSH ASDIRECTED PRN PRN Reason: Keep Vein Open Sodium Chloride (Saline Flush) 2.5 ml FLUSH ASDIRECTED PRN PRN Reason: Keep Vein Open Venlafaxine HCl (Effexor Xr) 75 mg PO DAILY [facility] Last Admin: 07/20/16 08:17 Dose: 75 mg Venlafaxine HCl (Effexor) 75 mg PO DAILY [facility] Last Admin: 07/27/16 08:05 Dose: 75 mg Warfarin Sodium (Coumadin Ask) 1 each PO ONETIME ONE Stop: 07/26/16 09:50 Last Admin: 07/26/16 11:11 Dose: Not Given Warfarin Sodium (Coumadin) 2.5 mg PO DAILY@1400 [facility] Last Admin: 07/27/16 13:41 Dose: 2.5 mg *Q Meaningful Use (DIS) - VTE *Q VTE Criteria *Q: - Stroke *Q Stroke Criteria *Q: - AMI *Q AMI Criteria *Q: - Free Text/Narrative Note: I have examined the patient. I have discussed findings and treatment plan with resident. I agree with the assessment and plan outlined in the resident's note.
[2016-07-27 11:14] VITALS: BP 129/61
[2016-07-27] MEDS: Warfarin 2.5 MG Tab PO SCH (13:41)
== END 2016-07-27 13:55 | DRG 683 ==
LOC: MW.ED 12:53 → MW.MS 15:59 → MW.ICU 07-22 17:40 → MW.MS 07-26 19:38
PROVIDERS: ADMIT Internal Medicine; ATTEND Internal Medicine
DX: N17.9 Acute kidney failure, unspecified (principal); N39.0 Urinary tract infection, site not specified; F03.90 Unspecified dementia, unspecified severity, without behavioral disturbance, psychotic disturbance, mood disturbance, and anxiety; I50.22 Chronic systolic (congestive) heart failure; I50.9 Heart failure, unspecified; A52.16 Charcot's arthropathy (tabetic); N18.9 Chronic kidney disease, unspecified; R41.82 Altered mental status, unspecified; I48.91 Unspecified atrial fibrillation; I48.2 Chronic atrial fibrillation; I25.10 Atherosclerotic heart disease of native coronary artery without angina pectoris; J02.9 Acute pharyngitis, unspecified; R06.02 Shortness of breath; R11.10 Vomiting, unspecified; R19.7 Diarrhea, unspecified; R30.0 Dysuria; R21 Rash and other nonspecific skin eruption; F41.9 Anxiety disorder, unspecified; J44.9 Chronic obstructive pulmonary disease, unspecified; Z99.81 Dependence on supplemental oxygen; E11.9 Type 2 diabetes mellitus without complications; I25.2 Old myocardial infarction; Z79.4 Long term (current) use of insulin; Z79.01 Long term (current) use of anticoagulants; Z95.5 Presence of coronary angioplasty implant and graft; Z88.8 Allergy status to other drugs, medicaments and biological substances; Z79.899 Other long term (current) drug therapy; Z87.891 Personal history of nicotine dependence
CPT/HCPCS: 36415; 36600; 70450; 71010; 80053; 81001; 82803; 84484; 85025; 85610; 87086; 93005; 96360; 96361; 99285; J7040; 36620; 51703; 73100-26-RT; 73100-RT; 76775; 76775-26; 82962; 83735; 84132; 85018; 94640; 94660; 94664; 97110-GP; 97161-GP; 97802; A9270-GY; J0696; J1630; J1940; J3475; J3480; J7050

== ENCOUNTER 2016-07-27 19:10 | Inpatient (IN) | payer MEDICARE, BC ==
[2016-07-27] MEDS ORDERED: Sodium Chloride 0.9% 2.5 ML Syringe FLUSH PRN (19:43)
[2016-07-27] MEDS ORDERED: Sodium Chloride 0.9% 10 ML Syringe FLUSH PRN ×2 (19:43)
[2016-07-27] MEDS ORDERED: Bumetanide 1 MG/4 ML MDV IVPUSH ONE (19:58)
[2016-07-27] MEDS ORDERED: Levofloxacin 500 MG Tab PO ONE (21:12)
[2016-07-27] MEDS ORDERED: Furosemide 80 MG Tab PO ONE (21:20)
[2016-07-27] MEDS ORDERED: Ondansetron 4 MG/2 ML SDV IVPUSH PRN (21:24)
--- NOTE | 2016-07-27 21:27 | EDM.PDOC ---
ED HISTORY OF PRESENT ILLNESS - General Chief Complaint: Respiratory Problem Stated Complaint: UNK Time Seen by Provider: 07/27/16 20:15 - Related Data Allergies/ADRs: Allergies Allergy/AdvReac Type Severity Reaction Status Date / Time ibuprofen Allergy unknown Verified 07/19/16 13:23 lisinopril Allergy unknown Verified 07/19/16 13:23 sulfamethoxazole Allergy unknown Verified 07/19/16 13:23 [From Bactrim] trimethoprim [From Bactrim] Allergy unknown Verified 07/19/16 13:23 Home Meds: Home Meds Allopurinol [Zyloprim] 100 mg PO DAILY 07/01/16 [History] Cinnamon Bark [Cinnamon] 1,000 mg PO DAILY 07/01/16 [History] Digoxin [Digox] 125 mcg PO DAILY 07/01/16 [History] Famotidine 20 mg PO BID 07/01/16 [History] Furosemide [Lasix] 160 mg PO DAILY 07/01/16 [History] Gabapentin [Neurontin] 300 mg PO TID 07/01/16 [History] Irbesartan 75 mg PO DAILY 07/01/16 [History] Pravastatin [Pravachol] 10 mg PO BEDTIME 07/01/16 [History] Spironolactone [Aldactone] 25 mg PO DAILY 07/01/16 [History] Potassium Chloride [Klor-Con M20] 40 meq PO DAILY 07/03/16 [History] metFORMIN HCl [Metformin HCl] 500 mg PO BIDMEALS 07/03/16 [History] Bisacodyl [Dulcolax] 10 mg RC Q24H PRN 07/19/16 [History] Carvedilol 6.25 mg PO BIDMEALS 07/19/16 [History] Magnesium Hydroxide [Milk of Magnesia] 30 ml PO Q24H PRN 07/19/16 [History] Venlafaxine [Effexor] 75 mg PO DAILY 07/19/16 [History] Cephalexin [IJD: Cephalexin] 500 mg PO Q6HR #4 capsule 07/27/16 [Rx] Warfarin [Coumadin] 2.5 mg PO DAILY@1400 #14 tablet 07/27/16 [Rx] Past Medical History Cardiovascular History: Reports: Afib, CAD, Heart Failure, NE, Stents Respiratory History: Reports: COPD Gastrointestinal History: Denies: Cirrhosis Genitourinary History: Reports: Renal disease Musculoskeletal History: Reports: Other (see below) Other Musculoskeletal History: he has a history of abdominal hernias Neurological History: Reports: CVA, Other (see below) Other Neuro History: encephalopathy Psychiatric History: Reports: Dementia, Other (see below) Other Psychiatric History: Restlessness and agitation, disorientation Endocrine/Metabolic History: Reports: Diabetes, type II, Obesity/BMI 30+ Hematologic History: Reports: None Oncologic (Cancer) History: Reports: None - Past Surgical History Cardiovascular Surgical History: Reports: Coronary artery stent Respiratory Surgical History: Reports: None GI Surgical History: Reports: Hernia, abdominal, Hernia repair/other, Other ( see below) Other GI Surgeries/Procedures: Abdominal mesh placement Endocrine Surgical History: Reports: None Neurological Surgical History: Reports: Spinal fusion Musculoskeletal Surgical History: Reports: Other (see below) Other Musculoskeletal Surgeries/Procedures:: 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 DIRECTED Care 07/27/16 19:43 Active Chest 1V Frontal [CR] Stat Exams 07/27/16 19:43 Taken CULTURE BLOOD [BC] Stat Lab 07/27/16 21:12 Ordered CULTURE BLOOD [BC] Stat Lab 07/27/16 21:12 Ordered LACTIC ACID,WHOLE BLOOD [BG] Stat Lab 07/27/16 21:11 Ordered Clindamycin Phosphate in D5W [Cleocin in D5W] 600 mg Med 07/27/16 21:12 Active Premix Bag 50 bag IV ONETIME Sodium Chloride 0.9% [Saline Flush] Med 07/27/16 19:43 Active 10 ml FLUSH ASDIRECTED PRN Sodium Chloride 0.9% [Saline Flush] Med 07/27/16 19:43 Active 10 ml FLUSH ASDIRECTED PRN Sodium Chloride 0.9% [Saline Flush] Med 07/27/16 19:43 Active 2.5 ml FLUSH ASDIRECTED PRN Sodium Chloride 0.9% [Saline Flush] Med 07/27/16 19:43 Active 2.5 ml FLUSH ASDIRECTED PRN Vancomycin [Vancocin] 1 gm Med 07/27/16 21:12 Active Sodium Chloride 0.9% [Normal Saline] 250 ml IV ONETIME Blood Culture x2 Reflex Set [OM.PC] Stat Oth 07/27/16 21:11 Ordered Peripheral IV Insertion Adult [OM.PC] Stat Oth 07/27/16 19:43 Ordered Medication Orders Clindamycin Phosphate 600 mg/ (Premix) 50 mls @ 100 mls/hr IV ONETIME ONE Stop: 07/27/16 21:41 Vancomycin HCl 1 gm/ Sodium (Chloride) 250 mls @ 250 mls/hr IV ONETIME ONE Stop: 07/27/16 22:11 Sodium Chloride (Saline Flush) 10 ml FLUSH ASDIRECTED PRN PRN Reason: Keep Vein Open Last Admin: 07/27/16 21:14 Dose: 10 ml Sodium Chloride (Saline Flush) 2.5 ml FLUSH ASDIRECTED PRN PRN Reason: Keep Vein Open Sodium Chloride (Saline Flush) 10 ml FLUSH ASDIRECTED PRN PRN Reason: Keep Vein Open Last Admin: 07/27/16 21:14 Dose: 10 ml Sodium Chloride (Saline Flush) 2.5 ml FLUSH ASDIRECTED PRN PRN Reason: Keep Vein Open Labs: Laboratory Tests 07/27/16 07/27/16 07/27/16 Range/Units 19:20 19:20 19:20 WBC 13.72 H (4.0-11.0) K/uL RBC 4.32 L (4.50-5.90) M/uL Hgb 12.9 L (13.0-17.0) g/dL Hct 40.5 (38.0-50.0) % MCV 93.8 (80.0-98.0) fL MCH 29.9 (27.0-32.0) pg MCHC 31.9 (31.0-37.0) g/dL RDW Std Deviation 56.4 (28.0-62.0) fl RDW Coeff of Christiana 17 H (11.0-15.0) % Plt Count 268 (150-400) K/uL MPV 9.90 (7.40-12.00) fL Neut % (Auto) 70.3 (48.0-80.0) % Lymph % (Auto) 17.2 (16.0-40.0) % Towner % (Auto) 9.5 (0.0-15.0) % Eos % (Auto) 2.6 (0.0-7.0) % Baso % (Auto) 0.4 (0.0-1.5) % Neut # (Auto) 9.7 H (1.4-5.7) K/uL Lymph # (Auto) 2.4 (0.6-2.4) K/uL Towner # (Auto) 1.3 H (0.0-0.8) K/uL Eos # (Auto) 0.4 (0.0-0.7) K/uL Baso # (Auto) 0.1 (0.0-0.1) K/uL Nucleated RBC % 0.5 /100WBC Nucleated RBCs # 0 K/uL INR (0.86-1.11) Sodium 139 (136-146) mmol/L Potassium 4.4 (3.5-5.1) mmol/L Chloride 98 (98-110) mmol/L Carbon Dioxide 27 (21-31) mmol/L BUN 36 H (6.0-23.0) mg/dL Creatinine 1.9 H (0.6-1.5) mg/dL Est Cr Clr Drug Dosing 32.34 mL/min Estimated GFR (MDRD) 35.1 ml/min Glucose 173 H (60-110) mg/dL Calcium 9.1 (8.8-10.8) mg/dL Troponin I < 0.10 (0.0-0.29) NG/ML Digoxin (0.8-2.0) ng/mL 07/27/16 07/27/16 Range/Units 19:20 19:20 WBC (4.0-11.0) K/uL RBC (4.50-5.90) M/uL Hgb (13.0-17.0) g/dL Hct (38.0-50.0) % MCV (80.0-98.0) fL MCH (27.0-32.0) pg MCHC (31.0-37.0) g/dL RDW Std Deviation (28.0-62.0) fl RDW Coeff of Christiana (11.0-15.0) % Plt Count (150-400) K/uL MPV (7.40-12.00) fL Neut % (Auto) (48.0-80.0) % Lymph % (Auto) (16.0-40.0) % Towner % (Auto) (0.0-15.0) % Eos % (Auto) (0.0-7.0) % Baso % (Auto) (0.0-1.5) % Neut # (Auto) (1.4-5.7) K/uL Lymph # (Auto) (0.6-2.4) K/uL Towner # (Auto) (0.0-0.8) K/uL Eos # (Auto) (0.0-0.7) K/uL Baso # (Auto) (0.0-0.1) K/uL Nucleated RBC % /100WBC Nucleated RBCs # K/uL INR 3.04 H (0.86-1.11) Sodium (136-146) mmol/L Potassium (3.5-5.1) mmol/L Chloride (98-110) mmol/L Carbon Dioxide (21-31) mmol/L BUN (6.0-23.0) mg/dL Creatinine (0.6-1.5) mg/dL Est Cr Clr Drug Dosing mL/min Estimated GFR (MDRD) ml/min Glucose (60-110) mg/dL Calcium (8.8-10.8) mg/dL Troponin I (0.0-0.29) NG/ML Digoxin 1.10 (0.8-2.0) ng/mL Meds: Medications Generic Name Dose Route Start Last Admin Trade Name Freq PRN Reason Stop Dose Admin Clindamycin Phosphate 600 mg/ 50 mls @ 100 mls/hr 07/27/16 21:12 Premix IV 07/27/16 21:41 ONETIME ONE Vancomycin HCl 1 gm/ Sodium 250 mls @ 250 mls/hr 07/27/16 21:12 Chloride IV 07/27/16 22:11 ONETIME ONE Sodium Chloride 10 ml 07/27/16 19:43 07/27/16 21:14 Saline Flush FLUSH 10 ml ASDIRECTED PRN Administration Keep Vein Open Sodium Chloride 2.5 ml 07/27/16 19:43 Saline Flush FLUSH ASDIRECTED PRN Keep Vein Open Sodium Chloride 10 ml 07/27/16 19:43 07/27/16 21:14 Saline Flush FLUSH 10 ml ASDIRECTED PRN Administration Keep Vein Open Sodium Chloride 2.5 ml 07/27/16 19:43 Saline Flush FLUSH ASDIRECTED PRN Keep Vein Open Discontinued Medications Generic Name Dose Route Start Last Admin Trade Name Amadouq PRN Reason Stop Dose Admin Bumetanide 1 mg 07/27/16 19:58 07/27/16 21:11 Bumex IVPUSH 07/27/16 19:59 1 mg ONETIME ONE Administration Levofloxacin 500 mg 07/27/16 21:12 Levaquin PO 07/27/16 21:13 ONETIME ONE Departure - Departure Forms: ED Department Discharge
[2016-07-27] MEDS: Clindamycin Phosphate in D5W 600 MG in Premix Bag 50 BAG IV ONE ×4 (21:28→23:30)
[2016-07-27] MEDS ORDERED: Clindamycin Phosphate in D5W 600 MG in Premix Bag 50 BAG IV SCH ×4 (21:30)
[2016-07-27] MEDS ORDERED: Cefepime 2 GM in Premix Bag 1 BAG IV SCH (21:30)
--- NOTE | 2016-07-27 21:34 | PCM.HP ---
H&P History of Present Illness - General Admit Problem/Dx: Admission Diagnosis/Problem Admission Diagnosis/Problem Pneumonia - History of Present Illness Initial Comments - Free Text/Narative: 70 yo male discharged earlier today after admission for UTI, CHF exacerbation, and acute on chronic kidney disease. He was sent back to the ED tonight as he was noted to have productive cough, and chest congestion. He was noted to have a white cough of 13,720 and CXR reporting bibasilar infiltrates. - Related Data Allergies/Adverse Reactions: Allergies Allergy/AdvReac Type Severity Reaction Status Date / Time ibuprofen Allergy unknown Verified 07/19/16 13:23 lisinopril Allergy unknown Verified 07/19/16 13:23 sulfamethoxazole Allergy unknown Verified 07/19/16 13:23 [From Bactrim] trimethoprim [From Bactrim] Allergy unknown Verified 07/19/16 13:23 Home Medications: Home Meds Allopurinol [Zyloprim] 100 mg PO DAILY 07/01/16 [History] Cinnamon Bark [Cinnamon] 1,000 mg PO DAILY 07/01/16 [History] Digoxin [Digox] 125 mcg PO DAILY 07/01/16 [History] Famotidine 20 mg PO BIDMEALS 07/01/16 [History] Furosemide [Lasix] 160 mg PO DAILY 07/01/16 [History] Gabapentin [Neurontin] 300 mg PO TID 07/01/16 [History] Irbesartan 75 mg PO DAILY 07/01/16 [History] Pravastatin [Pravachol] 10 mg PO BEDTIME 07/01/16 [History] Spironolactone [Aldactone] 25 mg PO DAILY 07/01/16 [History] Potassium Chloride [Klor-Con M20] 40 meq PO DAILY 07/03/16 [History] metFORMIN HCl [Metformin HCl] 500 mg PO BIDMEALS 07/03/16 [History] Bisacodyl [Dulcolax] 10 mg RC Q24H PRN 07/19/16 [History] Carvedilol 6.25 mg PO BIDMEALS 07/19/16 [History] Magnesium Hydroxide [Milk of Magnesia] 30 ml PO Q24H PRN 07/19/16 [History] Venlafaxine [Effexor] 75 mg PO DAILY 07/19/16 [History] Cephalexin [IJD: Cephalexin] 500 mg PO Q6HR 07/28/16 [History] Warfarin [Coumadin] 2.5 mg PO DAILY@1400 07/28/16 [History] Past Medical History Cardiovascular History: Reports: Afib, CAD, Heart Failure, SD, Stents Respiratory History: Reports: COPD Gastrointestinal History: Denies: Cirrhosis Genitourinary History: Reports: Renal disease Musculoskeletal History: Reports: Other (see below) Other Musculoskeletal History: he has a history of abdominal hernias Neurological History: Reports: CVA, Other (see below) Other Neuro History: encephalopathy Psychiatric History: Reports: Dementia, Other (see below) Other Psychiatric History: Restlessness and agitation, disorientation Endocrine/Metabolic History: Reports: Diabetes, type II, Obesity/BMI 30+ Hematologic History: Reports: None Oncologic (Cancer) History: Reports: None - Past Surgical History Cardiovascular Surgical History: Reports: Coronary artery stent Respiratory Surgical History: Reports: None GI Surgical History: Reports: Hernia, abdominal, Hernia repair/other, Other ( see below) Other GI Surgeries/Procedures: Abdominal mesh placement Endocrine Surgical History: Reports: None Neurological Surgical History: Reports: Spinal fusion Musculoskeletal Surgical History: Reports: Other (see below) Other Musculoskeletal Surgeries/Procedures:: 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 Right ankle repair Social & Family History - Family History Family Medical History: Unobtainable Cardiac: Reports: SD Respiratory: Reports: None - Tobacco Use Smoking Status *Q: Former Smoker Years of Tobacco use: 10 Second Hand Smoke Exposure: Yes - Caffeine Use Caffeine Use: Reports: Coffee, Soda - Alcohol Use Days Per Week of Alcohol Use: 0 - Recreational Drug Use Recreational Drug Use: No - Living Situation & Occupation Living situation: Reports: with significant other, other (Children from a previous relationship.) Occupation: disabled (On disability for back pain/fusion. Previously had worked in [employer].) H&P Review of Systems - Review of Systems: Review Of Systems: Unable To Obtain Exam - Exam Exam: See Below - Vital Signs Vital Signs: Last Vital Signs Temp 36.4 C 07/27/16 21:15 Pulse 88 07/27/16 21:15 Resp 27 H 07/27/16 21:15 BP 122/69 07/27/16 21:15 Pulse Ox 93 L 07/27/16 21:15 Weight: 119.5 kg - Exam General: No: mild distress Lungs: Rhonchi (bibasilar) Abdomen: normal bowel sounds, soft Extremities: edema (+1 edema, cast on right leg) - Patient Data Lab Results last 24 hrs: Laboratory Results - last 24 hr 07/27/16 07/27/16 07/27/16 Range/Units 19:20 19:20 19:20 WBC 13.72 H (4.0-11.0) K/uL RBC 4.32 L (4.50-5.90) M/uL Hgb 12.9 L (13.0-17.0) g/dL Hct 40.5 (38.0-50.0) % MCV 93.8 (80.0-98.0) fL MCH 29.9 (27.0-32.0) pg MCHC 31.9 (31.0-37.0) g/dL RDW Std Deviation 56.4 (28.0-62.0) fl RDW Coeff of [place] 17 H (11.0-15.0) % Plt Count 268 (150-400) K/uL MPV 9.90 (7.40-12.00) fL Neut % (Auto) 70.3 (48.0-80.0) % Lymph % (Auto) 17.2 (16.0-40.0) % [place] % (Auto) 9.5 (0.0-15.0) % Eos % (Auto) 2.6 (0.0-7.0) % Baso % (Auto) 0.4 (0.0-1.5) % Neut # (Auto) 9.7 H (1.4-5.7) K/uL Lymph # (Auto) 2.4 (0.6-2.4) K/uL [place] # (Auto) 1.3 H (0.0-0.8) K/uL Eos # (Auto) 0.4 (0.0-0.7) K/uL Baso # (Auto) 0.1 (0.0-0.1) K/uL Nucleated RBC % 0.5 /100WBC Nucleated RBCs # 0 K/uL INR (0.86-1.11) Sodium 139 (136-146) mmol/L Potassium 4.4 (3.5-5.1) mmol/L Chloride 98 (98-110) mmol/L Carbon Dioxide 27 (21-31) mmol/L BUN 36 H (6.0-23.0) mg/dL Creatinine 1.9 H (0.6-1.5) mg/dL Est Cr Clr Drug Dosing 32.34 mL/min Estimated GFR (MDRD) 35.1 ml/min Glucose 173 H (60-110) mg/dL Calcium 9.1 (8.8-10.8) mg/dL Troponin I < 0.10 (0.0-0.29) NG/ML Digoxin (0.8-2.0) ng/mL 07/27/16 07/27/16 Range/Units 19:20 19:20 WBC (4.0-11.0) K/uL RBC (4.50-5.90) M/uL Hgb (13.0-17.0) g/dL Hct (38.0-50.0) % MCV (80.0-98.0) fL MCH (27.0-32.0) pg MCHC (31.0-37.0) g/dL RDW Std Deviation (28.0-62.0) fl RDW Coeff of [place] (11.0-15.0) % Plt Count (150-400) K/uL MPV (7.40-12.00) fL Neut % (Auto) (48.0-80.0) % Lymph % (Auto) (16.0-40.0) % [place] % (Auto) (0.0-15.0) % Eos % (Auto) (0.0-7.0) % Baso % (Auto) (0.0-1.5) % Neut # (Auto) (1.4-5.7) K/uL Lymph # (Auto) (0.6-2.4) K/uL [place] # (Auto) (0.0-0.8) K/uL Eos # (Auto) (0.0-0.7) K/uL Baso # (Auto) (0.0-0.1) K/uL Nucleated RBC % /100WBC Nucleated RBCs # K/uL INR 3.04 H (0.86-1.11) Sodium (136-146) mmol/L Potassium (3.5-5.1) mmol/L Chloride (98-110) mmol/L Carbon Dioxide (21-31) mmol/L BUN (6.0-23.0) mg/dL Creatinine (0.6-1.5) mg/dL Est Cr Clr Drug Dosing mL/min Estimated GFR (MDRD) ml/min Glucose (60-110) mg/dL Calcium (8.8-10.8) mg/dL Troponin I (0.0-0.29) NG/ML Digoxin 1.10 (0.8-2.0) ng/mL Result Diagrams: 07/28/16 05:40 07/28/16 05:40 *Q Meaningful Use (ADM) - VTE *Q VTE Criteria *Q: - Stroke *Q Stroke Criteria *Q: - AMI *Q AMI Criteria *Q: Problem List Initiated/Reviewed/Updated: Yes Orders Last 24hrs: Active Orders 24 hr Category Date Time Status Patient Status [ADT] Routine ADT 07/27/16 21:24 Ordered Antiembolic Devices [RC] PER UNIT ROUTINE Care 07/27/16 21:26 Ordered EKG Documentation Completion [RC] STAT Care 07/27/16 19:43 Active Oxygen Therapy [RC] PRN Care 07/27/16 21:24 Ordered Peripheral IV Care [RC] . DIRECTED Care 07/27/16 19:43 Active Up With Assistance [RC] ASDIRECTED Care 07/27/16 21:24 Ordered VTE/DVT Education [RC] PER UNIT ROUTINE Care 07/27/16 21:24 Ordered Vital Signs [RC] Q4H Care 07/27/16 21:24 Ordered Consult to Speech Language Pathology [MOBILE APPLICATION ARCHITECT Evaluation Cons 07/27/16 21:26 Ordered and Treatment] [CONS] Routine [employer] [employer] Diet [DIET] Diet 07/27/16 Breakfast Ordered Chest 1V Frontal [CR] Stat Exams 07/27/16 19:43 Taken CBC WITH AUTO DIFF [HEME] AM Lab 07/28/16 05:11 Ordered COMPREHENSIVE METABOLIC PN,CMP [CHEM] AM Lab 07/28/16 05:11 Ordered CULTURE BLOOD [BC] Stat Lab 07/27/16 21:12 Ordered CULTURE BLOOD [BC] Stat Lab 07/27/16 21:12 Ordered CULTURE SPUTUM + SMEAR [RM] Stat Lab 07/27/16 21:24 Uncollected INR,PT,PROTHROMBIN TIME [COAG] AM Lab 07/28/16 05:11 Ordered LACTIC ACID,WHOLE BLOOD [BG] Stat Lab 07/27/16 21:11 Ordered Cefepime [Maxipime in D5W 2 GM/50 ML] 2 gm Med 07/27/16 21:30 Ordered Premix Bag 1 bag IV Q8H Ondansetron [Zofran] Med 07/27/16 21:24 Ordered 4 mg IVPUSH Q4H PRN Sodium Chloride 0.9% [Saline Flush] Med 07/27/16 19:43 Active 10 ml FLUSH ASDIRECTED PRN Sodium Chloride 0.9% [Saline Flush] Med 07/27/16 19:43 Active 10 ml FLUSH ASDIRECTED PRN Sodium Chloride 0.9% [Saline Flush] Med 07/27/16 19:43 Active 2.5 ml FLUSH ASDIRECTED PRN Sodium Chloride 0.9% [Saline Flush] Med 07/27/16 19:43 Active 2.5 ml FLUSH ASDIRECTED PRN Vancomycin Pharmacy to Dose [Pharmacy to Dose - Med 07/27/16 21:30 Ordered Vancomycin] 1 dose .XX ASDIRECTED Vancomycin [Vancocin] 1 gm Med 07/27/16 21:12 Active Sodium Chloride 0.9% [Normal Saline] 250 ml IV ONETIME Blood Culture x2 Reflex Set [OM.PC] Stat Oth 07/27/16 21:11 Ordered Peripheral IV Insertion Adult [OM.PC] Stat Oth 07/27/16 19:43 Ordered Sequential Compression Device [OM.PC] Per Unit Routine Oth 07/27/16 21:24 Ordered Medication Orders Vancomycin HCl 1 gm/ Sodium (Chloride) 250 mls @ 250 mls/hr IV ONETIME ONE Stop: 07/27/16 22:11 Cefepime HCl 2 gm/ Premix 50 mls @ 100 mls/hr IV Q8H JAB[facility] Ondansetron HCl (Zofran) 4 mg IVPUSH Q4H PRN PRN Reason: Nausea Sodium Chloride (Saline Flush) 10 ml FLUSH ASDIRECTED PRN PRN Reason: Keep Vein Open Last Admin: 07/27/16 21:14 Dose: 10 ml Sodium Chloride (Saline Flush) 2.5 ml FLUSH ASDIRECTED PRN PRN Reason: Keep Vein Open Sodium Chloride (Saline Flush) 10 ml FLUSH ASDIRECTED PRN PRN Reason: Keep Vein Open Last Admin: 07/27/16 21:14 Dose: 10 ml Sodium Chloride (Saline Flush) 2.5 ml FLUSH ASDIRECTED PRN PRN Reason: Keep Vein Open Vancomycin HCl (Pharmacy To Dose - Vancomycin) 1 dose .XX ASDIRECTED JABIER Assessment/Plan Comment:: 70 yo male admitted for pneumonia. Will treat with broad spectrum antibiotics with VAncomycin, cefepime, and levaquin. I am concerned about possible aspiration. We will consult speech therapy.
[2016-07-27] MEDS ORDERED: Levofloxacin/Dextrose 5%-Water 750 MG in Premix Bag 1 BAG IV ONE (21:43)
[2016-07-27] MEDS: Sodium Chloride 0.9% 2.5 ML Syringe FLUSH PRN ×2 (21:48→21:49)
[2016-07-28] MEDS: Cefepime 2 GM in Premix Bag 1 BAG IV SCH ×4 (01:01→23:54)
[2016-07-28] MEDS: Insulin Aspart 100 Units/ML 3 ML Pen SUBCUT SCH ×3 (08:03→17:52)
--- NOTE | 2016-07-28 10:00 | PCM.PN ---
- General Info Date of Service: 07/28/16 Admission Dx/Problem (Free Text): Admission Diagnosis/Problem Admission Diagnosis/Problem Pneumonia Subjective Update: Patient very sleepy this morning. He did not get any sedatives over the night at the hospital. He has no complaints and has been eating breakfast but falling asleep in between bites. No complaints of pain. Girlfriend bedside states he was sleepy at [place]. Functional Status: Reports: pain controlled, tolerating diet - Review of Systems General: Reports: Weakness, Fatigue. Denies: Fever Pulmonary: Denies: shortness of breath, hemoptysis, wheezing Cardiovascular: Denies: Chest Pain Gastrointestinal: Denies: Abdominal pain Genitourinary: Denies: dysuria Musculoskeletal: Reports: foot pain Neurological: Reports: Confusion. Denies: Dizziness Psychiatric: Reports: confusion - Patient Data Vitals - most recent: Last Vital Signs Temp 36.4 C 07/28/16 07:24 Pulse 90 07/28/16 07:24 Resp 20 07/28/16 07:24 BP 133/69 07/28/16 07:24 Pulse Ox 90 L 07/28/16 07:24 Weight - most recent: 120.5 kg I&O - last 24 hours: Intake & Output 07/27/16 07/28/16 07/28/16 22:59 06:59 14:59 Intake Total 850 Output Total 300 Balance 550 Lab Results last 24 hrs: Laboratory Results - last 24 hr 07/27/16 07/28/16 07/28/16 Range/Units 21:35 05:40 05:40 WBC 11.99 H (4.0-11.0) K/uL RBC 4.10 L (4.50-5.90) M/uL Hgb 12.0 L (13.0-17.0) g/dL Hct 38.6 (38.0-50.0) % MCV 94.1 (80.0-98.0) fL MCH 29.3 (27.0-32.0) pg MCHC 31.1 (31.0-37.0) g/dL RDW Std Deviation 56.8 (28.0-62.0) fl RDW Coeff of [place] 17 H (11.0-15.0) % Plt Count 208 (150-400) K/uL MPV 9.40 (7.40-12.00) fL Neut % (Auto) 72.2 (48.0-80.0) % Lymph % (Auto) 14.8 L (16.0-40.0) % [place] % (Auto) 9.8 (0.0-15.0) % Eos % (Auto) 2.9 (0.0-7.0) % Baso % (Auto) 0.3 (0.0-1.5) % Neut # (Auto) 8.7 H (1.4-5.7) K/uL Lymph # (Auto) 1.8 (0.6-2.4) K/uL [place] # (Auto) 1.2 H (0.0-0.8) K/uL Eos # (Auto) 0.4 (0.0-0.7) K/uL Baso # (Auto) 0.0 (0.0-0.1) K/uL Nucleated RBC % 0.0 /100WBC Nucleated RBCs # 0 K/uL INR 3.11 H (0.86-1.11) Lactate 1.6 (0.20-2.00) mmol/L Sodium (136-146) mmol/L Potassium (3.5-5.1) mmol/L Chloride (98-110) mmol/L Carbon Dioxide (21-31) mmol/L BUN (6.0-23.0) mg/dL Creatinine (0.6-1.5) mg/dL Est Cr Clr Drug Dosing mL/min Estimated GFR (MDRD) ml/min Glucose (60-110) mg/dL Calcium (8.8-10.8) mg/dL Total Bilirubin (0.1-1.5) mg/dL AST (5-40) IU/L ALT (8-54) IU/L Alkaline Phosphatase (40-150) Total Protein (6.0-8.0) g/dL Albumin (3.4-4.8) g/dL Globulin (2.0-3.5) g/dL Albumin/Globulin Ratio (1.3-2.8) 07/28/16 Range/Units 05:40 WBC (4.0-11.0) K/uL RBC (4.50-5.90) M/uL Hgb (13.0-17.0) g/dL Hct (38.0-50.0) % MCV (80.0-98.0) fL MCH (27.0-32.0) pg MCHC (31.0-37.0) g/dL RDW Std Deviation (28.0-62.0) fl RDW Coeff of [place] (11.0-15.0) % Plt Count (150-400) K/uL MPV (7.40-12.00) fL Neut % (Auto) (48.0-80.0) % Lymph % (Auto) (16.0-40.0) % [place] % (Auto) (0.0-15.0) % Eos % (Auto) (0.0-7.0) % Baso % (Auto) (0.0-1.5) % Neut # (Auto) (1.4-5.7) K/uL Lymph # (Auto) (0.6-2.4) K/uL [place] # (Auto) (0.0-0.8) K/uL Eos # (Auto) (0.0-0.7) K/uL Baso # (Auto) (0.0-0.1) K/uL Nucleated RBC % /100WBC Nucleated RBCs # K/uL INR (0.86-1.11) Lactate (0.20-2.00) mmol/L Sodium 140 (136-146) mmol/L Potassium 3.7 (3.5-5.1) mmol/L Chloride 101 (98-110) mmol/L Carbon Dioxide 29 (21-31) mmol/L BUN 36 H (6.0-23.0) mg/dL Creatinine 1.8 H (0.6-1.5) mg/dL Est Cr Clr Drug Dosing 34.14 mL/min Estimated GFR (MDRD) 37.4 ml/min Glucose 140 H (60-110) mg/dL Calcium 9.1 (8.8-10.8) mg/dL Total Bilirubin 1.0 (0.1-1.5) mg/dL AST 21 (5-40) IU/L ALT 15 (8-54) IU/L Alkaline Phosphatase 115 (40-150) Total Protein 6.6 (6.0-8.0) g/dL Albumin 2.7 L (3.4-4.8) g/dL Globulin 3.9 H (2.0-3.5) g/dL Albumin/Globulin Ratio 0.7 L (1.3-2.8) [place] Results last 24 hrs: Microbiology 07/27/16 21:45 Anaerobic Blood Culture - Final Blood - Venous - Lab Draw Med Orders - Current: Current Medications Vancomycin HCl 1.25 gm/ Sodium (Chloride) 250 mls @ 166.667 mls/hr IV Q24H [facility] Cefepime HCl 2 gm/ Premix 50 mls @ 100 mls/hr IV Q8H [facility] Last Admin: 07/28/16 09:32 Dose: 100 mls/hr Insulin Aspart (Novolog) 0 unit SUBCUT TIDAC JABIER PRN Reason: Protocol Last Admin: 07/28/16 08:03 Dose: Not Given Ondansetron HCl (Zofran) 4 mg IVPUSH Q4H PRN PRN Reason: Nausea Sodium Chloride (Saline Flush) 10 ml FLUSH ASDIRECTED PRN PRN Reason: Keep Vein Open Last Admin: 07/27/16 21:14 Dose: 10 ml Sodium Chloride (Saline Flush) 2.5 ml FLUSH ASDIRECTED PRN PRN Reason: Keep Vein Open Last Admin: 07/27/16 21:49 Dose: 2.5 ml Sodium Chloride (Saline Flush) 10 ml FLUSH ASDIRECTED PRN PRN Reason: Keep Vein Open Last Admin: 07/27/16 21:14 Dose: 10 ml Sodium Chloride (Saline Flush) 2.5 ml FLUSH ASDIRECTED PRN PRN Reason: Keep Vein Open Vancomycin HCl (Pharmacy To Dose - Vancomycin) 1 dose .XX ASDIRECTED [facility] Discontinued Medications Bumetanide (Bumex) 1 mg IVPUSH ONETIME ONE Stop: 07/27/16 19:59 Last Admin: 07/27/16 21:11 Dose: 1 mg Furosemide (Lasix) 80 mg PO ONETIME ONE Stop: 07/27/16 21:21 Last Admin: 07/28/16 00:36 Dose: Not Given Clindamycin Phosphate 600 mg/ (Premix) 50 mls @ 100 mls/hr IV ONETIME ONE Stop: 07/27/16 21:41 Last Admin: 07/27/16 23:30 Dose: Not Given Vancomycin HCl 1 gm/ Sodium (Chloride) 250 mls @ 250 mls/hr IV ONETIME ONE Stop: 07/27/16 22:11 Last Infusion: 07/28/16 01:51 Dose: Infused Clindamycin Phosphate 600 mg/ (Premix) 50 mls @ 100 mls/hr IV Q6H [facility]IER Clindamycin Phosphate 600 mg/ (Premix) 50 mls @ 100 mls/hr IV Q8H [facility] Cefepime HCl 2 gm/ Premix 50 mls @ 100 mls/hr IV Q8H [facility] Last Admin: 07/27/16 23:31 Dose: Not Given Levofloxacin/Dextrose 750 mg/ (Premix) 150 mls @ 100 mls/hr IV ONETIME ONE Stop: 07/27/16 23:12 Last Admin: 07/28/16 01:36 Dose: 100 mls/hr Vancomycin HCl 1 gm/ Sodium (Chloride) 250 mls @ 166 mls/hr IV ONETIME ONE Stop: 07/28/16 00:30 Last Infusion: 07/28/16 01:52 Dose: Infused Levofloxacin (Levaquin) 500 mg PO ONETIME ONE Stop: 07/27/16 21:13 Last Admin: 07/27/16 21:44 Dose: Not Given - Exam Quality Assessment: supplemental oxygen, DVT prophylaxis General: cooperative, no acute distress HEENT: Pupils equal, Pupils reactive, EOMI, Mucous membr. moist/pink Neck: supple Lungs: Normal respiratory effort, Crackles, Rhonchi Cardiovascular: Regular Rate, Irregular Rhythm Abdomen: bowel sounds present, soft, no tenderness, no distension Extremities: normal pulses, edema Peripheral Pulses: 2+: radial (L), radial (R), posterior tibial (L), dorsalis pedis (L) Skin: warm, dry, intact Neurological: no new focal deficit Psy/Mental Status: normal affect, normal mood - Problem List & Annotations (1) Chronic renal disease SNOMED Code(s): 459977554 Code(s): N18.9 - CHRONIC KIDNEY DISEASE, UNSPECIFIED Status: Chronic Priority: Medium Current Visit: Yes Qualifiers: Chronic kidney disease stage: unspecified stage Qualified Code(s): N18.9 - Chronic kidney disease, unspecified (2) Pneumonia SNOMED Code(s): 008476393 Code(s): J18.9 - PNEUMONIA, UNSPECIFIED ORGANISM Status: Acute Priority: High Current Visit: Yes Qualifiers: Pneumonia type: aspiration pneumonia Aspiration pneumonia type: due to regurgitated food Laterality: unspecified laterality Lung location: unspecified part of lung Qualified Code(s): J69.0 - Pneumonitis due to inhalation of food and vomit (3) Afib SNOMED Code(s): 41095729 Code(s): I48.91 - UNSPECIFIED ATRIAL FIBRILLATION Status: Chronic Priority: Medium Current Visit: No Qualifiers: Atrial fibrillation type: chronic Qualified Code(s): I48.2 - Chronic atrial fibrillation (4) CAD (coronary artery disease) SNOMED Code(s): 60250443 Code(s): I25.10 - ATHSCL HEART DISEASE OF [place] CORONARY ARTERY W/O ANG PCTRS Status: Chronic Priority: Medium Current Visit: No Qualifiers: Coronary Disease-Associated Artery/Lesion type: unspecified vessel or lesion type [place] vs. transplanted heart: unspecified whether [place] or transplanted heart Associated angina: without angina Qualified Code(s): I25.10 - Atherosclerotic heart disease of [place] coronary artery without angina pectoris (5) COPD (chronic obstructive pulmonary disease) SNOMED Code(s): 79551466 Code(s): J44.9 - CHRONIC OBSTRUCTIVE PULMONARY DISEASE, UNSPECIFIED Status : Chronic Priority: Medium Current Visit: No Qualifiers: COPD type: unspecified COPD Qualified Code(s): J44.9 - Chronic obstructive pulmonary disease, unspecified (6) Diabetes mellitus SNOMED Code(s): 94685563 Code(s): E11.9 - TYPE 2 DIABETES MELLITUS WITHOUT COMPLICATIONS Status: Chronic Priority: Medium Current Visit: No Qualifiers: Diabetes mellitus type: type 2 Diabetes mellitus complication status: with skin complications Diabetes mellitus complication detail: with other skin complication Diabetes mellitus fdc insulin use: with rodent exterminator use Qualified Code(s): E11.628 - Type 2 diabetes mellitus with other skin complications; Z79.4 - 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 of insulin (7) History of CVA (cerebrovascular accident) SNOMED Code(s): 761487245 Code(s): Z86.73 - PRSNL HX OF TIA (TIA), AND CEREB INFRC W/O RESID DEFICITS Status: Chronic Priority: Low Current Visit: No (8) Systolic CHF SNOMED Code(s): 836114871 Code(s): I50.20 - UNSPECIFIED SYSTOLIC (CONGESTIVE) HEART FAILURE Status: Chronic Priority: High Current Visit: Yes Qualifiers: Congestive heart failure chronicity: chronic Qualified Code(s): I50.22 - Chronic systolic (congestive) heart failure - Problem List Review Problem List Initiated/Reviewed/Updated: Yes - My Orders Last 24 Hours: My Active Orders 07/28/16 07:28 CULTURE URINE [RM] Routine UA W/MICROSCOPIC [URIN] Routine 07/28/16 07:29 Communication Order [RC] ROUTINE - Plan Plan:: 70 yo male admitted 07/27/16 for pneumonia with pmh of CHF/htn, chronic kidney disease, a-fib rate controlled, and type II diabetes. Pneumonia: White count decrease from 14 to 12. Will gisselle. broad spectrum abx today while waiting for sputum cultures. Day 2 Vanc, Cefepime, and Levaquin. Most likely aspiration. Speech this morning assessed patient and recommended modified barium swallow which we will do today. CHF/htn: On exam patient appears to be still volume up, will give 80mg Lasix IV this am and give home 80 mg Lasix PO tonight. Chronic kidney disease: Cr 1.8 this am baseline 1.6. I don't believe patient received his two doses of 80 mg Lasix yesterday will give one IV Lasix today in place of one oral lasix. A-fib rate controllled: INR 3.11 today. We decreased his daily warfarin from 3.0 to 2.5 on discharge but trend seems to be increasing will decrease to 2 mg warfarin today. Diabetes: ISS VTE: On warfarin, SCD. Dispo: 2-3 days.
[2016-07-28] MEDS ORDERED: Furosemide 40 MG/4 ML VIAL IVPUSH ONE (10:53)
[2016-07-28] MEDS ORDERED: Bisacodyl 10 MG Supp RECTAL PRN (10:53)
[2016-07-28] MEDS ORDERED: Magnesium Hydroxide 400 MG/5 ML Susp 30 ML Cup PO PRN (10:56)
[2016-07-28] MEDS: Carvedilol 6.25 MG Tab PO SCH ×2 (11:41→17:37)
[2016-07-28] MEDS: Spironolactone 25 MG Tab PO SCH (11:42)
[2016-07-28] MEDS: Irbesartan 150 MG Tab PO SCH (11:42)
[2016-07-28] MEDS: Venlafaxine 37.5 MG Tab PO SCH (11:42)
[2016-07-28] MEDS: Potassium Chloride 20 MEQ Tab.ER PO SCH (11:43)
[2016-07-28] MEDS: Digoxin 125 MCG Tab PO SCH (11:43)
--- NOTE | 2016-07-28 14:00 | CR ---
EXAM DATE: 07/27/16 PATIENT'S AGE: 70 Patient: COLEMAN CLIFFORD Facility: [place], [place] Site . Site : 1945 Study: XRay Chest [id number]/23/2017 8:00:32 PM Ordering Physician: Doctor Prieto Final Report: Indication: Shortness of breath Technique: Chest 1 view. Comparison: July 22, 2016 Findings/impression: Stable cardiomegaly. New patchy opacities at both lung bases may represent atelectasis or infection. No pneumothorax or significant effusion. Osseous structures are intact. Dictated by Claire Du MD @ Jul 27 2016 8:00PM (Electronic Signature) Report Signed by Proxy and Original Signed Document filed in the Medical Record. MTDD
[2016-07-28] MEDS: Gabapentin 300 MG Cap PO SCH ×2 (15:55→21:58)
--- NOTE | 2016-07-28 16:50 | CR ---
EXAMINATION: Oropharyngeal video swallow study. HISTORY: Aspiration COMPARISON: None TECHNIQUE: Lateral images obtained, speech pathologist present, various barium consistencies provide d. FINDINGS/IMPRESSION: There is adequate bolus formation and transfer. Epiglottic inversion and trache al elevation is noted. There is at least deep penetration noted with the thinner consistencies with mild aspiration noted of the liquids. Applesauce and thick consistencies were better tolerated.
[2016-07-28] MEDS: Furosemide 80 MG Tab PO SCH (17:37)
[2016-07-28] MEDS: Famotidine 20 MG Tab PO SCH (17:37)
--- NOTE | 2016-07-28 19:02 | PCM.SN ---
- Free Text/Narrative Note: Speech reported that patient did not tolerate modified barium swallow. They recommend honey thick liquids by spoon and purred diet.
[2016-07-28] MEDS: Pravastatin 40 MG Tab PO SCH (21:57)
[2016-07-29] MEDS: LORazepam 2 MG/ML MDV IVPUSH PRN (01:02)
[2016-07-29] MEDS: Gabapentin 300 MG Cap PO SCH ×3 (06:13→22:04)
[2016-07-29] MEDS: Insulin Aspart 100 Units/ML 3 ML Pen SUBCUT SCH ×3 (06:35→17:11)
[2016-07-29] MEDS: Irbesartan 150 MG Tab PO SCH (08:20)
[2016-07-29] MEDS: Cefepime 2 GM in Premix Bag 1 BAG IV SCH ×2 (08:20→21:42)
[2016-07-29] MEDS: Carvedilol 6.25 MG Tab PO SCH ×2 (08:21→17:10)
[2016-07-29] MEDS: Famotidine 20 MG Tab PO SCH ×3 (08:21→18:41)
[2016-07-29] MEDS: Furosemide 80 MG Tab PO SCH ×2 (08:22→13:49)
[2016-07-29] MEDS: Venlafaxine 37.5 MG Tab PO SCH (08:22)
[2016-07-29] MEDS: Potassium Chloride 20 MEQ Tab.ER PO SCH (08:22)
[2016-07-29] MEDS: Allopurinol 100 MG Tab PO SCH (08:22)
[2016-07-29] MEDS: Digoxin 125 MCG Tab PO SCH (08:22)
[2016-07-29] MEDS: Spironolactone 25 MG Tab PO SCH (08:22)
--- NOTE | 2016-07-29 13:36 | PCM.PN ---
- General Info Date of Service: 07/29/16 Subjective Update: nursing staff reports that he wakes up and can eat but goes back to sleep. - Patient Data Vitals - most recent: Last Vital Signs Temp 98.3 F 07/29/16 11:44 Pulse 52 L 07/29/16 11:44 Resp 16 07/29/16 11:44 BP 118/49 L 07/29/16 11:44 Pulse Ox 96 07/29/16 11:44 Weight - most recent: 119.5 kg I&O - last 24 hours: Intake & Output 07/28/16 07/29/16 07/29/16 22:59 06:59 14:59 Intake Total 240 400 50 Output Total 725 Balance -485 400 50 Lab Results last 24 hrs: Laboratory Results - last 24 hr 07/28/16 07/29/16 07/29/16 Range/Units 17:17 06:10 06:10 WBC 12.24 H (4.0-11.0) K/uL RBC 4.16 L (4.50-5.90) M/uL Hgb 12.2 L (13.0-17.0) g/dL Hct 40.4 (38.0-50.0) % MCV 97.1 (80.0-98.0) fL MCH 29.3 (27.0-32.0) pg MCHC 30.2 L (31.0-37.0) g/dL RDW Std Deviation 59.1 (28.0-62.0) fl RDW Coeff of [place] 17 H (11.0-15.0) % Plt Count 213 (150-400) K/uL MPV 9.10 (7.40-12.00) fL Neut % (Auto) 69.1 (48.0-80.0) % Lymph % (Auto) 17.1 (16.0-40.0) % [place] % (Auto) 8.2 (0.0-15.0) % Eos % (Auto) 5.2 (0.0-7.0) % Baso % (Auto) 0.4 (0.0-1.5) % Neut # (Auto) 8.5 H (1.4-5.7) K/uL Lymph # (Auto) 2.1 (0.6-2.4) K/uL [place] # (Auto) 1.0 H (0.0-0.8) K/uL Eos # (Auto) 0.6 (0.0-0.7) K/uL Baso # (Auto) 0.1 (0.0-0.1) K/uL Nucleated RBC % 0.0 /100WBC Nucleated RBCs # 0 K/uL INR 4.68 H (0.86-1.11) Sodium (136-146) mmol/L Potassium (3.5-5.1) mmol/L Chloride (98-110) mmol/L Carbon Dioxide (21-31) mmol/L BUN (6.0-23.0) mg/dL Creatinine (0.6-1.5) mg/dL Est Cr Clr Drug Dosing mL/min Estimated GFR (MDRD) ml/min Glucose (60-110) mg/dL POC Glucose 138 H (60-110) mg/dL Calcium (8.8-10.8) mg/dL 07/29/16 07/29/16 07/29/16 Range/Units 06:10 06:16 11:49 WBC (4.0-11.0) K/uL RBC (4.50-5.90) M/uL Hgb (13.0-17.0) g/dL Hct (38.0-50.0) % MCV (80.0-98.0) fL MCH (27.0-32.0) pg MCHC (31.0-37.0) g/dL RDW Std Deviation (28.0-62.0) fl RDW Coeff of [place] (11.0-15.0) % Plt Count (150-400) K/uL MPV (7.40-12.00) fL Neut % (Auto) (48.0-80.0) % Lymph % (Auto) (16.0-40.0) % [place] % (Auto) (0.0-15.0) % Eos % (Auto) (0.0-7.0) % Baso % (Auto) (0.0-1.5) % Neut # (Auto) (1.4-5.7) K/uL Lymph # (Auto) (0.6-2.4) K/uL [place] # (Auto) (0.0-0.8) K/uL Eos # (Auto) (0.0-0.7) K/uL Baso # (Auto) (0.0-0.1) K/uL Nucleated RBC % /100WBC Nucleated RBCs # K/uL INR (0.86-1.11) Sodium 146 (136-146) mmol/L Potassium 4.6 (3.5-5.1) mmol/L Chloride 102 (98-110) mmol/L Carbon Dioxide 28 (21-31) mmol/L BUN 34 H (6.0-23.0) mg/dL Creatinine 1.9 H (0.6-1.5) mg/dL Est Cr Clr Drug Dosing 32.34 mL/min Estimated GFR (MDRD) 35.1 ml/min Glucose 135 H (60-110) mg/dL POC Glucose 134 H 142 H (60-110) mg/dL Calcium 9.2 (8.8-10.8) mg/dL Jerome Results last 24 hrs: Microbiology 07/27/16 21:45 Aerobic Blood Culture - Preliminary Blood - Venous - Lab Draw NO GROWTH AFTER 1 DAY Anaerobic Blood Culture - Final 07/27/16 21:25 Aerobic Blood Culture - Preliminary Blood - Venous NO GROWTH AFTER 1 DAY Anaerobic Blood Culture - Preliminary NO GROWTH AFTER 1 DAY Med Orders - Current: Current Medications Albuterol/Ipratropium (Duoneb 3.0-0.5 Mg/3 Ml) 3 ml NEB Q4HRRT [facility] Allopurinol (Zyloprim) 100 mg PO DAILY [facility] Last Admin: 07/29/16 08:22 Dose: 100 mg Bisacodyl (Dulcolax) 10 mg RECTAL Q24H PRN PRN Reason: Constipation Carvedilol (Coreg) 6.25 mg PO BIDMEALS [facility] Last Admin: 07/29/16 08:21 Dose: 6.25 mg Digoxin (Lanoxin) 125 mcg PO DAILY [facility] Last Admin: 07/29/16 08:22 Dose: 125 mcg Famotidine (Pepcid) 20 mg PO BIDMEALS [facility] Last Admin: 07/29/16 08:21 Dose: 20 mg Furosemide (Lasix) 80 mg PO BIDDIURETIC [facility] Last Admin: 07/29/16 08:22 Dose: 80 mg Gabapentin (Neurontin) 300 mg PO TID [facility] Last Admin: 07/29/16 06:13 Dose: 300 mg Vancomycin HCl 1.25 gm/ Sodium (Chloride) 250 mls @ 166.667 mls/hr IV Q24H [facility] Last Admin: 07/28/16 22:08 Dose: 166.667 mls/hr Cefepime HCl 2 gm/ Premix 50 mls @ 100 mls/hr IV Q12H [facility] Insulin Aspart (Novolog) 0 unit SUBCUT TIDAC [facility] PRN Reason: Protocol Last Admin: 07/29/16 11:51 Dose: Not Given Irbesartan (Avapro) 75 mg PO DAILY [facility] Last Admin: 07/29/16 08:20 Dose: 75 mg Lorazepam (Ativan) 0.5 mg IVPUSH Q4H PRN PRN Reason: Agitation Last Admin: 07/29/16 01:02 Dose: 0.5 mg Magnesium Hydroxide (Milk Of Magnesia) 30 ml PO Q24H PRN PRN Reason: Constipation Ondansetron HCl (Zofran) 4 mg IVPUSH Q4H PRN PRN Reason: Nausea Potassium Chloride (Klor-Con M20) 40 meq PO DAILY [facility] Last Admin: 07/29/16 08:22 Dose: 40 meq Pravastatin Sodium (Pravachol) 10 mg PO BEDTIME [facility] Last Admin: 07/28/16 21:57 Dose: 10 mg Sodium Chloride (Saline Flush) 10 ml FLUSH ASDIRECTED PRN PRN Reason: Keep Vein Open Last Admin: 07/27/16 21:14 Dose: 10 ml Sodium Chloride (Saline Flush) 2.5 ml FLUSH ASDIRECTED PRN PRN Reason: Keep Vein Open Last Admin: 07/27/16 21:49 Dose: 2.5 ml Sodium Chloride (Saline Flush) 10 ml FLUSH ASDIRECTED PRN PRN Reason: Keep Vein Open Last Admin: 07/27/16 21:14 Dose: 10 ml Sodium Chloride (Saline Flush) 2.5 ml FLUSH ASDIRECTED PRN PRN Reason: Keep Vein Open Spironolactone (Aldactone) 25 mg PO DAILY [facility] Last Admin: 07/29/16 08:22 Dose: 25 mg Vancomycin HCl (Pharmacy To Dose - Vancomycin) 1 dose .XX ASDIRECTED [facility] Venlafaxine HCl (Effexor) 75 mg PO DAILY [facility] Last Admin: 07/29/16 08:22 Dose: 75 mg Warfarin Sodium (Coumadin Ask) 1 each PO ONETIME [facility] Discontinued Medications Bumetanide (Bumex) 1 mg IVPUSH ONETIME ONE Stop: 07/27/16 19:59 Last Admin: 07/27/16 21:11 Dose: 1 mg Furosemide (Lasix) 80 mg PO ONETIME ONE Stop: 07/27/16 21:21 Last Admin: 07/28/16 00:36 Dose: Not Given Furosemide (Lasix) 80 mg IVPUSH NOW ONE Stop: 07/28/16 10:54 Last Admin: 07/28/16 11:41 Dose: 80 mg Clindamycin Phosphate 600 mg/ (Premix) 50 mls @ 100 mls/hr IV ONETIME ONE Stop: 07/27/16 21:41 Last Admin: 07/27/16 23:30 Dose: Not Given Vancomycin HCl 1 gm/ Sodium (Chloride) 250 mls @ 250 mls/hr IV ONETIME ONE Stop: 07/27/16 22:11 Last Infusion: 07/28/16 01:51 Dose: Infused Clindamycin Phosphate 600 mg/ (Premix) 50 mls @ 100 mls/hr IV Q6H [facility] Clindamycin Phosphate 600 mg/ (Premix) 50 mls @ 100 mls/hr IV Q8H [facility] Cefepime HCl 2 gm/ Premix 50 mls @ 100 mls/hr IV Q8H [facility] Last Admin: 07/27/16 23:31 Dose: Not Given Levofloxacin/Dextrose 750 mg/ (Premix) 150 mls @ 100 mls/hr IV ONETIME ONE Stop: 07/27/16 23:12 Last Admin: 07/28/16 01:36 Dose: 100 mls/hr Vancomycin HCl 1 gm/ Sodium (Chloride) 250 mls @ 166 mls/hr IV ONETIME ONE Stop: 07/28/16 00:30 Last Infusion: 07/28/16 01:52 Dose: Infused Cefepime HCl 2 gm/ Premix 50 mls @ 100 mls/hr IV Q8H [facility] Last Admin: 07/29/16 08:20 Dose: 100 mls/hr Levofloxacin (Levaquin) 500 mg PO ONETIME ONE Stop: 07/27/16 21:13 Last Admin: 07/27/16 21:44 Dose: Not Given Warfarin Sodium (Coumadin Ask) 1 each PO ONETIME ONE Stop: 07/28/16 10:52 Last Admin: 07/28/16 18:16 Dose: Not Given Warfarin Sodium (Coumadin) 2 mg PO DAILY@1400 [facility] - Exam General: lethargic Lungs: Other (increase in expiratory time; diffuse coarse rhonchi; increased work of breathing.) Cardiovascular: Regular Rate, Regular Rhythm, Other (heart sounds obscured by respiratory noise) Extremities: other (RLE cast below the knee) - Problem List & Annotations (1) Aspiration into respiratory tract SNOMED Code(s): 911343427 Code(s): T17.908A - UNSP FB IN RESP TRACT, PART UNSP CAUSING OTH INJURY, INIT Status: Acute Current Visit: Yes (2) Dementia SNOMED Code(s): 84899804 Code(s): F03.90 - UNSPECIFIED DEMENTIA WITHOUT BEHAVIORAL DISTURBANCE Status: Acute Current Visit: Yes (3) Pneumonia SNOMED Code(s): 204001713 Code(s): J18.9 - PNEUMONIA, UNSPECIFIED ORGANISM Status: Acute Priority: High Current Visit: Yes Qualifiers: Pneumonia type: aspiration pneumonia Aspiration pneumonia type: due to regurgitated food Laterality: unspecified laterality Lung location: unspecified part of lung Qualified Code(s): J69.0 - Pneumonitis due to inhalation of food and vomit - Problem List Review Problem List Initiated/Reviewed/Updated: Yes - My Orders Last 24 Hours: My Active Orders 07/28/16 23:57 LORazepam [Ativan] 0.5 mg IVPUSH Q4H PRN 07/29/16 13:24 RT Aerosol Therapy [RC] ASDIRECTED ABG [BLOOD GAS ARTERIAL] [BG] Stat 07/29/16 13:28 Aspiration Precautions [RC] ASDIRECTED 07/29/16 13:30 Albuterol/Ipratropium [DuoNeb 3.0-0.5 MG/3 ML] 3 ml NEB Q4H 07/30/16 05:11 B-TYPE NATRIURETIC PEPTIDE,BNP [CHEM] AM 07/31/16 08:00 Echo 2D wo Cont [US] Urgent - Plan Plan:: 70 yo male admitted for pneumonia. Will treat with broad spectrum antibiotics with VAncomycin, cefepime, and levaquin. I am concerned about possible aspiration. We will consult speech therapy. 07/29/2016: Need to discuss code status with next of kin. add duonebs aspiration precautions on pureed diet with nectar liquids; see barium swallow report abg cxr in am Lee Diaz MD
[2016-07-29] MEDS: Albuterol/Ipratropium 3.0-0.5 MG/3 ML Neb Soln NEB SCH ×4 (13:49→23:21)
[2016-07-29] MEDS ORDERED: Warfarin 2 MG Tab PO SCH (14:00)
--- NOTE | 2016-07-29 15:35 | PCM.SN ---
- Free Text/Narrative Note: CAlled by nursing after 3 unsuccessful attempts at blood gas. Rt radial artery was palpated, 0.75mL of dark arterial pulsing blood was obtained.
--- NOTE | 2016-07-29 16:03 | PCM.SN ---
- Free Text/Narrative Note: I reviewed his ABG s. I discussed his diagnosis and prognosis with family ( daughter, signficant other) and decided on DNR/ DNR level III status. Lee Diaz MD
[2016-07-29] MEDS ORDERED: Sodium Chloride 0.9% 1,000 ML IV ONE (21:39)
[2016-07-29] MEDS: Pravastatin 40 MG Tab PO SCH (21:42)
[2016-07-30] MEDS: Albuterol/Ipratropium 3.0-0.5 MG/3 ML Neb Soln NEB SCH ×6 (01:47→22:00)
[2016-07-30] MEDS: Gabapentin 300 MG Cap PO SCH ×3 (06:39→21:03)
[2016-07-30] MEDS: Insulin Aspart 100 Units/ML 3 ML Pen SUBCUT SCH ×3 (06:40→16:30)
[2016-07-30] MEDS: Potassium Chloride 20 MEQ Tab.ER PO SCH (08:00)
[2016-07-30] MEDS: Allopurinol 100 MG Tab PO SCH (08:01)
[2016-07-30] MEDS: Famotidine 20 MG Tab PO SCH ×2 (08:01→16:23)
[2016-07-30] MEDS: Venlafaxine 37.5 MG Tab PO SCH (08:01)
[2016-07-30] MEDS: Furosemide 80 MG Tab PO SCH ×2 (08:01→13:37)
[2016-07-30] MEDS: Spironolactone 25 MG Tab PO SCH (08:01)
[2016-07-30] MEDS: Digoxin 125 MCG Tab PO SCH (08:01)
[2016-07-30] MEDS: Carvedilol 6.25 MG Tab PO SCH ×2 (08:02→16:28)
[2016-07-30] MEDS: Irbesartan 150 MG Tab PO SCH (08:03)
[2016-07-30] MEDS: Cefepime 2 GM in Premix Bag 1 BAG IV SCH ×2 (08:06→19:56)
--- NOTE | 2016-07-30 13:50 | PCM.PN ---
- General Info Date of Service: 07/30/16 - Review of Systems Systems Review Comment:: family reports that he spoke a little bit this am and he ate some food. - Patient Data Vitals - most recent: Last Vital Signs Temp 97.3 F 07/30/16 11:37 Pulse 84 07/30/16 11:37 Resp 22 H 07/30/16 11:37 BP 133/66 07/30/16 11:37 Pulse Ox 90 L 07/30/16 11:37 Weight - most recent: 119.5 kg I&O - last 24 hours: Intake & Output 07/29/16 07/30/16 07/30/16 22:59 06:59 14:59 Intake Total 1110 400 Balance 1110 400 Lab Results last 24 hrs: Laboratory Results - last 24 hr 07/29/16 07/30/16 07/30/16 Range/Units 15:26 06:39 06:39 WBC 11.68 H (4.0-11.0) K/uL RBC 3.91 L (4.50-5.90) M/uL Hgb 11.8 L (13.0-17.0) g/dL Hct 37.9 L (38.0-50.0) % MCV 96.9 (80.0-98.0) fL MCH 30.2 (27.0-32.0) pg MCHC 31.1 (31.0-37.0) g/dL RDW Std Deviation 59.6 (28.0-62.0) fl RDW Coeff of [place] 17 H (11.0-15.0) % Plt Count 214 (150-400) K/uL MPV 9.70 (7.40-12.00) fL Neut % (Auto) 69.5 (48.0-80.0) % Lymph % (Auto) 15.6 L (16.0-40.0) % [place] % (Auto) 9.5 (0.0-15.0) % Eos % (Auto) 5.1 (0.0-7.0) % Baso % (Auto) 0.3 (0.0-1.5) % Neut # (Auto) 8.1 H (1.4-5.7) K/uL Lymph # (Auto) 1.8 (0.6-2.4) K/uL [place] # (Auto) 1.1 H (0.0-0.8) K/uL Eos # (Auto) 0.6 (0.0-0.7) K/uL Baso # (Auto) 0.0 (0.0-0.1) K/uL Nucleated RBC % 0.0 /100WBC Nucleated RBCs # 0 K/uL INR 6.18 H (0.86-1.11) ABG pH 7.457 H (7.35-7.45) ABG pCO2 44 (35-45) mmHG ABG pO2 64 L (75-100) mmHG ABG HCO3 31 H (22-26) mEq/L ABG Total CO2 27.9 ABG Base Excess 6.2 H (-2.0-2.0) Sodium (136-146) mmol/L Potassium (3.5-5.1) mmol/L Chloride (98-110) mmol/L Carbon Dioxide (21-31) mmol/L BUN (6.0-23.0) mg/dL Creatinine (0.6-1.5) mg/dL Est Cr Clr Drug Dosing mL/min Estimated GFR (MDRD) ml/min Glucose (60-110) mg/dL POC Glucose (60-110) mg/dL Calcium (8.8-10.8) mg/dL B-Natriuretic Peptide (<100) PG/ML 07/30/16 07/30/16 07/30/16 Range/Units 06:39 06:39 11:27 WBC (4.0-11.0) K/uL RBC (4.50-5.90) M/uL Hgb (13.0-17.0) g/dL Hct (38.0-50.0) % MCV (80.0-98.0) fL MCH (27.0-32.0) pg MCHC (31.0-37.0) g/dL RDW Std Deviation (28.0-62.0) fl RDW Coeff of [place] (11.0-15.0) % Plt Count (150-400) K/uL MPV (7.40-12.00) fL Neut % (Auto) (48.0-80.0) % Lymph % (Auto) (16.0-40.0) % [place] % (Auto) (0.0-15.0) % Eos % (Auto) (0.0-7.0) % Baso % (Auto) (0.0-1.5) % Neut # (Auto) (1.4-5.7) K/uL Lymph # (Auto) (0.6-2.4) K/uL [place] # (Auto) (0.0-0.8) K/uL Eos # (Auto) (0.0-0.7) K/uL Baso # (Auto) (0.0-0.1) K/uL Nucleated RBC % /100WBC Nucleated RBCs # K/uL INR (0.86-1.11) ABG pH (7.35-7.45) ABG pCO2 (35-45) mmHG ABG pO2 (75-100) mmHG ABG HCO3 (22-26) mEq/L ABG Total CO2 ABG Base Excess (-2.0-2.0) Sodium 146 (136-146) mmol/L Potassium 4.1 (3.5-5.1) mmol/L Chloride 106 (98-110) mmol/L Carbon Dioxide 26 (21-31) mmol/L BUN 35 H (6.0-23.0) mg/dL Creatinine 2.1 H (0.6-1.5) mg/dL Est Cr Clr Drug Dosing 29.26 mL/min Estimated GFR (MDRD) 31.3 ml/min Glucose 119 H (60-110) mg/dL POC Glucose 137 H (60-110) mg/dL Calcium 8.4 L (8.8-10.8) mg/dL B-Natriuretic Peptide 126 H (<100) PG/ML Jerome Results last 24 hrs: Microbiology 07/28/16 10:10 Urine Culture - Final Urine, Catheterized No Growth 07/27/16 21:45 Aerobic Blood Culture - Preliminary Blood - Venous - Lab Draw NO GROWTH AFTER 2 DAYS Anaerobic Blood Culture - Final 07/27/16 21:25 Aerobic Blood Culture - Preliminary Blood - Venous NO GROWTH AFTER 2 DAYS Anaerobic Blood Culture - Preliminary NO GROWTH AFTER 2 DAYS Med Orders - Current: Current Medications Albuterol/Ipratropium (Duoneb 3.0-0.5 Mg/3 Ml) 3 ml NEB Q4HRRT [facility] Last Admin: 07/30/16 13:43 Dose: 3 ml Allopurinol (Zyloprim) 100 mg PO DAILY [facility] Last Admin: 07/30/16 08:01 Dose: 100 mg Bisacodyl (Dulcolax) 10 mg RECTAL Q24H PRN PRN Reason: Constipation Carvedilol (Coreg) 6.25 mg PO BIDMEALS [facility] Last Admin: 07/30/16 08:02 Dose: Not Given Digoxin (Lanoxin) 125 mcg PO DAILY [facility] Last Admin: 07/30/16 08:01 Dose: 125 mcg Famotidine (Pepcid) 20 mg PO BIDMEALS [facility] Last Admin: 07/30/16 08:01 Dose: 20 mg Furosemide (Lasix) 80 mg PO BIDDIURETIC [facility] Last Admin: 07/30/16 13:37 Dose: 80 mg Gabapentin (Neurontin) 300 mg PO TID [facility] Last Admin: 07/30/16 13:37 Dose: 300 mg Vancomycin HCl 1.25 gm/ Sodium (Chloride) 250 mls @ 166.667 mls/hr IV Q24H [facility] Last Admin: 07/29/16 23:08 Dose: 166.667 mls/hr Cefepime HCl 2 gm/ Premix 50 mls @ 100 mls/hr IV Q12H [facility] Last Admin: 07/30/16 08:06 Dose: 100 mls/hr Insulin Aspart (Novolog) 0 unit SUBCUT TIDAC [facility] PRN Reason: Protocol Last Admin: 07/30/16 11:41 Dose: Not Given Irbesartan (Avapro) 75 mg PO DAILY [facility] Last Admin: 07/30/16 08:03 Dose: Not Given Lorazepam (Ativan) 0.5 mg IVPUSH Q4H PRN PRN Reason: Agitation Last Admin: 07/29/16 01:02 Dose: 0.5 mg Magnesium Hydroxide (Milk Of Magnesia) 30 ml PO Q24H PRN PRN Reason: Constipation Ondansetron HCl (Zofran) 4 mg IVPUSH Q4H PRN PRN Reason: Nausea Potassium Chloride (Klor-Con M20) 40 meq PO DAILY [facility] Last Admin: 07/30/16 08:00 Dose: 40 meq Pravastatin Sodium (Pravachol) 10 mg PO BEDTIME [facility] Last Admin: 07/29/16 21:42 Dose: Not Given Sodium Chloride (Saline Flush) 10 ml FLUSH ASDIRECTED PRN PRN Reason: Keep Vein Open Last Admin: 07/27/16 21:14 Dose: 10 ml Sodium Chloride (Saline Flush) 2.5 ml FLUSH ASDIRECTED PRN PRN Reason: Keep Vein Open Last Admin: 07/27/16 21:49 Dose: 2.5 ml Sodium Chloride (Saline Flush) 10 ml FLUSH ASDIRECTED PRN PRN Reason: Keep Vein Open Last Admin: 07/27/16 21:14 Dose: 10 ml Sodium Chloride (Saline Flush) 2.5 ml FLUSH ASDIRECTED PRN PRN Reason: Keep Vein Open Spironolactone (Aldactone) 25 mg PO DAILY [facility] Last Admin: 07/30/16 08:01 Dose: 25 mg Vancomycin HCl (Pharmacy To Dose - Vancomycin) 1 dose .XX ASDIRECTED [facility] Venlafaxine HCl (Effexor) 75 mg PO DAILY [facility] Last Admin: 07/30/16 08:01 Dose: 75 mg Discontinued Medications Bumetanide (Bumex) 1 mg IVPUSH ONETIME ONE Stop: 07/27/16 19:59 Last Admin: 07/27/16 21:11 Dose: 1 mg Furosemide (Lasix) 80 mg PO ONETIME ONE Stop: 07/27/16 21:21 Last Admin: 07/28/16 00:36 Dose: Not Given Furosemide (Lasix) 80 mg IVPUSH NOW ONE Stop: 07/28/16 10:54 Last Admin: 07/28/16 11:41 Dose: 80 mg Clindamycin Phosphate 600 mg/ (Premix) 50 mls @ 100 mls/hr IV ONETIME ONE Stop: 07/27/16 21:41 Last Admin: 07/27/16 23:30 Dose: Not Given Vancomycin HCl 1 gm/ Sodium (Chloride) 250 mls @ 250 mls/hr IV ONETIME ONE Stop: 07/27/16 22:11 Last Infusion: 07/28/16 01:51 Dose: Infused Clindamycin Phosphate 600 mg/ (Premix) 50 mls @ 100 mls/hr IV Q6H [facility] Clindamycin Phosphate 600 mg/ (Premix) 50 mls @ 100 mls/hr IV Q8H [facility] Cefepime HCl 2 gm/ Premix 50 mls @ 100 mls/hr IV Q8H [facility] Last Admin: 07/27/16 23:31 Dose: Not Given Levofloxacin/Dextrose 750 mg/ (Premix) 150 mls @ 100 mls/hr IV ONETIME ONE Stop: 07/27/16 23:12 Last Admin: 07/28/16 01:36 Dose: 100 mls/hr Vancomycin HCl 1 gm/ Sodium (Chloride) 250 mls @ 166 mls/hr IV ONETIME ONE Stop: 07/28/16 00:30 Last Infusion: 07/28/16 01:52 Dose: Infused Cefepime HCl 2 gm/ Premix 50 mls @ 100 mls/hr IV Q8H [facility] Last Admin: 07/29/16 08:20 Dose: 100 mls/hr Sodium Chloride (Normal Saline) 2,390 mls @ 999 mls/hr IV ASDIRECTED ONE Stop: 07/30/16 00:02 Last Admin: 07/29/16 21:54 Dose: 999 mls/hr Levofloxacin (Levaquin) 500 mg PO ONETIME ONE Stop: 07/27/16 21:13 Last Admin: 07/27/16 21:44 Dose: Not Given Warfarin Sodium (Coumadin Ask) 1 each PO ONETIME ONE Stop: 07/28/16 10:52 Last Admin: 07/28/16 18:16 Dose: Not Given Warfarin Sodium (Coumadin Ask) 1 each PO ONETIME [facility] Warfarin Sodium (Coumadin) 2 mg PO DAILY@1400 [facility] - Exam General: lethargic Lungs: Rales, Rhonchi, Other (marked sonorous breathing) Cardiovascular: Other (heart sound obscured by respiratory noise ) - Problem List & Annotations (1) Aspiration into respiratory tract SNOMED Code(s): 937627874 Code(s): T17.908A - UNSP FB IN RESP TRACT, PART UNSP CAUSING OTH INJURY, INIT Status: Acute Current Visit: Yes (2) Dementia SNOMED Code(s): 84532439 Code(s): F03.90 - UNSPECIFIED DEMENTIA WITHOUT BEHAVIORAL DISTURBANCE Status: Acute Current Visit: Yes (3) Pneumonia SNOMED Code(s): 269048945 Code(s): J18.9 - PNEUMONIA, UNSPECIFIED ORGANISM Status: Acute Priority: High Current Visit: Yes Qualifiers: Pneumonia type: aspiration pneumonia Aspiration pneumonia type: due to regurgitated food Laterality: unspecified laterality Lung location: unspecified part of lung Qualified Code(s): J69.0 - Pneumonitis due to inhalation of food and vomit (4) Afib SNOMED Code(s): 14666765 Code(s): I48.91 - UNSPECIFIED ATRIAL FIBRILLATION Status: Chronic Priority: Medium Current Visit: No Qualifiers: Atrial fibrillation type: chronic Qualified Code(s): I48.2 - Chronic atrial fibrillation (5) COPD (chronic obstructive pulmonary disease) SNOMED Code(s): 38914271 Code(s): J44.9 - CHRONIC OBSTRUCTIVE PULMONARY DISEASE, UNSPECIFIED Status : Chronic Priority: Medium Current Visit: No Qualifiers: COPD type: unspecified COPD Qualified Code(s): J44.9 - Chronic obstructive pulmonary disease, unspecified (6) Diabetes mellitus SNOMED Code(s): 84135714 Code(s): E11.9 - TYPE 2 DIABETES MELLITUS WITHOUT COMPLICATIONS Status: Chronic Priority: Medium Current Visit: No Qualifiers: Diabetes mellitus type: type 2 Diabetes mellitus complication status: with skin complications Diabetes mellitus complication detail: with other skin complication Diabetes mellitus termite control servicer insulin use: with termite control servicer use Qualified Code(s): E11.628 - Type 2 diabetes mellitus with other skin complications; 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 Will treat with broad spectrum antibiotics with VAncomycin, cefepime, and levaquin. I am concerned about possible aspiration. We will consult speech therapy. 07/29/2016: Need to discuss code status with next of kin. add duonebs aspiration precautions on pureed diet with nectar liquids; see barium swallow report abg cxr in am Lee Diaz MD 07/30/2016 CXR result reviewed; persistent pneumonia as per report I discussed with family members the possibility of going to comfort measures/ hospice depending on clinical response the next few days. he required an IVF bolus last pm for hypotension. Lee Diaz MD
--- NOTE | 2016-07-30 13:52 | PCM.SN ---
- Free Text/Narrative Note: warfarin discontinued for INR greater than 6 Lee Diaz MD
[2016-07-30] MEDS ORDERED: Acetaminophen 325 MG Tab PO PRN (20:43)
[2016-07-30] MEDS: Pravastatin 40 MG Tab PO SCH (21:02)
[2016-07-30] MEDS: Acetaminophen 500 MG Tab PO PRN (21:03)
[2016-07-31] MEDS: Albuterol/Ipratropium 3.0-0.5 MG/3 ML Neb Soln NEB SCH ×6 (01:19→21:50)
[2016-07-31] MEDS: LORazepam 2 MG/ML MDV IVPUSH PRN (04:22)
[2016-07-31] MEDS: Gabapentin 300 MG Cap PO SCH (05:44)
[2016-07-31] MEDS: Insulin Aspart 100 Units/ML 3 ML Pen SUBCUT SCH ×3 (07:24→17:02)
[2016-07-31] MEDS: Famotidine 20 MG Tab PO SCH ×2 (08:54→17:40)
[2016-07-31] MEDS: Carvedilol 6.25 MG Tab PO SCH (08:54)
[2016-07-31] MEDS: Allopurinol 100 MG Tab PO SCH (08:55)
[2016-07-31] MEDS: Venlafaxine 37.5 MG Tab PO SCH (08:55)
[2016-07-31] MEDS: Spironolactone 25 MG Tab PO SCH (08:55)
[2016-07-31] MEDS: Digoxin 125 MCG Tab PO SCH (08:55)
[2016-07-31] MEDS: Furosemide 80 MG Tab PO SCH ×2 (08:55→14:09)
[2016-07-31] MEDS: Irbesartan 150 MG Tab PO SCH (08:55)
[2016-07-31] MEDS: Potassium Chloride 20 MEQ Tab.ER PO SCH (08:55)
[2016-07-31] MEDS: Cefepime 2 GM in Premix Bag 1 BAG IV SCH ×2 (08:56→20:06)
--- NOTE | 2016-07-31 10:44 | PCM.PN ---
- General Info Date of Service: 07/31/16 Admission Dx/Problem (Free Text): Admission Diagnosis/Problem Admission Diagnosis/Problem Pneumonia Subjective Update: Sleepy this morning. Does respond verbally some. Difficult to keep awake. Has no complaints when I did get him to wake up. Functional Status: Reports: pain controlled, tolerating diet, incentive spirometry - Review of Systems General: Denies: Fever Pulmonary: Denies: shortness of breath, hemoptysis, wheezing Cardiovascular: Denies: Chest Pain, Palpitations Gastrointestinal: Denies: Abdominal pain Genitourinary: Denies: dysuria Musculoskeletal: Reports: leg pain. Denies: neck pain Skin: Denies: cyanosis Neurological: Reports: Confusion Psychiatric: Reports: confusion - Patient Data Vitals - most recent: Last Vital Signs Temp 36.5 C 07/31/16 08:00 Pulse 71 07/31/16 08:55 Resp 20 07/31/16 08:00 BP 123/63 07/31/16 08:55 Pulse Ox 90 L 07/31/16 08:00 Weight - most recent: 118 kg I&O - last 24 hours: Intake & Output 07/30/16 07/31/16 07/31/16 22:59 06:59 14:59 Intake Total 290 100 Output Total 480 Balance -190 100 Lab Results last 24 hrs: Laboratory Results - last 24 hr 07/30/16 07/30/16 07/31/16 Range/Units 11:27 22:28 06:50 WBC (4.0-11.0) K/uL RBC (4.50-5.90) M/uL Hgb (13.0-17.0) g/dL Hct (38.0-50.0) % MCV (80.0-98.0) fL MCH (27.0-32.0) pg MCHC (31.0-37.0) g/dL RDW Std Deviation (28.0-62.0) fl RDW Coeff of [place] (11.0-15.0) % Plt Count (150-400) K/uL MPV (7.40-12.00) fL Neut % (Auto) (48.0-80.0) % Lymph % (Auto) (16.0-40.0) % [place] % (Auto) (0.0-15.0) % Eos % (Auto) (0.0-7.0) % Baso % (Auto) (0.0-1.5) % Neut # (Auto) (1.4-5.7) K/uL Lymph # (Auto) (0.6-2.4) K/uL [place] # (Auto) (0.0-0.8) K/uL Eos # (Auto) (0.0-0.7) K/uL Baso # (Auto) (0.0-0.1) K/uL Nucleated RBC % /100WBC Nucleated RBCs # K/uL INR 7.59 H* (0.86-1.11) Sodium (136-146) mmol/L Potassium (3.5-5.1) mmol/L Chloride (98-110) mmol/L Carbon Dioxide (21-31) mmol/L BUN (6.0-23.0) mg/dL Creatinine (0.6-1.5) mg/dL Est Cr Clr Drug Dosing mL/min Estimated GFR (MDRD) ml/min Glucose (60-110) mg/dL POC Glucose 137 H (60-110) mg/dL Calcium (8.8-10.8) mg/dL Vancomycin Trough 30.1 H (5-15) ug/mL 07/31/16 07/31/16 Range/Units 06:50 06:50 WBC 11.77 H (4.0-11.0) K/uL RBC 4.21 L (4.50-5.90) M/uL Hgb 12.5 L (13.0-17.0) g/dL Hct 40.8 (38.0-50.0) % MCV 96.9 (80.0-98.0) fL MCH 29.7 (27.0-32.0) pg MCHC 30.6 L (31.0-37.0) g/dL RDW Std Deviation 60.4 (28.0-62.0) fl RDW Coeff of [place] 17 H (11.0-15.0) % Plt Count 224 (150-400) K/uL MPV 10.20 (7.40-12.00) fL Neut % (Auto) 65.3 (48.0-80.0) % Lymph % (Auto) 15.5 L (16.0-40.0) % Dickinson % (Auto) 13.3 (0.0-15.0) % Eos % (Auto) 5.5 (0.0-7.0) % Baso % (Auto) 0.4 (0.0-1.5) % Neut # (Auto) 7.7 H (1.4-5.7) K/uL Lymph # (Auto) 1.8 (0.6-2.4) K/uL Dickinson # (Auto) 1.6 H (0.0-0.8) K/uL Eos # (Auto) 0.7 (0.0-0.7) K/uL Baso # (Auto) 0.1 (0.0-0.1) K/uL Nucleated RBC % 0.2 /100WBC Nucleated RBCs # 0 K/uL INR (0.86-1.11) Sodium 145 (136-146) mmol/L Potassium 4.1 (3.5-5.1) mmol/L Chloride 107 (98-110) mmol/L Carbon Dioxide 24 (21-31) mmol/L BUN 36 H (6.0-23.0) mg/dL Creatinine 2.3 H (0.6-1.5) mg/dL Est Cr Clr Drug Dosing 26.72 mL/min Estimated GFR (MDRD) 28.2 ml/min Glucose 101 (60-110) mg/dL POC Glucose (60-110) mg/dL Calcium 9.0 (8.8-10.8) mg/dL Vancomycin Trough (5-15) ug/mL Jerome Results last 24 hrs: Microbiology 07/27/16 21:45 Aerobic Blood Culture - Preliminary Blood - Venous - Lab Draw NO GROWTH AFTER 3 DAYS Anaerobic Blood Culture - Final 07/27/16 21:25 Aerobic Blood Culture - Preliminary Blood - Venous NO GROWTH AFTER 3 DAYS Anaerobic Blood Culture - Preliminary NO GROWTH AFTER 3 DAYS 07/30/16 14:35 Gram Stain - Preliminary Sputum - Expectorated 07/28/16 10:10 Urine Culture - Final Urine, Catheterized No Growth Med Orders - Current: Current Medications Acetaminophen (Tylenol Extra Strength) 500 mg PO Q4H PRN PRN Reason: Pain/Fever Last Admin: 07/30/16 21:03 Dose: 500 mg Albuterol/Ipratropium (Duoneb 3.0-0.5 Mg/3 Ml) 3 ml NEB Q4HRRT [facility] Last Admin: 07/31/16 06:00 Dose: 3 ml Allopurinol (Zyloprim) 100 mg PO DAILY [facility] Last Admin: 07/31/16 08:55 Dose: 100 mg Bisacodyl (Dulcolax) 10 mg RECTAL Q24H PRN PRN Reason: Constipation Carvedilol (Coreg) 3.125 mg PO BIDMEALS [facility] Digoxin (Lanoxin) 125 mcg PO DAILY [facility] Last Admin: 07/31/16 08:55 Dose: 125 mcg Famotidine (Pepcid) 20 mg PO BIDMEALS [facility] Last Admin: 07/31/16 08:54 Dose: 20 mg Furosemide (Lasix) 80 mg PO BIDDIURETIC [facility] Last Admin: 07/31/16 08:55 Dose: 80 mg Gabapentin (Neurontin) 300 mg PO TID [facility] Last Admin: 07/31/16 05:44 Dose: 300 mg Cefepime HCl 2 gm/ Premix 50 mls @ 100 mls/hr IV Q12H [facility] Last Admin: 07/31/16 08:56 Dose: 100 mls/hr Vancomycin HCl 1 gm/ Sodium (Chloride) 250 mls @ 166.667 mls/hr IV Q36H [facility] Levofloxacin/Dextrose 750 mg/ (Premix) 150 mls @ 100 mls/hr IV Q24H [facility] Insulin Aspart (Novolog) 0 unit SUBCUT TIDAC [facility] PRN Reason: Protocol Last Admin: 07/31/16 07:24 Dose: Not Given Irbesartan (Avapro) 75 mg PO DAILY [facility] Last Admin: 07/31/16 08:55 Dose: 75 mg Lorazepam (Ativan) 0.5 mg IVPUSH Q4H PRN PRN Reason: Agitation Last Admin: 07/31/16 04:22 Dose: 0.5 mg Magnesium Hydroxide (Milk Of Magnesia) 30 ml PO Q24H PRN PRN Reason: Constipation Ondansetron HCl (Zofran) 4 mg IVPUSH Q4H PRN PRN Reason: Nausea Potassium Chloride (Klor-Con M20) 40 meq PO DAILY [facility] Last Admin: 07/31/16 08:55 Dose: 40 meq Pravastatin Sodium (Pravachol) 10 mg PO BEDTIME [facility] Last Admin: 07/30/16 21:02 Dose: 10 mg Sodium Chloride (Saline Flush) 10 ml FLUSH ASDIRECTED PRN PRN Reason: Keep Vein Open Last Admin: 07/27/16 21:14 Dose: 10 ml Sodium Chloride (Saline Flush) 2.5 ml FLUSH ASDIRECTED PRN PRN Reason: Keep Vein Open Last Admin: 07/27/16 21:49 Dose: 2.5 ml Sodium Chloride (Saline Flush) 10 ml FLUSH ASDIRECTED PRN PRN Reason: Keep Vein Open Last Admin: 07/27/16 21:14 Dose: 10 ml Sodium Chloride (Saline Flush) 2.5 ml FLUSH ASDIRECTED PRN PRN Reason: Keep Vein Open Spironolactone (Aldactone) 25 mg PO DAILY [facility] Last Admin: 07/31/16 08:55 Dose: 25 mg Vancomycin HCl (Pharmacy To Dose - Vancomycin) 1 dose .XX ASDIRECTED [facility] Venlafaxine HCl (Effexor) 75 mg PO DAILY [facility] Last Admin: 07/31/16 08:55 Dose: 75 mg Discontinued Medications Acetaminophen (Tylenol) 500 mg PO Q4H PRN PRN Reason: Pain/Fever Bumetanide (Bumex) 1 mg IVPUSH ONETIME ONE Stop: 07/27/16 19:59 Last Admin: 07/27/16 21:11 Dose: 1 mg Carvedilol (Coreg) 6.25 mg PO BIDMEALS [facility] Last Admin: 07/31/16 08:54 Dose: 6.25 mg Furosemide (Lasix) 80 mg PO ONETIME ONE Stop: 07/27/16 21:21 Last Admin: 07/28/16 00:36 Dose: Not Given Furosemide (Lasix) 80 mg IVPUSH NOW ONE Stop: 07/28/16 10:54 Last Admin: 07/28/16 11:41 Dose: 80 mg Clindamycin Phosphate 600 mg/ (Premix) 50 mls @ 100 mls/hr IV ONETIME ONE Stop: 07/27/16 21:41 Last Admin: 07/27/16 23:30 Dose: Not Given Vancomycin HCl 1 gm/ Sodium (Chloride) 250 mls @ 250 mls/hr IV ONETIME ONE Stop: 07/27/16 22:11 Last Infusion: 07/28/16 01:51 Dose: Infused Clindamycin Phosphate 600 mg/ (Premix) 50 mls @ 100 mls/hr IV Q6H [facility] Clindamycin Phosphate 600 mg/ (Premix) 50 mls @ 100 mls/hr IV Q8H [facility] Cefepime HCl 2 gm/ Premix 50 mls @ 100 mls/hr IV Q8H [facility] Last Admin: 07/27/16 23:31 Dose: Not Given Levofloxacin/Dextrose 750 mg/ (Premix) 150 mls @ 100 mls/hr IV ONETIME ONE Stop: 07/27/16 23:12 Last Admin: 07/28/16 01:36 Dose: 100 mls/hr Vancomycin HCl 1 gm/ Sodium (Chloride) 250 mls @ 166 mls/hr IV ONETIME ONE Stop: 07/28/16 00:30 Last Infusion: 07/28/16 01:52 Dose: Infused Vancomycin HCl 1.25 gm/ Sodium (Chloride) 250 mls @ 166.667 mls/hr IV Q24H [facility] Last Admin: 07/30/16 23:24 Dose: Not Given Cefepime HCl 2 gm/ Premix 50 mls @ 100 mls/hr IV Q8H [facility] Last Admin: 07/29/16 08:20 Dose: 100 mls/hr Sodium Chloride (Normal Saline) 2,390 mls @ 999 mls/hr IV ASDIRECTED ONE Stop: 07/30/16 00:02 Last Admin: 07/29/16 21:54 Dose: 999 mls/hr Levofloxacin (Levaquin) 500 mg PO ONETIME ONE Stop: 07/27/16 21:13 Last Admin: 07/27/16 21:44 Dose: Not Given Warfarin Sodium (Coumadin Ask) 1 each PO ONETIME ONE Stop: 07/28/16 10:52 Last Admin: 07/28/16 18:16 Dose: Not Given Warfarin Sodium (Coumadin Ask) 1 each PO ONETIME [facility] Warfarin Sodium (Coumadin) 2 mg PO DAILY@1400 [facility] - Exam Quality Assessment: supplemental oxygen, DVT prophylaxis General: alert, cooperative, no acute distress HEENT: Pupils equal, Pupils reactive, EOMI, Mucous membr. moist/pink Neck: supple, trachea midline Lungs: Normal respiratory effort, Decreased breath sounds, Crackles, Rales, Rhonchi Cardiovascular: Regular Rate, Irregular Rhythm Abdomen: bowel sounds present, soft, no tenderness, no distension Back Exam: normal inspection, full range of motion Extremities: no edema, edema (mild +1 edema left lower extremity at ankle) Peripheral Pulses: 2+: radial (L), radial (R), posterior tibial (L), dorsalis pedis (L) Skin: warm, dry, intact Neurological: no new focal deficit Psy/Mental Status: alert - Problem List & Annotations (1) Chronic renal disease SNOMED Code(s): 174028266 Code(s): N18.9 - CHRONIC KIDNEY DISEASE, UNSPECIFIED Status: Chronic Priority: Medium Current Visit: Yes Qualifiers: Chronic kidney disease stage: unspecified stage Qualified Code(s): N18.9 - Chronic kidney disease, unspecified (2) Pneumonia SNOMED Code(s): 494313958 Code(s): J18.9 - PNEUMONIA, UNSPECIFIED ORGANISM Status: Acute Priority: High Current Visit: Yes Qualifiers: Pneumonia type: aspiration pneumonia Aspiration pneumonia type: due to regurgitated food Laterality: unspecified laterality Lung location: unspecified part of lung Qualified Code(s): J69.0 - Pneumonitis due to inhalation of food and vomit (3) Afib SNOMED Code(s): 13415423 Code(s): I48.91 - UNSPECIFIED ATRIAL FIBRILLATION Status: Chronic Priority: Medium Current Visit: No Qualifiers: Atrial fibrillation type: chronic Qualified Code(s): I48.2 - Chronic atrial fibrillation (4) CAD (coronary artery disease) SNOMED Code(s): 07399237 Code(s): I25.10 - ATHSCL HEART DISEASE OF [place] CORONARY ARTERY W/O ANG PCTRS Status: Chronic Priority: Medium Current Visit: No Qualifiers: Coronary Disease-Associated Artery/Lesion type: unspecified vessel or lesion type [place] vs. transplanted heart: unspecified whether [place] or transplanted heart Associated angina: without angina Qualified Code(s): I25.10 - Atherosclerotic heart disease of [place] coronary artery without angina pectoris (5) COPD (chronic obstructive pulmonary disease) SNOMED Code(s): 83577499 Code(s): J44.9 - CHRONIC OBSTRUCTIVE PULMONARY DISEASE, UNSPECIFIED Status : Chronic Priority: Medium Current Visit: Yes Qualifiers: COPD type: unspecified COPD Qualified Code(s): J44.9 - Chronic obstructive pulmonary disease, unspecified (6) Diabetes mellitus SNOMED Code(s): 27823972 Code(s): E11.9 - TYPE 2 DIABETES MELLITUS WITHOUT COMPLICATIONS Status: Chronic Priority: Medium Current Visit: Yes Qualifiers: Diabetes mellitus type: type 2 Diabetes mellitus complication status: with skin complications Diabetes mellitus complication detail: with other skin complication 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: with 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 use Qualified Code(s): E11.628 - Type 2 diabetes mellitus with other skin complications; Z79.4 - correction (current) use of insulin (7) History of CVA (cerebrovascular accident) SNOMED Code(s): 388270214 Code(s): Z86.73 - PRSNL HX OF TIA (TIA), AND CEREB INFRC W/O RESID DEFICITS Status: Chronic Priority: Low Current Visit: No (8) Systolic CHF SNOMED Code(s): 066641388 Code(s): I50.20 - UNSPECIFIED SYSTOLIC (CONGESTIVE) HEART FAILURE Status: Chronic Priority: High Current Visit: Yes Qualifiers: Congestive heart failure chronicity: chronic Qualified Code(s): I50.22 - Chronic systolic (congestive) heart failure - Problem List Review Problem List Initiated/Reviewed/Updated: Yes - My Orders Last 24 Hours: My Active Orders 07/31/16 10:45 Levofloxacin/Dextrose 5%-Water [Levaquin in D5W 750 MG/150 ML] 750 mg Premix Bag 1 bag IV Q24H 07/31/16 17:00 Carvedilol [Coreg] 3.125 mg PO BIDMEALS - Plan Plan:: 70 yo male admitted 07/27/16 for pneumonia with pmh of CHF/htn, chronic kidney disease, a-fib rate controlled, and type II diabetes. Pneumonia: Most likely aspiration. White count still mildly elevated. Will add Levaquin today secondary to no significant improvement. He did get one dose of levaquin on day of admission. Cont. broad spectrum abx. Day 3 Cefepime, Day 5 Vanco, Day 1 Levoquin. Sputum cultures pending. CHF/htn: Patient appears to be mildly volume overloaded on exam today will consider IV 80 lasix this afternoon in place of home 80 mg PO. Will monitor closely and Echo is pending for today. I did also decrease Coreg to 3.125mg BID today as he has had multiple episodes of hypotension. Chronic kidney disease: Cr 2.3 this am baseline 1.6. May be having some Cardiorenal syndrome will try 80 IV Lasix this afternoon in place of PO lasix. Did also decrease dose of Gabapentin to 600 daily vs 300 TID secondary to kidney function. A-fib rate controllled: INR 7.59 today. Hold warfarin for now. Diabetes: ISS VTE: Hold pharmacologic secondary to INR of 7.59, SCD. Dispo: 2-[address] Marroquin has talked with family members about possibly going to comfort measures/hospice if he patient does not clinically improve over the next few days.
[2016-07-31] MEDS: Levofloxacin/Dextrose 5%-Water 750 MG in Premix Bag 1 BAG IV SCH (12:10)
[2016-07-31] MEDS: Acetaminophen 500 MG Tab PO PRN ×2 (13:22→20:16)
[2016-07-31] MEDS ORDERED: Sodium Chloride 0.9% 500 ML IV SCH (15:30)
[2016-07-31] MEDS: Carvedilol 3.125 MG Tab PO SCH (17:40)
--- NOTE | 2016-07-31 18:07 | CR ---
EXAM DATE: 07/27/16 PATIENT'S AGE: 70 Patient: COLEMAN CLIFFORD Facility: [place], [place] Site . Site : [id number] Study: XRay Chest [id number]/26/2017 7:38:24 AM Ordering Physician: Lonny Cheatham Final Report: CHEST 1 VIEW AP INDICATION: Followup pneumonia. COMPARISON: 07/27 IMPRESSION: Stable heart size and vascular pattern. Cardiomegaly. Lungs are clear of new focal opacities. Persistent alveolar hazy opacity left lower lobe. Little overall change allowing for technique. No pneumothorax or pleural abnormality. Dictated by Selwyn Knott MD @ Jul 30 2016 7:57AM (Electronic Signature) Report Signed by Proxy and Original Signed Document filed in the Medical Record. [facility]
[2016-07-31] MEDS: Pravastatin 40 MG Tab PO SCH (20:21)
[2016-07-31] MEDS ORDERED: Furosemide 20 MG/2 ML VIAL IVPUSH ONE (21:00)
[2016-08-01] MEDS: Albuterol/Ipratropium 3.0-0.5 MG/3 ML Neb Soln NEB SCH ×5 (01:22→23:53)
[2016-08-01] MEDS: Insulin Aspart 100 Units/ML 3 ML Pen SUBCUT SCH ×3 (06:46→17:19)
[2016-08-01] MEDS ORDERED: Gabapentin 300 MG Cap PO SCH (09:00)
[2016-08-01] MEDS: Cefepime 2 GM in Premix Bag 1 BAG IV SCH ×2 (09:31→20:15)
[2016-08-01] MEDS: Venlafaxine 37.5 MG Tab PO SCH (09:40)
[2016-08-01] MEDS: Potassium Chloride 20 MEQ Tab.ER PO SCH (09:41)
[2016-08-01] MEDS: Digoxin 125 MCG Tab PO SCH (09:41)
[2016-08-01] MEDS: Allopurinol 100 MG Tab PO SCH (09:45)
[2016-08-01] MEDS: Famotidine 20 MG Tab PO SCH ×2 (09:45→18:03)
[2016-08-01] MEDS ORDERED: Furosemide 40 MG/4 ML VIAL IVPUSH ONE (10:05)
[2016-08-01] MEDS ORDERED: Furosemide 20 MG/2 ML VIAL IVPUSH ONE (10:15)
[2016-08-01] MEDS: Carvedilol 3.125 MG Tab PO SCH ×2 (10:46→18:02)
[2016-08-01] MEDS: Spironolactone 25 MG Tab PO SCH (10:46)
[2016-08-01] MEDS: Furosemide 80 MG Tab PO SCH ×2 (10:46→20:27)
[2016-08-01] MEDS: Irbesartan 150 MG Tab PO SCH (10:46)
--- NOTE | 2016-08-01 10:57 | PCM.PN ---
- General Info Date of Service: 08/01/16 Admission Dx/Problem (Free Text): Admission Diagnosis/Problem Admission Diagnosis/Problem Pneumonia Subjective Update: Alert this am but not oriented will respond only sometimes to verbal cues. Does respond that he has no pain. Patient was more alert yesterday. I also talked with the son, Coleman. Who is leaning more towards comfort care but okay with one more day of continued therapy. They have decreased his code status to DNR. Functional Status: Reports: pain controlled - Review of Systems Systems Review Comment:: see comments above. Patient unable to respond appropriately to majority of questions but resting quietly. - Patient Data Vitals - most recent: Last Vital Signs Temp 36.4 C 08/01/16 08:00 Pulse 84 08/01/16 10:31 Resp 20 08/01/16 08:00 BP 113/61 08/01/16 10:31 Pulse Ox 95 08/01/16 08:00 Weight - most recent: 120 kg I&O - last 24 hours: Intake & Output 07/31/16 08/01/16 08/01/16 22:59 06:59 14:59 Intake Total 950 100 Output Total 546 Balance 404 100 Lab Results last 24 hrs: Laboratory Results - last 24 hr 07/31/16 07/31/16 07/31/16 Range/Units 10:26 11:45 16:43 WBC (4.0-11.0) K/uL RBC (4.50-5.90) M/uL Hgb (13.0-17.0) g/dL Hct (38.0-50.0) % MCV (80.0-98.0) fL MCH (27.0-32.0) pg MCHC (31.0-37.0) g/dL RDW Std Deviation (28.0-62.0) fl RDW Coeff of [place] (11.0-15.0) % Plt Count (150-400) K/uL MPV (7.40-12.00) fL Add Manual Diff Neutrophils % (Manual) (48.0-80.0) % Band Neutrophils % % Lymphocytes % (Manual) (16.0-40.0) % Monocytes % (Manual) (0.0-15.0) % Eosinophils % (Manual) (0.0-7.0) % Basophils % (Manual) (0.0-1.5) % Absolute Seg Neuts Band Neutrophils # Lymphocytes # (Manual) Monocytes # (Manual) Eosinophils # (Manual) Basophils # (Manual) INR (0.86-1.11) Sodium (136-146) mmol/L Potassium (3.5-5.1) mmol/L Chloride (98-110) mmol/L Carbon Dioxide (21-31) mmol/L BUN (6.0-23.0) mg/dL Creatinine (0.6-1.5) mg/dL Est Cr Clr Drug Dosing mL/min Estimated GFR (MDRD) ml/min Glucose (60-110) mg/dL POC Glucose 126 H 128 H (60-110) mg/dL Calcium (8.8-10.8) mg/dL Vancomycin Trough 28.3 H (5-15) ug/mL 07/31/16 08/01/16 08/01/16 Range/Units 22:01 05:48 05:48 WBC 11.46 H (4.0-11.0) K/uL RBC 4.07 L (4.50-5.90) M/uL Hgb 12.2 L (13.0-17.0) g/dL Hct 40.3 (38.0-50.0) % MCV 99.0 H (80.0-98.0) fL MCH 30.0 (27.0-32.0) pg MCHC 30.3 L (31.0-37.0) g/dL RDW Std Deviation 60.3 (28.0-62.0) fl RDW Coeff of [place] 17 H (11.0-15.0) % Plt Count 226 (150-400) K/uL MPV 9.60 (7.40-12.00) fL Add Manual Diff YES Neutrophils % (Manual) 53 (48.0-80.0) % Band Neutrophils % 14 % Lymphocytes % (Manual) 16 (16.0-40.0) % Monocytes % (Manual) 9 (0.0-15.0) % Eosinophils % (Manual) 7 (0.0-7.0) % Basophils % (Manual) 1 (0.0-1.5) % Absolute Seg Neuts 6.1 Band Neutrophils # 1.6 Lymphocytes # (Manual) 1.8 Monocytes # (Manual) 1.0 Eosinophils # (Manual) 0.8 Basophils # (Manual) 0 INR 8.00 H* (0.86-1.11) Sodium (136-146) mmol/L Potassium (3.5-5.1) mmol/L Chloride (98-110) mmol/L Carbon Dioxide (21-31) mmol/L BUN (6.0-23.0) mg/dL Creatinine (0.6-1.5) mg/dL Est Cr Clr Drug Dosing mL/min Estimated GFR (MDRD) ml/min Glucose (60-110) mg/dL POC Glucose (60-110) mg/dL Calcium (8.8-10.8) mg/dL Vancomycin Trough 25.5 H (5-15) ug/mL 08/01/16 Range/Units 05:48 WBC (4.0-11.0) K/uL RBC (4.50-5.90) M/uL Hgb (13.0-17.0) g/dL Hct (38.0-50.0) % MCV (80.0-98.0) fL MCH (27.0-32.0) pg MCHC (31.0-37.0) g/dL RDW Std Deviation (28.0-62.0) fl RDW Coeff of [place] (11.0-15.0) % Plt Count (150-400) K/uL MPV (7.40-12.00) fL Add Manual Diff Neutrophils % (Manual) (48.0-80.0) % Band Neutrophils % % Lymphocytes % (Manual) (16.0-40.0) % Monocytes % (Manual) (0.0-15.0) % Eosinophils % (Manual) (0.0-7.0) % Basophils % (Manual) (0.0-1.5) % Absolute Seg Neuts Band Neutrophils # Lymphocytes # (Manual) Monocytes # (Manual) Eosinophils # (Manual) Basophils # (Manual) INR (0.86-1.11) Sodium 146 (136-146) mmol/L Potassium 3.8 (3.5-5.1) mmol/L Chloride 106 (98-110) mmol/L Carbon Dioxide 26 (21-31) mmol/L BUN 38 H (6.0-23.0) mg/dL Creatinine 2.7 H (0.6-1.5) mg/dL Est Cr Clr Drug Dosing 22.76 mL/min Estimated GFR (MDRD) 23.4 ml/min Glucose 115 H (60-110) mg/dL POC Glucose (60-110) mg/dL Calcium 8.7 L (8.8-10.8) mg/dL Vancomycin Trough (5-15) ug/mL Jerome Results last 24 hrs: Microbiology 07/30/16 14:35 Gram Stain - Preliminary Sputum - Expectorated Sputum Culture - Preliminary 07/27/16 21:45 Aerobic Blood Culture - Preliminary Blood - Venous - Lab Draw NO GROWTH AFTER 4 DAYS Anaerobic Blood Culture - Final 07/27/16 21:25 Aerobic Blood Culture - Preliminary Blood - Venous NO GROWTH AFTER 4 DAYS Anaerobic Blood Culture - Preliminary NO GROWTH AFTER 4 DAYS Med Orders - Current: Current Medications Acetaminophen (Tylenol Extra Strength) 500 mg PO Q4H PRN PRN Reason: Pain/Fever Last Admin: 07/31/16 20:16 Dose: 500 mg Albuterol/Ipratropium (Duoneb 3.0-0.5 Mg/3 Ml) 3 ml NEB Q6HRRT [facility] Allopurinol (Zyloprim) 100 mg PO DAILY [facility] Last Admin: 08/01/16 09:45 Dose: 100 mg Bisacodyl (Dulcolax) 10 mg RECTAL Q24H PRN PRN Reason: Constipation Carvedilol (Coreg) 3.125 mg PO BIDMEALS [facility] Last Admin: 08/01/16 10:46 Dose: Not Given Digoxin (Lanoxin) 125 mcg PO DAILY [facility] Last Admin: 08/01/16 09:41 Dose: 125 mcg Famotidine (Pepcid) 20 mg PO BIDMEALS [facility] Last Admin: 08/01/16 09:45 Dose: 20 mg Furosemide (Lasix) 80 mg PO BIDDIURETIC [facility] Last Admin: 08/01/16 10:46 Dose: Not Given Cefepime HCl 2 gm/ Premix 50 mls @ 100 mls/hr IV Q12H [facility] Last Admin: 08/01/16 09:31 Dose: 100 mls/hr Levofloxacin/Dextrose 750 mg/ (Premix) 150 mls @ 100 mls/hr IV Q48H [facility] Last Admin: 07/31/16 12:10 Dose: 100 mls/hr Sodium Chloride (Normal Saline) 500 mls @ 500 mls/hr IV .BOLUS [facility] Last Admin: 07/31/16 15:19 Dose: 500 mls/hr Insulin Aspart (Novolog) 0 unit SUBCUT TIDAC JABIER PRN Reason: Protocol Last Admin: 08/01/16 06:46 Dose: Not Given Irbesartan (Avapro) 75 mg PO DAILY [facility] Last Admin: 08/01/16 10:46 Dose: Not Given Magnesium Hydroxide (Milk Of Magnesia) 30 ml PO Q24H PRN PRN Reason: Constipation Ondansetron HCl (Zofran) 4 mg IVPUSH Q4H PRN PRN Reason: Nausea Potassium Chloride (Klor-Con M20) 40 meq PO DAILY [facility] Last Admin: 08/01/16 09:41 Dose: 40 meq Pravastatin Sodium (Pravachol) 10 mg PO BEDTIME [facility] Last Admin: 07/31/16 20:21 Dose: 10 mg Sodium Chloride (Saline Flush) 10 ml FLUSH ASDIRECTED PRN PRN Reason: Keep Vein Open Last Admin: 07/27/16 21:14 Dose: 10 ml Sodium Chloride (Saline Flush) 2.5 ml FLUSH ASDIRECTED PRN PRN Reason: Keep Vein Open Last Admin: 07/27/16 21:49 Dose: 2.5 ml Sodium Chloride (Saline Flush) 10 ml FLUSH ASDIRECTED PRN PRN Reason: Keep Vein Open Last Admin: 07/27/16 21:14 Dose: 10 ml Sodium Chloride (Saline Flush) 2.5 ml FLUSH ASDIRECTED PRN PRN Reason: Keep Vein Open Spironolactone (Aldactone) 25 mg PO DAILY [facility] Last Admin: 08/01/16 10:46 Dose: Not Given Vancomycin HCl (Pharmacy To Dose - Vancomycin) 1 dose .XX ASDIRECTED [facility] Venlafaxine HCl (Effexor) 75 mg PO DAILY [facility] Last Admin: 08/01/16 09:40 Dose: 75 mg Discontinued Medications Acetaminophen (Tylenol) 500 mg PO Q4H PRN PRN Reason: Pain/Fever Albuterol/Ipratropium (Duoneb 3.0-0.5 Mg/3 Ml) 3 ml NEB Q4HRRT [facility] Last Admin: 08/01/16 05:38 Dose: 3 ml Bumetanide (Bumex) 1 mg IVPUSH ONETIME ONE Stop: 03/23/17 19:59 Last Admin: 07/27/16 21:11 Dose: 1 mg Carvedilol (Coreg) 6.25 mg PO BIDMEALS [facility] Last Admin: 07/31/16 08:54 Dose: 6.25 mg Furosemide (Lasix) 80 mg PO ONETIME ONE Stop: 07/27/16 21:21 Last Admin: 07/28/16 00:36 Dose: Not Given Furosemide (Lasix) 80 mg IVPUSH NOW ONE Stop: 07/28/16 10:54 Last Admin: 07/28/16 11:41 Dose: 80 mg Furosemide (Lasix) 80 mg IVPUSH ONETIME ONE Stop: 07/31/16 21:01 Last Admin: 07/31/16 22:16 Dose: Not Given Furosemide (Lasix) 80 mg IVPUSH NOW ONE Stop: 08/01/16 10:06 Furosemide (Lasix) 80 mg IVPUSH NOW ONE Stop: 08/01/16 10:16 Last Admin: 08/01/16 10:30 Dose: 80 mg Gabapentin (Neurontin) 300 mg PO TID [facility] Last Admin: 07/31/16 05:44 Dose: 300 mg Gabapentin (Neurontin) 600 mg PO DAILY [facility] Clindamycin Phosphate 600 mg/ (Premix) 50 mls @ 100 mls/hr IV ONETIME ONE Stop: 07/27/16 21:41 Last Admin: 07/27/16 23:30 Dose: Not Given Vancomycin HCl 1 gm/ Sodium (Chloride) 250 mls @ 250 mls/hr IV ONETIME ONE Stop: 07/27/16 22:11 Last Infusion: 07/28/16 01:51 Dose: Infused Clindamycin Phosphate 600 mg/ (Premix) 50 mls @ 100 mls/hr IV Q6H [facility] Clindamycin Phosphate 600 mg/ (Premix) 50 mls @ 100 mls/hr IV Q8H [facility] Cefepime HCl 2 gm/ Premix 50 mls @ 100 mls/hr IV Q8H [facility] Last Admin: 07/27/16 23:31 Dose: Not Given Levofloxacin/Dextrose 750 mg/ (Premix) 150 mls @ 100 mls/hr IV ONETIME ONE Stop: 07/27/16 23:12 Last Admin: 07/28/16 01:36 Dose: 100 mls/hr Vancomycin HCl 1 gm/ Sodium (Chloride) 250 mls @ 166 mls/hr IV ONETIME ONE Stop: 07/28/16 00:30 Last Infusion: 07/28/16 01:52 Dose: Infused Vancomycin HCl 1.25 gm/ Sodium (Chloride) 250 mls @ 166.667 mls/hr IV Q24H [facility] Last Admin: 07/30/16 23:24 Dose: Not Given Cefepime HCl 2 gm/ Premix 50 mls @ 100 mls/hr IV Q8H [facility] Last Admin: 07/29/16 08:20 Dose: 100 mls/hr Sodium Chloride (Normal Saline) 2,390 mls @ 999 mls/hr IV ASDIRECTED ONE Stop: 07/30/16 00:02 Last Admin: 07/29/16 21:54 Dose: 999 mls/hr Vancomycin HCl 1 gm/ Sodium (Chloride) 250 mls @ 166.667 mls/hr IV Q36H [facility] Last Admin: 07/31/16 23:10 Dose: 166.667 mls/hr Levofloxacin (Levaquin) 500 mg PO ONETIME ONE Stop: 07/27/16 21:13 Last Admin: 07/27/16 21:44 Dose: Not Given Lorazepam (Ativan) 0.5 mg IVPUSH Q4H PRN PRN Reason: Agitation Last Admin: 07/31/16 04:22 Dose: 0.5 mg Warfarin Sodium (Coumadin Ask) 1 each PO ONETIME ONE Stop: 07/28/16 10:52 Last Admin: 07/28/16 18:16 Dose: Not Given Warfarin Sodium (Coumadin Ask) 1 each PO ONETIME [facility] Warfarin Sodium (Coumadin) 2 mg PO DAILY@1400 [facility] - Exam Quality Assessment: supplemental oxygen, DVT prophylaxis General: alert, cooperative, no acute distress HEENT: Pupils equal, Pupils reactive, EOMI, Mucous membr. moist/pink Neck: supple Lungs: Normal respiratory effort, Crackles, Rhonchi Cardiovascular: Regular Rate, Irregular Rhythm Abdomen: bowel sounds present, soft, no tenderness, no distension. No: rebound , guarding Back Exam: normal inspection, full range of motion Extremities: no edema, edema (+1 to ankle ). No: calf tenderness Peripheral Pulses: 2+: radial (L), radial (R), posterior tibial (L), dorsalis pedis (L) Skin: warm, dry, intact Wound/Incisions: healing well Neurological: no new focal deficit Psy/Mental Status: alert - Problem List & Annotations (1) Chronic renal disease SNOMED Code(s): 018153608 Code(s): N18.9 - CHRONIC KIDNEY DISEASE, UNSPECIFIED Status: Chronic Priority: High Current Visit: Yes Qualifiers: Chronic kidney disease stage: unspecified stage Qualified Code(s): N18.9 - Chronic kidney disease, unspecified (2) Pneumonia SNOMED Code(s): 105036832 Code(s): J18.9 - PNEUMONIA, UNSPECIFIED ORGANISM Status: Acute Priority: High Current Visit: Yes Qualifiers: Pneumonia type: aspiration pneumonia Aspiration pneumonia type: due to regurgitated food Laterality: unspecified laterality Lung location: unspecified part of lung Qualified Code(s): J69.0 - Pneumonitis due to inhalation of food and vomit (3) Afib SNOMED Code(s): 97075042 Code(s): I48.91 - UNSPECIFIED ATRIAL FIBRILLATION Status: Chronic Priority: Medium Current Visit: No Qualifiers: Atrial fibrillation type: chronic Qualified Code(s): I48.2 - Chronic atrial fibrillation (4) CAD (coronary artery disease) SNOMED Code(s): 25031602 Code(s): I25.10 - ATHSCL HEART DISEASE OF [place] CORONARY ARTERY W/O ANG PCTRS Status: Chronic Priority: Medium Current Visit: No Qualifiers: Coronary Disease-Associated Artery/Lesion type: unspecified vessel or lesion type [place] vs. transplanted heart: unspecified whether [place] or transplanted heart Associated angina: without angina Qualified Code(s): I25.10 - Atherosclerotic heart disease of [place] coronary artery without angina pectoris (5) COPD (chronic obstructive pulmonary disease) SNOMED Code(s): 88550216 Code(s): J44.9 - CHRONIC OBSTRUCTIVE PULMONARY DISEASE, UNSPECIFIED Status : Chronic Priority: Medium Current Visit: Yes Qualifiers: COPD type: unspecified COPD Qualified Code(s): J44.9 - Chronic obstructive pulmonary disease, unspecified (6) Diabetes mellitus SNOMED Code(s): 15149641 Code(s): E11.9 - TYPE 2 DIABETES MELLITUS WITHOUT COMPLICATIONS Status: Chronic Priority: Medium Current Visit: Yes Qualifiers: Diabetes mellitus type: type 2 Diabetes mellitus complication status: with skin complications Diabetes mellitus complication detail: with other skin complication Diabetes mellitus container coordinator insulin use: with container coordinator use Qualified Code(s): E11.628 - Type 2 diabetes mellitus with other skin complications; Z79.4 - [facility] (current) use of insulin (7) History of CVA (cerebrovascular accident) SNOMED Code(s): 516508759 Code(s): Z86.73 - PRSNL HX OF TIA (TIA), AND CEREB INFRC W/O RESID DEFICITS Status: Chronic Priority: Low Current Visit: No (8) Systolic CHF SNOMED Code(s): 177627246 Code(s): I50.20 - UNSPECIFIED SYSTOLIC (CONGESTIVE) HEART FAILURE Status: Chronic Priority: High Current Visit: Yes Qualifiers: Congestive heart failure chronicity: chronic Qualified Code(s): I50.22 - Chronic systolic (congestive) heart failure - Problem List Review Problem List Initiated/Reviewed/Updated: Yes - My Orders Last 24 Hours: My Active Orders 07/31/16 10:58 Communication Order [RC] ROUTINE 07/31/16 11:00 Levofloxacin/Dextrose 5%-Water [Levaquin in D5W 750 MG/150 ML] 750 mg Premix Bag 1 bag IV Q48H 07/31/16 17:00 Carvedilol [Coreg] 3.125 mg PO BIDMEALS 08/01/16 10:03 RT Aerosol Therapy [RC] ASDIRECTED 08/01/16 12:00 Albuterol/Ipratropium [DuoNeb 3.0-0.5 MG/3 ML] 3 ml NEB Q6HRRT - Plan Plan:: 70 yo male admitted 07/27/16 for pneumonia with pmh of CHF/htn, chronic kidney disease, a-fib rate controlled, and type II diabetes. Pneumonia: Most likely aspiration. White count still mildly elevated but on Levaquin which was restarted day 1, Cefepime day 4, and Vancomycin day 6. Cont. broad spectrum abx. Day 3 Cefepime, Day 5 Vanco, Day 1 Levoquin. Sputum cultures pending. CHF/htn: Patient still volume overloaded and kidney function worsening most likely due to cardorenal syndrome. BP's have been low this am so will hold. When BP's improved will give IV 80 lasix and continue home 80 mg PO. Will monitor closely. Echocardiogram results 07/31/16: 1. Technically difficult study related to body habitus 2. Unable to determine LVEF and regional wall motion due to poor subendocardial definition 3. Doubt any significant valvular disease 4. Normal right ventricular systolic function 5. Aortic valve is not well visualized 6. Trace tricuspid valve regurgitation 7. Trace mitral valve regurgitation Chronic kidney disease: Cr 2.7 this am baseline 1.6. Most likely from Cardiorenal syndrome will give 80 IV Lasix once BP improved. A-fib rate controllled: INR 8.0 today. Still increasing. Warfarin continues to be held. Will consider vit. K if INR increases to 9. Diabetes: ISS VTE: Hold pharmacologic secondary to INR of 7.59, SCD. Dispo: 2-3 days. Will talk with sanjana Cee tomorrow about instituting comfort measures\hospice if no improvement today.
[2016-08-01] MEDS: Pravastatin 40 MG Tab PO SCH (20:27)
[2016-08-02] MEDS: Albuterol/Ipratropium 3.0-0.5 MG/3 ML Neb Soln NEB SCH ×5 (03:29→23:45)
[2016-08-02] MEDS: Insulin Aspart 100 Units/ML 3 ML Pen SUBCUT SCH ×3 (07:17→17:30)
[2016-08-02] MEDS: Venlafaxine 37.5 MG Tab PO SCH (08:35)
[2016-08-02] MEDS: Potassium Chloride 20 MEQ Tab.ER PO SCH (08:36)
[2016-08-02] MEDS: Furosemide 80 MG Tab PO SCH ×2 (08:36→13:56)
[2016-08-02] MEDS: Digoxin 125 MCG Tab PO SCH (08:36)
[2016-08-02] MEDS: Irbesartan 150 MG Tab PO SCH (08:36)
[2016-08-02] MEDS: Spironolactone 25 MG Tab PO SCH (08:36)
[2016-08-02] MEDS: Carvedilol 3.125 MG Tab PO SCH ×2 (08:36→16:41)
[2016-08-02] MEDS: Famotidine 20 MG Tab PO SCH ×2 (08:37→16:41)
[2016-08-02] MEDS: Allopurinol 100 MG Tab PO SCH (08:37)
[2016-08-02] MEDS: Cefepime 2 GM in Premix Bag 1 BAG IV SCH ×2 (08:37→20:13)
[2016-08-02] MEDS ORDERED: Magnesium Citrate Solution 296 ML Bottle PO ONE (10:30)
--- NOTE | 2016-08-02 10:44 | ECHO ---
The echocardiogram report can be seen in this patient's EMR in the Reports section. JAYNE
[2016-08-02] MEDS: Levofloxacin/Dextrose 5%-Water 750 MG in Premix Bag 1 BAG IV SCH (10:51)
--- NOTE | 2016-08-02 12:39 | PCM.PN ---
- General Info Date of Service: 08/02/16 - Review of Systems Systems Review Comment:: He is more alert. He ate some food. He is interactive with family and friends. - Patient Data Vitals - most recent: Last Vital Signs Temp 98.2 F 08/02/16 08:00 Pulse 101 H 08/02/16 08:36 Resp 16 08/02/16 08:00 BP 142/63 H 08/02/16 08:36 Pulse Ox 92 L 08/02/16 08:00 Weight - most recent: 121 kg I&O - last 24 hours: Intake & Output 08/01/16 08/02/16 08/02/16 22:59 06:59 14:59 Intake Total 870 300 Output Total 513 1200 Balance 357 -900 Lab Results last 24 hrs: Laboratory Results - last 24 hr 08/01/16 08/01/16 08/02/16 Range/Units 11:55 16:45 05:15 WBC (4.0-11.0) K/uL RBC (4.50-5.90) M/uL Hgb (13.0-17.0) g/dL Hct (38.0-50.0) % MCV (80.0-98.0) fL MCH (27.0-32.0) pg MCHC (31.0-37.0) g/dL RDW Std Deviation (28.0-62.0) fl RDW Coeff of [place] (11.0-15.0) % Plt Count (150-400) K/uL MPV (7.40-12.00) fL Add Manual Diff Neutrophils % (Manual) (48.0-80.0) % Band Neutrophils % % Lymphocytes % (Manual) (16.0-40.0) % Monocytes % (Manual) (0.0-15.0) % Eosinophils % (Manual) (0.0-7.0) % Nucleated RBC % /100WBC Absolute Seg Neuts Band Neutrophils # Lymphocytes # (Manual) Monocytes # (Manual) Eosinophils # (Manual) Nucleated RBCs # K/uL INR 4.78 H (0.86-1.11) Sodium (136-146) mmol/L Potassium (3.5-5.1) mmol/L Chloride (98-110) mmol/L Carbon Dioxide (21-31) mmol/L BUN (6.0-23.0) mg/dL Creatinine (0.6-1.5) mg/dL Est Cr Clr Drug Dosing mL/min Estimated GFR (MDRD) ml/min Glucose (60-110) mg/dL POC Glucose 105 (60-110) mg/dL Calcium (8.8-10.8) mg/dL Vancomycin Trough 21.6 H (5-15) ug/mL 08/02/16 08/02/16 08/02/16 Range/Units 05:15 05:15 11:01 WBC 12.10 H (4.0-11.0) K/uL RBC 4.32 L (4.50-5.90) M/uL Hgb 13.0 (13.0-17.0) g/dL Hct 41.6 (38.0-50.0) % MCV 96.3 (80.0-98.0) fL MCH 30.1 (27.0-32.0) pg MCHC 31.3 (31.0-37.0) g/dL RDW Std Deviation 59.7 (28.0-62.0) fl RDW Coeff of [place] 17 H (11.0-15.0) % Plt Count 207 (150-400) K/uL MPV 9.90 (7.40-12.00) fL Add Manual Diff YES Neutrophils % (Manual) 53 (48.0-80.0) % Band Neutrophils % 11 % Lymphocytes % (Manual) 21 (16.0-40.0) % Monocytes % (Manual) 8 (0.0-15.0) % Eosinophils % (Manual) 7 (0.0-7.0) % Nucleated RBC % 0.2 /100WBC Absolute Seg Neuts 6.4 Band Neutrophils # 1.3 Lymphocytes # (Manual) 2.5 Monocytes # (Manual) 1.0 Eosinophils # (Manual) 0.8 Nucleated RBCs # 0 K/uL INR (0.86-1.11) Sodium 144 (136-146) mmol/L Potassium 4.0 (3.5-5.1) mmol/L Chloride 105 (98-110) mmol/L Carbon Dioxide 27 (21-31) mmol/L BUN 39 H (6.0-23.0) mg/dL Creatinine 2.7 H (0.6-1.5) mg/dL Est Cr Clr Drug Dosing 22.76 mL/min Estimated GFR (MDRD) 23.4 ml/min Glucose 127 H (60-110) mg/dL POC Glucose 174 H (60-110) mg/dL Calcium 9.2 (8.8-10.8) mg/dL Vancomycin Trough (5-15) ug/mL [facility] Results last 24 hrs: Microbiology 07/27/16 21:45 Aerobic Blood Culture - Final Blood - Venous - Lab Draw NO GROWTH AFTER 5 DAYS Anaerobic Blood Culture - Final 07/27/16 21:25 Aerobic Blood Culture - Final Blood - Venous NO GROWTH AFTER 5 DAYS Anaerobic Blood Culture - Final NO GROWTH AFTER 5 DAYS 07/30/16 14:35 Gram Stain - Preliminary Sputum - Expectorated Sputum Culture - Preliminary Med Orders - Current: Current Medications Acetaminophen (Tylenol Extra Strength) 500 mg PO Q4H PRN PRN Reason: Pain/Fever Last Admin: 07/31/16 20:16 Dose: 500 mg Albuterol/Ipratropium (Duoneb 3.0-0.5 Mg/3 Ml) 3 ml NEB Q6HRRT [facility] Last Admin: 08/02/16 11:26 Dose: 3 ml Allopurinol (Zyloprim) 100 mg PO DAILY [facility] Last Admin: 08/02/16 08:37 Dose: 100 mg Bisacodyl (Dulcolax) 10 mg RECTAL Q24H PRN PRN Reason: Constipation Carvedilol (Coreg) 3.125 mg PO BIDMEALS [facility] Last Admin: 08/02/16 08:36 Dose: 3.125 mg Digoxin (Lanoxin) 125 mcg PO DAILY [facility] Last Admin: 08/02/16 08:36 Dose: 125 mcg Famotidine (Pepcid) 20 mg PO BIDMEALS [facility] Last Admin: 08/02/16 08:37 Dose: 20 mg Furosemide (Lasix) 80 mg PO BIDDIURETIC [facility] Last Admin: 08/02/16 08:36 Dose: 80 mg Cefepime HCl 2 gm/ Premix 50 mls @ 100 mls/hr IV Q12H [facility] Last Admin: 08/02/16 08:37 Dose: 100 mls/hr Levofloxacin/Dextrose 750 mg/ (Premix) 150 mls @ 100 mls/hr IV Q48H [facility] Last Admin: 08/02/16 10:51 Dose: 100 mls/hr Sodium Chloride (Normal Saline) 500 mls @ 500 mls/hr IV .BOLUS [facility] Last Admin: 07/31/16 15:19 Dose: 500 mls/hr Vancomycin HCl 1 gm/ Sodium (Chloride) 250 mls @ 166.667 mls/hr IV Q36H [facility] Last Admin: 08/01/16 18:10 Dose: 166.667 mls/hr Insulin Aspart (Novolog) 0 unit SUBCUT TIDAC [facility] PRN Reason: Protocol Last Admin: 08/02/16 11:56 Dose: 1 units Irbesartan (Avapro) 75 mg PO DAILY [facility] Last Admin: 08/02/16 08:36 Dose: 75 mg Magnesium Hydroxide (Milk Of Magnesia) 30 ml PO Q24H PRN PRN Reason: Constipation Ondansetron HCl (Zofran) 4 mg IVPUSH Q4H PRN PRN Reason: Nausea Potassium Chloride (Klor-Con M20) 40 meq PO DAILY [facility] Last Admin: 08/02/16 08:36 Dose: 40 meq Pravastatin Sodium (Pravachol) 10 mg PO BEDTIME [facility] Last Admin: 08/01/16 20:27 Dose: 10 mg Sodium Chloride (Saline Flush) 10 ml FLUSH ASDIRECTED PRN PRN Reason: Keep Vein Open Last Admin: 07/27/16 21:14 Dose: 10 ml Sodium Chloride (Saline Flush) 2.5 ml FLUSH ASDIRECTED PRN PRN Reason: Keep Vein Open Last Admin: 07/27/16 21:49 Dose: 2.5 ml Sodium Chloride (Saline Flush) 10 ml FLUSH ASDIRECTED PRN PRN Reason: Keep Vein Open Last Admin: 07/27/16 21:14 Dose: 10 ml Sodium Chloride (Saline Flush) 2.5 ml FLUSH ASDIRECTED PRN PRN Reason: Keep Vein Open Spironolactone (Aldactone) 25 mg PO DAILY [facility] Last Admin: 08/02/16 08:36 Dose: 25 mg Vancomycin HCl (Pharmacy To Dose - Vancomycin) 1 dose .XX ASDIRECTED [facility] Venlafaxine HCl (Effexor) 75 mg PO DAILY [facility] Last Admin: 08/02/16 08:35 Dose: 75 mg Discontinued Medications Acetaminophen (Tylenol) 500 mg PO Q4H PRN PRN Reason: Pain/Fever Albuterol/Ipratropium (Duoneb 3.0-0.5 Mg/3 Ml) 3 ml NEB Q4HRRT [facility] Last Admin: 08/02/16 03:29 Dose: Not Given Bumetanide (Bumex) 1 mg IVPUSH ONETIME ONE Stop: 07/27/16 19:59 Last Admin: 07/27/16 21:11 Dose: 1 mg Carvedilol (Coreg) 6.25 mg PO BIDMEALS [facility] Last Admin: 07/31/16 08:54 Dose: 6.25 mg Furosemide (Lasix) 80 mg PO ONETIME ONE Stop: 07/27/16 21:21 Last Admin: 07/28/16 00:36 Dose: Not Given Furosemide (Lasix) 80 mg IVPUSH NOW ONE Stop: 07/28/16 10:54 Last Admin: 07/28/16 11:41 Dose: 80 mg Furosemide (Lasix) 80 mg IVPUSH ONETIME ONE Stop: 07/31/16 21:01 Last Admin: 07/31/16 22:16 Dose: Not Given Furosemide (Lasix) 80 mg IVPUSH NOW ONE Stop: 08/01/16 10:06 Last Admin: 08/01/16 10:05 Dose: 80 mg Furosemide (Lasix) 80 mg IVPUSH NOW ONE Stop: 08/01/16 10:16 Last Admin: 08/01/16 10:30 Dose: 80 mg Gabapentin (Neurontin) 300 mg PO TID [facility] Last Admin: 07/31/16 05:44 Dose: 300 mg Gabapentin (Neurontin) 600 mg PO DAILY [facility] Clindamycin Phosphate 600 mg/ (Premix) 50 mls @ 100 mls/hr IV ONETIME ONE Stop: 07/27/16 21:41 Last Admin: 07/27/16 23:30 Dose: Not Given Vancomycin HCl 1 gm/ Sodium (Chloride) 250 mls @ 250 mls/hr IV ONETIME ONE Stop: 07/27/16 22:11 Last Infusion: 07/28/16 01:51 Dose: Infused Clindamycin Phosphate 600 mg/ (Premix) 50 mls @ 100 mls/hr IV Q6H [facility] Clindamycin Phosphate 600 mg/ (Premix) 50 mls @ 100 mls/hr IV Q8H [facility] Cefepime HCl 2 gm/ Premix 50 mls @ 100 mls/hr IV Q8H [facility] Last Admin: 07/27/16 23:31 Dose: Not Given Levofloxacin/Dextrose 750 mg/ (Premix) 150 mls @ 100 mls/hr IV ONETIME ONE Stop: 07/27/16 23:12 Last Admin: 07/28/16 01:36 Dose: 100 mls/hr Vancomycin HCl 1 gm/ Sodium (Chloride) 250 mls @ 166 mls/hr IV ONETIME ONE Stop: 07/28/16 00:30 Last Infusion: 07/28/16 01:52 Dose: Infused Vancomycin HCl 1.25 gm/ Sodium (Chloride) 250 mls @ 166.667 mls/hr IV Q24H [facility] Last Admin: 07/30/16 23:24 Dose: Not Given Cefepime HCl 2 gm/ Premix 50 mls @ 100 mls/hr IV Q8H [facility] Last Admin: 07/29/16 08:20 Dose: 100 mls/hr Sodium Chloride (Normal Saline) 2,390 mls @ 999 mls/hr IV ASDIRECTED ONE Stop: 07/30/16 00:02 Last Admin: 07/29/16 21:54 Dose: 999 mls/hr Vancomycin HCl 1 gm/ Sodium (Chloride) 250 mls @ 166.667 mls/hr IV Q36H [facility] Last Admin: 07/31/16 23:10 Dose: 166.667 mls/hr Levofloxacin (Levaquin) 500 mg PO ONETIME ONE Stop: 07/27/16 21:13 Last Admin: 07/27/16 21:44 Dose: Not Given Lorazepam (Ativan) 0.5 mg IVPUSH Q4H PRN PRN Reason: Agitation Last Admin: 07/31/16 04:22 Dose: 0.5 mg Magnesium Citrate (Citrate Of Magnesia) 296 ml PO ONETIME ONE Stop: 08/02/16 10:31 Last Admin: 08/02/16 10:51 Dose: 296 ml Warfarin Sodium (Coumadin Ask) 1 each PO ONETIME ONE Stop: 07/28/16 10:52 Last Admin: 07/28/16 18:16 Dose: Not Given Warfarin Sodium (Coumadin Ask) 1 each PO ONETIME [facility] Warfarin Sodium (Coumadin) 2 mg PO DAILY@1400 [facility] - Exam General: alert, cooperative, other Lungs: Rhonchi, Other (Some increased work of breathing) Abdomen: soft, no tenderness Psy/Mental Status: alert (Short leg cast right lower extremity) - Problem List & Annotations (1) Aspiration into respiratory tract SNOMED Code(s): 768040306 Code(s): T17.908A - UNSP FB IN RESP TRACT, PART UNSP CAUSING OTH INJURY, INIT Status: Acute Current Visit: Yes (2) Dementia SNOMED Code(s): 76144876 Code(s): F03.90 - UNSPECIFIED DEMENTIA WITHOUT BEHAVIORAL DISTURBANCE Status: Acute Current Visit: Yes (3) Pneumonia SNOMED Code(s): 724729336 Code(s): J18.9 - PNEUMONIA, UNSPECIFIED ORGANISM Status: Acute Priority: High Current Visit: Yes Qualifiers: Pneumonia type: aspiration pneumonia Aspiration pneumonia type: due to regurgitated food Laterality: unspecified laterality Lung location: unspecified part of lung Qualified Code(s): J69.0 - Pneumonitis due to inhalation of food and vomit (4) Afib SNOMED Code(s): 53069514 Code(s): I48.91 - UNSPECIFIED ATRIAL FIBRILLATION Status: Chronic Priority: Medium Current Visit: No Qualifiers: Atrial fibrillation type: chronic Qualified Code(s): I48.2 - Chronic atrial fibrillation (5) COPD (chronic obstructive pulmonary disease) SNOMED Code(s): 79973072 Code(s): J44.9 - CHRONIC OBSTRUCTIVE PULMONARY DISEASE, UNSPECIFIED Status : Chronic Priority: Medium Current Visit: Yes Qualifiers: COPD type: unspecified COPD Qualified Code(s): J44.9 - Chronic obstructive pulmonary disease, unspecified (6) Diabetes mellitus SNOMED Code(s): 50482376 Code(s): E11.9 - TYPE 2 DIABETES MELLITUS WITHOUT COMPLICATIONS Status: Chronic Priority: Medium Current Visit: Yes Qualifiers: Diabetes mellitus type: type 2 Diabetes mellitus complication status: with skin complications Diabetes mellitus complication detail: with other skin complication Diabetes mellitus fdc insulin 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: 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 Qualified Code(s): E11.628 - Type 2 diabetes mellitus with other skin complications; Z79.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 Pneumonia: Most likely aspiration. White count still mildly elevated but on Levaquin which was restarted day 1, Cefepime day 4, and Vancomycin day 6. Cont. broad spectrum abx. Day 3 Cefepime, Day 5 Vanco, Day 1 Levoquin. Sputum cultures pending. CHF/htn: Patient still volume overloaded and kidney function worsening most likely due to cardorenal syndrome. BP's have been low this am so will hold. When BP's improved will give IV 80 lasix and continue home 80 mg PO. Will monitor closely. Echocardiogram results 07/31/16: 1. Technically difficult study related to body habitus 2. Unable to determine LVEF and regional wall motion due to poor subendocardial definition 3. Doubt any significant valvular disease 4. Normal right ventricular systolic function 5. Aortic valve is not well visualized 6. Trace tricuspid valve regurgitation 7. Trace mitral valve regurgitation Chronic kidney disease: Cr 2.7 this am baseline 1.6. Most likely from Cardiorenal syndrome will give 80 IV Lasix once BP improved. A-fib rate controllled: INR 8.0 today. Still increasing. Warfarin continues to be held. Will consider vit. K if INR increases to 9. Diabetes: ISS VTE: Hold pharmacologic secondary to INR of 7.59, SCD. Dispo: 2-3 days. Will talk with son Coleman tomorrow about instituting comfort measures\hospice if no improvement today. 08/02/2016 He is showing some improvement clinically. His serum creatinine is still elevated. I reviewed his echocardiogram. This was a poor quality study due to likely due to body habitus. Podiatry consult regarding right lower extremity cast. Anticipate discharge back to [place] likely on Sunday podiatry outpatient followup planned for next Sunday or Sunday. Dr Cavazos saw the patient today and plans on outpatient follow u p. will follow daily lab. Lee Diaz MD
--- NOTE | 2016-08-02 20:51 | PCM.CONS ---
H&P History of Present Illness - General Date of Service: 08/02/16 Admit Problem/Dx: Admission Diagnosis/Problem Admission Diagnosis/Problem Pneumonia Source of Information: Old records History Limitations: Reports: No limitations - History of Present Illness Initial Comments - Free Text/Narative: I am consulted today by Dr. Diaz regarding how to best address ongoing care for this patient. Mr. Antunez was seen by several doctors earlier this month in [facility]. Among them was Dr. Irvin Oneil, [facility] Sorter. Dr. Oneil placed Mr. Antunez in a right lower extremity cast on 07/05/2016, and anticipated following up in 3 or 4 weeks. The patient has numerous fractures of the right foot and ankle though none are significantly displaced based on my review of the old records. As the patient is now back in [place] and likely to be discharged within the next 5 days to [facility], I have been consulted to provide assessment and podiatric care for the patient so long as he stays in [place]. Should he at any point need to be hospitalized in [place] I would encourage Dr. Oneil be consulted to continue care there. Onset of Symptoms: Reports: sudden, unknown/unsure Duration of Symptoms: Reports: Week(s): (Patient apparently fell sometime in June and suffered multiple right foot and ankle fractures.) Location: Reports: lower extremity, right Quality: Reports: Dull Severity: moderate Improves with: Reports: Immobilization Context: Reports: other Associated Symptoms: Reports: weakness Bilateral Lower Leg Pain Score (Numeric/FACES): 4 - Related Data Allergies/Adverse Reactions: Allergies Allergy/AdvReac Type Severity Reaction Status Date / Time ibuprofen Allergy unknown Verified 07/19/16 13:23 lisinopril Allergy unknown Verified 07/19/16 13:23 sulfamethoxazole Allergy unknown Verified 07/19/16 13:23 [From Bactrim] trimethoprim [From Bactrim] Allergy unknown Verified 07/19/16 13:23 Home Medications: Home Meds Allopurinol [Zyloprim] 100 mg PO DAILY 07/01/16 [History] Cinnamon Bark [Cinnamon] 1,000 mg PO DAILY 07/01/16 [History] Digoxin [Digox] 125 mcg PO DAILY 07/01/16 [History] Famotidine 20 mg PO BIDMEALS 07/01/16 [History] Furosemide [Lasix] 160 mg PO DAILY 07/01/16 [History] Gabapentin [Neurontin] 300 mg PO TID 07/01/16 [History] Irbesartan 75 mg PO DAILY 07/01/16 [History] Pravastatin [Pravachol] 10 mg PO BEDTIME 07/01/16 [History] Spironolactone [Aldactone] 25 mg PO DAILY 07/01/16 [History] Potassium Chloride [Klor-Con M20] 40 meq PO DAILY 07/03/16 [History] metFORMIN HCl [Metformin HCl] 500 mg PO BIDMEALS 07/03/16 [History] Bisacodyl [Dulcolax] 10 mg RC Q24H PRN 07/19/16 [History] Carvedilol 6.25 mg PO BIDMEALS 07/19/16 [History] Magnesium Hydroxide [Milk of Magnesia] 30 ml PO Q24H PRN 07/19/16 [History] Venlafaxine [Effexor] 75 mg PO DAILY 07/19/16 [History] Cephalexin [IJD: Cephalexin] 500 mg PO Q6HR 07/28/16 [History] Warfarin [Coumadin] 2.5 mg PO DAILY@1400 07/28/16 [History] Past Medical History Cardiovascular History: Reports: Afib, CAD, Heart Failure, AR, Stents Respiratory History: Reports: COPD Gastrointestinal History: Denies: Cirrhosis Genitourinary History: Reports: Renal disease Musculoskeletal History: Reports: Other (see below) Other Musculoskeletal History: he has a history of abdominal hernias Neurological History: Reports: CVA, Other (see below) Other Neuro History: encephalopathy Psychiatric History: Reports: Dementia, Other (see below) Other Psychiatric History: Restlessness and agitation, disorientation Endocrine/Metabolic History: Reports: Diabetes, type II, Obesity/BMI 30+ Hematologic History: Reports: None Oncologic (Cancer) History: Reports: None - Infectious Disease History Infectious Disease History: Reports: Other (see below) Other Infectious Disease History: unknown, pt poor historian. 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 Right ankle repair Social & Family History - Family History Family Medical History: Unobtainable Cardiac: Reports: AR Respiratory: Reports: None - Tobacco Use Smoking Status *Q: Former Smoker Years of Tobacco use: 10 Second Hand Smoke Exposure: Yes - Caffeine Use Caffeine Use: Reports: Coffee, Soda Caffeine Use Comment: unknown - Alcohol Use Days Per Week of Alcohol Use: 0 - Recreational Drug Use Recreational Drug Use: No - Living Situation & Occupation Living situation: Reports: with significant other, other (Children from a previous relationship.) Occupation: disabled (On disability for back pain/fusion. 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[place].) H&P Review of Systems - Review of Systems: Review Of Systems: Unable To Obtain (patient seems confused) Exam - Exam Exam: See Below - Vital Signs Vital Signs: Last Vital Signs Temp 36.5 C 08/02/16 16:00 Pulse 79 08/02/16 16:41 Resp 20 08/02/16 16:00 BP 131/63 08/02/16 16:41 Pulse Ox 91 L 08/02/16 16:00 Weight: 121 kg - Exam Peripheral Pulses: 1+: posterior tibial (L), dorsalis pedis (L) Skin: warm, dry Neuro Extensive - Mental Status: alert, oriented x3, normal mood/affect, inattentive Physical Exam Comments:: limited due to right lower extremity cast - Patient Data Lab Results last 24 hrs: Laboratory Results - last 24 hr 08/02/16 08/02/16 08/02/16 Range/Units 05:15 05:15 05:15 WBC 12.10 H (4.0-11.0) K/uL RBC 4.32 L (4.50-5.90) M/uL Hgb 13.0 (13.0-17.0) g/dL Hct 41.6 (38.0-50.0) % MCV 96.3 (80.0-98.0) fL MCH 30.1 (27.0-32.0) pg MCHC 31.3 (31.0-37.0) g/dL RDW Std Deviation 59.7 (28.0-62.0) fl RDW Coeff of Christiana 17 H (11.0-15.0) % Plt Count 207 (150-400) K/uL MPV 9.90 (7.40-12.00) fL Add Manual Diff YES Neutrophils % (Manual) 53 (48.0-80.0) % Band Neutrophils % 11 % Lymphocytes % (Manual) 21 (16.0-40.0) % Monocytes % (Manual) 8 (0.0-15.0) % Eosinophils % (Manual) 7 (0.0-7.0) % Nucleated RBC % 0.2 /100WBC Absolute Seg Neuts 6.4 Band Neutrophils # 1.3 Lymphocytes # (Manual) 2.5 Monocytes # (Manual) 1.0 Eosinophils # (Manual) 0.8 Nucleated RBCs # 0 K/uL INR 4.78 H (0.86-1.11) Sodium 144 (136-146) mmol/L Potassium 4.0 (3.5-5.1) mmol/L Chloride 105 (98-110) mmol/L Carbon Dioxide 27 (21-31) mmol/L BUN 39 H (6.0-23.0) mg/dL Creatinine 2.7 H (0.6-1.5) mg/dL Est Cr Clr Drug Dosing 22.76 mL/min Estimated GFR (MDRD) 23.4 ml/min Glucose 127 H (60-110) mg/dL POC Glucose (60-110) mg/dL Calcium 9.2 (8.8-10.8) mg/dL 08/02/16 08/02/16 Range/Units 11:01 16:47 WBC (4.0-11.0) K/uL RBC (4.50-5.90) M/uL Hgb (13.0-17.0) g/dL Hct (38.0-50.0) % MCV (80.0-98.0) fL MCH (27.0-32.0) pg MCHC (31.0-37.0) g/dL RDW Std Deviation (28.0-62.0) fl RDW Coeff of Christiana (11.0-15.0) % Plt Count (150-400) K/uL MPV (7.40-12.00) fL Add Manual Diff Neutrophils % (Manual) (48.0-80.0) % Band Neutrophils % % Lymphocytes % (Manual) (16.0-40.0) % Monocytes % (Manual) (0.0-15.0) % Eosinophils % (Manual) (0.0-7.0) % Nucleated RBC % /100WBC Absolute Seg Neuts Band Neutrophils # Lymphocytes # (Manual) Monocytes # (Manual) Eosinophils # (Manual) Nucleated RBCs # K/uL INR (0.86-1.11) Sodium (136-146) mmol/L Potassium (3.5-5.1) mmol/L Chloride (98-110) mmol/L Carbon Dioxide (21-31) mmol/L BUN (6.0-23.0) mg/dL Creatinine (0.6-1.5) mg/dL Est Cr Clr Drug Dosing mL/min Estimated GFR (MDRD) ml/min Glucose (60-110) mg/dL POC Glucose 174 H 151 H (60-110) mg/dL Calcium (8.8-10.8) mg/dL Result Diagrams: 08/02/16 05:15 08/02/16 05:15 Jerome Results last 24 hrs: Microbiology 07/27/16 21:45 Aerobic Blood Culture - Final Blood - Venous - Lab Draw NO GROWTH AFTER 5 DAYS Anaerobic Blood Culture - Final 07/27/16 21:25 Aerobic Blood Culture - Final Blood - Venous NO GROWTH AFTER 5 DAYS Anaerobic Blood Culture - Final NO GROWTH AFTER 5 DAYS Consult PN Assessment/Plan Procedures: Procedures AIRWAY INHALATION TREATMENT (07/01/16) ALANINE AMINO (ALT) (SGPT) (07/29/14) ASSAY OF BLOOD/URIC ACID (06/21/15) ASSAY OF DIGOXIN TOTAL (07/01/16) ASSAY OF LACTIC ACID (07/01/16) ASSAY OF MAGNESIUM (04/22/15) ASSAY OF NATRIURETIC PEPTIDE (07/01/16) ASSAY OF TROPONIN QUANT (07/01/16) ASSAY OF VANCOMYCIN (04/22/15) BONE IMAGING 3 PHASE (07/01/16) C-REACTIVE PROTEIN (04/22/15) CHEST X-RAY 1 VIEW FRONTAL (07/01/16) CHEST X-RAY 2VW FRONTAL&LATL (05/28/15) COMPLETE CBC AUTOMATED (01/07/15) COMPLETE CBC W/AUTO DIFF WBC (07/01/16) COMPREHEN METABOLIC PANEL (07/01/16) CONTRAST X-RAY EXAM OF COLON (02/21/16) CT ABD & PELV W/CONTRAST (02/10/16) DESTRUCT B9 LESION 1-14 (02/03/15) ELECTROCARDIOGRAM TRACING (07/01/16) EMERGENCY DEPT VISIT (07/01/16) EMERGENCY DEPT VISIT (11/20/15) EMERGENCY DEPT VISIT (04/22/15) EMERGENCY DEPT VISIT (11/25/14) EMERGENCY DEPT VISIT (07/25/14) EVALUATE PT USE OF INHALER (04/22/15) GLUCOSE BLOOD TEST (04/22/15) GLYCOSYLATED HEMOGLOBIN TEST (01/07/15) IMMUNIZATION ADMIN (07/01/16) INFLUENZA ASSAY W/OPTIC (07/01/16) LIPID PANEL (07/29/14) MEDICAL NUTRITION INDIV IN (07/01/16) METABOLIC PANEL TOTAL CA (06/21/15) OFFICE/OUTPATIENT VISIT EST (03/14/16) OFFICE/OUTPATIENT VISIT EST (02/15/16) OFFICE/OUTPATIENT VISIT EST (02/03/16) OFFICE/OUTPATIENT VISIT EST (07/19/15) OFFICE/OUTPATIENT VISIT EST (03/30/15) OFFICE/OUTPATIENT VISIT EST (01/13/15) OFFICE/OUTPATIENT VISIT EST (01/12/15) OFFICE/OUTPATIENT VISIT EST (07/29/14) OFFICE/OUTPATIENT VISIT NEW (01/27/15) PPSV23 VACC 2 YRS+ SUBQ/IM (07/29/14) PROTHROMBIN TIME (07/01/16) RBC SED RATE AUTOMATED (08/18/15) ROUTINE VENIPUNCTURE (07/01/16) TDAP VACCINE 7 YRS/> IM (07/01/16) THER/PROPH/DIAG IV INF INIT (07/01/16) THROMBOPLASTIN TIME PARTIAL (04/22/15) TX/PRO/DX INJ NEW DRUG ADDON (07/01/16) URINALYSIS AUTO W/SCOPE (07/01/16) URINE CULTURE/COLONY COUNT (07/01/16) X-RAY EXAM OF ANKLE (07/01/16) X-RAY EXAM OF FOOT (07/01/16) X-RAY EXAM OF KNEE 3 (07/01/16) (1) Foot fracture, right SNOMED Code(s): 94587751 Code(s): S92.901A - UNSP FRACTURE OF RIGHT FOOT, INIT ENCNTR FOR CLOSED FRACTURE Current Visit: Yes Qualifiers: Encounter type: initial encounter Fracture type: closed Qualified Code(s) : S92.901A - Unspecified fracture of right foot, initial encounter for closed fracture (2) Diabetes mellitus SNOMED Code(s): 00320958 Code(s): E11.9 - TYPE 2 DIABETES MELLITUS WITHOUT COMPLICATIONS Priority: Medium Current Visit: Yes Qualifiers: Diabetes mellitus type: type 2 Diabetes mellitus complication status: with skin complications Diabetes mellitus complication detail: with other skin complication Diabetes mellitus retirement insulin use: with exterminator helper termite use Qualified Code(s): E11.628 - Type 2 diabetes mellitus with other skin complications; Z79.4 - director long term care (current) use of insulin (3) Obesity (BMI 30-39.9) SNOMED Code(s): 710130891, 491999937 Code(s): E66.9 - OBESITY, UNSPECIFIED Current Visit: Yes Problem List Initiated/Reviewed/Updated: Yes Plan: 1. Continue with non-weight bearing to right foot. This will likely need to be continued for several more months. Based on my review of prior records, patient has multiple nondisplaced or mildly displaced fractures in the right foot and ankle including: minimally displaced fractures of the proximal and distal phalanx, right hallux, fractures of the base of the first, second, third , and fourth metatarsals of the right foot, medial and lateral cuneiforms right foot, cuboid fracture right foot and medial and lateral malleolar fractures of the right ankle. 2. Continue with right lower extremity cast. Based on my review of the records from patient's stay in [place] at [place] earlier this month, there is no urgent need to remove the cast. Once patient is discharged to [place], he will be brought to my office and I will remove the cast at that time. Based on my review of the records, patient has likely early Charcot arthropathy due to poorly controlled Type II diabetes. He may also have osteomyelitis but at the time of the placement of the cast he had no open wounds to the right foot. There is no malodor today to suggest that an ulcer has developed and based on the almost clean appearance of the cast it does not appear that the patient has walked on his right foot since the cast was placed and this further reduces the chance of an ulcer covered by the cast. 3. Patient to have appointment scheduled in my office as early as the day after he returns to [facility]. I will likely apply a new cast, though I may modify it if I am concerned about an ulcer or pre-ulcer. 4. Patient can be followed in [place] by me but should be seen by Dr. Oneil should he at any point be transferred to [place] in [place]. Thank you Dr. Diaz for including me in the care of this patient.
[2016-08-02] MEDS: Pravastatin 40 MG Tab PO SCH (23:48)
[2016-08-03] MEDS: Albuterol/Ipratropium 3.0-0.5 MG/3 ML Neb Soln NEB SCH ×4 (06:34→23:25)
[2016-08-03] MEDS: Insulin Aspart 100 Units/ML 3 ML Pen SUBCUT SCH ×3 (07:30→17:33)
[2016-08-03] MEDS: Carvedilol 3.125 MG Tab PO SCH ×2 (09:00→17:32)
[2016-08-03] MEDS: Digoxin 125 MCG Tab PO SCH (09:00)
[2016-08-03] MEDS: Famotidine 20 MG Tab PO SCH ×2 (09:00→17:33)
[2016-08-03] MEDS: Furosemide 40 MG/4 ML VIAL IVPUSH SCH ×2 (09:02→14:36)
[2016-08-03] MEDS: Irbesartan 150 MG Tab PO SCH (09:03)
[2016-08-03] MEDS: Potassium Chloride 20 MEQ Tab.ER PO SCH (09:03)
[2016-08-03] MEDS: Venlafaxine 37.5 MG Tab PO SCH (09:04)
[2016-08-03] MEDS: Spironolactone 25 MG Tab PO SCH (09:04)
[2016-08-03] MEDS: Allopurinol 100 MG Tab PO SCH (09:04)
--- NOTE | 2016-08-03 09:54 | PCM.PN ---
- General Info Date of Service: 08/03/16 Admission Dx/Problem (Free Text): Admission Diagnosis/Problem Admission Diagnosis/Problem Pneumonia Subjective Update: Confused this am. He pulled out his IV twice last evening. Has been more alert the last two days but confused. Eating and eliminating. Still most likely aspirating. No complaints of pain. Functional Status: Reports: pain controlled, urinating, incentive spirometry - Review of Systems General: Denies: Fever Pulmonary: Denies: shortness of breath Cardiovascular: Denies: Chest Pain Gastrointestinal: Denies: Abdominal pain, Nausea Genitourinary: Denies: dysuria Musculoskeletal: Denies: leg pain Neurological: Reports: Confusion Psychiatric: Reports: confusion - Patient Data Vitals - most recent: Last Vital Signs Temp 36.8 C 08/03/16 08:00 Pulse 990 H 08/03/16 09:00 Resp 16 08/03/16 08:00 BP 135/61 08/03/16 09:03 Pulse Ox 94 L 08/03/16 08:00 Weight - most recent: 123.5 kg I&O - last 24 hours: Intake & Output 08/02/16 08/03/16 08/03/16 22:59 06:59 14:59 Intake Total 776 300 Balance 776 300 Lab Results last 24 hrs: Laboratory Results - last 24 hr 08/02/16 08/02/16 08/03/16 Range/Units 11:01 16:47 05:05 WBC (4.0-11.0) K/uL RBC (4.50-5.90) M/uL Hgb (13.0-17.0) g/dL Hct (38.0-50.0) % MCV (80.0-98.0) fL MCH (27.0-32.0) pg MCHC (31.0-37.0) g/dL RDW Std Deviation (28.0-62.0) fl RDW Coeff of [place] (11.0-15.0) % Plt Count (150-400) K/uL MPV (7.40-12.00) fL Add Manual Diff Neutrophils % (Manual) (48.0-80.0) % Band Neutrophils % % Lymphocytes % (Manual) (16.0-40.0) % Monocytes % (Manual) (0.0-15.0) % Eosinophils % (Manual) (0.0-7.0) % Nucleated RBC % /100WBC Absolute Seg Neuts Band Neutrophils # Lymphocytes # (Manual) Monocytes # (Manual) Eosinophils # (Manual) Nucleated RBCs # K/uL INR (0.86-1.11) Sodium (136-146) mmol/L Potassium (3.5-5.1) mmol/L Chloride (98-110) mmol/L Carbon Dioxide (21-31) mmol/L BUN (6.0-23.0) mg/dL Creatinine (0.6-1.5) mg/dL Est Cr Clr Drug Dosing mL/min Estimated GFR (MDRD) ml/min Glucose (60-110) mg/dL POC Glucose 174 H 151 H (60-110) mg/dL Calcium (8.8-10.8) mg/dL Vancomycin Trough 20.2 H (5-15) ug/mL 08/03/16 08/03/16 08/03/16 Range/Units 05:05 05:05 05:05 WBC 12.98 H (4.0-11.0) K/uL RBC 4.18 L (4.50-5.90) M/uL Hgb 12.3 L (13.0-17.0) g/dL Hct 40.3 (38.0-50.0) % MCV 96.4 (80.0-98.0) fL MCH 29.4 (27.0-32.0) pg MCHC 30.5 L (31.0-37.0) g/dL RDW Std Deviation 59.5 (28.0-62.0) fl RDW Coeff of [place] 17 H (11.0-15.0) % Plt Count 207 (150-400) K/uL MPV 10.10 (7.40-12.00) fL Add Manual Diff YES Neutrophils % (Manual) 59 (48.0-80.0) % Band Neutrophils % 15 % Lymphocytes % (Manual) 16 (16.0-40.0) % Monocytes % (Manual) 7 (0.0-15.0) % Eosinophils % (Manual) 3 (0.0-7.0) % Nucleated RBC % 0.0 /100WBC Absolute Seg Neuts 7.7 Band Neutrophils # 1.9 Lymphocytes # (Manual) 2.1 Monocytes # (Manual) 0.9 Eosinophils # (Manual) 0.4 Nucleated RBCs # 0 K/uL INR 3.38 H (0.86-1.11) Sodium 144 (136-146) mmol/L Potassium 5.1 (3.5-5.1) mmol/L Chloride 106 (98-110) mmol/L Carbon Dioxide 26 (21-31) mmol/L BUN 43 H (6.0-23.0) mg/dL Creatinine 3.3 H (0.6-1.5) mg/dL Est Cr Clr Drug Dosing 18.62 mL/min Estimated GFR (MDRD) 18.6 ml/min Glucose 144 H (60-110) mg/dL POC Glucose (60-110) mg/dL Calcium 9.2 (8.8-10.8) mg/dL Vancomycin Trough (5-15) ug/mL 08/03/16 Range/Units 06:34 WBC (4.0-11.0) K/uL RBC (4.50-5.90) M/uL Hgb (13.0-17.0) g/dL Hct (38.0-50.0) % MCV (80.0-98.0) fL MCH (27.0-32.0) pg MCHC (31.0-37.0) g/dL RDW Std Deviation (28.0-62.0) fl RDW Coeff of [place] (11.0-15.0) % Plt Count (150-400) K/uL MPV (7.40-12.00) fL Add Manual Diff Neutrophils % (Manual) (48.0-80.0) % Band Neutrophils % % Lymphocytes % (Manual) (16.0-40.0) % Monocytes % (Manual) (0.0-15.0) % Eosinophils % (Manual) (0.0-7.0) % Nucleated RBC % /100WBC Absolute Seg Neuts Band Neutrophils # Lymphocytes # (Manual) Monocytes # (Manual) Eosinophils # (Manual) Nucleated RBCs # K/uL INR (0.86-1.11) Sodium (136-146) mmol/L Potassium (3.5-5.1) mmol/L Chloride (98-110) mmol/L Carbon Dioxide (21-31) mmol/L BUN (6.0-23.0) mg/dL Creatinine (0.6-1.5) mg/dL Est Cr Clr Drug Dosing mL/min Estimated GFR (MDRD) ml/min Glucose (60-110) mg/dL POC Glucose 139 H (60-110) mg/dL Calcium (8.8-10.8) mg/dL Vancomycin Trough (5-15) ug/mL Jerome Results last 24 hrs: Microbiology 07/30/16 14:35 Gram Stain - Preliminary Sputum - Expectorated Sputum Culture - Final Staphylococcus Haemolyticus Normal Respiratory Carmencita YEAST Med Orders - Current: Current Medications Acetaminophen (Tylenol Extra Strength) 500 mg PO Q4H PRN PRN Reason: Pain/Fever Last Admin: 07/31/16 20:16 Dose: 500 mg Albuterol/Ipratropium (Duoneb 3.0-0.5 Mg/3 Ml) 3 ml NEB Q6HRRT [facility] Last Admin: 08/03/16 06:34 Dose: 3 ml Allopurinol (Zyloprim) 100 mg PO DAILY [facility] Last Admin: 08/03/16 09:04 Dose: 100 mg Bisacodyl (Dulcolax) 10 mg RECTAL Q24H PRN PRN Reason: Constipation Carvedilol (Coreg) 3.125 mg PO BIDMEALS [facility] Last Admin: 08/03/16 09:00 Dose: 3.125 mg Digoxin (Lanoxin) 125 mcg PO DAILY [facility] Last Admin: 08/03/16 09:00 Dose: 125 mcg Famotidine (Pepcid) 20 mg PO BIDMEALS [facility] Last Admin: 08/03/16 09:00 Dose: 20 mg Furosemide (Lasix) 80 mg IVPUSH BIDDIURETIC [facility] Last Admin: 08/03/16 09:02 Dose: 80 mg Sodium Chloride (Normal Saline) 500 mls @ 500 mls/hr IV .BOLUS [facility] Last Admin: 07/31/16 15:19 Dose: 500 mls/hr Clindamycin Phosphate 600 mg/ (Premix) 50 mls @ 100 mls/hr IV Q8HR [facility] Cefepime HCl 2 gm/ Premix 50 mls @ 100 mls/hr IV Q24H [facility] Levofloxacin/Dextrose 500 mg/ (Premix) 100 mls @ 66.667 mls/hr IV Q48H [facility] Insulin Aspart (Novolog) 0 unit SUBCUT TIDAC [facility] PRN Reason: Protocol Last Admin: 08/03/16 07:30 Dose: Not Given Irbesartan (Avapro) 75 mg PO DAILY [facility] Last Admin: 08/03/16 09:03 Dose: 75 mg Magnesium Hydroxide (Milk Of Magnesia) 30 ml PO Q24H PRN PRN Reason: Constipation Ondansetron HCl (Zofran) 4 mg IVPUSH Q4H PRN PRN Reason: Nausea Potassium Chloride (Klor-Con M20) 40 meq PO DAILY [facility] Last Admin: 08/03/16 09:03 Dose: 40 meq Pravastatin Sodium (Pravachol) 10 mg PO BEDTIME [facility] Last Admin: 08/02/16 23:48 Dose: 10 mg Sodium Chloride (Saline Flush) 10 ml FLUSH ASDIRECTED PRN PRN Reason: Keep Vein Open Last Admin: 07/27/16 21:14 Dose: 10 ml Sodium Chloride (Saline Flush) 2.5 ml FLUSH ASDIRECTED PRN PRN Reason: Keep Vein Open Last Admin: 07/27/16 21:49 Dose: 2.5 ml Sodium Chloride (Saline Flush) 10 ml FLUSH ASDIRECTED PRN PRN Reason: Keep Vein Open Last Admin: 07/27/16 21:14 Dose: 10 ml Sodium Chloride (Saline Flush) 2.5 ml FLUSH ASDIRECTED PRN PRN Reason: Keep Vein Open Spironolactone (Aldactone) 25 mg PO DAILY [facility] Last Admin: 08/03/16 09:04 Dose: 25 mg Venlafaxine HCl (Effexor) 75 mg PO DAILY [facility] Last Admin: 08/03/16 09:04 Dose: 75 mg Discontinued Medications Acetaminophen (Tylenol) 500 mg PO Q4H PRN PRN Reason: Pain/Fever Albuterol/Ipratropium (Duoneb 3.0-0.5 Mg/3 Ml) 3 ml NEB Q4HRRT [facility] Last Admin: 08/02/16 03:29 Dose: Not Given Bumetanide (Bumex) 1 mg IVPUSH ONETIME ONE Stop: 07/27/16 19:59 Last Admin: 07/27/16 21:11 Dose: 1 mg Carvedilol (Coreg) 6.25 mg PO BIDMEALS [facility] Last Admin: 07/31/16 08:54 Dose: 6.25 mg Furosemide (Lasix) 80 mg PO ONETIME ONE Stop: 07/27/16 21:21 Last Admin: 07/28/16 00:36 Dose: Not Given Furosemide (Lasix) 80 mg IVPUSH NOW ONE Stop: 07/28/16 10:54 Last Admin: 07/28/16 11:41 Dose: 80 mg Furosemide (Lasix) 80 mg PO BIDDIURETIC [facility] Last Admin: 08/02/16 13:56 Dose: 80 mg Furosemide (Lasix) 80 mg IVPUSH ONETIME ONE Stop: 07/31/16 21:01 Last Admin: 07/31/16 22:16 Dose: Not Given Furosemide (Lasix) 80 mg IVPUSH NOW ONE Stop: 08/01/16 10:06 Last Admin: 08/01/16 10:05 Dose: 80 mg Furosemide (Lasix) 80 mg IVPUSH NOW ONE Stop: 08/01/16 10:16 Last Admin: 08/01/16 10:30 Dose: 80 mg Gabapentin (Neurontin) 300 mg PO TID [facility] Last Admin: 07/31/16 05:44 Dose: 300 mg Gabapentin (Neurontin) 600 mg PO DAILY [facility] Clindamycin Phosphate 600 mg/ (Premix) 50 mls @ 100 mls/hr IV ONETIME ONE Stop: 07/27/16 21:41 Last Admin: 07/27/16 23:30 Dose: Not Given Vancomycin HCl 1 gm/ Sodium (Chloride) 250 mls @ 250 mls/hr IV ONETIME ONE Stop: 07/27/16 22:11 Last Infusion: 07/28/16 01:51 Dose: Infused Clindamycin Phosphate 600 mg/ (Premix) 50 mls @ 100 mls/hr IV Q6H [facility] Clindamycin Phosphate 600 mg/ (Premix) 50 mls @ 100 mls/hr IV Q8H [facility] Cefepime HCl 2 gm/ Premix 50 mls @ 100 mls/hr IV Q8H [facility] Last Admin: 07/27/16 23:31 Dose: Not Given Levofloxacin/Dextrose 750 mg/ (Premix) 150 mls @ 100 mls/hr IV ONETIME ONE Stop: 07/27/16 23:12 Last Admin: 07/28/16 01:36 Dose: 100 mls/hr Vancomycin HCl 1 gm/ Sodium (Chloride) 250 mls @ 166 mls/hr IV ONETIME ONE Stop: 07/28/16 00:30 Last Infusion: 07/28/16 01:52 Dose: Infused Vancomycin HCl 1.25 gm/ Sodium (Chloride) 250 mls @ 166.667 mls/hr IV Q24H [facility] Last Admin: 07/30/16 23:24 Dose: Not Given Cefepime HCl 2 gm/ Premix 50 mls @ 100 mls/hr IV Q8H [facility] Last Admin: 07/29/16 08:20 Dose: 100 mls/hr Cefepime HCl 2 gm/ Premix 50 mls @ 100 mls/hr IV Q12H [facility] Last Admin: 08/02/16 20:13 Dose: 100 mls/hr Sodium Chloride (Normal Saline) 2,390 mls @ 999 mls/hr IV ASDIRECTED ONE Stop: 07/30/16 00:02 Last Admin: 07/29/16 21:54 Dose: 999 mls/hr Vancomycin HCl 1 gm/ Sodium (Chloride) 250 mls @ 166.667 mls/hr IV Q36H [facility] Last Admin: 07/31/16 23:10 Dose: 166.667 mls/hr Levofloxacin/Dextrose 750 mg/ (Premix) 150 mls @ 100 mls/hr IV Q48H [facility] Last Admin: 08/02/16 10:51 Dose: 100 mls/hr Vancomycin HCl 1 gm/ Sodium (Chloride) 250 mls @ 166.667 mls/hr IV Q36H [facility] Last Admin: 08/03/16 05:49 Dose: Not Given Vancomycin HCl 1 gm/ Sodium (Chloride) 250 mls @ 166.667 mls/hr IV Q48H [facility] Levofloxacin (Levaquin) 500 mg PO ONETIME ONE Stop: 07/27/16 21:13 Last Admin: 07/27/16 21:44 Dose: Not Given Lorazepam (Ativan) 0.5 mg IVPUSH Q4H PRN PRN Reason: Agitation Last Admin: 07/31/16 04:22 Dose: 0.5 mg Magnesium Citrate (Citrate Of Magnesia) 296 ml PO ONETIME ONE Stop: 08/02/16 10:31 Last Admin: 08/02/16 10:51 Dose: 296 ml Vancomycin HCl (Pharmacy To Dose - Vancomycin) 1 dose .XX ASDIRECTED [facility] Warfarin Sodium (Coumadin Ask) 1 each PO ONETIME ONE Stop: 07/28/16 10:52 Last Admin: 07/28/16 18:16 Dose: Not Given Warfarin Sodium (Coumadin Ask) 1 each PO ONETIME [facility] Warfarin Sodium (Coumadin) 2 mg PO DAILY@1400 [facility] - Exam Quality Assessment: supplemental oxygen, DVT prophylaxis General: alert, no acute distress HEENT: Pupils equal, Pupils reactive, EOMI, Mucous membr. moist/pink Neck: supple Lungs: Normal respiratory effort, Crackles, Rales, Rhonchi Cardiovascular: Regular Rate, Irregular Rhythm Abdomen: bowel sounds present, soft, no tenderness, no distension Extremities: edema (+1 to ankles) Peripheral Pulses: 2+: radial (L), radial (R), posterior tibial (L), dorsalis pedis (L) Skin: warm, dry, intact Neurological: no new focal deficit Psy/Mental Status: alert - Problem List & Annotations (1) Chronic renal disease SNOMED Code(s): 460832493 Code(s): N18.9 - CHRONIC KIDNEY DISEASE, UNSPECIFIED Status: Chronic Priority: High Current Visit: Yes Qualifiers: Chronic kidney disease stage: unspecified stage Qualified Code(s): N18.9 - Chronic kidney disease, unspecified (2) Pneumonia SNOMED Code(s): 168576553 Code(s): J18.9 - PNEUMONIA, UNSPECIFIED ORGANISM Status: Acute Priority: High Current Visit: Yes Qualifiers: Pneumonia type: aspiration pneumonia Aspiration pneumonia type: due to regurgitated food Laterality: unspecified laterality Lung location: unspecified part of lung Qualified Code(s): J69.0 - Pneumonitis due to inhalation of food and vomit (3) Afib SNOMED Code(s): 46277201 Code(s): I48.91 - UNSPECIFIED ATRIAL FIBRILLATION Status: Chronic Priority: Medium Current Visit: No Qualifiers: Atrial fibrillation type: chronic Qualified Code(s): I48.2 - Chronic atrial fibrillation (4) CAD (coronary artery disease) SNOMED Code(s): 78436912 Code(s): I25.10 - ATHSCL HEART DISEASE OF [place] CORONARY ARTERY W/O ANG PCTRS Status: Chronic Priority: Medium Current Visit: No Qualifiers: Coronary Disease-Associated Artery/Lesion type: unspecified vessel or lesion type [place] vs. transplanted heart: unspecified whether [place] or transplanted heart Associated angina: without angina Qualified Code(s): I25.10 - Atherosclerotic heart disease of [place] coronary artery without angina pectoris (5) COPD (chronic obstructive pulmonary disease) SNOMED Code(s): 01872112 Code(s): J44.9 - CHRONIC OBSTRUCTIVE PULMONARY DISEASE, UNSPECIFIED Status : Chronic Priority: Medium Current Visit: Yes Qualifiers: COPD type: unspecified COPD Qualified Code(s): J44.9 - Chronic obstructive pulmonary disease, unspecified (6) Diabetes mellitus SNOMED Code(s): 14487307 Code(s): E11.9 - TYPE 2 DIABETES MELLITUS WITHOUT COMPLICATIONS Status: Chronic Priority: Medium Current Visit: Yes Qualifiers: Diabetes mellitus type: type 2 Diabetes mellitus complication status: with skin complications Diabetes mellitus complication detail: with other skin complication Diabetes mellitus wet process technician insulin use: with wet process technician use Qualified Code(s): E11.628 - Type 2 diabetes mellitus with other skin complications; Z79.4 - 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 adjustment 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 of insulin (7) History of CVA (cerebrovascular accident) SNOMED Code(s): 619489880 Code(s): Z86.73 - PRSNL HX OF TIA (TIA), AND CEREB INFRC W/O RESID DEFICITS Status: Chronic Priority: Low Current Visit: No (8) Systolic CHF SNOMED Code(s): 275050016 Code(s): I50.20 - UNSPECIFIED SYSTOLIC (CONGESTIVE) HEART FAILURE Status: Chronic Priority: High Current Visit: Yes Qualifiers: Congestive heart failure chronicity: chronic Qualified Code(s): I50.22 - Chronic systolic (congestive) heart failure - Problem List Review Problem List Initiated/Reviewed/Updated: Yes - My Orders Last 24 Hours: My Active Orders 08/03/16 08:10 Furosemide [Lasix] 80 mg IVPUSH BIDDIURETIC 08/03/16 14:00 Clindamycin Phosphate in D5W [Cleocin in D5W] 600 mg Premix Bag 1 bag IV Q8HR 08/04/16 11:00 Levofloxacin/Dextrose 5%-Water [Levaquin in D5W 500 MG/100 ML] 500 mg Premix Bag 1 bag IV Q48H - Plan Plan:: 70 yo male admitted 07/27/16 for pneumonia with pmh of CHF/htn, chronic kidney disease, a-fib rate controlled, and type II diabetes. Pneumonia: Most likely aspiration. White count still mildly elevated but on Levaquin which was restarted day 4,, Cefepime day 6. Cont. broad spectrum abx. Sputum cultures grew Staph Haemolyticus will stop Vanco secondary to worsening kidney function and start Linzolid today which the staph is sensitive to. CHF/htn: Patient still volume overloaded and kidney function worsening most likely due to cardiorenal syndrome. Will stop oral lasix today and add 80 Lasix IV BID instead of oral. Talked with girlfriend about worsening kidney function and possibility that we should consider comfort care. I will also talk to patient's son Coleman today to update him. If Lasix does not work I feel that comfort care would be in best interest of patient as they do not want dialysis. Cont. to monitor closely Chronic kidney disease: Cr increased from 2.7 yesterday to 3.3 day. Most likely from Cardiorenal syndrome will give 80 IV Lasix BID in place of oral. A-fib rate controllled: INR 3.38 today. Improving. Warfarin continues to be held until goal of 2-3 reached. Diabetes: ISS VTE: Hold pharmacologic secondary to INR of 3.38, SCD. Dispo: 1-2 days. Will talk with sanjana Cee today about worsening renal function and instituting comfort measures\hospice if no improvement today.
[2016-08-03] MEDS: Linezolid 600 MG in Premix Bag 1 BAG IV SCH ×2 (10:44→22:06)
[2016-08-03] MEDS ORDERED: Clindamycin Phosphate in D5W 600 MG in Premix Bag 1 BAG IV SCH ×2 (14:00)
[2016-08-03] MEDS ORDERED: Cefepime 2 GM in Premix Bag 1 BAG IV SCH (20:30)
[2016-08-03] MEDS: Pravastatin 40 MG Tab PO SCH (20:57)
[2016-08-04] MEDS: Albuterol/Ipratropium 3.0-0.5 MG/3 ML Neb Soln NEB SCH ×2 (06:19→11:19)
[2016-08-04] MEDS: Insulin Aspart 100 Units/ML 3 ML Pen SUBCUT SCH ×2 (06:29→11:13)
[2016-08-04] MEDS: Allopurinol 100 MG Tab PO SCH (08:11)
[2016-08-04] MEDS: Spironolactone 25 MG Tab PO SCH (08:11)
[2016-08-04] MEDS: Digoxin 125 MCG Tab PO SCH (08:12)
[2016-08-04] MEDS: Famotidine 20 MG Tab PO SCH (08:13)
[2016-08-04] MEDS: Carvedilol 3.125 MG Tab PO SCH (08:13)
[2016-08-04] MEDS: Venlafaxine 37.5 MG Tab PO SCH (08:14)
[2016-08-04] MEDS: Irbesartan 150 MG Tab PO SCH (08:15)
[2016-08-04] MEDS: Potassium Chloride 20 MEQ Tab.ER PO SCH (08:16)
[2016-08-04] MEDS: Furosemide 40 MG/4 ML VIAL IVPUSH SCH (08:37)
[2016-08-04] MEDS: Linezolid 600 MG in Premix Bag 1 BAG IV SCH (10:10)
[2016-08-04] MEDS ORDERED: Levofloxacin/Dextrose 5%-Water 500 MG in Premix Bag 1 BAG IV SCH (11:00)
[2016-08-04 13:43] VITALS: BP 112/44
--- NOTE | 2016-08-04 16:22 | PCM.DCSUM1 ---
Addendum entered and electronically signed by Shorty Hill MD 08/04/16 16:25 : Discharge Summary - Hospital Course Brief History: see summary below for entire history. - Discharge Data Discharge Date: 08/04/16 Discharge Disposition: DC/Tfer to SNF 03 Condition: Fair - Discharge Diagnosis/Problem(s) (1) Chronic renal disease SNOMED Code(s): 795176785 ICD Code: N18.9 - CHRONIC KIDNEY DISEASE, UNSPECIFIED Status: Chronic Priority: High Qualifiers: Chronic kidney disease stage: unspecified stage Qualified Code(s): N18.9 - Chronic kidney disease, unspecified (2) Pneumonia SNOMED Code(s): 867429103 ICD Code: J18.9 - PNEUMONIA, UNSPECIFIED ORGANISM Status: Acute Priority : High Qualifiers: Pneumonia type: aspiration pneumonia Aspiration pneumonia type: due to regurgitated food Laterality: unspecified laterality Lung location: unspecified part of lung Qualified Code(s): J69.0 - Pneumonitis due to inhalation of food and vomit (3) Afib SNOMED Code(s): 07430282 ICD Code: I48.91 - UNSPECIFIED ATRIAL FIBRILLATION Status: Chronic Priority: Medium Qualifiers: Atrial fibrillation type: chronic Qualified Code(s): I48.2 - Chronic atrial fibrillation (4) CAD (coronary artery disease) SNOMED Code(s): 86267739 ICD Code: I25.10 - ATHSCL HEART DISEASE OF [place] CORONARY ARTERY W/O ANG PCTRS Status: Chronic Priority: Medium Qualifiers: Coronary Disease-Associated Artery/Lesion type: unspecified vessel or lesion type [place] vs. transplanted heart: unspecified whether unga or transplanted heart Associated angina: without angina Qualified Code(s): I25.10 - Atherosclerotic heart disease of [place] coronary artery without angina pectoris (5) COPD (chronic obstructive pulmonary disease) SNOMED Code(s): 36695923 ICD Code: J44.9 - CHRONIC OBSTRUCTIVE PULMONARY DISEASE, UNSPECIFIED Status : Chronic Priority: Medium Qualifiers: COPD type: unspecified COPD Qualified Code(s): J44.9 - Chronic obstructive pulmonary disease, unspecified (6) Diabetes mellitus SNOMED Code(s): 55215673 ICD Code: E11.9 - TYPE 2 DIABETES MELLITUS WITHOUT COMPLICATIONS Status: Chronic Priority: Medium Qualifiers: Diabetes mellitus type: type 2 Diabetes mellitus complication status: with skin complications Diabetes mellitus complication detail: with other skin complication Diabetes mellitus snf insulin use: with oil heaterman use Qualified Code(s): E11.628 - Type 2 diabetes mellitus with other skin complications; 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 (7) History of CVA (cerebrovascular accident) SNOMED Code(s): 725826969 ICD Code: Z86.73 - PRSNL HX OF TIA (TIA), AND CEREB INFRC W/O RESID DEFICITS Status: Chronic Priority: Low (8) Systolic CHF SNOMED Code(s): 220456691 ICD Code: I50.20 - UNSPECIFIED SYSTOLIC (CONGESTIVE) HEART FAILURE Status: Chronic Priority: High Qualifiers: Congestive heart failure chronicity: chronic Qualified Code(s): I50.22 - Chronic systolic (congestive) heart failure - Patient Summary/Data Consults: Consultations 07/27/16 21:26 Consult to Speech Language Pathology [MEASUREMENT ANALYST Evaluation and Treatment] [CONS] Routine 08/02/16 12:51 Consult to Physician [CONS] Urgent 08/04/16 08:58 Consult to [Consult to Home Health] [CONS] Routine - Patient Instructions Diet: Regular Diet as Tolerated Activity: As Tolerated Driving: Do Not Drive Showering/Bathing: No Showering, No Tub Bathing/Swimming Notify Provider of: Fever, Increased Pain, Swelling and Redness, Nausea and/or Vomiting - Discharge Plan Prescriptions/Med Rec: Albuterol/Ipratropium [DuoNeb 3.0-0.5 MG/3 ML] 3 ml NEB Q6HRRT PRN #28 neb PRN Reason: Shortness Of Breath Hyoscyamine Sulfate [Levsin-Sl] 0.125 mg SL Q4H PRN #42 tab.subl PRN Reason: secretions LORazepam [Ativan] 2 mg PO Q8H #21 ml Linezolid 600 mg PO BID #14 tablet Morphine [Morphine 10 MG/0.5 ML Oral Syringe] 10 mg PO Q2H #24 syringe Home Medications: Home Meds Allopurinol [Zyloprim] 100 mg PO DAILY 07/01/16 [History] Cinnamon Bark [Cinnamon] 1,000 mg PO DAILY 07/01/16 [History] Digoxin [Digox] 125 mcg PO DAILY 07/01/16 [History] Famotidine 20 mg PO BIDMEALS 07/01/16 [History] Furosemide [Lasix] 160 mg PO DAILY 07/01/16 [History] Pravastatin [Pravachol] 10 mg PO BEDTIME 07/01/16 [History] Spironolactone [Aldactone] 25 mg PO DAILY 07/01/16 [History] Potassium Chloride [Klor-Con M20] 40 meq PO DAILY 07/03/16 [History] Bisacodyl [Dulcolax] 10 mg RC Q24H PRN 07/19/16 [History] Carvedilol 3.125 mg PO BIDMEALS 07/19/16 [History] Magnesium Hydroxide [Milk of Magnesia] 30 ml PO Q24H PRN 07/19/16 [History] Venlafaxine [Effexor] 75 mg PO DAILY 07/19/16 [History] Albuterol/Ipratropium [DuoNeb 3.0-0.5 MG/3 ML] 3 ml NEB Q6HRRT PRN #28 neb 08/04 [Rx] Hyoscyamine Sulfate [Levsin-Sl] 0.125 mg SL Q4H PRN #42 tab.subl 08/04/16 [Rx] LORazepam [Ativan] 2 mg PO Q8H #21 ml 08/04/16 [Rx] Linezolid 600 mg PO BID #14 tablet 08/04/16 [Rx] Morphine [Morphine 10 MG/0.5 ML Oral Syringe] 10 mg PO Q2H #24 syringe 08/04/16 [Rx] Patient Handouts: Morphine oral solution, Hyoscyamine tablets, Linezolid tablets, Lorazepam tablets, Albuterol; Ipratropium solution for inhalation Referrals: Davion Cavazos DPM [Physician] - 08/08/16 1:30 pm - General Info Date of Service: 08/04/16 Admission Dx/Problem (Free Text: Admission Diagnosis/Problem Admission Diagnosis/Problem Pneumonia Subjective Update: Patient only alert but not responding verbally this am. - Patient Data Vitals - Most Recent: Last Vital Signs Temp 34.4 C L 08/04/16 12:00 Pulse 82 08/04/16 12:00 Resp 20 08/04/16 12:00 BP 112/44 L 08/04/16 12:00 Pulse Ox 98 08/04/16 12:00 Weight - Most Recent: 122.5 kg I&O - Last 24 hours: Intake & Output 08/04/16 08/04/16 08/04/16 06:59 14:59 22:59 Intake Total 300 350 Balance 300 350 Lab Results - Last 24 hrs: Laboratory Results - last 24 hr 08/04/16 08/04/16 08/04/16 Range/Units 05:58 05:58 05:58 WBC 12.78 H (4.0-11.0) K/uL RBC 4.13 L (4.50-5.90) M/uL Hgb 12.2 L (13.0-17.0) g/dL Hct 39.9 (38.0-50.0) % MCV 96.6 (80.0-98.0) fL MCH 29.5 (27.0-32.0) pg MCHC 30.6 L (31.0-37.0) g/dL RDW Std Deviation 59.0 (28.0-62.0) fl RDW Coeff of [place] 17 H (11.0-15.0) % Plt Count 212 (150-400) K/uL MPV 9.80 (7.40-12.00) fL Add Manual Diff YES Neutrophils % (Manual) 63 (48.0-80.0) % Band Neutrophils % 5 % Lymphocytes % (Manual) 16 (16.0-40.0) % Monocytes % (Manual) 10 (0.0-15.0) % Eosinophils % (Manual) 5 (0.0-7.0) % Basophils % (Manual) 1 (0.0-1.5) % Nucleated RBC % 0.0 /100WBC Absolute Seg Neuts 8.1 Band Neutrophils # 0.6 Lymphocytes # (Manual) 2.0 Monocytes # (Manual) 1.3 Eosinophils # (Manual) 0.6 Basophils # (Manual) 0 Nucleated RBCs # 0 K/uL INR 3.25 H (0.86-1.11) Sodium 146 (136-146) mmol/L Potassium 4.9 (3.5-5.1) mmol/L Chloride 107 (98-110) mmol/L Carbon Dioxide 26 (21-31) mmol/L BUN 49 H (6.0-23.0) mg/dL Creatinine 3.7 H (0.6-1.5) mg/dL Est Cr Clr Drug Dosing 16.61 mL/min Estimated GFR (MDRD) 16.3 ml/min Glucose 130 H (60-110) mg/dL POC Glucose (60-110) mg/dL Calcium 9.8 (8.8-10.8) mg/dL Total Bilirubin 0.7 (0.1-1.5) mg/dL AST 16 (5-40) IU/L ALT 11 (8-54) IU/L Alkaline Phosphatase 111 (40-150) Total Protein 7.0 (6.0-8.0) g/dL Albumin 2.6 L (3.4-4.8) g/dL Globulin 4.4 H (2.0-3.5) g/dL Albumin/Globulin Ratio 0.6 L (1.3-2.8) 08/04/16 Range/Units 06:28 WBC (4.0-11.0) K/uL RBC (4.50-5.90) M/uL Hgb (13.0-17.0) g/dL Hct (38.0-50.0) % MCV (80.0-98.0) fL MCH (27.0-32.0) pg MCHC (31.0-37.0) g/dL RDW Std Deviation (28.0-62.0) fl RDW Coeff of [place] (11.0-15.0) % Plt Count (150-400) K/uL MPV (7.40-12.00) fL Add Manual Diff Neutrophils % (Manual) (48.0-80.0) % Band Neutrophils % % Lymphocytes % (Manual) (16.0-40.0) % Monocytes % (Manual) (0.0-15.0) % Eosinophils % (Manual) (0.0-7.0) % Basophils % (Manual) (0.0-1.5) % Nucleated RBC % /100WBC Absolute Seg Neuts Band Neutrophils # Lymphocytes # (Manual) Monocytes # (Manual) Eosinophils # (Manual) Basophils # (Manual) Nucleated RBCs # K/uL INR (0.86-1.11) Sodium (136-146) mmol/L Potassium (3.5-5.1) mmol/L Chloride (98-110) mmol/L Carbon Dioxide (21-31) mmol/L BUN (6.0-23.0) mg/dL Creatinine (0.6-1.5) mg/dL Est Cr Clr Drug Dosing mL/min Estimated GFR (MDRD) ml/min Glucose (60-110) mg/dL POC Glucose 140 H (60-110) mg/dL Calcium (8.8-10.8) mg/dL Total Bilirubin (0.1-1.5) mg/dL AST (5-40) IU/L ALT (8-54) IU/L Alkaline Phosphatase (40-150) Total Protein (6.0-8.0) g/dL Albumin (3.4-4.8) g/dL Globulin (2.0-3.5) g/dL Albumin/Globulin Ratio (1.3-2.8) Med Orders - Current: Current Medications Discontinued Medications Acetaminophen (Tylenol) 500 mg PO Q4H PRN PRN Reason: Pain/Fever Acetaminophen (Tylenol Extra Strength) 500 mg PO Q4H PRN PRN Reason: Pain/Fever Last Admin: 07/31/16 20:16 Dose: 500 mg Albuterol/Ipratropium (Duoneb 3.0-0.5 Mg/3 Ml) 3 ml NEB Q4HRRT [facility] Last Admin: 08/02/16 03:29 Dose: Not Given Albuterol/Ipratropium (Duoneb 3.0-0.5 Mg/3 Ml) 3 ml NEB Q6HRRT [facility] Last Admin: 08/04/16 11:19 Dose: 3 ml Allopurinol (Zyloprim) 100 mg PO DAILY [facility] Last Admin: 08/04/16 08:11 Dose: 100 mg Bisacodyl (Dulcolax) 10 mg RECTAL Q24H PRN PRN Reason: Constipation Bumetanide (Bumex) 1 mg IVPUSH ONETIME ONE Stop: 07/27/16 19:59 Last Admin: 07/27/16 21:11 Dose: 1 mg Carvedilol (Coreg) 6.25 mg PO BIDMEALS [facility] Last Admin: 07/31/16 08:54 Dose: 6.25 mg Carvedilol (Coreg) 3.125 mg PO BIDMEALS [facility] Last Admin: 08/04/16 08:13 Dose: 3.125 mg Digoxin (Lanoxin) 125 mcg PO DAILY [facility] Last Admin: 08/04/16 08:12 Dose: 125 mcg Famotidine (Pepcid) 20 mg PO BIDMEALS [facility] Last Admin: 08/04/16 08:13 Dose: 20 mg Furosemide (Lasix) 80 mg PO ONETIME ONE Stop: 07/27/16 21:21 Last Admin: 07/28/16 00:36 Dose: Not Given Furosemide (Lasix) 80 mg IVPUSH NOW ONE Stop: 07/28/16 10:54 Last Admin: 07/28/16 11:41 Dose: 80 mg Furosemide (Lasix) 80 mg PO BIDDIURETIC [facility] Last Admin: 08/02/16 13:56 Dose: 80 mg Furosemide (Lasix) 80 mg IVPUSH ONETIME ONE Stop: 07/31/16 21:01 Last Admin: 07/31/16 22:16 Dose: Not Given Furosemide (Lasix) 80 mg IVPUSH NOW ONE Stop: 08/01/16 10:06 Last Admin: 08/01/16 10:05 Dose: 80 mg Furosemide (Lasix) 80 mg IVPUSH NOW ONE Stop: 08/01/16 10:16 Last Admin: 08/01/16 10:30 Dose: 80 mg Furosemide (Lasix) 80 mg IVPUSH BIDDIURETIC [facility] Last Admin: 08/04/16 08:37 Dose: 80 mg Gabapentin (Neurontin) 300 mg PO TID [facility] Last Admin: 07/31/16 05:44 Dose: 300 mg Gabapentin (Neurontin) 600 mg PO DAILY [facility] Clindamycin Phosphate 600 mg/ (Premix) 50 mls @ 100 mls/hr IV ONETIME ONE Stop: 07/27/16 21:41 Last Admin: 07/27/16 23:30 Dose: Not Given Vancomycin HCl 1 gm/ Sodium (Chloride) 250 mls @ 250 mls/hr IV ONETIME ONE Stop: 07/27/16 22:11 Last Infusion: 07/28/16 01:51 Dose: Infused Clindamycin Phosphate 600 mg/ (Premix) 50 mls @ 100 mls/hr IV Q6H [facility] Clindamycin Phosphate 600 mg/ (Premix) 50 mls @ 100 mls/hr IV Q8H [facility] Cefepime HCl 2 gm/ Premix 50 mls @ 100 mls/hr IV Q8H [facility] Last Admin: 07/27/16 23:31 Dose: Not Given Levofloxacin/Dextrose 750 mg/ (Premix) 150 mls @ 100 mls/hr IV ONETIME ONE Stop: 07/27/16 23:12 Last Admin: 07/28/16 01:36 Dose: 100 mls/hr Vancomycin HCl 1 gm/ Sodium (Chloride) 250 mls @ 166 mls/hr IV ONETIME ONE Stop: 07/28/16 00:30 Last Infusion: 07/28/16 01:52 Dose: Infused Vancomycin HCl 1.25 gm/ Sodium (Chloride) 250 mls @ 166.667 mls/hr IV Q24H [facility] Last Admin: 07/30/16 23:24 Dose: Not Given Cefepime HCl 2 gm/ Premix 50 mls @ 100 mls/hr IV Q8H [facility] Last Admin: 07/29/16 08:20 Dose: 100 mls/hr Cefepime HCl 2 gm/ Premix 50 mls @ 100 mls/hr IV Q12H [facility] Last Admin: 08/02/16 20:13 Dose: 100 mls/hr Sodium Chloride (Normal Saline) 2,390 mls @ 999 mls/hr IV ASDIRECTED ONE Stop: 07/30/16 00:02 Last Admin: 07/29/16 21:54 Dose: 999 mls/hr Vancomycin HCl 1 gm/ Sodium (Chloride) 250 mls @ 166.667 mls/hr IV Q36H [facility] Last Admin: 07/31/16 23:10 Dose: 166.667 mls/hr Levofloxacin/Dextrose 750 mg/ (Premix) 150 mls @ 100 mls/hr IV Q48H [facility] Last Admin: 08/02/16 10:51 Dose: 100 mls/hr Sodium Chloride (Normal Saline) 500 mls @ 500 mls/hr IV .BOLUS [facility] Last Admin: 07/31/16 15:19 Dose: 500 mls/hr Vancomycin HCl 1 gm/ Sodium (Chloride) 250 mls @ 166.667 mls/hr IV Q36H [facility] Last Admin: 08/03/16 05:49 Dose: Not Given Vancomycin HCl 1 gm/ Sodium (Chloride) 250 mls @ 166.667 mls/hr IV Q48H [facility] Clindamycin Phosphate 600 mg/ (Premix) 50 mls @ 100 mls/hr IV Q8HR [facility] Cefepime HCl 2 gm/ Premix 50 mls @ 100 mls/hr IV Q24H [facility] Last Admin: 08/03/16 20:31 Dose: 100 mls/hr Levofloxacin/Dextrose 500 mg/ (Premix) 100 mls @ 66.667 mls/hr IV Q48H [facility] Linezolid 600 mg/ Premix 300 mls @ 300 mls/hr IV Q12H [facility] Last Admin: 08/04/16 10:10 Dose: 300 mls/hr Insulin Aspart (Novolog) 0 unit SUBCUT TIDAC [facility] PRN Reason: Protocol Last Admin: 08/04/16 11:13 Dose: Not Given Irbesartan (Avapro) 75 mg PO DAILY [facility] Last Admin: 08/04/16 08:15 Dose: 75 mg Levofloxacin (Levaquin) 500 mg PO ONETIME ONE Stop: 07/27/16 21:13 Last Admin: 07/27/16 21:44 Dose: Not Given Lorazepam (Ativan) 0.5 mg IVPUSH Q4H PRN PRN Reason: Agitation Last Admin: 07/31/16 04:22 Dose: 0.5 mg Magnesium Citrate (Citrate Of Magnesia) 296 ml PO ONETIME ONE Stop: 08/02/16 10:31 Last Admin: 08/02/16 10:51 Dose: 296 ml Magnesium Hydroxide (Milk Of Magnesia) 30 ml PO Q24H PRN PRN Reason: Constipation Ondansetron HCl (Zofran) 4 mg IVPUSH Q4H PRN PRN Reason: Nausea Potassium Chloride (Klor-Con M20) 40 meq PO DAILY [facility] Last Admin: 08/04/16 08:16 Dose: 40 meq Pravastatin Sodium (Pravachol) 10 mg PO BEDTIME [facility] Last Admin: 08/03/16 20:57 Dose: Not Given Sodium Chloride (Saline Flush) 10 ml FLUSH ASDIRECTED PRN PRN Reason: Keep Vein Open Last Admin: 07/27/16 21:14 Dose: 10 ml Sodium Chloride (Saline Flush) 2.5 ml FLUSH ASDIRECTED PRN PRN Reason: Keep Vein Open Last Admin: 07/27/16 21:49 Dose: 2.5 ml Sodium Chloride (Saline Flush) 10 ml FLUSH ASDIRECTED PRN PRN Reason: Keep Vein Open Last Admin: 07/27/16 21:14 Dose: 10 ml Sodium Chloride (Saline Flush) 2.5 ml FLUSH ASDIRECTED PRN PRN Reason: Keep Vein Open Spironolactone (Aldactone) 25 mg PO DAILY [facility] Last Admin: 08/04/16 08:11 Dose: 25 mg Vancomycin HCl (Pharmacy To Dose - Vancomycin) 1 dose .XX ASDIRECTED [facility] Venlafaxine HCl (Effexor) 75 mg PO DAILY [facility] Last Admin: 08/04/16 08:14 Dose: 75 mg Warfarin Sodium (Coumadin Ask) 1 each PO ONETIME ONE Stop: 07/28/16 10:52 Last Admin: 07/28/16 18:16 Dose: Not Given Warfarin Sodium (Coumadin Ask) 1 each PO ONETIME [facility] Warfarin Sodium (Coumadin) 2 mg PO DAILY@1400 [facility] - Exam Quality Assessment: Reports: supplemental oxygen, DVT prophylaxis General: Reports: alert HEENT: Reports: Pupils equal, Pupils reactive, EOMI, Mucous membr. moist/pink Neck: Reports: supple Lungs: Reports: Normal respiratory effort, Crackles, Rhonchi Cardiovascular: Reports: Regular Rate, Irregular Rhythm Abdomen: Reports: bowel sounds present, soft, no tenderness, no distension Extremities: Reports: normal pulses, edema (+2 pitting edma to the ankles. ) Skin: Reports: warm, dry, intact Neurological: Reports: no new focal deficit Psy/Mental Status: Reports: alert Original Note: <Shorty Hill - Last Filed: 08/04/16 16:23> Discharge Summary - Hospital Course HPI Initial Comments: 70-year-old male admitted on initially on 07/19/16 for UTI and acute on chronic renal failure and then readmitted on 07/27/16 for aspiration pneumonia with past medical history of congestive heart failure, chronic kidney disease, A. fib on Coumadin, oxygen-dependent COPD, diabetes type 2, dementia without behavioral disturbance, and [place] with stenting. Brief History: see summary below for entire history. - Discharge Data Discharge Date: 08/04/16 Discharge Disposition: DC/Tfer to [facility] 03 Condition: Fair - Discharge Diagnosis/Problem(s) (1) Chronic renal disease SNOMED Code(s): 331779847 ICD Code: N18.9 - CHRONIC KIDNEY DISEASE, UNSPECIFIED Status: Chronic Priority: High Qualifiers: Chronic kidney disease stage: unspecified stage Qualified Code(s): N18.9 - Chronic kidney disease, unspecified (2) Pneumonia SNOMED Code(s): 538676866 ICD Code: J18.9 - PNEUMONIA, UNSPECIFIED ORGANISM Status: Acute Priority : High Qualifiers: Pneumonia type: aspiration pneumonia Aspiration pneumonia type: due to regurgitated food Laterality: unspecified laterality Lung location: unspecified part of lung Qualified Code(s): J69.0 - Pneumonitis due to inhalation of food and vomit (3) Afib SNOMED Code(s): 28727433 ICD Code: I48.91 - UNSPECIFIED ATRIAL FIBRILLATION Status: Chronic Priority: Medium Qualifiers: Atrial fibrillation type: chronic Qualified Code(s): I48.2 - Chronic atrial fibrillation (4) CAD (coronary artery disease) SNOMED Code(s): 57627103 ICD Code: I25.10 - ATHSCL HEART DISEASE OF [place] CORONARY ARTERY W/O ANG PCTRS Status: Chronic Priority: Medium Qualifiers: Coronary Disease-Associated Artery/Lesion type: unspecified vessel or lesion type [place] vs. transplanted heart: unspecified whether [place] or transplanted heart Associated angina: without angina Qualified Code(s): I25.10 - Atherosclerotic heart disease of [place] coronary artery without angina pectoris (5) COPD (chronic obstructive pulmonary disease) SNOMED Code(s): 44915762 ICD Code: J44.9 - CHRONIC OBSTRUCTIVE PULMONARY DISEASE, UNSPECIFIED Status : Chronic Priority: Medium Qualifiers: COPD type: unspecified COPD Qualified Code(s): J44.9 - Chronic obstructive pulmonary disease, unspecified (6) Diabetes mellitus SNOMED Code(s): 23120830 ICD Code: E11.9 - TYPE 2 DIABETES MELLITUS WITHOUT COMPLICATIONS Status: Chronic Priority: Medium Qualifiers: Diabetes mellitus type: type 2 Diabetes mellitus complication status: with skin complications Diabetes mellitus complication detail: with other skin complication Diabetes mellitus snf insulin use: with oil heaterman use Qualified Code(s): E11.628 - Type 2 diabetes mellitus with other skin complications; 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 of 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 (7) History of CVA (cerebrovascular accident) SNOMED Code(s): 667248869 ICD Code: Z86.73 - PRSNL HX OF TIA (TIA), AND CEREB INFRC W/O RESID DEFICITS Status: Chronic Priority: Low (8) Systolic CHF SNOMED Code(s): 685639756 ICD Code: I50.20 - UNSPECIFIED SYSTOLIC (CONGESTIVE) HEART FAILURE Status: Chronic Priority: High Qualifiers: Congestive heart failure chronicity: chronic Qualified Code(s): I50.22 - Chronic systolic (congestive) heart failure - Patient Summary/Data Consults: Consultations 07/27/16 21:26 Consult to Speech Language Pathology [MEASUREMENT ANALYST Evaluation and Treatment] [CONS] Routine 08/02/16 12:51 Consult to Physician [CONS] Urgent 08/04/16 08:58 Consult to [Consult to Home Health] [CONS] Routine Hospital Course: See below summary for entire history. - Patient Instructions Diet: Regular Diet as Tolerated Activity: As Tolerated Driving: Do Not Drive Showering/Bathing: No Showering, No Tub Bathing/Swimming Notify Provider of: Fever, Increased Pain, Swelling and Redness, Nausea and/or Vomiting - Discharge Plan Prescriptions/Med Rec: Albuterol/Ipratropium [DuoNeb 3.0-0.5 MG/3 ML] 3 ml NEB Q6HRRT PRN #28 neb PRN Reason: Shortness Of Breath Hyoscyamine Sulfate [Levsin-Sl] 0.125 mg SL Q4H PRN #42 tab.subl PRN Reason: secretions LORazepam [Ativan] 2 mg PO Q8H #21 ml Linezolid 600 mg PO BID #14 tablet Morphine [Morphine 10 MG/0.5 ML Oral Syringe] 10 mg PO Q2H #24 syringe Home Medications: Home Meds Allopurinol [Zyloprim] 100 mg PO DAILY 07/01/16 [History] Cinnamon Bark [Cinnamon] 1,000 mg PO DAILY 07/01/16 [History] Digoxin [Digox] 125 mcg PO DAILY 07/01/16 [History] Famotidine 20 mg PO BIDMEALS 07/01/16 [History] Furosemide [Lasix] 160 mg PO DAILY 07/01/16 [History] Pravastatin [Pravachol] 10 mg PO BEDTIME 07/01/16 [History] Spironolactone [Aldactone] 25 mg PO DAILY 07/01/16 [History] Potassium Chloride [Klor-Con M20] 40 meq PO DAILY 07/03/16 [History] Bisacodyl [Dulcolax] 10 mg RC Q24H PRN 07/19/16 [History] Carvedilol 3.125 mg PO BIDMEALS 07/19/16 [History] Magnesium Hydroxide [Milk of Magnesia] 30 ml PO Q24H PRN 07/19/16 [History] Venlafaxine [Effexor] 75 mg PO DAILY 07/19/16 [History] Albuterol/Ipratropium [DuoNeb 3.0-0.5 MG/3 ML] 3 ml NEB Q6HRRT PRN #28 neb 08/04 [Rx] Hyoscyamine Sulfate [Levsin-Sl] 0.125 mg SL Q4H PRN #42 tab.subl 08/04/16 [Rx] LORazepam [Ativan] 2 mg PO Q8H #21 ml 08/04/16 [Rx] Linezolid 600 mg PO BID #14 tablet 08/04/16 [Rx] Morphine [Morphine 10 MG/0.5 ML Oral Syringe] 10 mg PO Q2H #24 syringe 08/04/16 [Rx] Patient Handouts: Morphine oral solution, Hyoscyamine tablets, Linezolid tablets, Lorazepam tablets, Albuterol; Ipratropium solution for inhalation Referrals: Davion Cavazos DPM [Physician] - 08/08/16 1:30 pm - Discharge Summary/Plan Comment DC Time >30 min.: Yes Discharge Summary/Plan Comment: 70-year-old male admitted on initially on 07/19/16 for UTI and acute on chronic renal failure and then readmitted on 07/27/16 for aspiration pneumonia with past medical history of congestive heart failure, chronic kidney disease, A. fib on Coumadin, oxygen-dependent COPD, diabetes type 2, dementia without behavioral disturbance, and [place] with stenting. During inital interview on 07/19/16 patient was altered and did not answer questions appropriately he was alert two out of three but not appropriate. His girlfriend helped with the history but was a poor historian. Information taking from halfway records and [facility] notes from recent hospitalization were used primarily for the H and P. Patient had been recently transferred to [place] from [place] for osteomyelitis versus Charcot joint on 07/05/16. He was treated at [facility] and was diagnosed with a Charcot joint of the right ankle. Patient when seen here had leukocytosis and was started on Vanc and Zosyn secondary to worry of osteomyelitis, however after evaluation in [place] antibiotics were discontinued. During his stay in [place] he was treated for a Charcot joint, acute on chronic systolic congestive heart failure, chronic kidney disease, and diabetes. As per records the patient's creatinine at that time was 1.31 With a GFR of 54. This improved to 1.10 on last day of labs that were available from [place]. On day of admission patient came in with altered mental status as well as a positive urinary tract infection from [place] where he'd been treated for a Charcot joint. In the emergency department here CXR showed basilar atelectasis and/or/infiltrate with increased vascular prominence suggestive of possible CHF exacerbation. Patient was started on Rocephin 1 g IV and given 200 mL's of fluid. Creatnine was 2.63 a significant increase from previous labs. Talking with the girlfriend's of the patient, ever since he was in [place] he'd been less alert and more "sleepy". Looking through the notes he was started on Seroquel 50 mg each bedtime as well as 25 mg in the a.m. for agitation. In addition to this the patient was receiving OxyContin 10 mg extended release daily as well as oxycodone 5 mg by mouth every 4 hours. Patient did have a echocardiogram done on 07/12/16 while in [place] showing findings of left ventricular systolic dysfunction with an ejection fraction of 35%. There was a hypokinetic right ventricle. There was normal size inferior vena cava and pulmonary artery pressures. Also there was at least moderate to moderate severe degree of mitral regurg. Patient was in A. fib during the study. Patient was admitted for UTI as well as acute on chronic renal failure. Initial evaluation of the patient's volume status was somewhat difficult. ED had felt patient was volume down while my first assessement was that he may be suffering from cardiorenal syndrome and mildly volume overloaded. Patient intially did well with only volume coming from IV Rocephin for his UTI. All sedation medication were discontinued and on second day of admission patient's level of alertness was markedly improved. Patient did have one episode of hypercapnic respiratory failure most likely secondary to be given oral oxycodone for pain. He was was placed on Bipap for less than 24 hours and this was resolved. Kidney function slowly improved to baseline of Cr 1.6 after administration of IV Lasix 80 mg BID. Urine culture results were only positive for yeast which was thought to be a contaminate. He was treated with Rocephin IV for 5 days then switch to oral Keflex for continued 10 day treatment of complicated UTI. Gonsales was removed and patient was able to urinate with bed reyes. In addition to above, patient's INR on admission was 6.36. His home dose of warfarin was 3 mg q day. This was held until he was back in therapeutic range of 2-3 for his rate controlled a-fib. Once in therapeutic range he was restarted on a decrease dosage of warfarin 2.5 mg q day. On day of discharge patient was doing well and felt to be euvolemic. He was discharged back to [place] with a prescription for 1 day of Keflex to finish a total of 10 days of antibiotics for his UTI as well as Warfaring 2.5 mg q day. All sedation medications were held. It was believed that over sedation may have been part of what led to patient's admission on top of the UTI and Acute kidney failure on chronic. His Gonsales was removed and most likely source of UTI. Patient returned to ED on 07/27/16 and was admitted for suspected aspiration pneumonia. He was started on broad spectrum antibiotics Cefepime, Levaquin, and Vancomycin. Speech and modified swallow study were failed and honey thickened po was recommended and started. Patient's mental status continued to wax and wain. His sputum culture grew staph Haemolyticus sensitive to Linzolid as well as Vancomycin. Vancomycin was switched to Linzolid secondary to worsening kidney function. Patient's kidney function continued to worsen and he became unresponsive to lasix. It was discussed with family and SARAHDano Coleman, patient son about comfort care which he agreed with. Stating that he strongly felt that his father would not like to have more aggressive treatment for his failing clinical status. On day of transfer back to [place], Hospice was consulted and made recommendations and will follow patient at [place]. Patient was discharged back to [place] with prescriptions for Levsin for secretions, Morphine liquid, Ativan liquid, Linzolid for 7 days, and duonebs. I did decrease his Coreg to 3.125 mg BID. I did also discontinue the patient's warfarin as well as metformin, Gabapentin, and Irbesartan secondary to worsening renal function. Dr. Ayala and Dr. Livingston were notified of the patient 's status. - Patient Data Vitals - Most Recent: Last Vital Signs Temp 34.4 C L 08/04/16 12:00 Pulse 82 08/04/16 12:00 Resp 20 08/04/16 12:00 BP 112/44 L 08/04/16 12:00 Pulse Ox 98 08/04/16 12:00 Weight - Most Recent: 122.5 kg I&O - Last 24 hours: Intake & Output 08/04/16 08/04/16 08/04/16 06:59 14:59 22:59 Intake Total 300 350 Balance 300 350 Lab Results - Last 24 hrs: Laboratory Results - last 24 hr 08/04/16 08/04/16 08/04/16 Range/Units 05:58 05:58 05:58 WBC 12.78 H (4.0-11.0) K/uL RBC 4.13 L (4.50-5.90) M/uL Hgb 12.2 L (13.0-17.0) g/dL Hct 39.9 (38.0-50.0) % MCV 96.6 (80.0-98.0) fL MCH 29.5 (27.0-32.0) pg MCHC 30.6 L (31.0-37.0) g/dL RDW Std Deviation 59.0 (28.0-62.0) fl RDW Coeff of [place] 17 H (11.0-15.0) % Plt Count 212 (150-400) K/uL MPV 9.80 (7.40-12.00) fL Add Manual Diff YES Neutrophils % (Manual) 63 (48.0-80.0) % Band Neutrophils % 5 % Lymphocytes % (Manual) 16 (16.0-40.0) % Monocytes % (Manual) 10 (0.0-15.0) % Eosinophils % (Manual) 5 (0.0-7.0) % Basophils % (Manual) 1 (0.0-1.5) % Nucleated RBC % 0.0 /100WBC Absolute Seg Neuts 8.1 Band Neutrophils # 0.6 Lymphocytes # (Manual) 2.0 Monocytes # (Manual) 1.3 Eosinophils # (Manual) 0.6 Basophils # (Manual) 0 Nucleated RBCs # 0 K/uL INR 3.25 H (0.86-1.11) Sodium 146 (136-146) mmol/L Potassium 4.9 (3.5-5.1) mmol/L Chloride 107 (98-110) mmol/L Carbon Dioxide 26 (21-31) mmol/L BUN 49 H (6.0-23.0) mg/dL Creatinine 3.7 H (0.6-1.5) mg/dL Est Cr Clr Drug Dosing 16.61 mL/min Estimated GFR (MDRD) 16.3 ml/min Glucose 130 H (60-110) mg/dL POC Glucose (60-110) mg/dL Calcium 9.8 (8.8-10.8) mg/dL Total Bilirubin 0.7 (0.1-1.5) mg/dL AST 16 (5-40) IU/L ALT 11 (8-54) IU/L Alkaline Phosphatase 111 (40-150) Total Protein 7.0 (6.0-8.0) g/dL Albumin 2.6 L (3.4-4.8) g/dL Globulin 4.4 H (2.0-3.5) g/dL Albumin/Globulin Ratio 0.6 L (1.3-2.8) 08/04/16 Range/Units 06:28 WBC (4.0-11.0) K/uL RBC (4.50-5.90) M/uL Hgb (13.0-17.0) g/dL Hct (38.0-50.0) % MCV (80.0-98.0) fL MCH (27.0-32.0) pg MCHC (31.0-37.0) g/dL RDW Std Deviation (28.0-62.0) fl RDW Coeff of [place] (11.0-15.0) % Plt Count (150-400) K/uL MPV (7.40-12.00) fL Add Manual Diff Neutrophils % (Manual) (48.0-80.0) % Band Neutrophils % % Lymphocytes % (Manual) (16.0-40.0) % Monocytes % (Manual) (0.0-15.0) % Eosinophils % (Manual) (0.0-7.0) % Basophils % (Manual) (0.0-1.5) % Nucleated RBC % /100WBC Absolute Seg Neuts Band Neutrophils # Lymphocytes # (Manual) Monocytes # (Manual) Eosinophils # (Manual) Basophils # (Manual) Nucleated RBCs # K/uL INR (0.86-1.11) Sodium (136-146) mmol/L Potassium (3.5-5.1) mmol/L Chloride (98-110) mmol/L Carbon Dioxide (21-31) mmol/L BUN (6.0-23.0) mg/dL Creatinine (0.6-1.5) mg/dL Est Cr Clr Drug Dosing mL/min Estimated GFR (MDRD) ml/min Glucose (60-110) mg/dL POC Glucose 140 H (60-110) mg/dL Calcium (8.8-10.8) mg/dL Total Bilirubin (0.1-1.5) mg/dL AST (5-40) IU/L ALT (8-54) IU/L Alkaline Phosphatase (40-150) Total Protein (6.0-8.0) g/dL Albumin (3.4-4.8) g/dL Globulin (2.0-3.5) g/dL Albumin/Globulin Ratio (1.3-2.8) Med Orders - Current: Current Medications Discontinued Medications Acetaminophen (Tylenol) 500 mg PO Q4H PRN PRN Reason: Pain/Fever Acetaminophen (Tylenol Extra Strength) 500 mg PO Q4H PRN PRN Reason: Pain/Fever Last Admin: 07/31/16 20:16 Dose: 500 mg Albuterol/Ipratropium (Duoneb 3.0-0.5 Mg/3 Ml) 3 ml NEB Q4HRRT [facility] Last Admin: 08/02/16 03:29 Dose: Not Given Albuterol/Ipratropium (Duoneb 3.0-0.5 Mg/3 Ml) 3 ml NEB Q6HRRT [facility] Last Admin: 08/04/16 11:19 Dose: 3 ml Allopurinol (Zyloprim) 100 mg PO DAILY [facility] Last Admin: 08/04/16 08:11 Dose: 100 mg Bisacodyl (Dulcolax) 10 mg RECTAL Q24H PRN PRN Reason: Constipation Bumetanide (Bumex) 1 mg IVPUSH ONETIME ONE Stop: 07/27/16 19:59 Last Admin: 07/27/16 21:11 Dose: 1 mg Carvedilol (Coreg) 6.25 mg PO BIDMEALS [facility] Last Admin: 07/31/16 08:54 Dose: 6.25 mg Carvedilol (Coreg) 3.125 mg PO BIDMEALS [facility] Last Admin: 08/04/16 08:13 Dose: 3.125 mg Digoxin (Lanoxin) 125 mcg PO DAILY [facility] Last Admin: 08/04/16 08:12 Dose: 125 mcg Famotidine (Pepcid) 20 mg PO BIDMEALS [facility] Last Admin: 08/04/16 08:13 Dose: 20 mg Furosemide (Lasix) 80 mg PO ONETIME ONE Stop: 07/27/16 21:21 Last Admin: 07/28/16 00:36 Dose: Not Given Furosemide (Lasix) 80 mg IVPUSH NOW ONE Stop: 07/28/16 10:54 Last Admin: 07/28/16 11:41 Dose: 80 mg Furosemide (Lasix) 80 mg PO BIDDIURETIC [facility] Last Admin: 08/02/16 13:56 Dose: 80 mg Furosemide (Lasix) 80 mg IVPUSH ONETIME ONE Stop: 07/31/16 21:01 Last Admin: 07/31/16 22:16 Dose: Not Given Furosemide (Lasix) 80 mg IVPUSH NOW ONE Stop: 08/01/16 10:06 Last Admin: 08/01/16 10:05 Dose: 80 mg Furosemide (Lasix) 80 mg IVPUSH NOW ONE Stop: 08/01/16 10:16 Last Admin: 08/01/16 10:30 Dose: 80 mg Furosemide (Lasix) 80 mg IVPUSH BIDDIURETIC [facility] Last Admin: 08/04/16 08:37 Dose: 80 mg Gabapentin (Neurontin) 300 mg PO TID [facility] Last Admin: 07/31/16 05:44 Dose: 300 mg Gabapentin (Neurontin) 600 mg PO DAILY [facility] Clindamycin Phosphate 600 mg/ (Premix) 50 mls @ 100 mls/hr IV ONETIME ONE Stop: 07/27/16 21:41 Last Admin: 07/27/16 23:30 Dose: Not Given Vancomycin HCl 1 gm/ Sodium (Chloride) 250 mls @ 250 mls/hr IV ONETIME ONE Stop: 07/27/16 22:11 Last Infusion: 07/28/16 01:51 Dose: Infused Clindamycin Phosphate 600 mg/ (Premix) 50 mls @ 100 mls/hr IV Q6H [facility] Clindamycin Phosphate 600 mg/ (Premix) 50 mls @ 100 mls/hr IV Q8H [facility] Cefepime HCl 2 gm/ Premix 50 mls @ 100 mls/hr IV Q8H [facility] Last Admin: 07/27/16 23:31 Dose: Not Given Levofloxacin/Dextrose 750 mg/ (Premix) 150 mls @ 100 mls/hr IV ONETIME ONE Stop: 07/27/16 23:12 Last Admin: 07/28/16 01:36 Dose: 100 mls/hr Vancomycin HCl 1 gm/ Sodium (Chloride) 250 mls @ 166 mls/hr IV ONETIME ONE Stop: 07/28/16 00:30 Last Infusion: 07/28/16 01:52 Dose: Infused Vancomycin HCl 1.25 gm/ Sodium (Chloride) 250 mls @ 166.667 mls/hr IV Q24H [facility] Last Admin: 07/30/16 23:24 Dose: Not Given Cefepime HCl 2 gm/ Premix 50 mls @ 100 mls/hr IV Q8H [facility] Last Admin: 07/29/16 08:20 Dose: 100 mls/hr Cefepime HCl 2 gm/ Premix 50 mls @ 100 mls/hr IV Q12H [facility] Last Admin: 08/02/16 20:13 Dose: 100 mls/hr Sodium Chloride (Normal Saline) 2,390 mls @ 999 mls/hr IV ASDIRECTED ONE Stop: 07/30/16 00:02 Last Admin: 07/29/16 21:54 Dose: 999 mls/hr Vancomycin HCl 1 gm/ Sodium (Chloride) 250 mls @ 166.667 mls/hr IV Q36H [facility] Last Admin: 07/31/16 23:10 Dose: 166.667 mls/hr Levofloxacin/Dextrose 750 mg/ (Premix) 150 mls @ 100 mls/hr IV Q48H [facility] Last Admin: 08/02/16 10:51 Dose: 100 mls/hr Sodium Chloride (Normal Saline) 500 mls @ 500 mls/hr IV .BOLUS [facility] Last Admin: 07/31/16 15:19 Dose: 500 mls/hr Vancomycin HCl 1 gm/ Sodium (Chloride) 250 mls @ 166.667 mls/hr IV Q36H [facility] Last Admin: 08/03/16 05:49 Dose: Not Given Vancomycin HCl 1 gm/ Sodium (Chloride) 250 mls @ 166.667 mls/hr IV Q48H [facility] Clindamycin Phosphate 600 mg/ (Premix) 50 mls @ 100 mls/hr IV Q8HR [facility] Cefepime HCl 2 gm/ Premix 50 mls @ 100 mls/hr IV Q24H [facility] Last Admin: 08/03/16 20:31 Dose: 100 mls/hr Levofloxacin/Dextrose 500 mg/ (Premix) 100 mls @ 66.667 mls/hr IV Q48H [facility] Linezolid 600 mg/ Premix 300 mls @ 300 mls/hr IV Q12H [facility] Last Admin: 08/04/16 10:10 Dose: 300 mls/hr Insulin Aspart (Novolog) 0 unit SUBCUT TIDAC [facility] PRN Reason: Protocol Last Admin: 08/04/16 11:13 Dose: Not Given Irbesartan (Avapro) 75 mg PO DAILY [facility] Last Admin: 08/04/16 08:15 Dose: 75 mg Levofloxacin (Levaquin) 500 mg PO ONETIME ONE Stop: 07/27/16 21:13 Last Admin: 07/27/16 21:44 Dose: Not Given Lorazepam (Ativan) 0.5 mg IVPUSH Q4H PRN PRN Reason: Agitation Last Admin: 07/31/16 04:22 Dose: 0.5 mg Magnesium Citrate (Citrate Of Magnesia) 296 ml PO ONETIME ONE Stop: 08/02/16 10:31 Last Admin: 08/02/16 10:51 Dose: 296 ml Magnesium Hydroxide (Milk Of Magnesia) 30 ml PO Q24H PRN PRN Reason: Constipation Ondansetron HCl (Zofran) 4 mg IVPUSH Q4H PRN PRN Reason: Nausea Potassium Chloride (Klor-Con M20) 40 meq PO DAILY [facility] Last Admin: 08/04/16 08:16 Dose: 40 meq Pravastatin Sodium (Pravachol) 10 mg PO BEDTIME [facility] Last Admin: 08/03/16 20:57 Dose: Not Given Sodium Chloride (Saline Flush) 10 ml FLUSH ASDIRECTED PRN PRN Reason: Keep Vein Open Last Admin: 07/27/16 21:14 Dose: 10 ml Sodium Chloride (Saline Flush) 2.5 ml FLUSH ASDIRECTED PRN PRN Reason: Keep Vein Open Last Admin: 07/27/16 21:49 Dose: 2.5 ml Sodium Chloride (Saline Flush) 10 ml FLUSH ASDIRECTED PRN PRN Reason: Keep Vein Open Last Admin: 07/27/16 21:14 Dose: 10 ml Sodium Chloride (Saline Flush) 2.5 ml FLUSH ASDIRECTED PRN PRN Reason: Keep Vein Open Spironolactone (Aldactone) 25 mg PO DAILY [facility] Last Admin: 08/04/16 08:11 Dose: 25 mg Vancomycin HCl (Pharmacy To Dose - Vancomycin) 1 dose .XX ASDIRECTED [facility] Venlafaxine HCl (Effexor) 75 mg PO DAILY [facility] Last Admin: 08/04/16 08:14 Dose: 75 mg Warfarin Sodium (Coumadin Ask) 1 each PO ONETIME ONE Stop: 07/28/16 10:52 Last Admin: 07/28/16 18:16 Dose: Not Given Warfarin Sodium (Coumadin Ask) 1 each PO ONETIME [facility] Warfarin Sodium (Coumadin) 2 mg PO DAILY@1400 [facility] *Q Meaningful Use (DIS) - VTE *Q VTE Criteria *Q: - Stroke *Q Stroke Criteria *Q: - AMI *Q AMI Criteria *Q: <Ke Baker - Last Filed: 08/04/16 16:45> Discharge Summary - Patient Summary/Data Consults: Consultations 07/27/16 21:26 Consult to Speech Language Pathology [MEASUREMENT ANALYST Evaluation and Treatment] [CONS] Routine 08/02/16 12:51 Consult to Physician [CONS] Urgent 08/04/16 08:58 Consult to [Consult to Home Health] [CONS] Routine - Discharge Summary/Plan Comment Discharge Summary/Plan Comment: i was present with the resident during the history and exam. I discussed the case with the resident and agree with the findings and plan as documented in the resident's note - Patient Data Vitals - Most Recent: Last Vital Signs Temp 34.4 C L 08/04/16 12:00 Pulse 82 08/04/16 12:00 Resp 20 08/04/16 12:00 BP 112/44 L 08/04/16 12:00 Pulse Ox 98 08/04/16 12:00 I&O - Last 24 hours: Intake & Output 08/04/16 08/04/16 08/04/16 06:59 14:59 22:59 Intake Total 300 350 Balance 300 350 Lab Results - Last 24 hrs: Laboratory Results - last 24 hr 08/04/16 08/04/16 08/04/16 Range/Units 05:58 05:58 05:58 WBC 12.78 H (4.0-11.0) K/uL RBC 4.13 L (4.50-5.90) M/uL Hgb 12.2 L (13.0-17.0) g/dL Hct 39.9 (38.0-50.0) % MCV 96.6 (80.0-98.0) fL MCH 29.5 (27.0-32.0) pg MCHC 30.6 L (31.0-37.0) g/dL RDW Std Deviation 59.0 (28.0-62.0) fl RDW Coeff of [place] 17 H (11.0-15.0) % Plt Count 212 (150-400) K/uL MPV 9.80 (7.40-12.00) fL Add Manual Diff YES Neutrophils % (Manual) 63 (48.0-80.0) % Band Neutrophils % 5 % Lymphocytes % (Manual) 16 (16.0-40.0) % Monocytes % (Manual) 10 (0.0-15.0) % Eosinophils % (Manual) 5 (0.0-7.0) % Basophils % (Manual) 1 (0.0-1.5) % Nucleated RBC % 0.0 /100WBC Absolute Seg Neuts 8.1 Band Neutrophils # 0.6 Lymphocytes # (Manual) 2.0 Monocytes # (Manual) 1.3 Eosinophils # (Manual) 0.6 Basophils # (Manual) 0 Nucleated RBCs # 0 K/uL INR 3.25 H (0.86-1.11) Sodium 146 (136-146) mmol/L Potassium 4.9 (3.5-5.1) mmol/L Chloride 107 (98-110) mmol/L Carbon Dioxide 26 (21-31) mmol/L BUN 49 H (6.0-23.0) mg/dL Creatinine 3.7 H (0.6-1.5) mg/dL Est Cr Clr Drug Dosing 16.61 mL/min Estimated GFR (MDRD) 16.3 ml/min Glucose 130 H (60-110) mg/dL POC Glucose (60-110) mg/dL Calcium 9.8 (8.8-10.8) mg/dL Total Bilirubin 0.7 (0.1-1.5) mg/dL AST 16 (5-40) IU/L ALT 11 (8-54) IU/L Alkaline Phosphatase 111 (40-150) Total Protein 7.0 (6.0-8.0) g/dL Albumin 2.6 L (3.4-4.8) g/dL Globulin 4.4 H (2.0-3.5) g/dL Albumin/Globulin Ratio 0.6 L (1.3-2.8) 08/04/16 Range/Units 06:28 WBC (4.0-11.0) K/uL RBC (4.50-5.90) M/uL Hgb (13.0-17.0) g/dL Hct (38.0-50.0) % MCV (80.0-98.0) fL MCH (27.0-32.0) pg MCHC (31.0-37.0) g/dL RDW Std Deviation (28.0-62.0) fl RDW Coeff of [place] (11.0-15.0) % Plt Count (150-400) K/uL MPV (7.40-12.00) fL Add Manual Diff Neutrophils % (Manual) (48.0-80.0) % Band Neutrophils % % Lymphocytes % (Manual) (16.0-40.0) % Monocytes % (Manual) (0.0-15.0) % Eosinophils % (Manual) (0.0-7.0) % Basophils % (Manual) (0.0-1.5) % Nucleated RBC % /100WBC Absolute Seg Neuts Band Neutrophils # Lymphocytes # (Manual) Monocytes # (Manual) Eosinophils # (Manual) Basophils # (Manual) Nucleated RBCs # K/uL INR (0.86-1.11) Sodium (136-146) mmol/L Potassium (3.5-5.1) mmol/L Chloride (98-110) mmol/L Carbon Dioxide (21-31) mmol/L BUN (6.0-23.0) mg/dL Creatinine (0.6-1.5) mg/dL Est Cr Clr Drug Dosing mL/min Estimated GFR (MDRD) ml/min Glucose (60-110) mg/dL POC Glucose 140 H (60-110) mg/dL Calcium (8.8-10.8) mg/dL Total Bilirubin (0.1-1.5) mg/dL AST (5-40) IU/L ALT (8-54) IU/L Alkaline Phosphatase (40-150) Total Protein (6.0-8.0) g/dL Albumin (3.4-4.8) g/dL Globulin (2.0-3.5) g/dL Albumin/Globulin Ratio (1.3-2.8) Med Orders - Current: Current Medications Discontinued Medications Acetaminophen (Tylenol) 500 mg PO Q4H PRN PRN Reason: Pain/Fever Acetaminophen (Tylenol Extra Strength) 500 mg PO Q4H PRN PRN Reason: Pain/Fever Last Admin: 07/31/16 20:16 Dose: 500 mg Albuterol/Ipratropium (Duoneb 3.0-0.5 Mg/3 Ml) 3 ml NEB Q4HRRT [facility] Last Admin: 08/02/16 03:29 Dose: Not Given Albuterol/Ipratropium (Duoneb 3.0-0.5 Mg/3 Ml) 3 ml NEB Q6HRRT [facility] Last Admin: 08/04/16 11:19 Dose: 3 ml Allopurinol (Zyloprim) 100 mg PO DAILY [facility] Last Admin: 08/04/16 08:11 Dose: 100 mg Bisacodyl (Dulcolax) 10 mg RECTAL Q24H PRN PRN Reason: Constipation Bumetanide (Bumex) 1 mg IVPUSH ONETIME ONE Stop: 07/27/16 19:59 Last Admin: 07/27/16 21:11 Dose: 1 mg Carvedilol (Coreg) 6.25 mg PO BIDMEALS [facility] Last Admin: 07/31/16 08:54 Dose: 6.25 mg Carvedilol (Coreg) 3.125 mg PO BIDMEALS [facility] Last Admin: 08/04/16 08:13 Dose: 3.125 mg Digoxin (Lanoxin) 125 mcg PO DAILY [facility] Last Admin: 08/04/16 08:12 Dose: 125 mcg Famotidine (Pepcid) 20 mg PO BIDMEALS [facility] Last Admin: 08/04/16 08:13 Dose: 20 mg Furosemide (Lasix) 80 mg PO ONETIME ONE Stop: 07/27/16 21:21 Last Admin: 07/28/16 00:36 Dose: Not Given Furosemide (Lasix) 80 mg IVPUSH NOW ONE Stop: 07/28/16 10:54 Last Admin: 07/28/16 11:41 Dose: 80 mg Furosemide (Lasix) 80 mg PO BIDDIURETIC [facility] Last Admin: 08/02/16 13:56 Dose: 80 mg Furosemide (Lasix) 80 mg IVPUSH ONETIME ONE Stop: 07/31/16 21:01 Last Admin: 07/31/16 22:16 Dose: Not Given Furosemide (Lasix) 80 mg IVPUSH NOW ONE Stop: 08/01/16 10:06 Last Admin: 08/01/16 10:05 Dose: 80 mg Furosemide (Lasix) 80 mg IVPUSH NOW ONE Stop: 08/01/16 10:16 Last Admin: 08/01/16 10:30 Dose: 80 mg Furosemide (Lasix) 80 mg IVPUSH BIDDIURETIC [facility] Last Admin: 08/04/16 08:37 Dose: 80 mg Gabapentin (Neurontin) 300 mg PO TID [facility] Last Admin: 07/31/16 05:44 Dose: 300 mg Gabapentin (Neurontin) 600 mg PO DAILY [facility] Clindamycin Phosphate 600 mg/ (Premix) 50 mls @ 100 mls/hr IV ONETIME ONE Stop: 07/27/16 21:41 Last Admin: 07/27/16 23:30 Dose: Not Given Vancomycin HCl 1 gm/ Sodium (Chloride) 250 mls @ 250 mls/hr IV ONETIME ONE Stop: 07/27/16 22:11 Last Infusion: 07/28/16 01:51 Dose: Infused Clindamycin Phosphate 600 mg/ (Premix) 50 mls @ 100 mls/hr IV Q6H [facility] Clindamycin Phosphate 600 mg/ (Premix) 50 mls @ 100 mls/hr IV Q8H [facility] Cefepime HCl 2 gm/ Premix 50 mls @ 100 mls/hr IV Q8H [facility] Last Admin: 07/27/16 23:31 Dose: Not Given Levofloxacin/Dextrose 750 mg/ (Premix) 150 mls @ 100 mls/hr IV ONETIME ONE Stop: 07/27/16 23:12 Last Admin: 07/28/16 01:36 Dose: 100 mls/hr Vancomycin HCl 1 gm/ Sodium (Chloride) 250 mls @ 166 mls/hr IV ONETIME ONE Stop: 07/28/16 00:30 Last Infusion: 07/28/16 01:52 Dose: Infused Vancomycin HCl 1.25 gm/ Sodium (Chloride) 250 mls @ 166.667 mls/hr IV Q24H [facility] Last Admin: 07/30/16 23:24 Dose: Not Given Cefepime HCl 2 gm/ Premix 50 mls @ 100 mls/hr IV Q8H [facility] Last Admin: 07/29/16 08:20 Dose: 100 mls/hr Cefepime HCl 2 gm/ Premix 50 mls @ 100 mls/hr IV Q12H [facility] Last Admin: 08/02/16 20:13 Dose: 100 mls/hr Sodium Chloride (Normal Saline) 2,390 mls @ 999 mls/hr IV ASDIRECTED ONE Stop: 07/30/16 00:02 Last Admin: 07/29/16 21:54 Dose: 999 mls/hr Vancomycin HCl 1 gm/ Sodium (Chloride) 250 mls @ 166.667 mls/hr IV Q36H [facility] Last Admin: 07/31/16 23:10 Dose: 166.667 mls/hr Levofloxacin/Dextrose 750 mg/ (Premix) 150 mls @ 100 mls/hr IV Q48H [facility] Last Admin: 08/02/16 10:51 Dose: 100 mls/hr Sodium Chloride (Normal Saline) 500 mls @ 500 mls/hr IV .BOLUS [facility] Last Admin: 07/31/16 15:19 Dose: 500 mls/hr Vancomycin HCl 1 gm/ Sodium (Chloride) 250 mls @ 166.667 mls/hr IV Q36H [facility] Last Admin: 08/03/16 05:49 Dose: Not Given Vancomycin HCl 1 gm/ Sodium (Chloride) 250 mls @ 166.667 mls/hr IV Q48H [facility] Clindamycin Phosphate 600 mg/ (Premix) 50 mls @ 100 mls/hr IV Q8HR [facility] Cefepime HCl 2 gm/ Premix 50 mls @ 100 mls/hr IV Q24H [facility] Last Admin: 08/03/16 20:31 Dose: 100 mls/hr Levofloxacin/Dextrose 500 mg/ (Premix) 100 mls @ 66.667 mls/hr IV Q48H [facility] Linezolid 600 mg/ Premix 300 mls @ 300 mls/hr IV Q12H [facility] Last Admin: 08/04/16 10:10 Dose: 300 mls/hr Insulin Aspart (Novolog) 0 unit SUBCUT TIDAC [facility] PRN Reason: Protocol Last Admin: 08/04/16 11:13 Dose: Not Given Irbesartan (Avapro) 75 mg PO DAILY [facility] Last Admin: 08/04/16 08:15 Dose: 75 mg Levofloxacin (Levaquin) 500 mg PO ONETIME ONE Stop: 07/27/16 21:13 Last Admin: 07/27/16 21:44 Dose: Not Given Lorazepam (Ativan) 0.5 mg IVPUSH Q4H PRN PRN Reason: Agitation Last Admin: 07/31/16 04:22 Dose: 0.5 mg Magnesium Citrate (Citrate Of Magnesia) 296 ml PO ONETIME ONE Stop: 08/02/16 10:31 Last Admin: 08/02/16 10:51 Dose: 296 ml Magnesium Hydroxide (Milk Of Magnesia) 30 ml PO Q24H PRN PRN Reason: Constipation Ondansetron HCl (Zofran) 4 mg IVPUSH Q4H PRN PRN Reason: Nausea Potassium Chloride (Klor-Con M20) 40 meq PO DAILY [facility] Last Admin: 08/04/16 08:16 Dose: 40 meq Pravastatin Sodium (Pravachol) 10 mg PO BEDTIME [facility] Last Admin: 08/03/16 20:57 Dose: Not Given Sodium Chloride (Saline Flush) 10 ml FLUSH ASDIRECTED PRN PRN Reason: Keep Vein Open Last Admin: 07/27/16 21:14 Dose: 10 ml Sodium Chloride (Saline Flush) 2.5 ml FLUSH ASDIRECTED PRN PRN Reason: Keep Vein Open Last Admin: 07/27/16 21:49 Dose: 2.5 ml Sodium Chloride (Saline Flush) 10 ml FLUSH ASDIRECTED PRN PRN Reason: Keep Vein Open Last Admin: 07/27/16 21:14 Dose: 10 ml Sodium Chloride (Saline Flush) 2.5 ml FLUSH ASDIRECTED PRN PRN Reason: Keep Vein Open Spironolactone (Aldactone) 25 mg PO DAILY [facility] Last Admin: 08/04/16 08:11 Dose: 25 mg Vancomycin HCl (Pharmacy To Dose - Vancomycin) 1 dose .XX ASDIRECTED [facility] Venlafaxine HCl (Effexor) 75 mg PO DAILY [facility] Last Admin: 08/04/16 08:14 Dose: 75 mg Warfarin Sodium (Coumadin Ask) 1 each PO ONETIME ONE Stop: 07/28/16 10:52 Last Admin: 07/28/16 18:16 Dose: Not Given Warfarin Sodium (Coumadin Ask) 1 each PO ONETIME [facility] Warfarin Sodium (Coumadin) 2 mg PO DAILY@1400 JABIER *Q Meaningful Use (DIS) - VTE *Q VTE Criteria *Q: - Stroke *Q Stroke Criteria *Q: - AMI *Q AMI Criteria *Q:
== END 2016-08-04 13:30 | DRG 178 ==
LOC: MW.ED 19:10 → MW.MS 21:24
PROVIDERS: ADMIT Internal Medicine; ATTEND Internal Medicine
DX: J18.9 Pneumonia, unspecified organism (principal); J69.0 Pneumonitis due to inhalation of food and vomit; I50.9 Heart failure, unspecified; F03.90 Unspecified dementia, unspecified severity, without behavioral disturbance, psychotic disturbance, mood disturbance, and anxiety; I50.22 Chronic systolic (congestive) heart failure; I25.2 Old myocardial infarction; A52.16 Charcot's arthropathy (tabetic); N39.0 Urinary tract infection, site not specified; J02.9 Acute pharyngitis, unspecified; R11.10 Vomiting, unspecified; R19.7 Diarrhea, unspecified; M54.9 Dorsalgia, unspecified; Z68.41 Body mass index [BMI] 40.0-44.9, adult; E11.9 Type 2 diabetes mellitus without complications; I48.91 Unspecified atrial fibrillation; N18.9 Chronic kidney disease, unspecified; Z99.81 Dependence on supplemental oxygen; I48.2 Chronic atrial fibrillation; I25.10 Atherosclerotic heart disease of native coronary artery without angina pectoris; J44.9 Chronic obstructive pulmonary disease, unspecified; E11.628 Type 2 diabetes mellitus with other skin complications; R21 Rash and other nonspecific skin eruption; R41.0 Disorientation, unspecified; E66.9 Obesity, unspecified; S92.901A Unspecified fracture of right foot, initial encounter for closed fracture; Z79.4 Long term (current) use of insulin; Z79.01 Long term (current) use of anticoagulants; Z86.73 Personal history of transient ischemic attack (TIA), and cerebral infarction without residual deficits; Z95.5 Presence of coronary angioplasty implant and graft; Z79.899 Other long term (current) drug therapy; Z88.8 Allergy status to other drugs, medicaments and biological substances; Z87.891 Personal history of nicotine dependence
CPT/HCPCS: 36415; 36600; 71010; 71010-26; 74230; 74230-26; 80048; 80053; 80162; 80202; 81001; 82803; 82962; 83605; 83880; 84484; 85025; 85610; 87040; 87070; 87077; 87086; 87186; 87205; 92610-GN; 92611-GN; 93005; 93306; 94640; 94664; 96374; 96375; 99283; 99285-25; A9270-GY; J0692; J1815-GY; J1940; J1956; J2020; J2060; J3370; J7040; J7050